=== PATIENT | female | born 1935 | race Caucasian/White ===

== ENCOUNTER 2021-01-23 11:18 | Inpatient (IN) | payer MEDICARE, BC ==
--- NOTE | 2021-01-23 11:58 | ED ---
General Adult HPI - General Chief complaint: Shortness of Breath Stated complaint: Altered,COVID + Time Seen by Provider: 01/23/21 11:33 Source: patient, EMS, RN notes reviewed, old records reviewed Mode of arrival: EMS Limitations: altered mental status - History of Present Illness Initial comments: 85-year-old female presenting from [facility] with increased work of breathing. Patient was diagnosed with coronavirus on January 18. She had gone to an outside hospital for evaluation of confusion. She was noted to be coronavirus positive at that time. She had an inpatient stay and was discharged to the [facility]. She's been at the [facility] for approximately 24 hours according to EMS history. She's had increased work of breathing over that time. No history is able to be obtained from the patient herself. She is lethargic in moderate respiratory distress. - Related Data Home Medications Medication Instructions Recorded Confirmed Allopurinol [Zyloprim] 100 mg PO DAILY 01/23/21 01/23/21 Apixaban [Eliquis] 2.5 mg PO BID@0900,1700 01/23/21 01/23/21 Aspirin EC [Ecotrin Low Dose] 81 mg PO DAILY 01/23/21 01/23/21 Atorvastatin [Lipitor] 40 mg PO HS 01/23/21 01/23/21 Carvedilol [Coreg] 25 mg PO BID@0900,1700 01/23/21 01/23/21 Insulin Detemir [Levemir Flextouch] 40 units SQ HS 01/23/21 01/23/21 Insulin Lispro [humaLOG Kwikpen] 12 unit SQ AC-BRKFST@0800 01/23/21 01/23/21 Insulin Lispro [humaLOG Kwikpen] 14 unit SQ AC-BID@1200,1700 01/23/21 01/23/21 Ipratropium [place] [Atrovent Hfa] 2 puff INHALATION RT-Q6H PRN 01/23/21 01/23/21 Isosorbide Dinitrate 30 mg PO DAILY 01/23/21 01/23/21 Levothyroxine Sodium [Synthroid] 50 mcg PO DAILY@0600 01/23/21 01/23/21 Mirtazapine [Remeron] 15 mg PO HS 01/23/21 01/23/21 Spironolactone [Aldactone] 25 mg PO DAILY 01/23/21 01/23/21 Torsemide [Demadex] 40 mg PO SUMOWEFR@0900 01/23/21 01/23/21 Torsemide [Demadex] 60 mg PO TUTHSA@0900 01/23/21 01/23/21 amLODIPine [Norvasc] 5 mg PO DAILY 01/23/21 01/23/21 Allergies Allergy/AdvReac Type Severity Reaction Status Date / Time Sulfa (Sulfonamide Allergy Unknown Verified 01/23/21 11:53 Antibiotics) Review of Systems ROS Statement: Those systems with pertinent positive or pertinent negative responses have been documented in the HPI. ROS Other: All systems not noted in ROS Statement are negative. Past Medical History Past Medical History: Diabetes Mellitus, Hyperlipidemia, Hypertension, Renal Disease Additional Past Medical History / Comment(s): cad, esrd History of Any Multi-Drug Resistant Organisms: Unobtainable Past Psychological History: Unable to Obtain Smoking Status: Unknown if ever smoked Past Alcohol Use History: Unable to Obtain Past Drug Use History: Unable to Obtain General Exam Limitations: altered mental status General appearance: lethargic, in distress Head exam: Present: atraumatic, normocephalic Eye exam: Present: normal appearance, PERRL ENT exam: Present: normal exam Neck exam: Present: normal inspection. Absent: tenderness, meningismus Respiratory exam: Present: respiratory distress, wheezes, rales, accessory muscle use Cardiovascular Exam: Present: regular rate, normal rhythm GI/Abdominal exam: Present: soft, distended. Absent: tenderness, guarding, rebound Extremities exam: Present: normal inspection, normal capillary refill. Absent: pedal edema Neurological exam: Absent: alert, oriented X3 Psychiatric exam: Present: normal affect, normal mood Skin exam: Present: warm, dry, intact. Absent: cyanosis, diaphoretic Course Vital Signs 01/23/21 01/23/21 01/23/21 11:21 11:32 11:41 Temperature 98.3 F Pulse Rate 66 71 Respiratory 24 26 H 30 H Rate Blood Pressure 124/53 O2 Sat by Pulse 95 92 L Oximetry 01/23/21 01/23/21 12:00 12:30 Temperature Pulse Rate 69 70 Respiratory 26 H 30 H Rate Blood Pressure 122/60 143/93 O2 Sat by Pulse 94 L 95 Oximetry - Reevaluation(s) Reevaluation #1: 01/23/21 13:20 records from outside hospital have been requested. EKG Findings - EKG Comments: EKG Findings:: Normal sinus rhythm tremor artifact in the precordial leads, do not see any ST segment elevation, rate of 71, PA interval 144, QRS duration 70, QTC 389 Medical Decision Making - Medical Decision Making 85-year-old female presenting for evaluation of worsening dyspnea. [facility] was [facility]. She had a stay at an outside hospital with coronavirus. The details of this are completely well understood and records are being obtained. Chest x-ray repeated today showing a bilateral pneumonia. She has a normal CBC, CMP showing creatinine 2.2, she does have significantly elevated inflammatory markers including d-dimer, LDH, and CRP. She given IV Decadron in the emergency department. She has been admitted to internal medicine with pulmonology on consult. - Lab Data Result diagrams: 01/23/21 11:43 01/23/21 11:43 Lab Results 01/23/21 01/23/21 01/23/21 Range/Units 11:43 11:43 11:43 WBC 5.4 (3.8-10.6) k/uL RBC 5.14 (3.80-5.40) m/uL Hgb 15.5 (11.4-16.0) gm/dL Hct 48.5 H (34.0-46.0) % MCV 94.2 (80.0-100.0) fL MCH 30.2 (25.0-35.0) pg MCHC 32.1 (31.0-37.0) g/dL RDW 15.8 H (11.5-15.5) % Plt Count 185 (150-450) k/uL MPV 8.6 Neutrophils % 84 % Lymphocytes % 10 % Monocytes % 4 % Eosinophils % 0 % Basophils % 1 % Neutrophils # 4.6 (1.3-7.7) k/uL Lymphocytes # 0.5 L (1.0-4.8) k/uL Monocytes # 0.2 (0-1.0) k/uL Eosinophils # 0.0 (0-0.7) k/uL Basophils # 0.0 (0-0.2) k/uL PT 10.6 (9.0-12.0) sec INR 1.0 (<1.2) APTT 24.4 (22.0-30.0) sec D-Dimer 2.10 H (<0.60) mg/L FEU Sodium 140 (137-145) mmol/L Potassium 4.9 (3.5-5.1) mmol/L Chloride 111 H (98-107) mmol/L Carbon Dioxide 21 L (22-30) mmol/L Anion Gap 8 mmol/L BUN 53 H (7-17) mg/dL Creatinine 2.20 H (0.52-1.04) mg/dL Est GFR (CKD-EPI)AfAm 23 (>60 ml/min/1.73 sqM) Est GFR (CKD-EPI)NonAf 20 (>60 ml/min/1.73 sqM) Glucose 95 (74-99) mg/dL Plasma Lactic Acid Tino (0.7-2.0) mmol/L Calcium 10.7 H (8.4-10.2) mg/dL Magnesium 2.6 H (1.6-2.3) mg/dL Total Bilirubin 0.5 (0.2-1.3) mg/dL AST 45 H (14-36) U/L ALT 22 (4-34) U/L Alkaline Phosphatase 87 (38-126) U/L Lactate Dehydrogenase 1076 H (313-618) U/L C-Reactive Protein 20.8 H (<1.0) mg/dL Total Protein 5.6 L (6.3-8.2) g/dL Albumin 3.1 L (3.5-5.0) g/dL 01/23/21 Range/Units 11:43 WBC (3.8-10.6) k/uL RBC (3.80-5.40) m/uL Hgb (11.4-16.0) gm/dL Hct (34.0-46.0) % MCV (80.0-100.0) fL MCH (25.0-35.0) pg MCHC (31.0-37.0) g/dL RDW (11.5-15.5) % Plt Count (150-450) k/uL MPV Neutrophils % % Lymphocytes % % Monocytes % % Eosinophils % % Basophils % % Neutrophils # (1.3-7.7) k/uL Lymphocytes # (1.0-4.8) k/uL Monocytes # (0-1.0) k/uL Eosinophils # (0-0.7) k/uL Basophils # (0-0.2) k/uL PT (9.0-12.0) sec INR (<1.2) APTT (22.0-30.0) sec D-Dimer (<0.60) mg/L FEU Sodium (137-145) mmol/L Potassium (3.5-5.1) mmol/L Chloride (98-107) mmol/L Carbon Dioxide (22-30) mmol/L Anion Gap mmol/L BUN (7-17) mg/dL Creatinine (0.52-1.04) mg/dL Est GFR (CKD-EPI)AfAm (>60 ml/min/1.73 sqM) Est GFR (CKD-EPI)NonAf (>60 ml/min/1.73 sqM) Glucose (74-99) mg/dL Plasma Lactic Acid Tino 1.2 (0.7-2.0) mmol/L Calcium (8.4-10.2) mg/dL Magnesium (1.6-2.3) mg/dL Total Bilirubin (0.2-1.3) mg/dL AST (14-36) U/L ALT (4-34) U/L Alkaline Phosphatase (38-126) U/L Lactate Dehydrogenase (313-618) U/L C-Reactive Protein (<1.0) mg/dL Total Protein (6.3-8.2) g/dL Albumin (3.5-5.0) g/dL Critical Care Time Critical Care Time: Yes Total Critical Care Time: 35 Disposition Clinical Impression: Pneumonia due to COVID-19 virus, Hypoxia Disposition: ADMITTED IP TO THIS [facility] Condition: Serious Is patient prescribed a controlled substance at d/c from ED?: No Referrals: Vee Mack MD [Primary Care Provider] - 1-2 days Decision to Admit Reason: Admit from EC Decision Date: 01/23/21 Decision Time: 13:35
[2021-01-23 12:08] LABS: Basophils % (A) 1 %; Eosinophils % (A) 0 %; HCT 48.5 % (34.0-46.0); HGB 15.5 gm/dL (11.4-16.0); Lymphocytes # (A) 0.5 k/uL (1.0-4.8); Lymphocytes % (A) 10 %; MCH 30.2 pg (25.0-35.0); MCHC 32.1 g/dL (31.0-37.0); MCV 94.2 fL (80.0-100.0); Mean Platelet Volume 8.6; Monocytes # (A) 0.2 k/uL (0-1.0); Monocytes % (A) 4 %; Neutrophils # (A) 4.6 k/uL (1.3-7.7); Neutrophils % (A) 84 %; Platelet Count 185 k/uL (150-450); RBC 5.14 m/uL (3.80-5.40); RDW 15.8 % (11.5-15.5); WBC 5.4 k/uL (3.8-10.6)
--- NOTE | 2021-01-23 12:12 | XR ---
EXAMINATION TYPE: XR chest 1V portable DATE OF EXAM: 01/23/2021 COMPARISON: NONE HISTORY: Unresponsive. Shortness of breath. TECHNIQUE: Single frontal view of the chest is obtained. FINDINGS: Cardiomegaly is present with atherosclerotic aorta. The osseous structures are demineral ized. There are chronic parenchymal changes bilaterally with increased opacities in the lower lungs r ight more prominent than left. No pleural effusion or pneumothorax noted bilaterally. IMPRESSION: Cardiomegaly and chronic parenchymal changes with right greater than left multifocal opa cities mid to lower lung suggesting covid-19 infection, correlate clinically.
[2021-01-23 12:17] LABS: Albumin 3.1 g/dL (3.5-5.0); Calcium 10.7 mg/dL (8.4-10.2); Magnesium 2.6 mg/dL (1.6-2.3); Potassium 4.9 mmol/L (3.5-5.1); Total Bilirubin 0.5 mg/dL (0.2-1.3); Total Protein 5.6 g/dL (6.3-8.2)
[2021-01-23 12:26] LABS: Partial Thromboplastin Time 24.4 sec (22.0-30.0); Prothrombin Time 10.6 sec (9.0-12.0)
[2021-01-23 12:36] LABS: D-Dimer 2.1 mg/L FEU (<0.60)
[2021-01-23 12:50] LABS: C Reactive Protein 20.8 mg/dL (<1.0)
[2021-01-23] MEDS ORDERED: DEXAMETHASONE SOD PHOSPHATE 10 MG/ML 1 ML VIAL IV STA (13:31)
[2021-01-23] MEDS ORDERED: NALOXONE 0.4 MG/ML 1 ML VIAL IV PRN (13:31)
[2021-01-23] MEDS ORDERED: ACETAMINOPHEN TAB 325 MG TAB PO PRN ×2 (13:31→16:05)
[2021-01-23] MEDS: SODIUM CHLORIDE 0.9% 1,000 ML IV SCH (13:48)
[2021-01-23] MEDS ORDERED: SODIUM CHLORIDE 0.9% 500 ML 500 ML IV ONE (13:49)
[2021-01-23] MEDS ORDERED: ENOXAPARIN 40 MG/0.4 ML SYRINGE SQ STA (13:53)
[2021-01-23] MEDS ORDERED: ONDANSETRON 4 MG/2 ML VIAL IVP PRN (16:05)
--- NOTE | 2021-01-23 16:43 | P.HPIM ---
History of Present Illness H&P Date: 01/23/21 85 years old female patient of Dr. Mack past medical history of hypertension hyperlipidemia coronary artery disease, chronic kidney disease unknown stage presents with increasing confusion and hypoxia from [facility] on the [place]. Apparently patient was brought to the ER at [facility] on 01/17 for worsening confusion and flulike symptoms. Patient went home as was not able to be seen for her symptoms soon enough and called her primary care physician who ordered a CAT scan of the head. CAT scan of the head was negative and patient was brought back to the ER on 01/18 and was treated for COVID pneumonia. Patient was discharged to [facility] [place] and was brought back to the ER 24- hour later for worsening shortness of breath.on evaluation in the ER patient is short of breath requiring 6 L of oxygen unable to answer any questions very drowsy on evaluation. She opens her eyes to question only to go back to sleep in a short while. Patient withdraws to pain but does not follow commands. No family member is present at bedside. Son was called multiple times but was unable to be reached. History is obtained through patient's and documentation by the ER. She has never been admitted in this hospital. Evaluation Suggests Hemoglobin Is 15.5 Platelet 185 INR 1 D-Dimer 2.1 Sodium 140 Potassium 4.9 Chloride 111 Bicarb 20 1B UN 53 Creatinine 2.2 Calcium Is 10.7 Magnesium 2.6 Lactic Acid 1.6 Alkaline Phosphatase 87, LDH 1076 CRP 20.8 Output (3.1. Pro- Calcitonin Is Pending. ProBNP Is Pending. Chest X-Ray suggested cardiomegaly and chronic parenchymal changes with right greater than left multifocal opacities metoprolol and suggestive of COVID-[address] head ordered to rule out acute stroke. Patient's home medication reconciled will hold torsemide, spironolactone. Nephrology course consult for possible end-stage renal disease. Unclear if patient is on him and on dialysis. Ultrasound of the renal obtained. neurology in consult for acute encephalopathy likely secondary to Covid. Patient does have underlying dementia?. We'll start patient on dexamethasone 6 mg IV every 12 hours. Start her on vitamin C, vitamin D and zinc. Pulmonary consulted for Covid pneumonia. Review of Systems ROS unobtainable: due to mental status Past Medical History Past Medical History: Diabetes Mellitus, Hyperlipidemia, Hypertension, Renal Disease Additional Past Medical History / Comment(s): cad, esrd History of Any Multi-Drug Resistant Organisms: Unobtainable Past Psychological History: Unable to Obtain Smoking Status: Unknown if ever smoked Past Alcohol Use History: Unable to Obtain Past Drug Use History: Unable to Obtain Medications and Allergies Home Medications Medication Instructions Recorded Confirmed Type Allopurinol [Zyloprim] 100 mg PO DAILY 01/23/21 01/23/21 History Apixaban [Eliquis] 2.5 mg PO BID@0900,1700 01/23/21 01/23/21 History Aspirin EC [Ecotrin Low Dose] 81 mg PO DAILY 01/23/21 01/23/21 History Atorvastatin [Lipitor] 40 mg PO HS 01/23/21 01/23/21 History Carvedilol [Coreg] 25 mg PO BID@0900,1700 01/23/21 01/23/21 History Insulin Detemir [Levemir Flextouch] 40 units SQ HS 01/23/21 01/23/21 History Insulin Lispro [humaLOG Kwikpen] 12 unit SQ AC-BRKFST@0800 01/23/21 01/23/21 History Insulin Lispro [humaLOG Kwikpen] 14 unit SQ AC-BID@1200,1700 01/23/21 01/23/21 History Ipratropium [place] [Atrovent Hfa] 2 puff INHALATION RT-Q6H PRN 01/23/21 01/23/21 History Isosorbide Dinitrate 30 mg PO DAILY 01/23/21 01/23/21 History Levothyroxine Sodium [Synthroid] 50 mcg PO DAILY@0600 01/23/21 01/23/21 History Mirtazapine [Remeron] 15 mg PO HS 01/23/21 01/23/21 History Spironolactone [Aldactone] 25 mg PO DAILY 01/23/21 01/23/21 History Torsemide [Demadex] 40 mg PO SUMOWEFR@0900 01/23/21 01/23/21 History Torsemide [Demadex] 60 mg PO TUTHSA@0900 01/23/21 01/23/21 History amLODIPine [Norvasc] 5 mg PO DAILY 01/23/21 01/23/21 History Allergies Allergy/AdvReac Type Severity Reaction Status Date / Time Sulfa (Sulfonamide Allergy Unknown Verified 01/23/21 11:53 Antibiotics) Physical Exam Vitals: Vital Signs Temp Pulse Resp BP Pulse Ox 01/23/21 13:53 99.5 F 70 26 H 115/73 94 L 01/23/21 12:30 70 30 H 143/93 95 01/23/21 12:00 69 26 H 122/60 94 L 01/23/21 11:41 71 30 H 92 L 01/23/21 11:32 26 H 01/23/21 11:21 98.3 F 66 24 124/53 95 Intake and Output 01/23/21 01/23/21 01/23/21 06:59 14:59 22:59 Other: Weight 99.79 kg - Constitutional General appearance: Drowsy, opens eyes to command - EENT Eyes: anicteric sclerae, PERRLA, normal appearance ENT: hearing grossly normal - Neck Neck: no lymphadenopathy, normal ROM, no rigidity, - Respiratory Respiratory: bilateral: Decreased air entry appears diminished, - Cardiovascular Rhythm: regular Heart sounds: normal: S1, S2 Abnormal Heart Sounds: no systolic murmur, no diastolic murmur - Gastrointestinal General gastrointestinal: normal bowel sounds, soft nontender - Integumentary Integumentary: no rash - Neurologic Neurologic: Pupils are equal and reactive to light, withdraws to painful stimuli, sensory deficit could not be obtained generalized weakness - Musculoskeletal Musculoskeletal: gait not assessed, strength decreased bilaterally in all extr emities - Psychiatric Psychiatric: Drowsy and not able to answer any questions Results CBC & Chem 7: 01/23/21 11:43 01/23/21 11:43 Labs: Abnormal Lab Results - Last 24 Hours (Table) 01/23/21 01/23/21 01/23/21 Range/Units 11:43 11:43 11:43 Hct 48.5 H (34.0-46.0) % RDW 15.8 H (11.5-15.5) % Lymphocytes # 0.5 L (1.0-4.8) k/uL D-Dimer 2.10 H (<0.60) mg/L FEU Chloride 111 H (98-107) mmol/L Carbon Dioxide 21 L (22-30) mmol/L BUN 53 H (7-17) mg/dL Creatinine 2.20 H (0.52-1.04) mg/dL Calcium 10.7 H (8.4-10.2) mg/dL Magnesium 2.6 H (1.6-2.3) mg/dL AST 45 H (14-36) U/L Lactate Dehydrogenase 1076 H (313-618) U/L C-Reactive Protein 20.8 H (<1.0) mg/dL Total Protein 5.6 L (6.3-8.2) g/dL Albumin 3.1 L (3.5-5.0) g/dL Thrombosis Risk Factor Assmnt - DVT/VTE Prophylaxis DVT/VTE Prophylaxis: Pharmacologic Prophylaxis ordered Assessment and Plan Plan: #1 acute toxic metabolic encephalopathy likely secondary to correlate. Unknown if patient has underlying dementia. No family available to answer questions. Keep patient on fall precaution and seizure precautions. Neurology consulted. Start CT head obtained. CT was also obtained on 01/17 at the hospital has been was negative for any acute changes #2 acute hypoxic respiratory failure secondary to Covid pneumonia. Chest x-ray suggestive of bilateral infiltrates. Pro Air as needed for shortness of breath. Pulmonary consulted. Mucinex as needed. Sputum culture. Dexamethasone 6 mg IV every 12 hours. Vitamin C, vitamin D and zinc. Inflammation markers are elevated. #3 acute kidney injury over chronic kidney disease stage unknown. Patient has no prior baseline creatinine. Ultrasound kidney to be obtained. Nephrology consult placed. Continue IV fluids at 75 mL per hour. Hold torsemide hold Aldactone. #4 coronary artery disease unclear if patient had stents in the past. Continue atorvastatin, isosorbide dinitrate continue Coreg 25 mg twice a day #5 hypothyroidism continue levothyroxine 50 g daily TSH ordered #6 type 2 diabetes continue Levemir 40 units subcu at bedtime. Hold insulin at mealtime. Continue with insulin sliding scale #7 hyperlipidemia continue atorvastatin 40 mg by mouth daily #8 hypertension continue amlodipine 5 mg by mouth daily #9. Gout allopurinol 100 mg by mouth daily #10 atrial fibrillation Eliquis 2. 5 mg twice a day continue Coreg 25 twice a day #11 CODE STATUS multiple calls were made to the family but nobody responded. [facility] was called to find out more information on the patient nobody available to receive the call. Left message with the son to call back with information on patient's medical history. Another attempt will be made tomorrow. Will keep patient is full code until otherwise stated. #12 GI prophylaxis with Pepcid 20 mg IV twice a day #13 DVT prophylaxis with eliquis as 2.5 twice a day #14 disposition patient needed placement with initial inpatient nights for stabilization
--- NOTE | 2021-01-23 17:03 | CT ---
EXAMINATION TYPE: CT brain wo con DATE OF EXAM: 01/23/2021 COMPARISON: 10/17/2011 HISTORY: ams, covid + CT DLP: 1100.4 mGycm Automated exposure control for dose reduction was used. Images were obtained of the brain without contrast. There is cerebral atrophy. There is no mass effect nor midline shift. There is no sign of intracrania l hemorrhage. There is opacification right maxillary sinus with mixed attenuation. This probably rela raffi to chronic sinusitis. No focal bone destruction seen. Skull base is intact. IMPRESSION: Cerebral atrophy. No acute intracranial abnormality. Right maxillary sinusitis. This appears new comp ared to old exam. Atrophy unchanged.
[2021-01-23] MEDS ORDERED: REMDESIVIR 200 MG in SODIUM CHLORIDE 0.9% 250 ML IVPB ONE (18:00)
[2021-01-23] MEDS: INSULIN ASPART (NovoLOG) 100 UNIT/ML VIAL SQ SCH ×2 (18:31→21:21)
[2021-01-23 18:32] LABS: Glucose,Whole Blood 85 mg/dL (75-99)
[2021-01-23] MEDS: carvediloL 12.5 MG TAB PO SCH (18:48)
[2021-01-23] MEDS: APIXABAN 2.5 MG TABLET PO SCH (18:48)
[2021-01-23 18:51] LABS: Ferritin 2729.1 ng/mL (10.0-291.0)
--- NOTE | 2021-01-23 19:03 | US ---
EXAMINATION TYPE: US venous doppler duplex [facility] DATE OF EXAM: 01/23/2021 6:46 PM COMPARISON: NONE CLINICAL HISTORY: r/o DVT. Elevated D dimer per patient's EC RN. SIDE PERFORMED: Bilateral limited LEV Duplex was performed as patient is positioned on right hip/leg and is intolerant of probe compression. TECHNIQUE: The lower extremity deep venous system is examined utilizing real time linear array sonog mirian with graded compression, doppler sonography and color-flow sonography. VESSELS IMAGED: Common Femoral Vein Deep Femoral Vein Greater Saphenous Vein * Femoral Vein Popliteal Vein Small Saphenous Vein * Proximal Calf Veins (* superficial vessels) Right Leg: Negative for DVT as was able to assess veins due to large panus over right groin and jenny ent right posterior oblique. Left Leg: Stuck venous valves with wall echoes are noted at upper calf veins; otherwise, is negative for DVT as technologist was able to assess. IMPRESSION: No deep vein thrombosis seen in both legs. Limited exam.
[2021-01-23] MEDS ORDERED: INSULIN DETEMIR (LEVEMIR) 100 UNIT/ML SYR SQ SCH (21:00)
[2021-01-23 21:17] LABS: Glucose,Whole Blood 81 mg/dL (75-99)
[2021-01-23] MEDS ORDERED: MORPHINE SULFATE 2 MG/ML SYRINGE IVP STA (21:19)
[2021-01-23] MEDS: guaiFENesin 600 MG TABLET.ER PO SCH (21:20)
[2021-01-23] MEDS: ATORVASTATIN 40 MG TAB PO SCH (21:20)
[2021-01-23] MEDS: DEXAMETHASONE SOD PHOSPHATE 10 MG/ML 1 ML VIAL IV SCH (21:41)
--- NOTE | 2021-01-24 00:01 | US ---
EXAMINATION TYPE: US renals and bladder DATE OF EXAM: 01/23/2021 COMPARISON: CT, CLINICAL HISTORY: DANIEL . Right adrenal mass per CT; renal stones per prior CT; EC patient with COVID a nd unresponsive to questions; EXAM MEASUREMENTS: Right Kidney: 11.3 x 6.8 z 5.7 cm Left Kidney: 11.4 x 4.2 x 4.7 cm Post Void Residual Volume: not assessed on EC patient US exam is technically limited as patient is unresponsive to positional changes/ inspiration and hold maneuver for US images Right Kidney: lobular cortex ; hypoechoic lobular area seen superiorly = 2.5 x 2.2 x 2.1cm Left Kidney: lobular, irregular cortex; superior pole calcifications seen = 0.8 x 0.6 x 0.5cm Bladder: well distended Bilateral Jets seen: not able to assess with body motion from respirations IMPRESSION: There is bilateral renal atrophy. Non obstructing calculus upper pole left kidney. No evidence of a r enal mass. No hydronephrosis. Exam limited. No evidence of a bladder mass.
[2021-01-24 04:20] LABS: Glucose,Whole Blood 102 mg/dL (75-99)
[2021-01-24] MEDS: SODIUM CHLORIDE 0.9% 1,000 ML IV SCH (05:00)
[2021-01-24 05:01] LABS: Albumin 2.6 g/dL (3.5-5.0); Calcium 10.2 mg/dL (8.4-10.2); Potassium 5.1 mmol/L (3.5-5.1); Total Bilirubin 0.4 mg/dL (0.2-1.3)
[2021-01-24 05:12] LABS: C Reactive Protein 18.9 mg/dL (<1.0)
[2021-01-24 06:07] LABS: Basophils % (A) 1 %; Eosinophils % (A) 0 %; HCT 46.7 % (34.0-46.0); HGB 14.3 gm/dL (11.4-16.0); Hypochromasia Slight; Lymphocytes # (A) 0.3 k/uL (1.0-4.8); Lymphocytes % (A) 8 %; MCH 29.5 pg (25.0-35.0); MCHC 30.6 g/dL (31.0-37.0); MCV 96.5 fL (80.0-100.0); Mean Platelet Volume 9.2; Monocytes # (A) 0.2 k/uL (0-1.0); Monocytes % (A) 4 %; Neutrophils # (A) 3.5 k/uL (1.3-7.7); Neutrophils % (A) 84 %; Platelet Count 189 k/uL (150-450); RBC 4.84 m/uL (3.80-5.40); RDW 15.8 % (11.5-15.5); WBC 4.2 k/uL (3.8-10.6)
[2021-01-24] MEDS: LEVOTHYROXINE 50 MCG TAB PO SCH (06:21)
--- NOTE | 2021-01-24 06:38 | XR ---
EXAMINATION TYPE: XR chest 1V portable DATE OF EXAM: 01/24/2021 CLINICAL HISTORY: Difficulty breathing progress study. TECHNIQUE: Single AP portable frontal view of the chest is obtained. COMPARISON: Chest x-ray from one day earlier FINDINGS: Cardiomegaly is redemonstrated with atherosclerotic aorta. The osseous structures remain somewhat demineralized. There are chronic parenchymal changes bilaterally with increased multifocal and confluent opacities in the mid to lower lungs, right more prominent than left redemonstrated. IMPRESSION: Cardiomegaly and chronic parenchymal changes with right greater than left multifocal and confluent opacities mid to lower lung suggesting covid-19 infection redemonstrated.No significant ch juan francisco from one day earlier.
[2021-01-24] MEDS ORDERED: ENOXAPARIN 30 MG/0.3 ML SYRINGE SQ SCH (09:00)
[2021-01-24] MEDS ORDERED: allopurinoL 100 MG TAB PO SCH (09:00)
[2021-01-24] MEDS ORDERED: SPIRONOLACTONE 25 MG TAB PO SCH (09:00)
[2021-01-24] MEDS: INSULIN ASPART (NovoLOG) 100 UNIT/ML VIAL SQ SCH ×4 (10:05→22:18)
[2021-01-24 10:06] LABS: Glucose,Whole Blood 123 mg/dL (75-99)
--- NOTE | 2021-01-24 10:06 | P.CNPUL ---
History of Present Illness Consult date: 01/23/21 Reason for consult: dyspnea, hypoxemia, pneumonia History of present illness: 85-year-old female patient, presented today for altered mentation and and worsening hypoxemia. She resides in [facility] on [facility]. She was in the emergency department on 01/17/2021 at [facility], where the patient had some altered mentation and flulike symptoms. She was worked up with a CAT scan of the brain that was negative. She was found to be positive for COVID-19 on 01/18/2021. Today, she is coming in with worsening shortness of breath. She is currently on 6 L of oxygen by nasal cannula. She looks very drowsy. In terms of her blood work, she has a white cell count of 5.4, lymphopenia is present, d- dimer is at 2.1, BNP is 53 with a creatinine of 2.2, AST is 45, LDH is 1076, CRP at 20.8, and a chest x-ray showing bilateral pulmonary infiltrates in lung bases right more than left. Currently on 6 L. Started on Decadron and currently is on 6 mg IV every 12 hours. She is also on long-term and to coagulation with Eliquis 2.5 mg by mouth twice a day Comorbid conditions include age, coronary artery disease, diabetes mellitus type 2 on Levemir, hypertension, hyperlipidemia, gout, history of atrial fibrillation and possibly a component of chronic kidney disease. Review of Systems ROS unobtainable: due to mental status Past Medical History Past Medical History: Coronary Artery Disease (CAD), Diabetes Mellitus, Hyperlipidemia, Hypertension, Renal Disease Additional Past Medical History / Comment(s): cad, esrd History of Any Multi-Drug Resistant Organisms: Unobtainable Past Psychological History: Unable to Obtain Smoking Status: Unknown if ever smoked Past Alcohol Use History: Unable to Obtain Past Drug Use History: Unable to Obtain Medications and Allergies Home Medications Medication Instructions Recorded Confirmed Type Allopurinol [Zyloprim] 100 mg PO DAILY 01/23/21 01/23/21 History Apixaban [Eliquis] 2.5 mg PO BID@0900,1700 01/23/21 01/23/21 History Aspirin EC [Ecotrin Low Dose] 81 mg PO DAILY 01/23/21 01/23/21 History Atorvastatin [Lipitor] 40 mg PO HS 01/23/21 01/23/21 History Carvedilol [Coreg] 25 mg PO BID@0900,1700 01/23/21 01/23/21 History Insulin Detemir [Levemir Flextouch] 40 units SQ HS 01/23/21 01/23/21 History Insulin Lispro [humaLOG Kwikpen] 12 unit SQ AC-BRKFST@0800 01/23/21 01/23/21 History Insulin Lispro [humaLOG Kwikpen] 14 unit SQ AC-BID@1200,1700 01/23/21 01/23/21 History Ipratropium [place] [Atrovent Hfa] 2 puff INHALATION RT-Q6H PRN 01/23/21 01/23/21 History Isosorbide Dinitrate 30 mg PO DAILY 01/23/21 01/23/21 History Levothyroxine Sodium [Synthroid] 50 mcg PO DAILY@0600 01/23/21 01/23/21 History Mirtazapine [Remeron] 15 mg PO HS 01/23/21 01/23/21 History Spironolactone [Aldactone] 25 mg PO DAILY 01/23/21 01/23/21 History Torsemide [Demadex] 40 mg PO SUMOWEFR@0900 01/23/21 01/23/21 History Torsemide [Demadex] 60 mg PO TUTHSA@0900 01/23/21 01/23/21 History amLODIPine [Norvasc] 5 mg PO DAILY 01/23/21 01/23/21 History Allergies Allergy/AdvReac Type Severity Reaction Status Date / Time Sulfa (Sulfonamide Allergy Unknown Verified 01/23/21 11:53 Antibiotics) Physical Exam Vitals: Vital Signs Temp Pulse Resp BP Pulse Ox 01/23/21 16:39 98.9 F 72 18 117/61 98 01/23/21 13:53 99.5 F 70 26 H 115/73 94 L 01/23/21 12:30 70 30 H 143/93 95 01/23/21 12:00 69 26 H 122/60 94 L 01/23/21 11:41 71 30 H 92 L 01/23/21 11:32 26 H 01/23/21 11:21 98.3 F 66 24 124/53 95 Intake and Output 01/23/21 01/23/21 01/23/21 06:59 14:59 22:59 Other: Weight 99.79 kg Gen. appearance, comfortable, drowsy, is not following commands and she is unable to volunteer detailed history Head exam was generally normal. There was no scleral icterus or corneal arcus. Mucous membranes were moist. Neck was supple and without jugular venous distension, thyromegaly, or carotid bruits. Carotids were easily palpable bilaterally. There was no adenopathy. Lungs sounds are diminished bilaterally along with some limited crackles in lung bases right more than left Cardiac exam revealed the PMI to be normally situated and sized. The rhythm was regular and no extrasystoles were noted during several minutes of auscultation. The first and second heart sounds were normal and physiologic splitting of the second heart sound was noted. There were no murmurs, rubs, clicks, or gallops. Abdominal exam revealed normal bowel sounds. The abdomen was soft, non-tender, and without masses, organomegaly, or appreciable enlargement of the abdominal aorta. Examination of the extremities revealed easily palpable radial, femoral and pedal pulses. There was no cyanosis, clubbing or edema. Neurologically, there is generalized global weakness, neurologic exam is nonfocal. Pupils are equal and reactive to light. No focal neurological deficits. Results - Laboratory Findings CBC and BMP: 01/24/21 04:16 01/24/21 04:16 PT/INR, D-dimer PT 10.6 sec (9.0-12.0) 01/23/21 11:43 INR 1.0 (<1.2) 01/23/21 11:43 D-Dimer 2.10 mg/L FEU (<0.60) H 01/23/21 11:43 Abnormal lab findings: Abnormal Labs 01/23/21 01/23/21 01/23/21 11:43 11:43 11:43 Hct 48.5 H RDW 15.8 H Lymphocytes # 0.5 L D-Dimer 2.10 H Chloride 111 H Carbon Dioxide 21 L BUN 53 H Creatinine 2.20 H Calcium 10.7 H Magnesium 2.6 H AST 45 H Lactate Dehydrogenase 1076 H C-Reactive Protein 20.8 H Total Protein 5.6 L Albumin 3.1 L - Diagnostic Findings Chest x-ray: image reviewed Assessment and Plan Plan: 1 acute COVID-19 related pneumonia/infection with secondary shortness of breath and encephalopathy. 2 acute hypoxic respiratory failure currently on 6 L by nasal cannula 3 acute kidney injury, likely on top of chronic kidney failure 4 CAD 5 diabetes mellitus type 2 mental Levemir insulin 40 units along with a size. Coverage 6 hypertension 7 hyperlipidemia 8 chronic atrial fibrillation, maintained on long-term and to coagulation withEliquis 9 hypothyroidism Plan Continue IV fluids with normal saline at the rate of 75 mL's an hour IV Decadron 6 mg every 24 hours Continue anticoagulation with Eliquis 2.5 mg by mouth twice a day Monitor inflammatory markers Remdesivir protocol CODE STATUS needs to be established Monitor the blood sugars going to the patient is going to take steroids. Put on a scale coverage. Put her on Levemir insulin and the dose to be adjusted probably at a later stage based on her blood sugar response. Monitor mental status We'll continue to follow
--- NOTE | 2021-01-24 10:11 | P.PN ---
Subjective Progress Note Date: 01/24/21 85-year-old female patient, presented today for altered mentation and and worsening hypoxemia. She resides in [facility] on the [place]. She was in the emergency department on 01/17/2021 at [facility], where the patient had some altered mentation and flulike symptoms. She was worked up with a CAT scan of the brain that was negative. She was found to be positive for COVID-19 on 01/18/2021. Today, she is coming in with worsening shortness of breath. She is currently on 6 L of oxygen by nasal cannula. She looks very drowsy. In terms of her blood work, she has a white cell count of 5.4, lymphopenia is present, d- dimer is at 2.1, BNP is 53 with a creatinine of 2.2, AST is 45, LDH is 1076, CRP at 20.8, and a chest x-ray showing bilateral pulmonary infiltrates in lung bases right more than left. Currently on 6 L. Started on Decadron and currently is on 6 mg IV every 12 hours. She is also on long-term and to coagulation with Eliquis 2.5 mg by mouth twice a day On 01/24/2021, the patient is slightly more responsive. She is still refusing to eat and her oral intake is almost none at this point in time. She is receiving IV fluids and she is currently on normal saline at the rate of 75 mL an hour. On her blood work, the patient has a sodium level of 141, serum bicarbonate 18, creatinine is at 2.1, slightly improved compared to yesterday, LDH level is elevated at 845, slightly lower in the CRP is at 18.9 with a d- dimer of 3.07. She was started on a combination of Decadron 6 mg IV every 12 and the patient is also on day #2 of Remdesivir she has chronic kidney disease. She is on long-term anticoagulation with Eliquis 2.5 mg by mouth twice a day. She has history of CAD, diabetes mellitus type 2, hyperlipidemia and his previous history of atrial fibrillation. She also has chronic kidney disease. Objective - Vital Signs Vital signs: Vital Signs Temp 97.4 F L 01/24/21 06:46 Pulse 64 01/24/21 08:00 Resp 18 01/24/21 08:00 BP 124/100 01/24/21 08:00 Pulse Ox 93 L 01/24/21 08:00 Intake & Output 01/23/21 01/24/21 01/24/21 18:59 06:59 18:59 Weight 99.79 kg - Exam Gen. appearance, comfortable, drowsy, is not following commands and she is unable to volunteer detailed history Head exam was generally normal. There was no scleral icterus or corneal arcus. Mucous membranes were moist. Neck was supple and without jugular venous distension, thyromegaly, or carotid bruits. Carotids were easily palpable bilaterally. There was no adenopathy. Lungs sounds are diminished bilaterally along with some limited crackles in lung bases right more than left Cardiac exam revealed the PMI to be normally situated and sized. The rhythm was regular and no extrasystoles were noted during several minutes of auscultation. The first and second heart sounds were normal and physiologic splitting of the second heart sound was noted. There were no murmurs, rubs, clicks, or gallops. Abdominal exam revealed normal bowel sounds. The abdomen was soft, non-tender, and without masses, organomegaly, or appreciable enlargement of the abdominal aorta. Examination of the extremities revealed easily palpable radial, femoral and pedal pulses. There was no cyanosis, clubbing or edema. Neurologically, there is generalized global weakness, neurologic exam is non focal. Pupils are equal and reactive to light. No focal neurological deficits. The patient remains confused. She doesn't communicate effectively. She was unable to tell where she was. She is following some simple commands. Neurologic exam is nonfocal. - Labs CBC & Chem 7: 01/24/21 04:16 01/24/21 04:16 Labs: Abnormal Lab Results - Last 24 Hours (Table) 01/23/21 01/23/21 01/23/21 Range/Units 11:43 11:43 11:43 Hct 48.5 H (34.0-46.0) % MCHC (31.0-37.0) g/dL RDW 15.8 H (11.5-15.5) % Lymphocytes # 0.5 L (1.0-4.8) k/uL D-Dimer 2.10 H (<0.60) mg/L FEU Chloride 111 H (98-107) mmol/L Carbon Dioxide 21 L (22-30) mmol/L BUN 53 H (7-17) mg/dL Creatinine 2.20 H (0.52-1.04) mg/dL Glucose (74-99) mg/dL POC Glucose (mg/dL) (75-99) mg/dL Calcium 10.7 H (8.4-10.2) mg/dL Magnesium 2.6 H (1.6-2.3) mg/dL Ferritin 2729.1 H (10.0-291.0) ng/mL AST 45 H (14-36) U/L Lactate Dehydrogenase 1076 H (313-618) U/L C-Reactive Protein 20.8 H (<1.0) mg/dL Total Protein 5.6 L (6.3-8.2) g/dL Albumin 3.1 L (3.5-5.0) g/dL Procalcitonin (0.02-0.09) ng/mL 01/23/21 01/24/21 01/24/21 Range/Units 11:43 04:16 04:16 Hct 46.7 H (34.0-46.0) % MCHC 30.6 L (31.0-37.0) g/dL RDW 15.8 H (11.5-15.5) % Lymphocytes # 0.3 L (1.0-4.8) k/uL D-Dimer (<0.60) mg/L FEU Chloride 115 H (98-107) mmol/L Carbon Dioxide 18 L (22-30) mmol/L BUN 58 H (7-17) mg/dL Creatinine 2.17 H (0.52-1.04) mg/dL Glucose 116 H (74-99) mg/dL POC Glucose (mg/dL) (75-99) mg/dL Calcium (8.4-10.2) mg/dL Magnesium (1.6-2.3) mg/dL Ferritin (10.0-291.0) ng/mL AST 48 H (14-36) U/L Lactate Dehydrogenase 845 H (313-618) U/L C-Reactive Protein 18.9 H (<1.0) mg/dL Total Protein 5.0 L (6.3-8.2) g/dL Albumin 2.6 L (3.5-5.0) g/dL Procalcitonin 0.61 H (0.02-0.09) ng/mL 01/24/21 01/24/21 01/24/21 Range/Units 04:16 04:19 10:04 Hct (34.0-46.0) % MCHC (31.0-37.0) g/dL RDW (11.5-15.5) % Lymphocytes # (1.0-4.8) k/uL D-Dimer 3.07 H (<0.60) mg/L FEU Chloride (98-107) mmol/L Carbon Dioxide (22-30) mmol/L BUN (7-17) mg/dL Creatinine (0.52-1.04) mg/dL Glucose (74-99) mg/dL POC Glucose (mg/dL) 102 H 123 H (75-99) mg/dL Calcium (8.4-10.2) mg/dL Magnesium (1.6-2.3) mg/dL Ferritin (10.0-291.0) ng/mL AST (14-36) U/L Lactate Dehydrogenase (313-618) U/L C-Reactive Protein (<1.0) mg/dL Total Protein (6.3-8.2) g/dL Albumin (3.5-5.0) g/dL Procalcitonin (0.02-0.09) ng/mL Assessment and Plan Plan: 1 acute COVID-19 related pneumonia/infection with secondary shortness of breath and encephalopathy. She may have an underlying COVID-19 related encephalopathy and altered mentation. No agitation. Neurologic exam is nonfocal. Extremely weak and debilitated. halfway they recently at [facility] on the [place]. 2 acute hypoxic respiratory failure currently on 5 L by nasal cannula currently on Decadron and day #2 of Remdesivir protocol 3 acute kidney injury, likely on top of chronic kidney failure, slightly improved the creatinine is down to 2.1 4 CAD 5 diabetes mellitus type 2 , Levemir insulin 40 units along a scale coverage. The Levemir is currently on hold and the patient is not taking any oral fluid intake for now. 6 hypertension 7 hyperlipidemia 8 chronic atrial fibrillation, maintained on long-term and to coagulation with Eliquis 9 hypothyroidism Plan Continue IV fluids with normal saline at the rate of 75 mL's an hour IV Decadron 6 mg every 24 hours Continue anticoagulation with Eliquis 2.5 mg by mouth twice a day Monitor inflammatory markers Remdesivir protocol holiday #2 Hold Levemir as the patient is not taking any oral intake and put the patient only on his side scale coverage CODE STATUS needs to be established 4 prognosis based on the above-mentioned comorbidities Monitor mental status We'll continue to follow
[2021-01-24] MEDS: PANTOPRAZOLE 40 MG TABLET PO SCH (10:30)
[2021-01-24] MEDS: carvediloL 12.5 MG TAB PO SCH ×2 (10:31→17:53)
[2021-01-24] MEDS: amLODIPine 5 MG TAB PO SCH (10:31)
[2021-01-24] MEDS: APIXABAN 2.5 MG TABLET PO SCH ×2 (10:31→19:42)
[2021-01-24] MEDS: guaiFENesin 600 MG TABLET.ER PO SCH ×2 (10:31→21:59)
[2021-01-24] MEDS: ISOSORBIDE DINITRATE 10 MG TAB PO SCH (10:31)
[2021-01-24] MEDS: DEXAMETHASONE SOD PHOSPHATE 10 MG/ML 1 ML VIAL IV SCH ×2 (10:33→22:18)
--- NOTE | 2021-01-24 10:42 | P.CNNES ---
History of Present Illness Consult date: 01/24/21 Requesting physician: Isabel Pratt Reason for Consult: altered mental status History of Present Illness: This is an 85-year-old woman with history of hypertension, hyperlipidemia, atrial fibrillation on eliquis, hypothyroidism, coronary artery disease, chronic kidney insufficiency who presented emergency department on 01/23/2021 because of increased confusion. History is obtained from medical record since patient is unable to provide history. Per the primary team's note, it seems that the patient has been the having increased confusion and hypoxia at [facility]. It seems that the on 01/17/2021 she's been having confusion flulike symptoms. On 01/18/2021 and she was treated for covid pneumonia and then was discharged back to [facility] for worsening of shortness of breath requiring 6 L of oxygen. Per the patient's nurse she continues to be somewhat in respiratory distress. Workup in our facility consisted of: On presentation the initial vitals his blood pressure of 124/63, heart rate of 66, respiratory of 24, temperature of 98.3 Fahrenheit, pulse ox of 95% on 6 L of nasal cannula and patient's pulse ox decreased down all the way down to the [address] of the head is reported as cerebral atrophy. No acute intracranial abnormality. Right maxillary sinusitis. This appears new compared to old exam. Atrophy unchanged. Chest x-rays reported as cardiomegaly and chronic parenchymal changes with the right greater than left multifocal opacities mid to lower longus suggestion COVID-19 infection, correlate clinically. White blood cell is 5.4 which is considered normal Patient BUN 63 and creatinine is 2.20, calcium 7.7, magnesium is 2.6, AST is 45 which is minimally elevated and ALTs 22 which is normal. Serum glucose is 95 which is considered normal. D-dimer is 2.10 and a repeat is 3.07 which are elevated. Otherwise the coagulation studies are normal. Review of Systems Review of system is limited but the per positive and negative as per HPI. Past Medical History Past Medical History: Coronary Artery Disease (CAD), Diabetes Mellitus, Hyperlipidemia, Hypertension, Renal Disease Additional Past Medical History / Comment(s): cad, esrd History of Any Multi-Drug Resistant Organisms: Unobtainable Past Psychological History: Unable to Obtain Smoking Status: Unknown if ever smoked Past Alcohol Use History: Unable to Obtain Past Drug Use History: Unable to Obtain Medications and Allergies Home Medications Medication Instructions Recorded Confirmed Type Allopurinol [Zyloprim] 100 mg PO DAILY 01/23/21 01/23/21 History Apixaban [Eliquis] 2.5 mg PO BID@0900,1700 01/23/21 01/23/21 History Aspirin EC [Ecotrin Low Dose] 81 mg PO DAILY 01/23/21 01/23/21 History Atorvastatin [Lipitor] 40 mg PO HS 01/23/21 01/23/21 History Carvedilol [Coreg] 25 mg PO BID@0900,1700 01/23/21 01/23/21 History Insulin Detemir [Levemir Flextouch] 40 units SQ HS 01/23/21 01/23/21 History Insulin Lispro [humaLOG Kwikpen] 12 unit SQ AC-BRKFST@0800 01/23/21 01/23/21 History Insulin Lispro [humaLOG Kwikpen] 14 unit SQ AC-BID@1200,1700 01/23/21 01/23/21 History Ipratropium [place] [Atrovent Hfa] 2 puff INHALATION RT-Q6H PRN 01/23/21 01/23/21 History Isosorbide Dinitrate 30 mg PO DAILY 01/23/21 01/23/21 History Levothyroxine Sodium [Synthroid] 50 mcg PO DAILY@0600 01/23/21 01/23/21 History Mirtazapine [Remeron] 15 mg PO HS 01/23/21 01/23/21 History Spironolactone [Aldactone] 25 mg PO DAILY 01/23/21 01/23/21 History Torsemide [Demadex] 40 mg PO SUMOWEFR@0900 01/23/21 01/23/21 History Torsemide [Demadex] 60 mg PO TUTHSA@0900 01/23/21 01/23/21 History amLODIPine [Norvasc] 5 mg PO DAILY 01/23/21 01/23/21 History Allergies Allergy/AdvReac Type Severity Reaction Status Date / Time Sulfa (Sulfonamide Allergy Unknown Verified 01/23/21 11:53 Antibiotics) Physical Examination - Vital Signs Vital Signs: Vital Signs Temp Pulse Resp BP Pulse Ox 04/18/21 08:00 64 18 124/100 93 L 01/24/21 06:46 97.4 F L 66 24 132/61 94 L 01/24/21 05:00 97.7 F 68 20 125/61 96 01/24/21 03:00 66 20 124/71 96 01/24/21 01:00 97.8 F 64 20 130/92 95 01/23/21 23:00 66 20 118/62 96 01/23/21 21:00 98.7 F 64 20 126/58 94 L 01/23/21 20:00 64 20 111/48 96 01/23/21 19:00 72 24 124/62 96 01/23/21 18:00 69 18 100/50 95 01/23/21 16:39 98.9 F 72 18 117/61 98 01/23/21 13:53 99.5 F 70 26 H 115/73 94 L 01/23/21 12:30 70 30 H 143/93 95 01/23/21 12:00 69 26 H 122/60 94 L 01/23/21 11:41 71 30 H 92 L 01/23/21 11:32 26 H 01/23/21 11:21 98.3 F 66 24 124/53 95 GENERAL: The patient is morbid obese patient, lying in bed and seems to be in some respiratory distress. CHEST: The heart rate is regular rate rhythm. No murmurs to auscultation. LUNG: Clear to auscultation bilaterally no wheezing noted throughout. Tacypneic and breathing thru her mouth. Not labored breathing. ABDOMEN/GI: Bowel sounds present in all 4 quadrants. No tenderness to palpation throughout. NEUROLOGICAL: Higher mental function: The patient is drowsy but is briefly awakeable to voice. She correctly stated her name and followed few simple commands such as showing thumbs up and moving extremities. Otherwise not verbalizing. Cranial nerves: The pupils are round, equal and reactive to light. No facial weakness. Otherwise could not assess rest of the cranial nerves because of cooperation. Motor: Gait is deferred. The strength is moving bilateral upper extremities above gravity and withdrawing bilateral lower extremities to painful stimuli symetricallly. Normal tone. No spontaneous movement noted. Cerebellum: Could not assess. Sensation: To painful stimuli seems intact otherwise could not assess light tough. Reflexes (right/left): 1+ Plantars are downgoing bilaterally. Results - Laboratory Findings CBC and BMP: 01/24/21 04:16 01/24/21 04:16 Abnormal Lab Findings: Abnormal Labs 01/23/21 01/23/21 01/23/21 11:43 11:43 11:43 Hct 48.5 H MCHC RDW 15.8 H Lymphocytes # 0.5 L D-Dimer 2.10 H Chloride 111 H Carbon Dioxide 21 L BUN 53 H Creatinine 2.20 H Glucose POC Glucose (mg/dL) Calcium 10.7 H Magnesium 2.6 H Ferritin 2729.1 H AST 45 H Lactate Dehydrogenase 1076 H C-Reactive Protein 20.8 H Total Protein 5.6 L Albumin 3.1 L Procalcitonin 01/23/21 01/24/21 01/24/21 11:43 04:16 04:16 Hct 46.7 H MCHC 30.6 L RDW 15.8 H Lymphocytes # 0.3 L D-Dimer Chloride 115 H Carbon Dioxide 18 L BUN 58 H Creatinine 2.17 H Glucose 116 H POC Glucose (mg/dL) Calcium Magnesium Ferritin AST 48 H Lactate Dehydrogenase 845 H C-Reactive Protein 18.9 H Total Protein 5.0 L Albumin 2.6 L Procalcitonin 0.61 H 01/24/21 01/24/21 04:16 04:19 Hct MCHC RDW Lymphocytes # D-Dimer 3.07 H Chloride Carbon Dioxide BUN Creatinine Glucose POC Glucose (mg/dL) 102 H Calcium Magnesium Ferritin AST Lactate Dehydrogenase C-Reactive Protein Total Protein Albumin Procalcitonin Assessment and Plan Assessment: Altered mental status due to hypoxia from COVID-19 pneumonia and component of toxic-metabolic encephalopathy with DANIEL on CKI COVID-19 pneumonia Acute on chronic kidney insufficiency Hypertension Hyperlipidemia Coronary artery disease Atrial fibrillation on Eliquis Hypothyroidism Plan: CT of the head is reported as cerebral atrophy. No acute intracranial abnormality. Right maxillary sinusitis. This appears new compared to old exam. Atrophy unchanged. I ordered ammonia level, TSH, vitamin B12 and folate. Nephrology and pulmonary team are consulted. We'll defer the rest of the medical management to the primary team. Will try to obtain more information from family members of patient's baseline and more information about patient history. The plan is discussed with the patient's nurse. Rafiq Rushing MD Neuro-Hospitalist Time with Patient: Greater than 30
[2021-01-24] MEDS: LACTATED RINGERS 1,000 ML IV SCH (11:53)
--- NOTE | 2021-01-24 12:02 | CONS ---
CONSULTATION REASON FOR CONSULT: Renal failure. HISTORY OF PRESENT ILLNESS: Patient is an 85-year-old female who has a history of hypertension, chronic kidney disease, stage not known as previous labs not available for comparison. This is obtained from chart review. Patient was transferred from [facility] where she was admitted with mental status changes and hypoxia and was found to be COVID positive and was being treated for COVID pneumonia. Patient's mentation has not improved. She remains hypoxic and has, therefore, been transferred here. Apparently patient has been voiding. Her serum creatinine has been 2.1-2.2 mg/dL. She is currently maintained on IV fluids at 75 mL an hour. Oxygen requirements are about 2-4 L currently, which is down from 6 L earlier. Blood pressure has not been significantly low. Systolic around 120-140 mmHg at this point. At home, patient was maintained on torsemide, which is currently on hold. I do not see any nonsteroidal anti-inflammatory agents in her med list and it does not appear that the patient received a CT with IV contrast at least in this facility. Ultrasound of the kidney done yesterday shows no evidence of hydronephrosis and bilateral renal atrophy was noted, the size mentioned is about 11.3 and 11.4 cm. PAST MEDICAL HISTORY: Type 2 diabetes, hyperlipidemia, hypertension, CKD stage not known. SOCIAL HISTORY: Not available. It appears that there is no history of smoking or drug abuse. Patient was at a half-way prior to admission. MEDICATIONS: Medications prior to admission included zyloprim Eliquis, aspirin, Lipitor, Coreg, insulin, Remeron, Aldactone, Demadex Norvasc. ALLERGIES: Include SULFA. REVIEW OF SYSTEMS: Negative for bleeding. No diarrhea or vomiting. Mental status changes as described. The patient is not able to provide detailed history. EXAMINATION: Currently comfortable, not in any acute distress. Blood pressure 146/64, heart rate 64 per minute, she is afebrile. Examination shows no evidence of edema lower extremities. Abdomen is soft, nontender. Patient is moving all four extremities. LAB: Show sodium 141, potassium 5.1, chloride 115, CO2 is 18, BUN 58 serum creatinine 2.17. UA not available. C-reactive protein elevated. Calcium was 10.7, now 10.2. ASSESSMENT: 1. Acute kidney injury most likely acute tubular necrosis, currently nonoliguric. We need to obtain baseline creatinine as patient does have chronic kidney disease. There is no evidence of obstruction noted on ultrasound and patient has been voiding. Continue with IV fluids for now. 2. Mild non gap metabolic acidosis secondary to renal failure and IV fluids. Change fluids to Ringer lactate. 3. COVID pneumonia, oxygen requirement about 4 L, maintained on Decadron. 4. Hypertension currently on Coreg, Norvasc and Isordil. 5. Hypothyroidism. 6. Atrial fibrillation, maintained on Eliquis. 7. Chronic kidney disease, stage not known as previous labs not available. PLAN: Continue with IV hydration. Monitor urine output. Hold diuretics for now and obtain previous labs for comparison. Check urinalysis and change IV fluids to Ringer lactate. Thank you for this consultation. Will continue to follow the patient with you during her hospitalization. MMODL / IJN: [id number] /
[2021-01-24 12:33] LABS: Glucose,Whole Blood 138 mg/dL (75-99)
[2021-01-24 14:55] LABS: Appearance,Urine Cloudy (Clear); Bacteria,Urine Occasional /hpf; Bilirubin,Urine Negative (Negative); Blood,Urine Negative (Negative); Budding Yeast,Urine Moderate /hpf; Color,Urine Yellow; Glucose,Urine (UA) Negative (Negative); Granular Casts,Urine 5 /lpf (0); Hyaline Casts,Urine 12 /lpf (0-2); Ketones,Urine Trace (Negative); Leukocyte Esterase,Urine Negative (Negative); Mucus,Urine Rare /hpf; Nitrite,Urine Negative (Negative); PH, Urine 5.5 (5.0-8.0); Protein,Urine 1+ (Negative); RBC,Urine 1 /hpf (0-5); Specific Gravity,Urine 1.014 (1.001-1.035); Squamous Epithelial Cell,Urine <1 /hpf (0-4); Urobilinogen,Urine <2.0 mg/dL (<2.0); WBC,Urine 2 /hpf (0-5)
--- NOTE | 2021-01-24 15:23 | P.PN ---
Subjective Progress Note Date: 01/24/21 85 years old female patient of Dr. Mack past medical history of hypertension hyperlipidemia coronary artery disease, chronic kidney disease unknown stage presents with increasing confusion and hypoxia [place] [facility] [place] Apparently patient was brought to the ER at [facility] on 01/17 for worsening confusion and flulike symptoms. Patient went home as was not able to be seen for her symptoms soon enough and called her primary care physician who ordered a CAT scan of the head. CAT scan of the head was negative and patient was brought back to the ER on 01/18 and was treated for COVID pneumonia. Patient was discharged to [facility] [place] and was brought back to the ER 24-hour later for worsening shortness of breath.on evaluation in the ER patient is short of breath requiring 6 L of oxygen unable to answer any questions very drowsy on evaluation. She opens her eyes to question only to go back to sleep in a short while. Patient withdraws to pain but does not follow commands. No family member is present at bedside. Son was called multiple times but was unable to be reached. History is obtained through patient's and documentation by the ER. She has never been admitted in this hospital. Evaluation Suggests Hemoglobin Is 15.5 Platelet 185 INR 1 D-Dimer 2.1 Sodium 140 Potassium 4.9 Chloride 111 Bicarb 20 1B UN 53 Creatinine 2.2 Calcium Is 10.7 Magnesium 2.6 Lactic Acid 1.6 Alkaline Phosphatase 87, LDH 1076 CRP 20.8 Output (3.1. Pro- Calcitonin Is Pending. ProBNP Is Pending. Chest X-Ray suggested cardiomegaly and chronic parenchymal changes with right greater than left multifocal opacities metoprolol and suggestive of COVID-[address] head ordered to rule out acute stroke. Patient's home medication reconciled will hold torsemide, spironolactone. Nephrology course consult for possible end-stage renal disease. Unclear if patient is on him and on dialysis. Ultrasound of the renal obtained. neurology in consult for acute encephalopathy likely secondary to Covid. Patient does have underlying dementia?. We'll start patient on dexamethasone 6 mg IV every 12 hours. Start her on vitamin C, vitamin D and zinc. Pulmonary consulted for Covid pneumonia. 01/24 spoke to patient's son who did state that patient has underlying history of concussion and forgetfulness but no formal diagnosis of dementia has ever been made. She was speaking clearly and had no confusion 8 days ago. Patient had normal recovery of mental status after being discharged from the other hospital and transferred to [facility]. Son does suggest that patient has history of stent placement 3-4 years ago for coronary artery disease. She does follow nephrology as outpatient and has significant end-stage chronic kidney disease with plan to initiate hemodialysis if no improvement noted. On evaluation patient's mental status today patient's more responsive. She was refusing to eat. Swallow evaluation at bedside was not past. Patient continued to be on normal saline 75 mL per hour on evaluation patient's blood work sodium is 141 bicarb 18 creatinine 2.1 MCH slightly improved to 845 CRP is 18.9. Pro-calcitonin came at 0.6, TSH normal urinary analysis negative for any infection. Blood cultures negative continue remdesivir per pulmonary recommendations continue Decadron and elliquis . Hold Levemir Review of systems could not be obtained due to mental status Objective - Vital Signs Vital signs: Vital Signs Temp 97.6 F 01/24/21 14:00 Pulse 67 01/24/21 14:00 Resp 18 01/24/21 14:00 BP 139/89 01/24/21 14:00 Pulse Ox 93 L 01/24/21 14:00 Intake & Output 01/23/21 01/24/21 01/24/21 18:59 06:59 18:59 Weight 99.79 kg - Exam - Constitutional General appearance: uncooperative, drowsy - EENT Eyes: anicteric sclerae, PERRLA, normal appearance ENT: hearing grossly normal - Neck Neck: no lymphadenopathy, normal ROM, - Respiratory Respiratory: Decreased air entry no crackles or rhonchi - Cardiovascular Rhythm: regular Heart sounds: normal: S1, S2 Abnormal Heart Sounds: no systolic murmur, no diastolic murmur - Gastrointestinal General gastrointestinal: normal bowel sounds, soft nontender - Integumentary Integumentary: no rash - Neurologic Neurologic: No focal deficit generalized weakness pupils are reactive does not communicate unable to r follow simple commands - Musculoskeletal Musculoskeletal: gait could not be assessed, strength equal but decreased - Psychiatric Psychiatric: Drowsy unable to make any conversation - Labs CBC & Chem 7: 01/24/21 04:16 01/24/21 04:16 Labs: Abnormal Lab Results - Last 24 Hours (Table) 01/23/21 01/23/2121 Range/Units 11:43 11:43 04:16 Hct 46.7 H (34.0-46.0) % MCHC 30.6 L (31.0-37.0) g/dL RDW 15.8 H (11.5-15.5) % Lymphocytes # 0.3 L (1.0-4.8) k/uL D-Dimer (<0.60) mg/L FEU Chloride (98-107) mmol/L Carbon Dioxide (22-30) mmol/L BUN (7-17) mg/dL Creatinine (0.52-1.04) mg/dL Glucose (74-99) mg/dL POC Glucose (mg/dL) (75-99) mg/dL Ferritin 2729.1 H (10.0-291.0) ng/mL AST (14-36) U/L Lactate Dehydrogenase (313-618) U/L C-Reactive Protein (<1.0) mg/dL Total Protein (6.3-8.2) g/dL Albumin (3.5-5.0) g/dL Procalcitonin 0.61 H (0.02-0.09) ng/mL Urine Appearance (Clear) Urine Protein (Negative) Urine Ketones (Negative) Urine Bacteria (None) /hpf Hyaline Casts (0-2) /lpf Urine Mucus (None) /hpf Urine Yeast (Budding) (None) /hpf 01/24/21 01/24/21 01/24/21 Range/Units 04:16 04:16 04:19 Hct (34.0-46.0) % MCHC (31.0-37.0) g/dL RDW (11.5-15.5) % Lymphocytes # (1.0-4.8) k/uL D-Dimer 3.07 H (<0.60) mg/L FEU Chloride 115 H (98-107) mmol/L Carbon Dioxide 18 L (22-30) mmol/L BUN 58 H (7-17) mg/dL Creatinine 2.17 H (0.52-1.04) mg/dL Glucose 116 H (74-99) mg/dL POC Glucose (mg/dL) 102 H (75-99) mg/dL Ferritin (10.0-291.0) ng/mL AST 48 H (14-36) U/L Lactate Dehydrogenase 845 H (313-618) U/L C-Reactive Protein 18.9 H (<1.0) mg/dL Total Protein 5.0 L (6.3-8.2) g/dL Albumin 2.6 L (3.5-5.0) g/dL Procalcitonin (0.02-0.09) ng/mL Urine Appearance (Clear) Urine Protein (Negative) Urine Ketones (Negative) Urine Bacteria (None) /hpf Hyaline Casts (0-2) /lpf Urine Mucus (None) /hpf Urine Yeast (Budding) (None) /hpf 01/24/21 01/24/21 01/24/21 Range/Units 10:04 12:31 14:49 Hct (34.0-46.0) % MCHC (31.0-37.0) g/dL RDW (11.5-15.5) % Lymphocytes # (1.0-4.8) k/uL D-Dimer (<0.60) mg/L FEU Chloride (98-107) mmol/L Carbon Dioxide (22-30) mmol/L BUN (7-17) mg/dL Creatinine (0.52-1.04) mg/dL Glucose (74-99) mg/dL POC Glucose (mg/dL) 123 H 138 H (75-99) mg/dL Ferritin (10.0-291.0) ng/mL AST (14-36) U/L Lactate Dehydrogenase (313-618) U/L C-Reactive Protein (<1.0) mg/dL Total Protein (6.3-8.2) g/dL Albumin (3.5-5.0) g/dL Procalcitonin (0.02-0.09) ng/mL Urine Appearance Cloudy H (Clear) Urine Protein 1+ H (Negative) Urine Ketones Trace H (Negative) Urine Bacteria Occasional H (None) /hpf Hyaline Casts 12 H (0-2) /lpf Urine Mucus Rare H (None) /hpf Urine Yeast (Budding) Moderate H (None) /hpf Microbiology - Last 24 Hours (Table) 01/23/21 12:43 Blood Culture - Preliminary Blood No Growth after 24 hours 01/23/21 12:43 Blood Culture - Preliminary Blood No Growth after 24 hours Assessment and Plan Plan: #1 acute toxic metabolic encephalopathy likely secondary to Covid with underlying short term memory loss from previous concussion. Unknown if patient has underlying dementia. Keep patient on fall precaution and seizure precautions. Neurology consulted. CT head negative for any acute changes on 01/23. CT was also obtained on 01/17 at the hospital has been was negative for any acute changes #2 acute hypoxic respiratory failure secondary to Covid pneumonia. Chest x-ray suggestive of bilateral infiltrates. Pro Air as needed for shortness of breath. Pulmonary consulted. Mucinex as needed. Sputum culture. Dexamethasone 6 mg IV every 12 hours. Vitamin C, vitamin D and zinc. Inflammation markers are elevated. On remdesivir #3 acute kidney injury over chronic kidney disease stage 5 follows nephrology as outpatient at [facility] Patient has no prior baseline creatinine. Ultrasound kidney bilateral atrophic kidney. Nephrology consult placed. Continue IV fluids at 75 mL per hour. Hold torsemide hold Aldactone. #4 coronary artery disease status post stents 34 years ago Continue atorvastatin, isosorbide dinitrate continue Coreg 25 mg twice a day #5 hypothyroidism continue levothyroxine 50 g daily TSH normal #6 type 2 diabetes Levemir hold Hold insulin at mealtime. Continue with insulin sliding scale #7 hyperlipidemia continue atorvastatin 40 mg by mouth daily #8 hypertension continue amlodipine 5 mg by mouth daily #9. Gout allopurinol 100 mg by mouth daily #10 atrial fibrillation Eliquis 2. 5 mg twice a day continue Coreg 25 twice a day #11 CODE STATUS full code per her son. 7 once every attempt to be made to resuscitate the patient onthe prognosis is poor at bedtime he would consider [facility] #12 GI prophylaxis with Pepcid 20 mg IV twice a day #13 DVT prophylaxis with eliquis as 2.5 twice a day #14 poor prognosis #15 disposition discharge to custodial facility once stabilized
[2021-01-24 17:00] LABS: Folate, Serum 10.8 ng/mL
[2021-01-24 17:38] LABS: Glucose,Whole Blood 177 mg/dL (75-99)
[2021-01-24] MEDS: REMDESIVIR 100 MG in SODIUM CHLORIDE 0.9% 250 ML IVPB SCH (19:01)
[2021-01-24] MEDS: ATORVASTATIN 40 MG TAB PO SCH (21:59)
[2021-01-24 22:11] LABS: Glucose,Whole Blood 179 mg/dL (75-99)
[2021-01-25] MEDS: LACTATED RINGERS 1,000 ML IV SCH ×2 (00:32→13:09)
[2021-01-25] MEDS: LEVOTHYROXINE 50 MCG TAB PO SCH (05:43)
[2021-01-25 06:27] LABS: Basophils # (A) 0.1 k/uL (0-0.2); Basophils % (A) 1 %; Eosinophils % (A) 0 %; HGB 15.9 gm/dL (11.4-16.0); Lymphocytes # (A) 0.4 k/uL (1.0-4.8); Lymphocytes % (A) 6 %; MCH 31.3 pg (25.0-35.0); MCHC 33.2 g/dL (31.0-37.0); MCV 94.2 fL (80.0-100.0); Mean Platelet Volume 8.5; Monocytes # (A) 0.4 k/uL (0-1.0); Monocytes % (A) 6 %; Neutrophils # (A) 5.8 k/uL (1.3-7.7); Neutrophils % (A) 85 %; Platelet Count 239 k/uL (150-450); RDW 15.4 % (11.5-15.5); WBC 6.8 k/uL (3.8-10.6)
[2021-01-25 07:06] LABS: Glucose,Whole Blood 206 mg/dL (75-99)
[2021-01-25 07:28] LABS: Albumin 2.5 g/dL (3.5-5.0); C Reactive Protein 8.2 mg/dL (<1.0); Calcium 10.8 mg/dL (8.4-10.2); Potassium 5.1 mmol/L (3.5-5.1); Total Bilirubin 0.5 mg/dL (0.2-1.3); Total Protein 4.8 g/dL (6.3-8.2)
[2021-01-25] MEDS: INSULIN ASPART (NovoLOG) 100 UNIT/ML VIAL SQ SCH ×4 (08:11→19:38)
[2021-01-25] MEDS: DEXAMETHASONE SOD PHOSPHATE 10 MG/ML 1 ML VIAL IV SCH (08:11)
[2021-01-25] MEDS: APIXABAN 2.5 MG TABLET PO SCH ×2 (08:14→14:26)
[2021-01-25] MEDS: PANTOPRAZOLE 40 MG TABLET PO SCH (08:14)
[2021-01-25] MEDS: amLODIPine 5 MG TAB PO SCH (08:14)
[2021-01-25] MEDS: guaiFENesin 600 MG TABLET.ER PO SCH ×2 (08:14→19:24)
[2021-01-25] MEDS: ISOSORBIDE DINITRATE 10 MG TAB PO SCH (08:14)
[2021-01-25] MEDS: carvediloL 12.5 MG TAB PO SCH ×2 (08:14→14:26)
[2021-01-25] MEDS ORDERED: LORazepam 2 MG/ML INJ IV STA (09:41)
[2021-01-25 11:33] LABS: Glucose,Whole Blood 202 mg/dL (75-99)
--- NOTE | 2021-01-25 11:40 | P.PN ---
Subjective Progress Note Date: 01/25/21 HISTORY OF PRESENT ILLNESS 85 years old female patient of Dr. Mack past medical history of hypertension hyperlipidemia coronary artery disease, chronic kidney disease unk nown stage presents with increasing confusion and hypoxia from [facility] [place]. Apparently patient was brought to the ER at [facility] on 01/17 for worsening confusion and flulike symptoms. Patient went home as was not able to be seen for her symptoms soon enough and called her primary care physician who ordered a CAT scan of the head. CAT scan of the head was negative and patient was brought back to the ER on 01/18 and was treated for COVID pneumonia. Patient was discharged to [facility] [place] and was brought back to the ER 24- hour later for worsening shortness of breath.on evaluation in the ER patient is short of breath requiring 6 L of oxygen unable to answer any questions very drowsy on evaluation. She opens her eyes to question only to go back to sleep in a short while. Patient withdraws to pain but does not follow commands. No family member is present at bedside. Son was called multiple times but was unable to be reached. History is obtained through patient's and documentation by the ER. She has never been admitted in this hospital. Evaluation Suggests Hemoglobin Is 15.5 Platelet 185 INR 1 D-Dimer 2.1 Sodium 140 Potassium 4.9 Chloride 111 Bicarb 20 1B UN 53 Creatinine 2.2 Calcium Is 10.7 Magnesium 2.6 Lactic Acid 1.6 Alkaline Phosphatase 87, LDH 1076 CRP 20.8 Output (3.1. Pro- Calcitonin Is Pending. ProBNP Is Pending. Chest X-Ray suggested cardiomegaly and chronic parenchymal changes with right greater than left multifocal opacities metoprolol and suggestive of COVID-[address] head ordered to rule out acute stroke. Patient's home medication reconciled will hold torsemide, spironolactone. Nephrology course consult for possible end-stage renal disease. Unclear if patient is on him and on dialysis. Ultrasound of the renal obtained. neurology in consult for acute encephalopathy likely secondary to Covid. Patient does have underlying dementia?. We'll start patient on dexamethasone 6 mg IV every 12 hours. Start her on vitamin C, vitamin D and zinc. Pulmonary consulted for Covid pneumonia. 01/24 spoke to patient's son who did state that patient has underlying history of concussion and forgetfulness but no formal diagnosis of dementia has ever been made. She was speaking clearly and had no confusion 8 days ago. Patient had normal recovery of mental status after being discharged from the other hospital and transferred to [facility]. Son does suggest that patient has history of stent placement 3-4 years ago for coronary artery disease. She does follow nephrology as outpatient and has significant end-stage chronic kidney disease with plan to initiate hemodialysis if no improvement noted. On evaluation patient's mental status today patient's more responsive. She was refusing to eat. Swallow evaluation at bedside was not past. Patient continued to be on normal saline 75 mL per hour on evaluation patient's blood work sodium is 141 bicarb 18 creatinine 2.1 MCH slightly improved to 845 CRP is 18.9. Pro-calcitonin came at 0.6, TSH normal urinary analysis negative for any infection. Blood cultures negative continue remdesivir per pulmonary recommendations continue Decadron and elliquis . Hold Levemir 01/25: Patient has been seen by neurology with recommendations for ammonia level, TSH and vitamin B12 and folate. Patient continues to have significant confusion and MRI of the brain ordered. Patient is also been seen by pulmonary medicine with recommendations for continuing IV Decadron, patient was started on Remdesivir day #3/5. Patient is also followed by nephrology with plan to continue IV hydration and hold diuretics. Chest x-ray from yesterday revealed cardiomegaly and chronic parenchymal changes with right greater than left multifocal and confluent opacities mid to lower lung suggesting Covid 19 infection redemonstrated. No significant change. Renal ultrasound revealed bilateral renal atrophy. No obstructive calculus in the upper pole left kidney. No evidence of renal mass. No hydronephrosis. No bladder mass. CBC is unremarkable except for lymphocytes of 0.4. D-dimer 5.11. CO2 15, BUN 66 and creatinine 1.93. Blood sugars are running between 177 and 227. LDH 980. C- reactive protein 8.2. IV fluids are currently lactated Ringer's at 75 mL per hour,. REVIEW OF SYSTEMS Unable to obtain due to mental status. PHYSICAL EXAMINATION Gen: This is an 85-year-old female. Patient is resting in bed. No respiratory distress is noted. HEENT: Head is atraumatic, normocephalic. Pupils equal, round. Sclerae is anicteric. NECK: Supple. No JVD. No lymphadenopathy. No thyromegaly. LUNGS: Decreased breath sounds bilaterally. No wheezes or rhonchi. No intercostal retractions. HEART: Regular rate and rhythm. No murmur. ABDOMEN: Soft. Bowel sounds are present. No masses. No tenderness. EXTREMITIES: No pedal edema. No calf tenderness. NEUROLOGICAL: Patient is confused, unable to answer questions or follow simple commands, generalized weakness noted. ASSESSMENT AND PLAN #1 acute toxic metabolic encephalopathy likely secondary to Covid with underlying short term memory loss from previous concussion. Unknown if patient has underlying dementia. Keep patient on fall precaution and seizure precautions. Neurology consulted. CT head negative for any acute changes on 01/23. CT was also obtained on 01/17 at the hospital has been was negative for any acute changes. MRI of the brain ordered. #2 acute hypoxic respiratory failure secondary to Covid pneumonia. Continue Pro Air as needed for shortness of breath. Pulmonary consult appreciated. Mucinex as needed. Sputum culture. Dexamethasone 6 mg IV every 12 hours. Vitamin C, vitamin D and zinc. Inflammation markers are elevated. On Remdesivir day #3/5 #3 acute kidney injury over chronic kidney disease stage 5 follows nephrology as outpatient at [facility] Patient has no prior baseline creatinine. Nephrology consult appreciated. Continue IV fluids of lactated Ringer's at 75 mL per hour, sodium bicarb 650 mg twice daily. Hold torsemide hold Aldactone. #4 coronary artery disease status post stents 34 years ago Continue atorvastatin, isosorbide dinitrate continue Coreg 25 mg twice a day #5 hypothyroidism continue levothyroxine 50 g daily TSH normal #6 type 2 diabetes Levemir hold Hold insulin at mealtime. Continue with insulin sliding scale #7 hyperlipidemia continue atorvastatin 40 mg by mouth daily #8 hypertension continue amlodipine 5 mg by mouth daily #9. Gout allopurinol 100 mg by mouth daily #10 atrial fibrillation Eliquis 2. 5 mg twice a day continue Coreg 25 twice a day #11 CODE STATUS full code per her son. 7 once every attempt to be made to resuscitate the patient onthe prognosis is poor at bedtime he would consider comfort care #12 GI prophylaxis with Pepcid 20 mg IV twice a day #13 DVT prophylaxis with eliquis as 2.5 twice a day DISCHARGE PLAN Return to [facility]. Impression and plan of care have been directed as dictated by the signing physician. Lesly Núñez nurse practitioner acting as scribe for signing physician. Objective - Vital Signs Vital signs: Vital Signs Temp 98.6 F 01/25/21 06:15 Pulse 75 01/25/21 08:14 Resp 20 01/25/21 08:14 BP 144/71 01/25/21 00:10 Pulse Ox 90 L 01/25/21 06:15 Intake & Output 01/24/21 01/25/21 01/25/21 18:59 06:59 18:59 Intake Total 0 Balance 0 Intake: Oral 0 Other: Voiding Method External Catheter External Catheter - Labs CBC & Chem 7: 01/25/21 05:32 01/25/21 05:32 Labs: Abnormal Lab Results - Last 24 Hours (Table) 01/24/21 01/24/21 01/24/21 Range/Units 10:04 12:31 14:49 Hct (34.0-46.0) % Lymphocytes # (1.0-4.8) k/uL D-Dimer (<0.60) mg/L FEU Chloride (98-107) mmol/L Carbon Dioxide (22-30) mmol/L BUN (7-17) mg/dL Creatinine (0.52-1.04) mg/dL Glucose (74-99) mg/dL POC Glucose (mg/dL) 123 H 138 H (75-99) mg/dL Calcium (8.4-10.2) mg/dL Lactate Dehydrogenase (313-618) U/L C-Reactive Protein (<1.0) mg/dL Total Protein (6.3-8.2) g/dL Albumin (3.5-5.0) g/dL Urine Appearance Cloudy H (Clear) Urine Protein 1+ H (Negative) Urine Ketones Trace H (Negative) Urine Bacteria Occasional H (None) /hpf Hyaline Casts 12 H (0-2) /lpf Urine Mucus Rare H (None) /hpf Urine Yeast (Budding) Moderate H (None) /hpf 01/24/21 01/24/21 01/25/21 Range/Units 17:36 22:09 05:32 Hct 48.0 H (34.0-46.0) % Lymphocytes # 0.4 L (1.0-4.8) k/uL D-Dimer (<0.60) mg/L FEU Chloride (98-107) mmol/L Carbon Dioxide (22-30) mmol/L BUN (7-17) mg/dL Creatinine (0.52-1.04) mg/dL Glucose (74-99) mg/dL POC Glucose (mg/dL) 177 H 179 H (75-99) mg/dL Calcium (8.4-10.2) mg/dL Lactate Dehydrogenase (313-618) U/L C-Reactive Protein (<1.0) mg/dL Total Protein (6.3-8.2) g/dL Albumin (3.5-5.0) g/dL Urine Appearance (Clear) Urine Protein (Negative) Urine Ketones (Negative) Urine Bacteria (None) /hpf Hyaline Casts (0-2) /lpf Urine Mucus (None) /hpf Urine Yeast (Budding) (None) /hpf 01/25/21 01/25/21 01/25/21 Range/Units 05:32 05:32 07:04 Hct (34.0-46.0) % Lymphocytes # (1.0-4.8) k/uL D-Dimer 5.11 H (<0.60) mg/L FEU Chloride 120 H (98-107) mmol/L Carbon Dioxide 15 L (22-30) mmol/L BUN 66 H (7-17) mg/dL Creatinine 1.93 H (0.52-1.04) mg/dL Glucose 227 H (74-99) mg/dL POC Glucose (mg/dL) 206 H (75-99) mg/dL Calcium 10.8 H (8.4-10.2) mg/dL Lactate Dehydrogenase 980 H (313-618) U/L C-Reactive Protein 8.2 H (<1.0) mg/dL Total Protein 4.8 L (6.3-8.2) g/dL Albumin 2.5 L (3.5-5.0) g/dL Urine Appearance (Clear) Urine Protein (Negative) Urine Ketones (Negative) Urine Bacteria (None) /hpf Hyaline Casts (0-2) /lpf Urine Mucus (None) /hpf Urine Yeast (Budding) (None) /hpf Microbiology - Last 24 Hours (Table) 01/23/21 12:43 Blood Culture - Preliminary Blood No Growth after 24 hours 01/23/21 12:43 Blood Culture - Preliminary Blood No Growth after 24 hours
--- NOTE | 2021-01-25 12:46 | MR ---
EXAMINATION TYPE: MR brain wo con DATE OF EXAM: 01/25/2021 COMPARISON: CT brain 2 days ago HISTORY: Encephalopathy, altered mental status on admission 2 days ago, covid positive. TECHNIQUE: Multiplanar, multisequence imaging of the brain and brainstem is performed without IV cont rast. FINDINGS: Exam is suboptimal as is degraded by patient motion artifact, patient unable to hold still . Diffusion weighted images demonstrate no evidence of a recent infarct or other diffusion abnormality. There is moderate diffuse ventricular and sulcal prominence greatest in the bilateral frontal lobes r edemonstrated. Some areas of T2 hyperintensity in the deep and periventricular white matter are redem onstrated. Midline structures demonstrate normal morphology. The craniocervical junction appears within normal limits. Normal vascular flow voids are present. There is mild mucosal thickening inferior left maxill matilda sinus. There is moderate mucosal thickening right maxillary sinus redemonstrated. New Mild to mod erate mucosal thickening ethmoid sinuses bilaterally. Globes remain intact. IMPRESSION: No MRI evidence for a recent infarct. Moderate diffuse cerebral atrophy greatest over florencia ateral frontal lobes and mild to moderate chronic small vessel ischemic changes.
--- NOTE | 2021-01-25 14:40 | P.PN ---
Subjective Progress Note Date: 01/25/21 Principal diagnosis: Acute COVID-19 pneumonia, encephalopathy 85-year-old female patient, presented today for altered mentation and and worsening hypoxemia. She [place] in [facility] [place] She was in the emergency department on 01/17/2021 at [facility], where the patient had some altered mentation and flulike symptoms. She was worked up with a CAT scan of the brain that was negative. She was found to be positive for COVID-19 on 01/18/2021. Today, she is coming in with worsening shortness of breath. She is currently on 6 L of oxygen by nasal cannula. She looks very drowsy. In terms of her blood work, she has a white cell count of 5.4, lymphopenia is present, d- dimer is at 2.1, BNP is 53 with a creatinine of 2.2, AST is 45, LDH is 1076, CRP at 20.8, and a chest x-ray showing bilateral pulmonary infiltrates in lung bases right more than left. Currently on 6 L. Started on Decadron and currently is on 6 mg IV every 12 hours. She is also on long-term and to coagulation with Eliquis 2.5 mg by mouth twice a day On 01/24/2021, the patient is slightly more responsive. She is still refusing to eat and her oral intake is almost none at this point in time. She is receiving IV fluids and she is currently on normal saline at the rate of 75 mL an hour. On her blood work, the patient has a sodium level of 141, serum bicarbonate 18, creatinine is at 2.1, slightly improved compared to yesterday, LDH level is elevated at 845, slightly lower in the CRP is at 18.9 with a d- dimer of 3.07. She was started on a combination of Decadron 6 mg IV every 12 and the patient is also on day #2 of Remdesivir she has chronic kidney disease. She is on long-term anticoagulation with Eliquis 2.5 mg by mouth twice a day. She has history of CAD, diabetes mellitus type 2, hyperlipidemia and his previous history of atrial fibrillation. She also has chronic kidney disease. On 01/25/2021 patient seen in follow-up on medical surgical floor, she is currently on 2 L of oxygen, she remains encephalopathic, and her pulse ox on 2 L was 83%, patient had the nasal cannula off, she is restless, he continues, lethargic, returned at the FiO2 up to 4 L, she sat 92%, she is afebrile, hemodynamically she is stable, today's labs have been reviewed, showing a d- dimer of 5.11, she remains lymphopenic with lymphocyte count 0.4, white count is 6.8, sodium is 144, potassium is 5.1, chloride is 120, CO2 is 15, BUN 66 and creatinine is 1.9, LDH is 980, and CRP is 8.2, pro-calcitonin level was 0.61, urinalysis showed occasional bacteria, but no increased white blood cells, and moderate yeast in the urine. Sounds reveal some bilateral crackles, patient remains on IV Decadron 6 mg twice daily, she also received a dose of lorazepam, she is on day 2 of Remdesivir treatments, she is on lactated Ringer's at 75 ML per hour, and she is on Eliquis for 2-1/2 mg by mouth twice a day, patient has not been able to take anything by mouth in view of her altered mental status, cultures so far have shown no growth. Objective - Vital Signs Vital signs: Vital Signs Temp 98.1 F 01/25/21 13:57 Pulse 66 01/25/21 13:57 Resp 20 01/25/21 13:57 BP 130/69 01/25/21 13:57 Pulse Ox 92 L 01/25/21 13:57 Intake & Output 01/24/21 01/25/21 01/25/21 18:59 06:59 18:59 Intake Total 0 Balance 0 Intake: Oral 0 Other: Voiding Method External Catheter External Catheter - Exam GENERAL EXAM: Very lethargic, 85-year-old, confused, restless at times, encephalopathic, 85-year-old white female, on 2 L of oxygen her pulse ox was 83%, O2 was increased to 4 L, and patient frequently removes her oxygen comfortable in no apparent distress. HEAD: Normocephalic/atraumatic. EYES: Normal reaction of pupils, equal size. Conjunctiva pink, sclera white. NOSE: Clear with pink turbinates. THROAT: No erythema or exudates. NECK: No masses, no JVD, no thyroid enlargement, no adenopathy. CHEST: No chest wall deformity. Symmetrical expansion. LUNGS: Equal air entry with no crackles, wheeze, rhonchi or dullness. CVS: Regular rate and rhythm, normal S1 and S2, no gallops, no murmurs, no rubs ABDOMEN: Soft, nontender. No hepatosplenomegaly, normal bowel sounds, no guarding or rigidity. EXTREMITIES: No clubbing, no edema, no cyanosis, 2+ pulses and upper and lower extremities. MUSCULOSKELETAL: Muscle strength and tone normal. SPINE: No scoliosis or deformity SKIN: No rashes CENTRAL NERVOUS SYSTEM: Unable to assess, patient is very confused. No focal deficits, tone is normal in all 4 extremities. - Labs CBC & Chem 7: 01/25/21 05:32 01/25/21 05:32 Labs: Abnormal Lab Results - Last 24 Hours (Table) 01/24/21 01/24/21 01/24/21 Range/Units 14:49 17:36 22:09 Hct (34.0-46.0) % Lymphocytes # (1.0-4.8) k/uL D-Dimer (<0.60) mg/L FEU Chloride (98-107) mmol/L Carbon Dioxide (22-30) mmol/L BUN (7-17) mg/dL Creatinine (0.52-1.04) mg/dL Glucose (74-99) mg/dL POC Glucose (mg/dL) 177 H 179 H (75-99) mg/dL Calcium (8.4-10.2) mg/dL Lactate Dehydrogenase (313-618) U/L C-Reactive Protein (<1.0) mg/dL Total Protein (6.3-8.2) g/dL Albumin (3.5-5.0) g/dL Urine Appearance Cloudy H (Clear) Urine Protein 1+ H (Negative) Urine Ketones Trace H (Negative) Urine Bacteria Occasional H (None) /hpf Hyaline Casts 12 H (0-2) /lpf Urine Mucus Rare H (None) /hpf Urine Yeast (Budding) Moderate H (None) /hpf 01/25/21 01/25/21 01/25/21 Range/Units 05:32 05:32 05:32 Hct 48.0 H (34.0-46.0) % Lymphocytes # 0.4 L (1.0-4.8) k/uL D-Dimer 5.11 H (<0.60) mg/L FEU Chloride 120 H (98-107) mmol/L Carbon Dioxide 15 L (22-30) mmol/L BUN 66 H (7-17) mg/dL Creatinine 1.93 H (0.52-1.04) mg/dL Glucose 227 H (74-99) mg/dL POC Glucose (mg/dL) (75-99) mg/dL Calcium 10.8 H (8.4-10.2) mg/dL Lactate Dehydrogenase 980 H (313-618) U/L C-Reactive Protein 8.2 H (<1.0) mg/dL Total Protein 4.8 L (6.3-8.2) g/dL Albumin 2.5 L (3.5-5.0) g/dL Urine Appearance (Clear) Urine Protein (Negative) Urine Ketones (Negative) Urine Bacteria (None) /hpf Hyaline Casts (0-2) /lpf Urine Mucus (None) /hpf Urine Yeast (Budding) (None) /hpf 01/25/21 01/25/21 Range/Units 07:04 11:30 Hct (34.0-46.0) % Lymphocytes # (1.0-4.8) k/uL D-Dimer (<0.60) mg/L FEU Chloride (98-107) mmol/L Carbon Dioxide (22-30) mmol/L BUN (7-17) mg/dL Creatinine (0.52-1.04) mg/dL Glucose (74-99) mg/dL POC Glucose (mg/dL) 206 H 202 H (75-99) mg/dL Calcium (8.4-10.2) mg/dL Lactate Dehydrogenase (313-618) U/L C-Reactive Protein (<1.0) mg/dL Total Protein (6.3-8.2) g/dL Albumin (3.5-5.0) g/dL Urine Appearance (Clear) Urine Protein (Negative) Urine Ketones (Negative) Urine Bacteria (None) /hpf Hyaline Casts (0-2) /lpf Urine Mucus (None) /hpf Urine Yeast (Budding) (None) /hpf Microbiology - Last 24 Hours (Table) 01/23/21 12:43 Blood Culture - Preliminary Blood No Growth after 24 hours 01/23/21 12:43 Blood Culture - Preliminary Blood No Growth after 24 hours Assessment and Plan Plan: Assessment: #1. Acute COVID-19 related pneumonia/infection with secondary shortness of breath and encephalopathy, neurologic exam is nonfocal, patient is extremely weak, and then debilitated, she is a half-way resident at the [facility]. Patient was started on Remdesivir on 01/24/2021 #2. Acute hypoxic restaurant failure currently on 2 L of oxygen and her pulse ox was 83%, and she is requiring 4 L of oxygen #3. Acute kidney injury on top of chronic kidney disease, improving with IV hydration #4. Coronary artery disease #5. Diabetes type II #6. Hypertension #7. Hyperlipidemia #8. Chronic A. fib on Eliquis for long-term anticoagulation, and patient has been nothing by mouth in view of her altered mentation may need NG tube placed for administration of oral meds #9. History of hypothyroidism Plan: Patient remains very encephalopathic, may need NG tube placement in view of inability to take any oral meds, or nutrition Decreased current dose Decadron to just once daily 6 mg If unable to establish NG tube and administer oral anticoagulation may need to be switched to Lovenox at therapeutic doses Maintain aspiration precautions Continue Remdesivir Monitor for episodes of hypoglycemia Avoid benzodiazepines, as they may potentiate worsening delirium, confusion and encephalopathy Monitor electrolytes and renal profile Establish CODE STATUS Overall prognosis is poor We'll continue to follow I performed a history & physical examination of the patient and discussed their management with my nurse practitioner, Di Stubbs. I reviewed the nurse practitioner's note and agree with the documented findings and plan of care. Lung sounds are positive for diffuse rhonchi. The findings and the impression was discussed with the patient. I attest to the documentation by the nurse practitioner. Time with Patient: Less than 30
[2021-01-25 16:32] LABS: Glucose,Whole Blood 171 mg/dL (75-99)
[2021-01-25] MEDS: REMDESIVIR 100 MG in SODIUM CHLORIDE 0.9% 250 ML IVPB SCH (17:11)
[2021-01-25] MEDS: DEXTROSE 5% IN WATER 1,000 ML with SODIUM BICARB (1 MEQ/ML) 150 ML IV SCH (17:48)
--- NOTE | 2021-01-25 17:54 | PN ---
PROGRESS NOTE Patient is seen for followup for acute kidney injury. She has underlying COVID pneumonia. Serum creatinine is staying around 1.9 to 2 mg/dL. Patient has had fair urine output. Blood pressure has not been low; in fact, about 130 to 150 mmHg systolic. Currently maintained on 4 L nasal cannula with oxygen saturations 92% to 93%. PHYSICAL EXAMINATION: On examination today, blood pressure was 150/69, heart rate 69 per minute. She is afebrile. Examination shows no significant edema, lower extremities. Patient is confused. She is moving all 4 extremities, though. LABS: Sodium 144, potassium 5.1, chloride 120. CO2 is 15, BUN 66, serum creatinine 1.93, hemoglobin 15.9 g/dL. UA shows 1+ protein, trace ketones, granular casts noted. ASSESSMENT: 1. Acute kidney injury, acute tubular necrosis, nonoliguric. Renal function fairly stable. Previous creatinine not known. No evidence of obstruction on ultrasound. May continue with IV fluids. 2. Mild non-gap metabolic acidosis, slightly worse today. I will change IV fluids to bicarb drip. 3. COVID pneumonia, maintained on 4 L nasal cannula, started on Decadron. 4. Chronic atrial fibrillation, maintained on Eliquis. 5. Chronic kidney disease. Previous creatinine not known. Stage not known. 6. Hypothyroidism. PLAN: Change IV fluids to IV bicarb. Repeat labs in a.m. Avoid nephrotoxic medications and try to obtain previous labs for comparison of renal function. MMODL / IJN: [id number] /
[2021-01-25] MEDS: ATORVASTATIN 40 MG TAB PO SCH (19:24)
[2021-01-25] MEDS: SODIUM BICARBONATE TAB 650 MG TAB PO SCH (19:24)
[2021-01-25 19:38] LABS: Glucose,Whole Blood 216 mg/dL (75-99)
[2021-01-26] MEDS: LEVOTHYROXINE 50 MCG TAB PO SCH ×2 (03:31→20:03)
[2021-01-26 07:05] LABS: Glucose,Whole Blood 362 mg/dL (75-99)
[2021-01-26] MEDS: INSULIN ASPART (NovoLOG) 100 UNIT/ML VIAL SQ SCH ×6 (08:05→20:03)
[2021-01-26] MEDS: DEXAMETHASONE SOD PHOSPHATE 10 MG/ML 1 ML VIAL IV SCH (08:05)
[2021-01-26] MEDS: ISOSORBIDE DINITRATE 10 MG TAB PO SCH (08:06)
[2021-01-26] MEDS: guaiFENesin 600 MG TABLET.ER PO SCH ×2 (08:06→19:19)
[2021-01-26] MEDS: SODIUM BICARBONATE TAB 650 MG TAB PO SCH ×2 (08:06→19:19)
[2021-01-26] MEDS: PANTOPRAZOLE 40 MG TABLET PO SCH (08:06)
[2021-01-26] MEDS: APIXABAN 2.5 MG TABLET PO SCH ×2 (08:06→15:41)
[2021-01-26] MEDS: carvediloL 12.5 MG TAB PO SCH ×2 (08:06→15:41)
[2021-01-26] MEDS: amLODIPine 5 MG TAB PO SCH (08:06)
[2021-01-26] MEDS: DEXTROSE 5% IN WATER 1,000 ML with SODIUM BICARB (1 MEQ/ML) 150 ML IV SCH ×2 (08:52→20:03)
[2021-01-26] MEDS ORDERED: ENALAPRILAT 1.25 MG/ML 1 ML VIAL IVP PRN (09:31)
[2021-01-26 10:40] LABS: HCT 48.3 % (37.2-46.3); HGB 15.5 g/dL (12.0-15.0); MCH 30.1 pg (27.0-32.0); MCHC 32.1 g/dL (32.0-37.0); MCV 93.8 fL (80.0-97.0); Mean Platelet Volume 11.8 fL (9.5-12.2); Platelet Count 223 X 10*3/uL (140-440); RBC 5.15 X 10*6/uL (4.10-5.20); RDW 15.9 % (11.5-14.5); WBC 9.48 X 10*3/uL (4.50-10.00)
--- NOTE | 2021-01-26 11:13 | XR ---
Abdomen HISTORY: Tenderness, no bowel sounds Frontal view the abdomen on 2 images There is a catheter present in the midline. Calcifications are present in the pelvis which are likely vascular. Lung bases are clear. Exam somewhat limited by portable technique. No evident pneumoperito neum or bowel obstruction. IMPRESSION: Nonspecific findings.
[2021-01-26 11:28] LABS: Glucose,Whole Blood 365 mg/dL (75-99)
[2021-01-26 12:24] LABS: Basophils # (A) 0.08 X 10*3/uL (0.00-0.10); Basophils % (A) 0.8 %; Eosinophils # (A) 0 X 10*3/uL (0.04-0.35); Eosinophils % (A) 0 %; Lymphocytes # (A) 0.83 X 10*3/uL (0.90-5.00); Lymphocytes % (A) 8.8 %; Monocytes # (A) 0.56 X 10*3/uL (0.20-1.00); Monocytes % (A) 5.9 %; Neutrophils # (A) 7.88 X 10*3/uL (1.80-7.70); Neutrophils % (A) 83.1 %
--- NOTE | 2021-01-26 13:52 | P.PN ---
Subjective Progress Note Date: 01/26/21 HISTORY OF PRESENT ILLNESS 85 years old female patient of Dr. Mack past medical history of hypertension hyperlipidemia coronary artery disease, chronic kidney disease unk nown stage presents with increasing confusion and hypoxia from [facility] on the [place]. Apparently patient was brought to the ER at [facility] on 01/17 for worsening confusion and flulike symptoms. Patient went home as was not able to be seen for her symptoms soon enough and called her primary care physician who ordered a CAT scan of the head. CAT scan of the head was negative and patient was brought back to the ER on 01/18 and was treated for COVID pneumonia. Patient was discharged to [facility] on the [place] and was brought back to the ER 24- hour later for worsening shortness of breath.on evaluation in the ER patient is short of breath requiring 6 L of oxygen unable to answer any questions very drowsy on evaluation. She opens her eyes to question only to go back to sleep in a short while. Patient withdraws to pain but does not follow commands. No family member is present at bedside. Son was called multiple times but was unable to be reached. History is obtained through patient's and documentation by the ER. She has never been admitted in this hospital. Evaluation Suggests Hemoglobin Is 15.5 Platelet 185 INR 1 D-Dimer 2.1 Sodium 140 Potassium 4.9 Chloride 111 Bicarb 20 1B UN 53 Creatinine 2.2 Calcium Is 10.7 Magnesium 2.6 Lactic Acid 1.6 Alkaline Phosphatase 87, LDH 1076 CRP 20.8 Output (3.1. Pro- Calcitonin Is Pending. ProBNP Is Pending. Chest X-Ray suggested cardiomegaly and chronic parenchymal changes with right greater than left multifocal opacities metoprolol and suggestive of COVID-[address] head ordered to rule out acute stroke. Patient's home medication reconciled will hold torsemide, spironolactone. Nephrology course consult for possible end-stage renal disease. Unclear if patient is on him and on dialysis. Ultrasound of the renal obtained. neurology in consult for acute encephalopathy likely secondary to Covid. Patient does have underlying dementia?. We'll start patient on dexamethasone 6 mg IV every 12 hours. Start her on vitamin C, vitamin D and zinc. Pulmonary consulted for Covid pneumonia. 01/24 spoke to patient's son who did state that patient has underlying history of concussion and forgetfulness but no formal diagnosis of dementia has ever been made. She was speaking clearly and had no confusion 8 days ago. Patient had normal recovery of mental status after being discharged from the other hospital and transferred to [facility]. Son does suggest that patient has history of stent placement 3-4 years ago for coronary artery disease. She does follow nephrology as outpatient and has significant end-stage chronic kidney disease with plan to initiate hemodialysis if no improvement noted. On evaluation patient's mental status today patient's more responsive. She was refusing to eat. Swallow evaluation at bedside was not past. Patient continued to be on normal saline 75 mL per hour on evaluation patient's blood work sodium is 141 bicarb 18 creatinine 2.1 MCH slightly improved to 845 CRP is 18.9. Pro-calcitonin came at 0.6, TSH normal urinary analysis negative for any infection. Blood cultures negative continue remdesivir per pulmonary recommendations continue Decadron and elliquis . Hold Levemir 01/25: Patient has been seen by neurology with recommendations for ammonia level, TSH and vitamin B12 and folate. Patient continues to have significant confusion and MRI of the brain ordered. Patient is also been seen by pulmonary medicine with recommendations for continuing IV Decadron, patient was started on Remdesivir day #3/5. Patient is also followed by nephrology with plan to continue IV hydration and hold diuretics. Chest x-ray from yesterday revealed cardiomegaly and chronic parenchymal changes with right greater than left multifocal and confluent opacities mid to lower lung suggesting Covid 19 infection redemonstrated. No significant change. Renal ultrasound revealed bilateral renal atrophy. No obstructive calculus in the upper pole left kidney. No evidence of renal mass. No hydronephrosis. No bladder mass. CBC is unremarkable except for lymphocytes of 0.4. D-dimer 5.11. CO2 15, BUN 66 and creatinine 1.93. Blood sugars are running between 177 and 227. LDH 980. C- reactive protein 8.2. IV fluids are currently lactated Ringer's at 75 mL per hour,. 01/26: Patient continues to be unresponsive. No improvement of her mental status. Patient is currently a full code. German son Doug was contacted and was in agreement to change patient to a no CODE STATUS. Family is planning to do a virtual visit with her today. Also discussed PEG tube placement which they would like to pursue. Consult placed with general surgery. IV hydralazine as needed for blood pressure control. MRI of the brain revealed no acute findings of infarct. Moderate diffuse cerebral atrophy greatest over bilateral frontal lobes mild to moderate chronic small vessel ischemic change. KUB shows nonspecific findings. Patient had a small smear of bowel movement this morning only. Repeat blood work reveals WBC 9.4, hemoglobin 15.5, platelet count 223. D-dimer 5.51. Blood sugars running in the 300s area and Levemir 10 units at bedtime added as well as NovoLog 5 units every 6 hours. NovoLog scales been changed every 6 hours. Remdesivir day #4/5. REVIEW OF SYSTEMS Unable to obtain due to mental status. PHYSICAL EXAMINATION Gen: This is an 85-year-old female. Patient is resting in bed. No respiratory distress is noted. HEENT: Head is atraumatic, normocephalic. Pupils equal, round. Sclerae is anicteric. NECK: Supple. No JVD. No lymphadenopathy. No thyromegaly. LUNGS: Decreased breath sounds bilaterally. No wheezes or rhonchi. No intercostal retractions. HEART: Regular rate and rhythm. No murmur. ABDOMEN: Soft. Bowel sounds are present. No masses. No tenderness. EXTREMITIES: No pedal edema. No calf tenderness. NEUROLOGICAL: Patient is confused, unable to answer questions or follow simple commands, generalized weakness noted. ASSESSMENT AND PLAN #1 acute toxic metabolic encephalopathy likely secondary to Covid with underlying short term memory loss from previous concussion. Unknown if patient has underlying dementia. Keep patient on fall precaution and seizure precautions. Neurology consulted. CT head negative for any acute changes on 01/23. CT was also obtained on 01/17 at the hospital has been was negative for any acute changes. MRI of the brain negative for acute findings. Patient is not receiving any oral medications at this point. #2 acute hypoxic respiratory failure secondary to Covid pneumonia. Continue Pro Air as needed for shortness of breath. Pulmonary consult appreciated. Mucinex as needed. Sputum culture. Dexamethasone 6 mg IV every 12 hours. Vitamin C, vitamin D and zinc. Inflammation markers are elevated. On Remdesivir day #4/5 #3 acute kidney injury over chronic kidney disease stage 5 follows nephrology as outpatient at [facility] Patient has no prior baseline creatinine. Nephrology consult appreciated. Continue IV fluids of lactated Ringer's at 75 mL per hour, sodium bicarb 650 mg twice daily. Hold torsemide hold Aldactone. #4 coronary artery disease status post stents 34 years ago Continue atorvastatin, isosorbide dinitrate continue Coreg 25 mg twice a day #5 hypothyroidism continue levothyroxine 50 g daily TSH normal #6 type 2 diabetes uncontrolled with hyperglycemia secondary to steroids. Levemir 10 units at bedtime started as well as NovoLog 5 units every 6 hours. Continue with insulin sliding scale #7 hyperlipidemia continue atorvastatin 40 mg by mouth daily #8 hypertension continue amlodipine 5 mg by mouth daily. Hydralazine 10 mg IV push every 6 hours as needed for systolic blood pressure greater than 160. #9. Generalized gout allopurinol 100 mg by mouth daily #10 atrial fibrillation Eliquis 2. 5 mg twice a day continue Coreg 25 twice a day #11 CODE STATUS full code per her son. 7 once every attempt to be made to r esuscitate the patient onthe prognosis is poor at bedtime he would consider comfort care #12 severe protein calorie malnutrition secondary to patient's inability to eat and no oral intake for the past 3 days. Consult with general surgery for PEG tube insertion. Hold anticoagulation until seen by general surgery. 13. GI prophylaxis with Pepcid 20 mg IV twice a day 14. DVT prophylaxis. Hold eliquis as 2.5 twice a day DISCHARGE PLAN Return to [facility]. Impression and plan of care have been directed as dictated by the signing physician. Lesly Núñez nurse practitioner acting as scribe for signing physician. Objective - Vital Signs Vital signs: Vital Signs Temp 97.3 F L 01/26/21 05:34 Pulse 76 01/26/21 05:34 Resp 18 01/26/21 05:34 BP 160/71 01/26/21 05:34 Pulse Ox 92 L 01/26/21 05:34 Intake & Output 01/25/21 01/26/21 01/26/21 18:59 06:59 18:59 Intake Total 225 Output Total 250 Balance -25 Intake: Intake, IV Titration 225 Amount Dextrose 5% in Water 1, 225 000 ml @ 75 mls/hr IV . [id number] CARYN with Sodium Bicarb (1 Meq/ml) 150 ml Rx#:[id number] Output: Urine 250 Other: Voiding Method External Catheter External Catheter - Labs CBC & Chem 7: 01/26/21 07:41 01/25/21 05:32 Labs: Abnormal Lab Results - Last 24 Hours (Table) 01/25/21 01/25/21 01/25/21 Range/Units 11:30 16:30 19:34 D-Dimer (<0.60) mg/L FEU POC Glucose (mg/dL) 202 H 171 H 216 H (75-99) mg/dL 01/26/21 01/26/21 Range/Units 07:04 07:41 D-Dimer 5.51 H (<0.60) mg/L FEU POC Glucose (mg/dL) 362 H (75-99) mg/dL Microbiology - Last 24 Hours (Table) 01/23/21 12:43 Blood Culture - Preliminary Blood No Growth after 48 hours 01/23/21 12:43 Blood Culture - Preliminary Blood No Growth after 48 hours
[2021-01-26] MEDS: hydrALAZINE HCL 20 MG/ML 1 ML VIAL IVP PRN (13:53)
[2021-01-26 14:00] LABS: Glucose,Whole Blood 280 mg/dL (75-99)
[2021-01-26 14:01] LABS: African American GFR (CKD) 33 (>60 ml/min/1.73 sqM); Anion Gap 6 mmol/L; Blood Urea Nitrogen 72 mg/dL (7-17); Calcium 10.5 mg/dL (8.4-10.2); Carbon Dioxide 23 mmol/L (22-30); Chloride 117 mmol/L (98-107); Glucose 357 mg/dL (74-99); Non-African American GFR(CKD) 28 (>60 ml/min/1.73 sqM); Potassium 4.4 mmol/L (3.5-5.1); Sodium 146 mmol/L (137-145)
--- NOTE | 2021-01-26 15:15 | PN ---
PROGRESS NOTE Patient is seen for followup for acute kidney injury. She is being treated for COVID pneumonia. Serum creatinine staying at about 1.9-2 mg/dL. The patient is currently maintained on a bicarb drip. She is comfortable, arousable but confused. PHYSICAL EXAMINATION: Blood pressure was 160/71, heart rate 76 per minute, she is afebrile. Examination of lower extremities shows no significant edema. The patient has been moving all 4 extremities. She is confused. Abdomen is soft, nontender. LABS: From yesterday show sodium 144, potassium 5.1, CO2 is 15, BUN 66, creatinine 1.93. ASSESSMENT: 1. Acute kidney injury, acute tubular necrosis, nonoliguric. No evidence of obstruction on ultrasound. UA shows 1+ protein, no blood and hyaline and granular casts were seen. Check labs today. 2. Non gap metabolic acidosis, started on bicarb drip yesterday. 3. COVID pneumonia, maintained on 4 L nasal cannula. Started on Decadron. 4. Chronic atrial fibrillation. 5. Chronic kidney disease. Previous creatinine not known. 6. Hypothyroidism. PLAN: Check labs today. Continue with the bicarb drip for now. Repeat chest x-ray. MMODL / IJN: [id number] /
[2021-01-26 16:27] LABS: Glucose,Whole Blood 286 mg/dL (75-99)
--- NOTE | 2021-01-26 16:41 | XR ---
EXAMINATION TYPE: XR chest 1V DATE OF EXAM: 01/26/2021 COMPARISON: Chest x-ray 01/24/2021 HISTORY: Difficulty breathing, congestive heart failure TECHNIQUE: Single frontal view of the chest is obtained. FINDINGS: Bilateral airspace disease is again noted. No evident pneumothorax or pleural effusion. Ca rdiac mediastinal silhouette is stable. Aorta is dense. IMPRESSION: Correlate for pneumonia, edema, follow-up recommended
--- NOTE | 2021-01-26 16:43 | P.PN ---
Subjective Progress Note Date: 01/26/21 Principal diagnosis: Acute COVID-19 pneumonia, encephalopathy 85-year-old female patient, presented today for altered mentation and and worsening hypoxemia. She resides in [facility] on the [place]. She was in the emergency department on 01/17/2021 at [facility], where the patient had some altered mentation and flulike symptoms. She was worked up with a CAT scan of the brain that was negative. She was found to be positive for COVID-19 on 01/18/2021. Today, she is coming in with worsening shortness of breath. She is currently on 6 L of oxygen by nasal cannula. She looks very drowsy. In terms of her blood work, she has a white cell count of 5.4, lymphopenia is present, d- dimer is at 2.1, BNP is 53 with a creatinine of 2.2, AST is 45, LDH is 1076, CRP at 20.8, and a chest x-ray showing bilateral pulmonary infiltrates in lung bases right more than left. Currently on 6 L. Started on Decadron and currently is on 6 mg IV every 12 hours. She is also on long-term and to coagulation with Eliquis 2.5 mg by mouth twice a day On 01/24/2021, the patient is slightly more responsive. She is still refusing to eat and her oral intake is almost none at this point in time. She is receiving IV fluids and she is currently on normal saline at the rate of 75 mL an hour. On her blood work, the patient has a sodium level of 141, serum bicarbonate 18, creatinine is at 2.1, slightly improved compared to yesterday, LDH level is elevated at 845, slightly lower in the CRP is at 18.9 with a d- dimer of 3.07. She was started on a combination of Decadron 6 mg IV every 12 and the patient is also on day #2 of Remdesivir she has chronic kidney disease. She is on long-term anticoagulation with Eliquis 2.5 mg by mouth twice a day. She has history of CAD, diabetes mellitus type 2, hyperlipidemia and his previous history of atrial fibrillation. She also has chronic kidney disease. On 01/25/2021 patient seen in follow-up on medical surgical floor, she is currently on 2 L of oxygen, she remains encephalopathic, and her pulse ox on 2 L was 83%, patient had the nasal cannula off, she is restless, he continues, lethargic, returned at the FiO2 up to 4 L, she sat 92%, she is afebrile, hemodynamically she is stable, today's labs have been reviewed, showing a d- dimer of 5.11, she remains lymphopenic with lymphocyte count 0.4, white count is 6.8, sodium is 144, potassium is 5.1, chloride is 120, CO2 is 15, BUN 66 and creatinine is 1.9, LDH is 980, and CRP is 8.2, pro-calcitonin level was 0.61, urinalysis showed occasional bacteria, but no increased white blood cells, and moderate yeast in the urine. Sounds reveal some bilateral crackles, patient remains on IV Decadron 6 mg twice daily, she also received a dose of lorazepam, she is on day 2 of Remdesivir treatments, she is on lactated Ringer's at 75 ML per hour, and she is on Eliquis for 2-1/2 mg by mouth twice a day, patient has not been able to take anything by mouth in view of her altered mental status, cultures so far have shown no growth. On 01/26/2021 patient seen in follow-up on medical surgical floor, she remains encephalopathic, she is not able to answer any questions, very confused, letharg ic, she is currently on 3 L of oxygen the pulse ox between 92-94%, she's been nothing by mouth for possibility of aspiration related to her altered mentation, she is afebrile, hemodynamically she is stable, breathing is nonlabored, days chest x-ray shows cardiomegaly and chronic bronchial changes with right greater than left multifocal and confluent opacities. Patient's IV fluids in the form of D5 W with 3 A of bicarbonate at a rate of 75 ML per hour. Patient remains on Remdesivir treatment, today is day 2. Decadron at 6 mg daily, and she remains on oral Eliquis. Today's labs have been reviewed, showing right little, 9.48, hemoglobin 15.5, d-dimer is relatively stable at 5.51, serum sodium is 146 worsened, potassium is 4.4, chloride is 117, BUN of 71, and creatinine of 1.64, slightly improved. No new inflammatory markers on today's labs, were told by the nursing staff that the patient's son had a conversation with the attending physician and decided to make the patient a DO NOT RESUSCITATE and patient's son is supposed to come in to see the patient sometime today or tomorrow and make a decision in regards to PEG tube insertion. Otherwise seems to be fairly comfortable, remains confused. Objective - Vital Signs Vital signs: Vital Signs Temp 98.0 F 01/26/21 14:00 Pulse 81 01/26/21 14:00 Resp 32 H 01/26/21 14:00 BP 180/93 01/26/21 14:00 Pulse Ox 92 L 01/26/21 14:00 Intake & Output 01/25/21 01/26/21 01/26/21 18:59 06:59 18:59 Intake Total 225 Output Total 250 950 Balance -25 -950 Weight 99.79 kg Intake: Intake, IV Titration 225 Amount Dextrose 5% in Water 1, 225 000 ml @ 75 mls/hr IV . [id number] CARYN with Sodium Bicarb (1 Meq/ml) 150 ml Rx#:[id number] Output: Urine 250 950 Other: Voiding Method External Catheter External Catheter - Exam GENERAL EXAM: Very lethargic, 85-year-old, confused, restless at times, encephalopathic, 85-year-old white female, on 2 L of oxygen her pulse ox was 92%, O2 was increased to 4 L, and patient frequently removes her oxygen comfortable in no apparent distress. HEAD: Normocephalic/atraumatic. EYES: Normal reaction of pupils, equal size. Conjunctiva pink, sclera white. NOSE: Clear with pink turbinates. THROAT: No erythema or exudates. NECK: No masses, no JVD, no thyroid enlargement, no adenopathy. CHEST: No chest wall deformity. Symmetrical expansion. LUNGS: Equal air entry with no crackles, wheeze, rhonchi or dullness. CVS: Regular rate and rhythm, normal S1 and S2, no gallops, no murmurs, no rubs ABDOMEN: Soft, nontender. No hepatosplenomegaly, normal bowel sounds, no guarding or rigidity. EXTREMITIES: No clubbing, no edema, no cyanosis, 2+ pulses and upper and lower extremities. MUSCULOSKELETAL: Muscle strength and tone normal. SPINE: No scoliosis or deformity SKIN: No rashes CENTRAL NERVOUS SYSTEM: Unable to assess, patient is very confused. No focal deficits, tone is normal in all 4 extremities. - Labs CBC & Chem 7: 01/26/21 07:41 01/26/21 13:27 Labs: Abnormal Lab Results - Last 24 Hours (Table) 01/25/21 01/26/21 01/26/21 Range/Units 19:34 07:04 07:41 Hgb 15.5 H (12.0-15.0) g/dL Hct 48.3 H (37.2-46.3) % RDW 15.9 H (11.5-14.5) % Immature Gran # 0.13 H (0.00-0.04) X 10*3/uL Neutrophils # 7.88 H (1.80-7.70) X 10*3/uL Lymphocytes # 0.83 L (0.90-5.00) X 10*3/uL Eosinophils # 0 L (0.04-0.35) X 10*3/uL D-Dimer (<0.60) mg/L FEU Sodium (137-145) mmol/L Chloride (98-107) mmol/L BUN (7-17) mg/dL Creatinine (0.52-1.04) mg/dL Glucose (74-99) mg/dL POC Glucose (mg/dL) 216 H 362 H (75-99) mg/dL Calcium (8.4-10.2) mg/dL 01/26/21 01/26/21 01/26/21 Range/Units 07:41 11:27 13:27 Hgb (12.0-15.0) g/dL Hct (37.2-46.3) % RDW (11.5-14.5) % Immature Gran # (0.00-0.04) X 10*3/uL Neutrophils # (1.80-7.70) X 10*3/uL Lymphocytes # (0.90-5.00) X 10*3/uL Eosinophils # (0.04-0.35) X 10*3/uL D-Dimer 5.51 H (<0.60) mg/L FEU Sodium 146 H (137-145) mmol/L Chloride 117 H (98-107) mmol/L BUN 72 H (7-17) mg/dL Creatinine 1.64 H (0.52-1.04) mg/dL Glucose 357 H (74-99) mg/dL POC Glucose (mg/dL) 365 H (75-99) mg/dL Calcium 10.5 H (8.4-10.2) mg/dL 01/26/21 01/26/21 Range/Units 13:56 16:25 Hgb (12.0-15.0) g/dL Hct (37.2-46.3) % RDW (11.5-14.5) % Immature Gran # (0.00-0.04) X 10*3/uL Neutrophils # (1.80-7.70) X 10*3/uL Lymphocytes # (0.90-5.00) X 10*3/uL Eosinophils # (0.04-0.35) X 10*3/uL D-Dimer (<0.60) mg/L FEU Sodium (137-145) mmol/L Chloride (98-107) mmol/L BUN (7-17) mg/dL Creatinine (0.52-1.04) mg/dL Glucose (74-99) mg/dL POC Glucose (mg/dL) 280 H 286 H (75-99) mg/dL Calcium (8.4-10.2) mg/dL Microbiology - Last 24 Hours (Table) 01/23/21 12:43 Blood Culture - Preliminary Blood No Growth after 72 hours 01/23/21 12:43 Blood Culture - Preliminary Blood No Growth after 72 hours Assessment and Plan Plan: Assessment: #1. Acute COVID-19 related pneumonia/infection with secondary shortness of breath and encephalopathy, neurologic exam is nonfocal, patient is extremely weak, and then debilitated, she is a [facility] resident at the [facility]. Patient was started on Remdesivir on 01/24/2021 #2. Acute hypoxic restaurant failure currently on 2 L of oxygen and her pulse ox was 83%, and she is requiring 4 L of oxygen #3. Acute kidney injury on top of chronic kidney disease, improving with IV hydration #4. Coronary artery disease #5. Diabetes type II #6. Hypertension #7. Hyperlipidemia #8. Chronic A. fib on Eliquis for long-term anticoagulation, and patient has been nothing by mouth in view of her altered mentation may need NG tube placed for administration of oral meds #9. History of hypothyroidism Plan: Patient continues to be encephalopathic FiO2 remains at 2-3 L and patient has no worsening dyspnea or hypoxia Aspiration precautions Continue Remdesivir and Decadron, oral anticoagulation is able to administer CODE STATUS has been established and patient is not a DO NOT RESUSCITATE Patient's son is to make a decision on tube placement Pulmonary/critical care will sign off in follow-up on an as-needed basis Overall prognosis is poor and guarded I performed a history & physical examination of the patient and discussed their management with my nurse practitioner, Di Stubbs. I reviewed the nurse practitioner's note and agree with the documented findings and plan of care. Lung sounds are positive for diffuse rhonchi. The findings and the impression was discussed with the patient. I attest to the documentation by the nurse practitioner. Time with Patient: Less than 30
[2021-01-26] MEDS: REMDESIVIR 100 MG in SODIUM CHLORIDE 0.9% 250 ML IVPB SCH (17:18)
[2021-01-26] MEDS: MORPHINE SULFATE 2 MG/ML SYRINGE IVP PRN (17:19)
[2021-01-26] MEDS: ATORVASTATIN 40 MG TAB PO SCH (19:19)
[2021-01-26 19:58] LABS: Glucose,Whole Blood 220 mg/dL (75-99)
[2021-01-26] MEDS ORDERED: INSULIN DETEMIR (LEVEMIR) 100 UNIT/ML SYR SQ SCH (21:00)
[2021-01-27 00:45] LABS: African American GFR (CKD) 24.3 (60.0-200.0); Albumin 3.3 g/dL (3.80-4.90); Albumin/Globulin Ratio 1.83 (1.60-3.17); Anion Gap 17.6 mmol/L (4.00-12.00); BUN/Creat Ratio 35.71 Ratio (12.00-20.00); C Reactive Protein 4.5 mg/dL (0.0-0.8); Calcium 9.7 mg/dL (8.7-10.3); Carbon Dioxide 14.4 mmol/L (21.6-31.8); Globulin 1.8 g/dL (1.6-3.3); Non-African American GFR(CKD) 20.9 (60.0-200.0); Potassium 5.2 mmol/L (3.5-5.5); Total Bilirubin 0.6 mg/dL (0.3-1.2); Total Protein 5.1 g/dL (6.2-8.2)
[2021-01-27 02:26] LABS: Glucose,Whole Blood 309 mg/dL (75-99)
[2021-01-27] MEDS: INSULIN ASPART (NovoLOG) 100 UNIT/ML VIAL SQ SCH ×7 (02:31→20:42)
[2021-01-27] MEDS: MORPHINE SULFATE 2 MG/ML SYRINGE IVP PRN ×2 (02:32→08:16)
[2021-01-27] MEDS: hydrALAZINE HCL 20 MG/ML 1 ML VIAL IVP PRN (05:55)
[2021-01-27 07:08] LABS: Glucose,Whole Blood 257 mg/dL (75-99)
[2021-01-27] MEDS: amLODIPine 5 MG TAB PO SCH (08:08)
[2021-01-27] MEDS: SODIUM BICARBONATE TAB 650 MG TAB PO SCH (08:08)
[2021-01-27] MEDS: guaiFENesin 600 MG TABLET.ER PO SCH ×2 (08:08→20:34)
[2021-01-27] MEDS: PANTOPRAZOLE 40 MG TABLET PO SCH (08:08)
[2021-01-27] MEDS: APIXABAN 2.5 MG TABLET PO SCH (08:08)
[2021-01-27] MEDS: carvediloL 12.5 MG TAB PO SCH ×2 (08:08→13:10)
[2021-01-27] MEDS: ISOSORBIDE DINITRATE 10 MG TAB PO SCH (08:08)
[2021-01-27] MEDS: DEXAMETHASONE SOD PHOSPHATE 10 MG/ML 1 ML VIAL IV SCH (08:12)
[2021-01-27] MEDS ORDERED: HEPARIN SODIUM 1,000 UN/ML (10ML VL) IV ONE (10:04)
[2021-01-27] MEDS ORDERED: HEPARIN SODIUM 1,000 UN/ML (10ML VL) IV PRN (10:04)
[2021-01-27 10:31] LABS: African American GFR (CKD) 39 (>60 ml/min/1.73 sqM); Anion Gap 4 mmol/L; Blood Urea Nitrogen 64 mg/dL (7-17); Calcium 10.2 mg/dL (8.4-10.2); Carbon Dioxide 30 mmol/L (22-30); Chloride 116 mmol/L (98-107); Glucose 304 mg/dL (74-99); Non-African American GFR(CKD) 34 (>60 ml/min/1.73 sqM); Sodium 150 mmol/L (137-145)
[2021-01-27 10:37] LABS: Potassium 4.7 mmol/L (3.5-5.1)
--- NOTE | 2021-01-27 10:41 | P.GSCN ---
History of Present Illness Consult date: 01/27/21 History of present illness: 85 yoa female currently for treatment of Covid pneumonia with acute encephalopathy. All history is taken from patient's chart as she is unable to answer questions appropriately at this time. She had multiple emergency department visits over the past few weeks secondary to these issues. No family member is present at bedside. Due to recent finding of acute encephalopathy and inability to tolerate oral medication along with oral nutrition, surgery consult has been placed for PEG placement. Multiple attempts have been made for nasogastric tube insertion without success. Currently, because of encephalopathy is unknown, with concern for toxic metabolic etiology. Recent brain CT and brain MRI have been negative for acute stroke. She is being followed by neurology, pulmonology and nephrology. Review of Systems ROS unobtainable: due to mental status Past Medical History Past Medical History: Coronary Artery Disease (CAD), Diabetes Mellitus, Hyperlipidemia, Hypertension, Renal Disease Additional Past Medical History / Comment(s): cad, esrd History of Any Multi-Drug Resistant Organisms: Unobtainable Past Psychological History: Unable to Obtain Smoking Status: Unknown if ever smoked Past Alcohol Use History: Unable to Obtain Past Drug Use History: Unable to Obtain Medications and Allergies Home Medications Medication Instructions Recorded Confirmed Type Allopurinol [Zyloprim] 100 mg PO DAILY 01/23/21 01/23/21 History Apixaban [Eliquis] 2.5 mg PO BID@0900,1700 01/23/21 01/23/21 History Aspirin EC [Ecotrin Low Dose] 81 mg PO DAILY 01/23/21 01/23/21 History Atorvastatin [Lipitor] 40 mg PO HS 01/23/21 01/23/21 History Carvedilol [Coreg] 25 mg PO BID@0900,1700 01/23/21 01/23/21 History Insulin Detemir [Levemir Flextouch] 40 units SQ HS 01/23/21 01/23/21 History Insulin Lispro [humaLOG Kwikpen] 12 unit SQ AC-BRKFST@0800 01/23/21 01/23/21 History Insulin Lispro [humaLOG Kwikpen] 14 unit SQ AC-BID@1200,1700 01/23/21 01/23/21 H istory Ipratropium [place] [Atrovent Hfa] 2 puff INHALATION RT-Q6H PRN 01/23/21 01/23/21 History Isosorbide Dinitrate 30 mg PO DAILY 01/23/21 01/23/21 History Levothyroxine Sodium [Synthroid] 50 mcg PO DAILY@0600 01/23/21 01/23/21 History Mirtazapine [Remeron] 15 mg PO HS 01/23/21 01/23/21 History Spironolactone [Aldactone] 25 mg PO DAILY 01/23/21 01/23/21 History Torsemide [Demadex] 40 mg PO SUMOWEFR@0900 01/23/21 01/23/21 History Torsemide [Demadex] 60 mg PO TUTHSA@0900 01/23/21 01/23/21 History amLODIPine [Norvasc] 5 mg PO DAILY 01/23/21 01/23/21 History Allergies Allergy/AdvReac Type Severity Reaction Status Date / Time Sulfa (Sulfonamide Allergy Unknown Verified 01/23/21 11:53 Antibiotics) Surgical - Exam Osteopathic Statement: *. No significant issues noted on an osteopathic structural exam other than those noted in the History and Physical/Consult. Vital Signs Temp Pulse Resp BP Pulse Ox 98.3 F 66 24 124/53 95 01/23/21 11:21 01/23/21 11:21 01/23/21 11:21 01/23/21 11:21 01/23/21 11:21 - Neck trachea midline - Respiratory normal respiratory effort - Abdomen Abdomen: soft, non tender - Neurologic No appropriate response to verbal or physical stimuli Results - Labs 01/26/21 07:41 01/27/21 09:46 Abnormal Lab Results - Last 24 Hours (Table) 01/26/21 01/26/21 01/26/21 Range/Units 07:41 07:41 11:27 Hgb 15.5 H (12.0-15.0) g/dL Hct 48.3 H (37.2-46.3) % RDW 15.9 H (11.5-14.5) % Immature Gran # 0.13 H (0.00-0.04) X 10*3/uL Neutrophils # 7.88 H (1.80-7.70) X 10*3/uL Lymphocytes # 0.83 L (0.90-5.00) X 10*3/uL Eosinophils # 0 L (0.04-0.35) X 10*3/uL Sodium 152 H (135-145) mmol/L Chloride 120 H (96-109) mmol/L Carbon Dioxide 14.4 L (21.6-31.8) mmol/L Anion Gap 17.60 H (4.00-12.00) mmol/L BUN 75.0 H (9.0-27.0) mg/dL Creatinine 2.1 H (0.6-1.5) mg/dL Est GFR (CKD-EPI)AfAm 24.3 L (60.0-200.0) Est GFR (CKD-EPI)NonAf 20.9 L (60.0-200.0) BUN/Creatinine Ratio 35.71 H (12.00-20.00) Ratio Glucose 417 H (70-110) mg/dL POC Glucose (mg/dL) 365 H (75-99) mg/dL Calcium (8.4-10.2) mg/dL Lactate Dehydrogenase 457 H (120-246) U/L C-Reactive Protein 4.5 H (0.0-0.8) mg/dL Total Protein 5.1 L (6.2-8.2) g/dL Albumin 3.30 L (3.80-4.90) g/dL 01/26/21 01/26/21 01/26/21 Range/Units 13:27 13:56 16:25 Hgb (12.0-15.0) g/dL Hct (37.2-46.3) % RDW (11.5-14.5) % Immature Gran # (0.00-0.04) X 10*3/uL Neutrophils # (1.80-7.70) X 10*3/uL Lymphocytes # (0.90-5.00) X 10*3/uL Eosinophils # (0.04-0.35) X 10*3/uL Sodium 146 H (135-145) mmol/L Chloride 117 H (96-109) mmol/L Carbon Dioxide (21.6-31.8) mmol/L Anion Gap (4.00-12.00) mmol/L BUN 72 H (9.0-27.0) mg/dL Creatinine 1.64 H (0.6-1.5) mg/dL Est GFR (CKD-EPI)AfAm (60.0-200.0) Est GFR (CKD-EPI)NonAf (60.0-200.0) BUN/Creatinine Ratio (12.00-20.00) Ratio Glucose 357 H (70-110) mg/dL POC Glucose (mg/dL) 280 H 286 H (75-99) mg/dL Calcium 10.5 H (8.4-10.2) mg/dL Lactate Dehydrogenase (120-246) U/L C-Reactive Protein (0.0-0.8) mg/dL Total Protein (6.2-8.2) g/dL Albumin (3.80-4.90) g/dL 01/26/21 01/27/21 01/27/21 Range/Units 19:55 02:24 07:06 Hgb (12.0-15.0) g/dL Hct (37.2-46.3) % RDW (11.5-14.5) % Immature Gran # (0.00-0.04) X 10*3/uL Neutrophils # (1.80-7.70) X 10*3/uL Lymphocytes # (0.90-5.00) X 10*3/uL Eosinophils # (0.04-0.35) X 10*3/uL Sodium (135-145) mmol/L Chloride (96-109) mmol/L Carbon Dioxide (21.6-31.8) mmol/L Anion Gap (4.00-12.00) mmol/L BUN (9.0-27.0) mg/dL Creatinine (0.6-1.5) mg/dL Est GFR (CKD-EPI)AfAm (60.0-200.0) Est GFR (CKD-EPI)NonAf (60.0-200.0) BUN/Creatinine Ratio (12.00-20.00) Ratio Glucose (70-110) mg/dL POC Glucose (mg/dL) 220 H 309 H 257 H (75-99) mg/dL Calcium (8.4-10.2) mg/dL Lactate Dehydrogenase (120-246) U/L C-Reactive Protein (0.0-0.8) mg/dL Total Protein (6.2-8.2) g/dL Albumin (3.80-4.90) g/dL Microbiology - Last 24 Hours (Table) 01/23/21 12:43 Blood Culture - Preliminary Blood No Growth after 72 hours 01/23/21 12:43 Blood Culture - Preliminary Blood No Growth after 72 hours Diabetes panel 01/26/21 01/26/21 Range/Units 07:41 13:27 Sodium 152 H 146 H (135-145) mmol/L Potassium 5.2 4.4 (3.5-5.5) mmol/L Chloride 120 H 117 H (96-109) mmol/L Carbon Dioxide 14.4 L 23 (21.6-31.8) mmol/L BUN 75.0 H 72 H (9.0-27.0) mg/dL Creatinine 2.1 H 1.64 H (0.6-1.5) mg/dL Glucose 417 H 357 H (70-110) mg/dL Calcium 9.7 10.5 H (8.7-10.3) mg/dL AST 35 (13-35) U/L ALT 25 (8-44) U/L Alkaline Phosphatase 85 (41-126) U/L Total Protein 5.1 L (6.2-8.2) g/dL Albumin 3.30 L (3.80-4.90) g/dL Calcium panel 01/26/21 01/26/21 Range/Units 07:41 13:27 Calcium 9.7 10.5 H (8.7-10.3) mg/dL Albumin 3.30 L (3.80-4.90) g/dL Pituitary panel 01/26/21 01/26/21 Range/Units 07:41 13:27 Sodium 152 H 146 H (135-145) mmol/L Potassium 5.2 4.4 (3.5-5.5) mmol/L Chloride 120 H 117 H (96-109) mmol/L Carbon Dioxide 14.4 L 23 (21.6-31.8) mmol/L BUN 75.0 H 72 H (9.0-27.0) mg/dL Creatinine 2.1 H 1.64 H (0.6-1.5) mg/dL Glucose 417 H 357 H (70-110) mg/dL Calcium 9.7 10.5 H (8.7-10.3) mg/dL Adrenal panel 01/26/21 01/26/21 Range/Units 07:41 13:27 Sodium 152 H 146 H (135-145) mmol/L Potassium 5.2 4.4 (3.5-5.5) mmol/L Chloride 120 H 117 H (96-109) mmol/L Carbon Dioxide 14.4 L 23 (21.6-31.8) mmol/L BUN 75.0 H 72 H (9.0-27.0) mg/dL Creatinine 2.1 H 1.64 H (0.6-1.5) mg/dL Glucose 417 H 357 H (70-110) mg/dL Calcium 9.7 10.5 H (8.7-10.3) mg/dL Total Bilirubin 0.6 (0.3-1.2) mg/dL AST 35 (13-35) U/L ALT 25 (8-44) U/L Alkaline Phosphatase 85 (41-126) U/L Total Protein 5.1 L (6.2-8.2) g/dL Albumin 3.30 L (3.80-4.90) g/dL Assessment and Plan Plan: 85 yoa female currently for treatment of Covid pneumonia with acute encephalopathy. Unable to take in any p.o. intake of medication or nutrition. High risk of aspiration. The patient is not tolerating nasogastric tube placement. Primary team has discussed the case in depth with the patient's son and she is currently no code with request to continue with PEG tube placement for nutrition and medication. I did discuss the case in depth with the primary team as well. Plan is for PEG tube placement tomorrow. I will discuss with the patient's son, who is the medical decision maker, to obtain consent.
[2021-01-27] MEDS: HEPARIN SOD,PORK IN 0.45% NACL 25,000 UNIT in 0.45% NACL 1 250ML.BAG IV SCH (10:54)
[2021-01-27 11:14] LABS: Basophils # (A) 0.2 k/uL (0-0.2); Basophils % (A) 1 %; Eosinophils % (A) 0 %; HCT 49.3 % (34.0-46.0); HGB 15.7 gm/dL (11.4-16.0); Lymphocytes # (A) 0.3 k/uL (1.0-4.8); Lymphocytes % (A) 3 %; MCH 29.8 pg (25.0-35.0); MCHC 31.9 g/dL (31.0-37.0); MCV 93.4 fL (80.0-100.0); Mean Platelet Volume 8.4; Monocytes # (A) 1.5 k/uL (0-1.0); Monocytes % (A) 13 %; Neutrophils # (A) 8.8 k/uL (1.3-7.7); Neutrophils % (A) 80 %; Platelet Count 261 k/uL (150-450); RBC 5.27 m/uL (3.80-5.40); RDW 15.5 % (11.5-15.5)
[2021-01-27 11:33] LABS: INR 1.3 (<1.2); Partial Thromboplastin Time 22.5 sec (22.0-30.0); Prothrombin Time 13.6 sec (9.0-12.0)
[2021-01-27] MEDS ORDERED: INSULIN ASPART (NovoLOG) 100 UNIT/ML VIAL SQ SCH (12:01)
--- NOTE | 2021-01-27 12:04 | P.PN ---
Subjective Progress Note Date: 01/27/21 HISTORY OF PRESENT ILLNESS 85 years old female patient of Dr. Mack past medical history of hypertension hyperlipidemia coronary artery disease, chronic kidney disease unk nown stage presents with increasing confusion and hypoxia from [facility] [place]. Apparently patient was brought to the ER at [facility] on 01/17 for worsening confusion and flulike symptoms. Patient went home as was not able to be seen for her symptoms soon enough and called her primary care physician who ordered a CAT scan of the head. CAT scan of the head was negative and patient was brought back to the ER on 01/18 and was treated for COVID pneumonia. Patient was discharged to [facility] [place] and was brought back to the ER 24- hour later for worsening shortness of breath.on evaluation in the ER patient is short of breath requiring 6 L of oxygen unable to answer any questions very drowsy on evaluation. She opens her eyes to question only to go back to sleep in a short while. Patient withdraws to pain but does not follow commands. No family member is present at bedside. Son was called multiple times but was unable to be reached. History is obtained through patient's and documentation by the ER. She has never been admitted in this hospital. Evaluation Suggests Hemoglobin Is 15.5 Platelet 185 INR 1 D-Dimer 2.1 Sodium 140 Potassium 4.9 Chloride 111 Bicarb 20 1B UN 53 Creatinine 2.2 Calcium Is 10.7 Magnesium 2.6 Lactic Acid 1.6 Alkaline Phosphatase 87, LDH 1076 CRP 20.8 Output (3.1. Pro- Calcitonin Is Pending. ProBNP Is Pending. Chest X-Ray suggested cardiomegaly and chronic parenchymal changes with right greater than left multifocal opacities metoprolol and suggestive of COVID-[address] head ordered to rule out acute stroke. Patient's home medication reconciled will hold torsemide, spironolactone. Nephrology course consult for possible end-stage renal disease. Unclear if patient is on him and on dialysis. Ultrasound of the renal obtained. neurology in consult for acute encephalopathy likely secondary to Covid. Patient does have underlying dementia?. We'll start patient on dexamethasone 6 mg IV every 12 hours. Start her on vitamin C, vitamin D and zinc. Pulmonary consulted for Covid pneumonia. 01/24 spoke to patient's son who did state that patient has underlying history of concussion and forgetfulness but no formal diagnosis of dementia has ever been made. She was speaking clearly and had no confusion 8 days ago. Patient had normal recovery of mental status after being discharged from the other hospital and transferred to [facility]. Son does suggest that patient has history of stent placement 3-4 years ago for coronary artery disease. She does follow nephrology as outpatient and has significant end-stage chronic kidney disease with plan to initiate hemodialysis if no improvement noted. On evaluation patient's mental status today patient's more responsive. She was refusing to eat. Swallow evaluation at bedside was not past. Patient continued to be on normal saline 75 mL per hour on evaluation patient's blood work sodium is 141 bicarb 18 creatinine 2.1 MCH slightly improved to 845 CRP is 18.9. Pro-calcitonin came at 0.6, TSH normal urinary analysis negative for any infection. Blood cultures negative continue remdesivir per pulmonary recommendations continue Decadron and elliquis . Hold Levemir 01/25: Patient has been seen by neurology with recommendations for ammonia level, TSH and vitamin B12 and folate. Patient continues to have significant confusion and MRI of the brain ordered. Patient is also been seen by pulmonary medicine with recommendations for continuing IV Decadron, patient was started on Remdesivir day #3/5. Patient is also followed by nephrology with plan to continue IV hydration and hold diuretics. Chest x-ray from yesterday revealed cardiomegaly and chronic parenchymal changes with right greater than left multifocal and confluent opacities mid to lower lung suggesting Covid 19 infection redemonstrated. No significant change. Renal ultrasound revealed bilateral renal atrophy. No obstructive calculus in the upper pole left kidney. No evidence of renal mass. No hydronephrosis. No bladder mass. CBC is unremarkable except for lymphocytes of 0.4. D-dimer 5.11. CO2 15, BUN 66 and creatinine 1.93. Blood sugars are running between 177 and 227. LDH 980. C- reactive protein 8.2. IV fluids are currently lactated Ringer's at 75 mL per hour,. 01/26: Patient continues to be unresponsive. No improvement of her mental status. Patient is currently a full code. [place] son Doug was contacted and was in agreement to change patient to a no CODE STATUS. Family is planning to do a virtual visit with her today. Also discussed PEG tube placement which they would like to pursue. Consult placed with general surgery. IV hydralazine as needed for blood pressure control. MRI of the brain revealed no acute findings of infarct. Moderate diffuse cerebral atrophy greatest over bilateral frontal lobes mild to moderate chronic small vessel ischemic change. KUB shows nonspecific findings. Patient had a small smear of bowel movement this morning only. Repeat blood work reveals WBC 9.4, hemoglobin 15.5, platelet count 223. D-dimer 5.51. Blood sugars running in the 300s area and Levemir 10 units at bedtime added as well as NovoLog 5 units every 6 hours. NovoLog scales been changed every 6 hours. Remdesivir day #5. 01/27: Patient's family came in yesterday to see her. She was made no code y but they would like to pursue PEG tube. Patient was seen by Dr. Gordon and he wanted to evaluate for NG tube placement however patient is biting during oral care so she most likely would not be able be able to tolerate up NG tube. Discussed case with Dr. Mcmahan on an EEG ordered. We will plan to start patient on heparin drip for A. fib she has been off eliquis and PEG tube will most lik iqra be placed tomorrow. Patient continues to be unresponsive and dexamethasone will be discontinued and nursing to avoid morphine to see if these changes will improve her mental status. Repeat chest x-ray correlate for pneumonia, edema. Patient has been afebrile, heart rate 73, blood pressure 130/73, pulse ox 94% on 3 L nasal cannula. Sodium 150, potassium 4.7, chloride 116, CO2 30, BUN 64 and creatinine 1.42. Blood sugar 304. Blood sugars have been running between 220 and 309. Patient was started on Levemir 10 units at bedtime last evening and will be increased to 15 units as patient is continued on dextrose 5% at 75 mL per hour. Scheduled NovoLog every 6 hours will be increased to 6 units and continue NovoLog scale. Patient is on REM to severe day #02/10. REVIEW OF SYSTEMS Unable to obtain due to mental status. PHYSICAL EXAMINATION Gen: This is an 85-year-old female. Patient is resting in bed. No respiratory distress is noted. HEENT: Head is atraumatic, normocephalic. Pupils equal, round. Sclerae is anicteric. NECK: Supple. No JVD. No lymphadenopathy. No thyromegaly. LUNGS: Decreased breath sounds bilaterally. No wheezes or rhonchi. No intercostal retractions. HEART: Regular rate and rhythm. No murmur. ABDOMEN: Soft. Bowel sounds are present. No masses. No tenderness. EXTREMITIES: No pedal edema. No calf tenderness. NEUROLOGICAL: Patient is unresponsive, unable to answer questions or follow simple commands, generalized weakness noted. ASSESSMENT AND PLAN #1 acute infectious metabolic encephalopathy likely secondary to Covid with underlying short term memory loss from previous concussion. Unknown if patient has underlying dementia. Keep patient on fall precaution and seizure precautions. Neurology consulted. CT head negative for any acute changes on 01/23. CT was also obtained on 01/17 at the hospital has been was negative for any acute changes. MRI of the brain negative for acute findings. Patient is not receiving any oral medications at this point. EEG ordered. Dexamethasone will be discontinued and also nursing to avoid morphine to see if this improves her mental status. #2 acute hypoxic respiratory failure secondary to Covid pneumonia. Continue Pro Air as needed for shortness of breath. Pulmonary consult appreciated. Mucinex as needed. Sputum culture. Discontinue dexamethasone. Continue Vitamin C, vitamin D and zinc. Inflammation markers are elevated. On Remdesivir day #5/ #3 acute kidney injury over chronic kidney disease stage 5 follows nephrology as outpatient at [facility] Patient has no prior baseline creatinine. Nephrology consult appreciated. Continue IV fluids of lactated Ringer's at 75 mL per hour, sodium bicarb 650 mg twice daily. Hold torsemide hold Aldactone. #4 coronary artery disease status post stents 34 years ago Continue atorvastatin, isosorbide dinitrate continue Coreg 25 mg twice a day #5 hypothyroidism continue levothyroxine 50 g daily TSH normal #6 type 2 diabetes uncontrolled with hyperglycemia secondary to steroids. Levemir 10 units at bedtime started as well as NovoLog 5 units every 6 hours. Continue with insulin sliding scale #7 hyperlipidemia continue atorvastatin 40 mg by mouth daily #8 hypertension continue amlodipine 5 mg by mouth daily. Hydralazine 10 mg IV push every 6 hours as needed for systolic blood pressure greater than 160. #9. Generalized gout allopurinol 100 mg by mouth daily #10 atrial fibrillation Eliquis 2. 5 mg twice a day continue Coreg 25 twice a day. Patient will be started on heparin drip until eliquis can be resumed #11 CODE STATUS full code per her son. 7 once every attempt to be made to resuscitate the patient onthe prognosis is poor at bedtime he would consider comfort care #12 severe protein calorie malnutrition secondary to patient's inability to eat and no oral intake secondary to infectious encephalopathy from Covid 19. Consult with general surgery for PEG tube insertion. Patient scheduled for PEG tube insertion tomorrow afternoon. 13. GI prophylaxis with Pepcid 20 mg IV twice a day 14. DVT prophylaxis. Hold eliquis as 2.5 twice a day DISCHARGE PLAN Return to [facility]. Impression and plan of care have been directed as dictated by the signing physician. Lesly Núñez nurse practitioner acting as scribe for signing physician. Objective - Vital Signs Vital signs: Vital Signs Temp 97.8 F 01/27/21 05:52 Pulse 71 01/27/21 05:52 Resp 28 H 01/27/21 05:52 BP 178/77 01/27/21 05:52 Pulse Ox 96 01/27/21 05:52 Intake & Output 01/26/21 01/27/21 01/27/21 18:59 06:59 18:59 Output Total 950 500 Balance -950 -500 Weight 99.79 kg Output: Urine 950 500 Other: Voiding Method External Catheter - Labs CBC & Chem 7: 01/27/21 10:40 01/27/21 09:46 Labs: Abnormal Lab Results - Last 24 Hours (Table) 01/26/21 01/26/21 01/26/21 Range/Units 07:41 07:41 11:27 Hgb 15.5 H (12.0-15.0) g/dL Hct 48.3 H (37.2-46.3) % RDW 15.9 H (11.5-14.5) % Immature Gran # 0.13 H (0.00-0.04) X 10*3/uL Neutrophils # 7.88 H (1.80-7.70) X 10*3/uL Lymphocytes # 0.83 L (0.90-5.00) X 10*3/uL Eosinophils # 0 L (0.04-0.35) X 10*3/uL Sodium 152 H (135-145) mmol/L Chloride 120 H (96-109) mmol/L Carbon Dioxide 14.4 L (21.6-31.8) mmol/L Anion Gap 17.60 H (4.00-12.00) mmol/L BUN 75.0 H (9.0-27.0) mg/dL Creatinine 2.1 H (0.6-1.5) mg/dL Est GFR (CKD-EPI)AfAm 24.3 L (60.0-200.0) Est GFR (CKD-EPI)NonAf 20.9 L (60.0-200.0) BUN/Creatinine Ratio 35.71 H (12.00-20.00) Ratio Glucose 417 H (70-110) mg/dL POC Glucose (mg/dL) 365 H (75-99) mg/dL Calcium (8.4-10.2) mg/dL Lactate Dehydrogenase 457 H (120-246) U/L C-Reactive Protein 4.5 H (0.0-0.8) mg/dL Total Protein 5.1 L (6.2-8.2) g/dL Albumin 3.30 L (3.80-4.90) g/dL 01/26/21 01/26/21 01/26/21 Range/Units 13:27 13:56 16:25 Hgb (12.0-15.0) g/dL Hct (37.2-46.3) % RDW (11.5-14.5) % Immature Gran # (0.00-0.04) X 10*3/uL Neutrophils # (1.80-7.70) X 10*3/uL Lymphocytes # (0.90-5.00) X 10*3/uL Eosinophils # (0.04-0.35) X 10*3/uL Sodium 146 H (135-145) mmol/L Chloride 117 H (96-109) mmol/L Carbon Dioxide (21.6-31.8) mmol/L Anion Gap (4.00-12.00) mmol/L BUN 72 H (9.0-27.0) mg/dL Creatinine 1.64 H (0.6-1.5) mg/dL Est GFR (CKD-EPI)AfAm (60.0-200.0) Est GFR (CKD-EPI)NonAf (60.0-200.0) BUN/Creatinine Ratio (12.00-20.00) Ratio Glucose 357 H (70-110) mg/dL POC Glucose (mg/dL) 280 H 286 H (75-99) mg/dL Calcium 10.5 H (8.4-10.2) mg/dL Lactate Dehydrogenase (120-246) U/L C-Reactive Protein (0.0-0.8) mg/dL Total Protein (6.2-8.2) g/dL Albumin (3.80-4.90) g/dL 01/26/21 01/27/21 01/27/21 Range/Units 19:55 02:24 07:06 Hgb (12.0-15.0) g/dL Hct (37.2-46.3) % RDW (11.5-14.5) % Immature Gran # (0.00-0.04) X 10*3/uL Neutrophils # (1.80-7.70) X 10*3/uL Lymphocytes # (0.90-5.00) X 10*3/uL Eosinophils # (0.04-0.35) X 10*3/uL Sodium (135-145) mmol/L Chloride (96-109) mmol/L Carbon Dioxide (21.6-31.8) mmol/L Anion Gap (4.00-12.00) mmol/L BUN (9.0-27.0) mg/dL Creatinine (0.6-1.5) mg/dL Est GFR (CKD-EPI)AfAm (60.0-200.0) Est GFR (CKD-EPI)NonAf (60.0-200.0) BUN/Creatinine Ratio (12.00-20.00) Ratio Glucose (70-110) mg/dL POC Glucose (mg/dL) 220 H 309 H 257 H (75-99) mg/dL Calcium (8.4-10.2) mg/dL Lactate Dehydrogenase (120-246) U/L C-Reactive Protein (0.0-0.8) mg/dL Total Protein (6.2-8.2) g/dL Albumin (3.80-4.90) g/dL Microbiology - Last 24 Hours (Table) 01/23/21 12:43 Blood Culture - Preliminary Blood No Growth after 72 hours 01/23/21 12:43 Blood Culture - Preliminary Blood No Growth after 72 hours
[2021-01-27] MEDS: DEXTROSE 5% IN WATER 1,000 ML IV SCH (12:14)
--- NOTE | 2021-01-27 12:24 | PN ---
PROGRESS NOTE Patient is seen for followup for acute kidney injury. She remains confused and not able to communicate much. PHYSICAL EXAMINATION: On examination today, blood pressure is 130/73, heart rate 73 per minute. She is afebrile. O2 sats about 94% on 3 L nasal cannula. Examination of lower extremities shows no evidence of edema. Abdomen is soft, nontender. [employer] exam shows patient is not responding much to verbal stimuli. She does move her extremities. LABS: Labs show sodium 150, potassium 4.7, chloride 116, BUN 64, serum creatinine 1.42. ASSESSMENT: 1. Acute kidney injury prerenal currently improved. 2. Metabolic acidosis, now resolved. 3. Hypernatremia. Will change IV fluids to D5W. 4. Encephalopathy possibly COVID infection related. 5. Chronic kidney disease with previous creatinine not known at this point. Creatinine has decreased to about 1.4 now. This may be close to her baseline. 6. Non gap metabolic acidosis currently improved post bicarb drip. PLAN: Discontinue IV bicarb. Change IV fluids to D5W. Repeat labs in a.m. MMODL / IJN: [id number] /
[2021-01-27 13:06] LABS: Glucose,Whole Blood 243 mg/dL (75-99)
--- NOTE | 2021-01-27 16:09 | P.PN ---
Subjective Progress Note Date: 01/27/21 Principal diagnosis: Acute COVID-19 pneumonia, encephalopathy 85-year-old female patient, presented today for altered mentation and and worsening hypoxemia. She resides in [facility] on the [place]. She was in the emergency department on 01/17/2021 at [facility], where the patient had some altered mentation and flulike symptoms. She was worked up with a CAT scan of the brain that was negative. She was found to be positive for COVID-19 on 01/18/2021. Today, she is coming in with worsening shortness of breath. She is currently on 6 L of oxygen by nasal cannula. She looks very drowsy. In terms of her blood work, she has a white cell count of 5.4, lymphopenia is present, d- dimer is at 2.1, BNP is 53 with a creatinine of 2.2, AST is 45, LDH is 1076, CRP at 20.8, and a chest x-ray showing bilateral pulmonary infiltrates in lung bases right more than left. Currently on 6 L. Started on Decadron and currently is on 6 mg IV every 12 hours. She is also on long-term and to coagulation with Eliquis 2.5 mg by mouth twice a day On 01/24/2021, the patient is slightly more responsive. She is still refusing to eat and her oral intake is almost none at this point in time. She is receiving IV fluids and she is currently on normal saline at the rate of 75 mL an hour. On her blood work, the patient has a sodium level of 141, serum bicarbonate 18, creatinine is at 2.1, slightly improved compared to yesterday, LDH level is elevated at 845, slightly lower in the CRP is at 18.9 with a d- dimer of 3.07. She was started on a combination of Decadron 6 mg IV every 12 and the patient is also on day #2 of Remdesivir she has chronic kidney disease. She is on long-term anticoagulation with Eliquis 2.5 mg by mouth twice a day. She has history of CAD, diabetes mellitus type 2, hyperlipidemia and his previous history of atrial fibrillation. She also has chronic kidney disease. On 01/25/2021 patient seen in follow-up on medical surgical floor, she is currently on 2 L of oxygen, she remains encephalopathic, and her pulse ox on 2 L was 83%, patient had the nasal cannula off, she is restless, he continues, lethargic, returned at the FiO2 up to 4 L, she sat 92%, she is afebrile, hemodynamically she is stable, today's labs have been reviewed, showing a d- dimer of 5.11, she remains lymphopenic with lymphocyte count 0.4, white count is 6.8, sodium is 144, potassium is 5.1, chloride is 120, CO2 is 15, BUN 66 and creatinine is 1.9, LDH is 980, and CRP is 8.2, pro-calcitonin level was 0.61, urinalysis showed occasional bacteria, but no increased white blood cells, and moderate yeast in the urine. Sounds reveal some bilateral crackles, patient remains on IV Decadron 6 mg twice daily, she also received a dose of lorazepam, she is on day 2 of Remdesivir treatments, she is on lactated Ringer's at 75 ML per hour, and she is on Eliquis for 2-1/2 mg by mouth twice a day, patient has not been able to take anything by mouth in view of her altered mental status, cultures so far have shown no growth. On 01/26/2021 patient seen in follow-up on medical surgical floor, she remains encephalopathic, she is not able to answer any questions, very confused, letharg ic, she is currently on 3 L of oxygen the pulse ox between 92-94%, she's been nothing by mouth for possibility of aspiration related to her altered mentation, she is afebrile, hemodynamically she is stable, breathing is nonlabored, days chest x-ray shows cardiomegaly and chronic bronchial changes with right greater than left multifocal and confluent opacities. Patient's IV fluids in the form of D5 W with 3 A of bicarbonate at a rate of 75 ML per hour. Patient remains on Remdesivir treatment, today is day 2. Decadron at 6 mg daily, and she remains on oral Eliquis. Today's labs have been reviewed, showing right little, 9.48, hemoglobin 15.5, d-dimer is relatively stable at 5.51, serum sodium is 146 worsened, potassium is 4.4, chloride is 117, BUN of 71, and creatinine of 1.64, slightly improved. No new inflammatory markers on today's labs, were told by the nursing staff that the patient's son had a conversation with the attending physician and decided to make the patient a DO NOT RESUSCITATE and patient's son is supposed to come in to see the patient sometime today or tomorrow and make a decision in regards to PEG tube insertion. Otherwise seems to be fairly comfortable, remains confused. On 01/27/2021 patient seen in follow-up on medical surgical floor, she remains encephalopathic, she has not been able to take any oral intake. Pulmonary perspective. She remains on 3 L of oxygen her pulse ox of 90%, she does not appear to be in any acute distress, no cough, she is afebrile, hemodynamically she stable, her breathing is nonlabored, yesterday chest x-ray showed bilateral airspace disease. Patient's labs have been reviewed, d-dimer was not repeated today, he was still elevated on yesterday's labs, 5.51, sodium is up again at 150, potassium is 4.7, chloride is 116, BUN is 64, creatinine is 1.42. Patient has been on able to take oral pills occluding her Eliquis, and for that reason she was started on heparin infusion. He also continues on Remdesivir, and today is her last dose, patient is on IV D5W at 75 ML per hour. Breathing goss she seems to be stable Objective - Vital Signs Vital signs: Vital Signs Temp 98.0 F 01/27/21 15:54 Pulse 51 L 01/27/21 15:54 Resp 18 01/27/21 15:54 BP 152/86 01/27/21 15:54 Pulse Ox 95 01/27/21 15:54 Intake & Output 01/26/21 01/27/21 01/27/21 18:59 06:59 18:59 Intake Total 0 Output Total 950 500 Balance -950 -500 0 Weight 99.79 kg Intake: Oral 0 Output: Urine 950 500 Other: Voiding Method External Catheter External Catheter - Exam GENERAL EXAM: Very lethargic, 85-year-old, confused, restless at times, encephalopathic, 85-year-old white female, on 2 L of oxygen her pulse ox was 92%, O2 was increased to 4 L, and patient frequently removes her oxygen comfortable in no apparent distress. HEAD: Normocephalic/atraumatic. EYES: Normal reaction of pupils, equal size. Conjunctiva pink, sclera white. NOSE: Clear with pink turbinates. THROAT: No erythema or exudates. NECK: No masses, no JVD, no thyroid enlargement, no adenopathy. CHEST: No chest wall deformity. Symmetrical expansion. LUNGS: Equal air entry with no crackles, wheeze, rhonchi or dullness. CVS: Regular rate and rhythm, normal S1 and S2, no gallops, no murmurs, no rubs ABDOMEN: Soft, nontender. No hepatosplenomegaly, normal bowel sounds, no guarding or rigidity. EXTREMITIES: No clubbing, no edema, no cyanosis, 2+ pulses and upper and lower extremities. MUSCULOSKELETAL: Muscle strength and tone normal. SPINE: No scoliosis or deformity SKIN: No rashes CENTRAL NERVOUS SYSTEM: Unable to assess, patient is very confused. No focal deficits, tone is normal in all 4 extremities. - Labs CBC & Chem 7: 01/27/21 10:40 01/27/21 09:46 Labs: Abnormal Lab Results - Last 24 Hours (Table) 01/26/21 01/26/21 01/26/21 Range/Units 07:41 16:25 19:55 WBC (3.8-10.6) k/uL Hct (34.0-46.0) % Neutrophils # (1.3-7.7) k/uL Lymphocytes # (1.0-4.8) k/uL Monocytes # (0-1.0) k/uL PT (9.0-12.0) sec INR (<1.2) Sodium 152 H (135-145) mmol/L Chloride 120 H (96-109) mmol/L Carbon Dioxide 14.4 L (21.6-31.8) mmol/L Anion Gap 17.60 H (4.00-12.00) mmol/L BUN 75.0 H (9.0-27.0) mg/dL Creatinine 2.1 H (0.6-1.5) mg/dL Est GFR (CKD-EPI)AfAm 24.3 L (60.0-200.0) Est GFR (CKD-EPI)NonAf 20.9 L (60.0-200.0) BUN/Creatinine Ratio 35.71 H (12.00-20.00) Ratio Glucose 417 H (70-110) mg/dL POC Glucose (mg/dL) 286 H 220 H (75-99) mg/dL Lactate Dehydrogenase 457 H (120-246) U/L C-Reactive Protein 4.5 H (0.0-0.8) mg/dL Total Protein 5.1 L (6.2-8.2) g/dL Albumin 3.30 L (3.80-4.90) g/dL 01/27/21 01/27/21 01/27/21 Range/Units 02:24 07:06 09:46 WBC (3.8-10.6) k/uL Hct (34.0-46.0) % Neutrophils # (1.3-7.7) k/uL Lymphocytes # (1.0-4.8) k/uL Monocytes # (0-1.0) k/uL PT (9.0-12.0) sec INR (<1.2) Sodium 150 H (135-145) mmol/L Chloride 116 H (96-109) mmol/L Carbon Dioxide (21.6-31.8) mmol/L Anion Gap (4.00-12.00) mmol/L BUN 64 H (9.0-27.0) mg/dL Creatinine 1.42 H (0.6-1.5) mg/dL Est GFR (CKD-EPI)AfAm (60.0-200.0) Est GFR (CKD-EPI)NonAf (60.0-200.0) BUN/Creatinine Ratio (12.00-20.00) Ratio Glucose 304 H (70-110) mg/dL POC Glucose (mg/dL) 309 H 257 H (75-99) mg/dL Lactate Dehydrogenase (120-246) U/L C-Reactive Protein (0.0-0.8) mg/dL Total Protein (6.2-8.2) g/dL Albumin (3.80-4.90) g/dL 01/27/21 01/27/21 01/27/21 Range/Units 10:40 10:40 13:04 WBC 11.0 H (3.8-10.6) k/uL Hct 49.3 H (34.0-46.0) % Neutrophils # 8.8 H (1.3-7.7) k/uL Lymphocytes # 0.3 L (1.0-4.8) k/uL Monocytes # 1.5 H (0-1.0) k/uL PT 13.6 H (9.0-12.0) sec INR 1.3 H (<1.2) Sodium (135-145) mmol/L Chloride (96-109) mmol/L Carbon Dioxide (21.6-31.8) mmol/L Anion Gap (4.00-12.00) mmol/L BUN (9.0-27.0) mg/dL Creatinine (0.6-1.5) mg/dL Est GFR (CKD-EPI)AfAm (60.0-200.0) Est GFR (CKD-EPI)NonAf (60.0-200.0) BUN/Creatinine Ratio (12.00-20.00) Ratio Glucose (70-110) mg/dL POC Glucose (mg/dL) 243 H (75-99) mg/dL Lactate Dehydrogenase (120-246) U/L C-Reactive Protein (0.0-0.8) mg/dL Total Protein (6.2-8.2) g/dL Albumin (3.80-4.90) g/dL Microbiology - Last 24 Hours (Table) 01/23/21 12:43 Blood Culture - Preliminary Blood No Growth after 96 hours 01/23/21 12:43 Blood Culture - Preliminary Blood No Growth after 96 hours Assessment and Plan Plan: Assessment: #1. Acute COVID-19 related pneumonia/infection with secondary shortness of breath and encephalopathy, neurologic exam is nonfocal, patient is extremely weak, and then debilitated, she is a [facility] at the [facility]. Patient was started on Remdesivir on 01/24/2021 #2. Acute hypoxic restaurant failure currently on 2 L of oxygen and her pulse ox was 83%, and she is requiring 4 L of oxygen #3. Acute kidney injury on top of chronic kidney disease, improving with IV hydration #4. Coronary artery disease #5. Diabetes type II #6. Hypertension #7. Hyperlipidemia #8. Chronic A. fib on Eliquis for long-term anticoagulation, and patient has been nothing by mouth in view of her altered mentation may need NG tube placed for administration of oral meds #9. History of hypothyroidism #10. Hypernatremia related to dehydration, status nothing by mouth, and free water deficit, currently on D5W at 75 ML per hour Plan: Patient continues to be encephalopathic FiO2 remains at 2-3 L and patient has no worsening dyspnea or hypoxia Maintain aspiration precautions Continue Remdesivir and Decadron, today's last day of Remdesivir and there is no worsening of her pulmonary symptoms Patient is scheduled for PEG tube placement tomorrow Overall prognosis is poor and guarded, agree with DO NOT RESUSCITATE CODE STATUS, pulmonary/critical care will sign off and follow on an as-needed basis I performed a history & physical examination of the patient and discussed their management with my nurse practitioner, Di Stubbs. I reviewed the nurse practitioner's note and agree with the documented findings and plan of care. Lung sounds are positive for diffuse rhonchi. The findings and the impression was discussed with the patient. I attest to the documentation by the nurse practitioner. Time with Patient: Less than 30
[2021-01-27] MEDS: REMDESIVIR 100 MG in SODIUM CHLORIDE 0.9% 250 ML IVPB SCH (17:21)
--- NOTE | 2021-01-27 18:06 | EEG ---
ELECTROENCEPHALOGRAM REPORT DATE OF SERVICE: 01/27/2021 PREAMBLE: This is an 85-year-old female with acute Covid infection with pneumonia. Patient currently is on 3 L of oxygen. She has increased confusion and unresponsive episodes. Patient is alert and oriented x0. The patient will not follow commands, growls and and bites. She does have history of diabetes, hyperlipidemia, hypertension, and renal disease. EEG FINDINGS: This is a 21 channel routine EEG recording. Patient utilizing 10/20 international system with referential and bipolar montages. The background consists of a well- developed, poorly regulated, mixed frequencies of 6 hertz theta, with some occasional delta activity. Background does not seem to be reactive to eye opening or closing. Photic stimulation apparently was not performed. A lot of myogenic activity was seen intermittently throughout the study. Different stages of sleep were not seen. No focal or generalized epileptiform activity was seen. EKG rhythm showed no obvious arrhythmia. IMPRESSION: This is an abnormal EEG due to background slowing of moderate degree. This is suggestive of generalized cerebral dysfunction as can be seen with toxic metabolic encephalopathy or due to diffuse structural brain abnormality. No epileptiform activity was seen. MMODL / IJN: [id number] /
[2021-01-27] MEDS: ATORVASTATIN 40 MG TAB PO SCH (20:34)
[2021-01-27 20:35] LABS: Glucose,Whole Blood 277 mg/dL (75-99)
[2021-01-27] MEDS ORDERED: INSULIN DETEMIR (LEVEMIR) 100 UNIT/ML SYR SQ SCH (21:00)
[2021-01-28 01:57] LABS: Glucose,Whole Blood 341 mg/dL (75-99)
[2021-01-28] MEDS: INSULIN ASPART (NovoLOG) 100 UNIT/ML VIAL SQ SCH ×8 (02:09→20:25)
[2021-01-28] MEDS: DEXTROSE 5% IN WATER 1,000 ML IV SCH ×2 (02:15→14:34)
[2021-01-28] MEDS: LEVOTHYROXINE 50 MCG TAB PO SCH (04:55)
[2021-01-28 06:01] LABS: INR 1.3 (<1.2); Partial Thromboplastin Time 75.9 sec (22.0-30.0); Prothrombin Time 13.6 sec (9.0-12.0)
[2021-01-28] MEDS: carvediloL 12.5 MG TAB PO SCH ×2 (06:39→15:27)
[2021-01-28] MEDS: guaiFENesin 600 MG TABLET.ER PO SCH ×2 (06:39→20:23)
[2021-01-28] MEDS: ISOSORBIDE DINITRATE 10 MG TAB PO SCH (06:39)
[2021-01-28] MEDS: PANTOPRAZOLE 40 MG TABLET PO SCH (06:39)
[2021-01-28] MEDS: amLODIPine 5 MG TAB PO SCH (06:39)
[2021-01-28] MEDS: HEPARIN SOD,PORK IN 0.45% NACL 25,000 UNIT in 0.45% NACL 1 250ML.BAG IV SCH (07:39)
[2021-01-28 08:00] LABS: Glucose,Whole Blood 256 mg/dL (75-99)
--- NOTE | 2021-01-28 08:31 | P.PN ---
Subjective Progress Note Date: 01/27/21 Patient was seen for a follow-up. Patient initially seen by Dr. Rafiq Rushing on 01/24/2021. Please refer to his note for details. Patient has acute coated pneumonia, altered mental status and toxic metabolic encephalopathy. Patient also has atrial fibrillation on Eliqus, hypothyroidism, CAD, chronic renal disease. She came to the hospital for 2020 with increased confusion. On 01/17/2021 she started having problems with confusion. The next day she was treated for Covid 19 pneumonia and then was discharged back to [facility] on the [place] for worsening shortness of breath. CT head showed cerebral atrophy with no acute process. Chest x-ray showed cardiomegaly and chronic parenchymal changes with a right greater than left multifocal opacities mid to lower lung suggestive of Covid 19 infection. Her initial BUN was 63, creatinine 2.20. AST was mildly elevated 45. Patient subsequently had undergone an MRI of the brain without contrast on 01/25/2021, which revealed no acute infarct. Moderate diffuse cerebral atrophy greatest over bilateral frontal lobes and mild to moderate chronic small vessel ischemic changes. Most recent chest x-ray from 01/26/2021 shows correlate for pneumonia, edema. Patient's blood tests shows normal WBC 11.0, hemoglobin 15.7, PT/PTT normal. Sodium 150 potassium 4.7, BUN 64, creatinine 1.42. Her prior BUN was 75 and creatinine 2.1 on 01/26/2021. Lower extremity ultrasound was negative for DVT. Objective - Vital Signs Vital signs: Vital Signs Temp 97.5 F L 01/27/21 10:00 Pulse 73 01/27/21 10:00 Resp 16 01/27/21 10:00 BP 130/73 01/27/21 10:00 Pulse Ox 94 L 01/27/21 10:00 Intake & Output 01/26/21 01/27/21 01/27/21 18:59 06:59 18:59 Intake Total 0 Output Total 950 500 Balance -950 -500 0 Weight 99.79 kg Intake: Oral 0 Output: Urine 950 500 Other: Voiding Method External Catheter External Catheter - Exam GENERAL: The patient is morbid obese patient, lying in bed and seems to be in moderate respiratory distress. CHEST: The heart rate is regular rate rhythm. No murmurs to auscultation. LUNG: Patient appears congested on auscultation. Tacypneic and breathing thru her mouth. Mildly labored breathing.. ABDOMEN/GI: Bowel sounds present in all 4 quadrants. No tenderness to palpation throughout. NEUROLOGICAL: Higher mental function: Patient appears delirious, encephalopathic, very restless, moans. Otherwise not verbalizing. Cranial nerves: The pupils are round, equal and reactive to light. No facial weakness. Otherwise could not assess rest of the cranial nerves because of cooperation. Motor: Gait is deferred. The strength is moving bilateral upper extremities above gravity and withdrawing bilateral lower extremities to painful stimuli symetricallly. Normal tone. Patient did not cooperate with muscle strength testing. Cerebellum: Could not assess. Sensation: To painful stimuli seems intact otherwise could not assess light tough. Reflexes (right/left): 1+ Plantars are downgoing bilaterally. - Labs CBC & Chem 7: 01/27/21 10:40 01/27/21 09:46 Labs: Abnormal Lab Results - Last 24 Hours (Table) 01/26/21 01/26/21 01/26/21 Range/Units 07:41 13:27 13:56 WBC (3.8-10.6) k/uL Hct (34.0-46.0) % Neutrophils # (1.3-7.7) k/uL Lymphocytes # (1.0-4.8) k/uL Monocytes # (0-1.0) k/uL PT (9.0-12.0) sec INR (<1.2) Sodium 152 H 146 H (135-145) mmol/L Chloride 120 H 117 H (96-109) mmol/L Carbon Dioxide 14.4 L (21.6-31.8) mmol/L Anion Gap 17.60 H (4.00-12.00) mmol/L BUN 75.0 H 72 H (9.0-27.0) mg/dL Creatinine 2.1 H 1.64 H (0.6-1.5) mg/dL Est GFR (CKD-EPI)AfAm 24.3 L (60.0-200.0) Est GFR (CKD-EPI)NonAf 20.9 L (60.0-200.0) BUN/Creatinine Ratio 35.71 H (12.00-20.00) Ratio Glucose 417 H 357 H (70-110) mg/dL POC Glucose (mg/dL) 280 H (75-99) mg/dL Calcium 10.5 H (8.4-10.2) mg/dL Lactate Dehydrogenase 457 H (120-246) U/L C-Reactive Protein 4.5 H (0.0-0.8) mg/dL Total Protein 5.1 L (6.2-8.2) g/dL Albumin 3.30 L (3.80-4.90) g/dL 01/26/21 01/26/21 01/27/21 Range/Units 16:25 19:55 02:24 WBC (3.8-10.6) k/uL Hct (34.0-46.0) % Neutrophils # (1.3-7.7) k/uL Lymphocytes # (1.0-4.8) k/uL Monocytes # (0-1.0) k/uL PT (9.0-12.0) sec INR (<1.2) Sodium (135-145) mmol/L Chloride (96-109) mmol/L Carbon Dioxide (21.6-31.8) mmol/L Anion Gap (4.00-12.00) mmol/L BUN (9.0-27.0) mg/dL Creatinine (0.6-1.5) mg/dL Est GFR (CKD-EPI)AfAm (60.0-200.0) Est GFR (CKD-EPI)NonAf (60.0-200.0) BUN/Creatinine Ratio (12.00-20.00) Ratio Glucose (70-110) mg/dL POC Glucose (mg/dL) 286 H 220 H 309 H (75-99) mg/dL Calcium (8.4-10.2) mg/dL Lactate Dehydrogenase (120-246) U/L C-Reactive Protein (0.0-0.8) mg/dL Total Protein (6.2-8.2) g/dL Albumin (3.80-4.90) g/dL 01/27/21 01/27/21 01/27/21 Range/Units 07:06 09:46 10:40 WBC 11.0 H (3.8-10.6) k/uL Hct 49.3 H (34.0-46.0) % Neutrophils # 8.8 H (1.3-7.7) k/uL Lymphocytes # 0.3 L (1.0-4.8) k/uL Monocytes # 1.5 H (0-1.0) k/uL PT (9.0-12.0) sec INR (<1.2) Sodium 150 H (135-145) mmol/L Chloride 116 H (96-109) mmol/L Carbon Dioxide (21.6-31.8) mmol/L Anion Gap (4.00-12.00) mmol/L BUN 64 H (9.0-27.0) mg/dL Creatinine 1.42 H (0.6-1.5) mg/dL Est GFR (CKD-EPI)AfAm (60.0-200.0) Est GFR (CKD-EPI)NonAf (60.0-200.0) BUN/Creatinine Ratio (12.00-20.00) Ratio Glucose 304 H (70-110) mg/dL POC Glucose (mg/dL) 257 H (75-99) mg/dL Calcium (8.4-10.2) mg/dL Lactate Dehydrogenase (120-246) U/L C-Reactive Protein (0.0-0.8) mg/dL Total Protein (6.2-8.2) g/dL Albumin (3.80-4.90) g/dL 01/27/21 01/27/21 Range/Units 10:40 13:04 WBC (3.8-10.6) k/uL Hct (34.0-46.0) % Neutrophils # (1.3-7.7) k/uL Lymphocytes # (1.0-4.8) k/uL Monocytes # (0-1.0) k/uL PT 13.6 H (9.0-12.0) sec INR 1.3 H (<1.2) Sodium (135-145) mmol/L Chloride (96-109) mmol/L Carbon Dioxide (21.6-31.8) mmol/L Anion Gap (4.00-12.00) mmol/L BUN (9.0-27.0) mg/dL Creatinine (0.6-1.5) mg/dL Est GFR (CKD-EPI)AfAm (60.0-200.0) Est GFR (CKD-EPI)NonAf (60.0-200.0) BUN/Creatinine Ratio (12.00-20.00) Ratio Glucose (70-110) mg/dL POC Glucose (mg/dL) 243 H (75-99) mg/dL Calcium (8.4-10.2) mg/dL Lactate Dehydrogenase (120-246) U/L C-Reactive Protein (0.0-0.8) mg/dL Total Protein (6.2-8.2) g/dL Albumin (3.80-4.90) g/dL Microbiology - Last 24 Hours (Table) 01/23/21 12:43 Blood Culture - Preliminary Blood No Growth after 72 hours 01/23/21 12:43 Blood Culture - Preliminary Blood No Growth after 72 hours Assessment and Plan Assessment: Altered mental status due to hypoxia from COVID-19 pneumonia and component of toxic-metabolic encephalopathy with DANIEL on [facility]I COVID-19 pneumonia Acute on chronic kidney insufficiency Hypertension Hyperlipidemia Coronary artery disease Atrial fibrillation on Eliquis Hypothyroidism Plan: MRI of the brain performed 01/25/2021, revealed no acute process. No CVA. B12 667, folate 10.8, TSH is normal 0.716. Ammonia normal <9. Patient continues to be in moderate renal failure. Nephrology and pulmonary on board. Patient to undergo possible PEG tube placement in the morning. EEG was ordered, which was performed today and revealed background slowing of moderate degree. This is suggestive of generalized cerebral dysfunction as can be seen with toxic metabolic encephalopathy or related to diffuse structural brain abnormality. No epileptiform activity was seen. Patient probably has diabetes. We will check hemoglobin A1c. Discussed with primary team.
[2021-01-28 09:22] LABS: Basophils # (A) 0.02 X 10*3/uL (0.00-0.10); Basophils % (A) 0.2 %; Eosinophils # (A) 0 X 10*3/uL (0.04-0.35); Eosinophils % (A) 0 %; HCT 49.4 % (37.2-46.3); HGB 15.2 g/dL (12.0-15.0); Lymphocytes # (A) 0.64 X 10*3/uL (0.90-5.00); Lymphocytes % (A) 5.3 %; MCH 29.5 pg (27.0-32.0); MCHC 30.8 g/dL (32.0-37.0); MCV 95.7 fL (80.0-97.0); Mean Platelet Volume 11.9 fL (9.5-12.2); Monocytes # (A) 0.85 X 10*3/uL (0.20-1.00); Monocytes % (A) 7.1 %; Neutrophils # (A) 10.34 X 10*3/uL (1.80-7.70); Neutrophils % (A) 86.2 %; Platelet Count 225 X 10*3/uL (140-440); RBC 5.16 X 10*6/uL (4.10-5.20); RDW 15.7 % (11.5-14.5); WBC 11.99 X 10*3/uL (4.50-10.00)
[2021-01-28 11:28] LABS: African American GFR (CKD) 33.7 (60.0-200.0); Anion Gap 9.1 mmol/L (4.00-12.00); BUN/Creat Ratio 31.25 Ratio (12.00-20.00); Calcium 9.9 mg/dL (8.7-10.3); Carbon Dioxide 25.9 mmol/L (21.6-31.8); Non-African American GFR(CKD) 29.1 (60.0-200.0); Potassium 4.1 mmol/L (3.5-5.5)
--- NOTE | 2021-01-28 12:07 | P.PN ---
Subjective Progress Note Date: 01/28/21 Patient seen and examined at bedside. Patient is more alert today. Responsive to verbal and physical stimuli. Speech is still not cohesive. Objective - Vital Signs Vital signs: Vital Signs Temp 97.8 F 01/28/21 09:50 Pulse 67 01/28/21 09:50 Resp 20 01/28/21 09:50 BP 160/79 01/28/21 09:50 Pulse Ox 95 01/28/21 09:50 Intake & Output 01/27/21 01/28/21 01/28/21 18:59 06:59 18:59 Intake Total 1000 149.217 5.073 Output Total 500 Balance 1000 -350.783 5.073 Intake: Intake, IV Titration 1000 149.217 5.073 Amount Dextrose 5% in Water 1, 375 000 ml @ 75 mls/hr IV . [id number] [facility] Rx#:[id number] Dextrose 5% in Water 1, 375 000 ml @ 75 mls/hr IV . [id number] [facility] with Sodium Bicarb (1 Meq/ml) 150 ml Rx#:[id number] Heparin Sod,Pork in 0.45% 149.217 5.073 NaCl 25,000 unit In 0.45 % NaCl 1 250ml.bag @ 10 UNITS/KG/HR 9.979 mls/hr IV .Q24H [facility] Rx#: [id number] Remdesivir 100 mg In 250 Sodium Chloride 0.9% 250 ml @ 250 mls/hr IVPB DAILY@1800 [facility] Rx#: [id number] Oral 0 Output: Urine 500 Other: Voiding Method External Catheter External Catheter External Catheter - Respiratory Details: No difficulty with respiration - Gastrointestinal Gastrointestinal Comment(s): Soft, nontender, nondistended - Musculoskeletal Musculoskeletal: Present: generalized weakness - Labs CBC & Chem 7: 01/28/21 05:52 01/28/21 05:52 Labs: Abnormal Lab Results - Last 24 Hours (Table) 01/27/21 01/27/21 01/27/21 Range/Units 13:04 18:58 20:32 WBC (4.50-10.00) X 10*3/uL Hgb (12.0-15.0) g/dL Hct (37.2-46.3) % MCHC (32.0-37.0) g/dL RDW (11.5-14.5) % Immature Gran # (0.00-0.04) X 10*3/uL Neutrophils # (1.80-7.70) X 10*3/uL Lymphocytes # (0.90-5.00) X 10*3/uL Eosinophils # (0.04-0.35) X 10*3/uL PT (9.0-12.0) sec INR (<1.2) APTT >200.0 H* (22.0-30.0) sec Sodium (135-145) mmol/L Chloride (96-109) mmol/L BUN (9.0-27.0) mg/dL Creatinine (0.6-1.5) mg/dL Est GFR (CKD-EPI)AfAm (60.0-200.0) Est GFR (CKD-EPI)NonAf (60.0-200.0) BUN/Creatinine Ratio (12.00-20.00) Ratio Glucose (70-110) mg/dL POC Glucose (mg/dL) 243 H 277 H (75-99) mg/dL 01/28/21 01/28/21 01/28/21 Range/Units 01:55 05:42 05:52 WBC 11.99 H (4.50-10.00) X 10*3/uL Hgb 15.2 H (12.0-15.0) g/dL Hct 49.4 H (37.2-46.3) % MCHC 30.8 L (32.0-37.0) g/dL RDW 15.7 H (11.5-14.5) % Immature Gran # 0.14 H (0.00-0.04) X 10*3/uL Neutrophils # 10.34 H (1.80-7.70) X 10*3/uL Lymphocytes # 0.64 L (0.90-5.00) X 10*3/uL Eosinophils # 0 L (0.04-0.35) X 10*3/uL PT 13.6 H (9.0-12.0) sec INR 1.3 H (<1.2) APTT 75.9 H (22.0-30.0) sec Sodium (135-145) mmol/L Chloride (96-109) mmol/L BUN (9.0-27.0) mg/dL Creatinine (0.6-1.5) mg/dL Est GFR (CKD-EPI)AfAm (60.0-200.0) Est GFR (CKD-EPI)NonAf (60.0-200.0) BUN/Creatinine Ratio (12.00-20.00) Ratio Glucose (70-110) mg/dL POC Glucose (mg/dL) 341 H (75-99) mg/dL 01/28/21 01/28/21 Range/Units 05:52 07:58 WBC (4.50-10.00) X 10*3/uL Hgb (12.0-15.0) g/dL Hct (37.2-46.3) % MCHC (32.0-37.0) g/dL RDW (11.5-14.5) % Immature Gran # (0.00-0.04) X 10*3/uL Neutrophils # (1.80-7.70) X 10*3/uL Lymphocytes # (0.90-5.00) X 10*3/uL Eosinophils # (0.04-0.35) X 10*3/uL PT (9.0-12.0) sec INR (<1.2) APTT (22.0-30.0) sec Sodium 150 H (135-145) mmol/L Chloride 115 H (96-109) mmol/L BUN 50.0 H (9.0-27.0) mg/dL Creatinine 1.6 H (0.6-1.5) mg/dL Est GFR (CKD-EPI)AfAm 33.7 L (60.0-200.0) Est GFR (CKD-EPI)NonAf 29.1 L (60.0-200.0) BUN/Creatinine Ratio 31.25 H (12.00-20.00) Ratio Glucose 288 H (70-110) mg/dL POC Glucose (mg/dL) 256 H (75-99) mg/dL Microbiology - Last 24 Hours (Table) 01/23/21 12:43 Blood Culture - Preliminary Blood No Growth after 96 hours 01/23/21 12:43 Blood Culture - Preliminary Blood No Growth after 96 hours Assessment and Plan Plan: 85-year-old female with encephalopathy that is somewhat improved today. Originally, plan was for PEG tube placement secondary to encephalopathy and inability to tolerate oral intake. However, with some improvement, we will have the patient evaluated by speech for a swallow evaluation prior to moving forward with any feeding tube placement. We'll continue to follow and provide recommendations as necessary.
[2021-01-28 14:31] LABS: Glucose,Whole Blood 263 mg/dL (75-99)
--- NOTE | 2021-01-28 14:45 | XR ---
EXAMINATION TYPE: XR chest 1V portable DATE OF EXAM: 01/28/2021 CLINICAL HISTORY: Dobbhoff placement. TECHNIQUE: Single AP portable upright view of the chest is obtained. COMPARISON: Chest x-ray from 2 days earlier FINDINGS: New Dobbhoff feeding catheter projects into the left upper quadrant. Mild Cardiomegaly is redemonstrated with atherosclerotic thoracic aorta. The osseous structures rem ain somewhat demineralized. Left circumflex coronary artery stent is redemonstrated. There are chroni c parenchymal changes bilaterally with increased multifocal and confluent opacities in the mid to low er lungs is redemonstrated. Cholecystectomy clips redemonstrated. IMPRESSION: New feeding catheter projects below diaphragm. Cardiomegaly and chronic parenchymal changes with bilateral multifocal and confluent opacities mid to lower lung consistent with covid-19 infection redemonstrated. Improving findings of right mid to lo wer lung noted from most recent x-ray. IMPRESSION: Overall stable findings,
--- NOTE | 2021-01-28 15:18 | P.PN ---
Subjective Progress Note Date: 01/28/21 85 years old female patient of Dr. Mack past medical history of hypertension hyperlipidemia coronary artery disease, chronic kidney disease unknown stage presents with increasing confusion and hypoxia from [facility] [place]. Apparently patient was brought to the ER at [facility] on 01/17 for worsening confusion and flulike symptoms. Patient went home as was not able to be seen for her symptoms soon enough and called her primary care physician who ordered a CAT scan of the head. CAT scan of the head was negative and patient was brought back to the ER on 01/18 and was treated for COVID pneumonia. Patient was discharged to [facility] [place] and was brought back to the ER 24-hour later for worsening shortness of breath.on evaluation in the ER patient is short of breath requiring 6 L of oxygen unable to answer any questions very drowsy on evaluation. She opens her eyes to question only to go back to sleep in a short while. Patient withdraws to pain but does not follow commands. No family member is present at bedside. Son was called multiple times but was unable to be reached. History is obtained through patient's and documentation by the ER. She has never been admitted in this hospital. Evaluation Suggests Hemoglobin Is 15.5 Platelet 185 INR 1 D-Dimer 2.1 Sodium 140 Potassium 4.9 Chloride 111 Bicarb 20 1B UN 53 Creatinine 2.2 Calcium Is 10.7 Magnesium 2.6 Lactic Acid 1.6 Alkaline Phosphatase 87, LDH 1076 CRP 20.8 Output (3.1. Pro- Calcitonin Is Pending. ProBNP Is Pending. Chest X-Ray suggested cardiomegaly and chronic parenchymal changes with right greater than left multifocal opacities metoprolol and suggestive of COVID-[address] head ordered to rule out acute stroke. Patient's home medication reconciled will hold torsemide, spironolactone. Nephrology course consult for possible end-stage renal disease. Unclear if patient is on him and on dialysis. Ultrasound of the renal obtained. neurology in consult for acute encephalopathy likely secondary to Covid. Patient does have underlying dementia?. We'll start patient on dexamethasone 6 mg IV every 12 hours. Start her on vitamin C, vitamin D and zinc. Pulmonary consulted for Covid pneumonia. 01/24 spoke to patient's son who did state that patient has underlying history of concussion and forgetfulness but no formal diagnosis of dementia has ever been made. She was speaking clearly and had no confusion 8 days ago. Patient had normal recovery of mental status after being discharged from the other hospital and transferred to [facility]. Son does suggest that patient has history of stent placement 3-4 years ago for coronary artery disease. She does follow nephrology as outpatient and has significant end-stage chronic kidney disease with plan to initiate hemodialysis if no improvement noted. On evaluation patient's mental status today patient's more responsive. She was refusing to eat. Swallow evaluation at bedside was not past. Patient continued to be on normal saline 75 mL per hour on evaluation patient's blood work sodium is 141 bicarb 18 creatinine 2.1 MCH slightly improved to 845 CRP is 18.9. Pro-calcitonin came at 0.6, TSH normal urinary analysis negative for any infection. Blood cultures negative continue remdesivir per pulmonary recommendations continue Decadron and elliquis . Hold Levemir 01/25: Patient has been seen by neurology with recommendations for ammonia level, TSH and vitamin B12 and folate. Patient continues to have significant confusion and MRI of the brain ordered. Patient is also been seen by pulmonary medicine with recommendations for continuing IV Decadron, patient was started on Remdesivir day #3/5. Patient is also followed by nephrology with plan to continue IV hydration and hold diuretics. Chest x-ray from yesterday revealed cardiomegaly and chronic parenchymal changes with right greater than left multifocal and confluent opacities mid to lower lung suggesting Covid 19 infection redemonstrated. No significant change. Renal ultrasound revealed bilateral renal atrophy. No obstructive calculus in the upper pole left kidney. No evidence of renal mass. No hydronephrosis. No bladder mass. CBC is unremarkable except for lymphocytes of 0.4. D-dimer 5.11. CO2 15, BUN 66 and creatinine 1.93. Blood sugars are running between 177 and 227. LDH 980. C-reactive protein 8.2. IV fluids are currently lactated Ringer's at 75 mL per hour,. 01/26: Patient continues to be unresponsive. No improvement of her mental status. Patient is currently a full code. [place] son Doug was contacted and was in agreement to change patient to a no CODE STATUS. Family is planning to do a virtual visit with her today. Also discussed PEG tube placement which they would like to pursue. Consult placed with general surgery. IV hydralazine as needed for blood pressure control. MRI of the brain revealed no acute findings of infarct. Moderate diffuse cerebral atrophy greatest over bilateral frontal lobes mild to moderate chronic small vessel ischemic change. KUB shows nonspecific findings. Patient had a small smear of bowel movement this morning only. Repeat blood work reveals WBC 9.4, hemoglobin 15.5, platelet count 223. D-dimer 5.51. Blood sugars running in the 300s area and Levemir 10 units at bedtime added as well as NovoLog 5 units every 6 hours. NovoLog scales been changed every 6 hours. Remdesivir day #/. 01/27: Patient's family came in yesterday to see her. She was made no code yesterday but they would like to pursue PEG tube. Patient was seen by Dr. Gordon and he wanted to evaluate for NG tube placement however patient is biting during oral care so she most likely would not be able be able to tolerate up NG tube. Discussed case with Dr. Mcmahan on an EEG ordered. We will plan to start patient on heparin drip for A. fib she has been off eliquis and PEG tube will most likely be placed tomorrow. Patient continues to be unresponsive and dexamethasone will be discontinued and nursing to avoid morphine to see if these changes will improve her mental status. Repeat chest x-ray correlate for pneumonia, edema. Patient has been afebrile, heart rate 73, blood pressure 130/73, pulse ox 94% on 3 L nasal cannula. Sodium 150, potassium 4.7, chloride 116, CO2 30, BUN 64 and creatinine 1.42. Blood sugar 304. Blood sugars have been running between 220 and 309. Patient was started on Levemir 10 units at bedtime last evening and will be increased to 15 units as patient is continued on dextrose 5% at 75 mL per hour. Scheduled NovoLog every 6 hours will be increased to 6 units and continue NovoLog scale. Patient is on REM to severe day #02/10. 01/28 patient examined bedside. Is opening eyes and is able to follow simple commands legs show her thumb or wiggle her toes. Hold PEG tube placement today. Have bedside swallow evaluation with plan to put Dobbhoff tube for nutrition for a few days before going forward with PEG tube. Let us assessment suggest temp of 97.8 pulse 69 respiratory rate 20 blood pressure 168/79. At suggest a leukocytosis of 11.9 hemoglobin 15.2, sodium 150, BUN 15 creatinine 1.6 glucose 288. D5W been continued at 75 mL per hour. Nutrition consult placed for enteral tube feeding. Lantus increased to 20 units at a chills. Continue NovoLog 6 units daily every 6 hours as patient is not having anything to eat. Continue to monitor mental status. Review of systems could not be obtained due to mental status Objective - Vital Signs Vital signs: Vital Signs Temp 97.8 F 01/28/21 13:59 Pulse 69 01/28/21 13:59 Resp 20 01/28/21 13:59 BP 168/79 01/28/21 13:59 Pulse Ox 96 01/28/21 13:59 Intake & Output 01/27/21 01/28/21 01/28/21 18:59 06:59 18:59 Intake Total 1000 149.217 5.073 Output Total 500 Balance 1000 -350.783 5.073 Weight 99.79 kg Intake: Intake, IV Titration 1000 149.217 5.073 Amount Dextrose 5% in Water 1, 375 000 ml @ 75 mls/hr IV . [id number] [facility] Rx#:[id number] Dextrose 5% in Water 1, 375 000 ml @ 75 mls/hr IV . [id number] CARYN with Sodium Bicarb (1 Meq/ml) 150 ml Rx#:[id number] Heparin Sod,Pork in 0.45% 149.217 5.073 NaCl 25,000 unit In 0.45 % NaCl 1 250ml.bag @ 10 UNITS/KG/HR 9.979 mls/hr IV .Q24H [facility] Rx#: [id number] Remdesivir 100 mg In 250 Sodium Chloride 0.9% 250 ml @ 250 mls/hr IVPB DAILY@1800 [facility] Rx#: [id number] Oral 0 Output: Urine 500 Other: Voiding Method External Catheter External Catheter External Catheter - Exam - Constitutional General appearance: Alert, confused, cooperative - EENT Eyes: anicteric sclerae, PERRLA, normal appearance subconjunctival swelling ENT: hearing grossly normal - Neck Neck: no lymphadenopathy, normal ROM, - Respiratory Respiratory: Decreased air entry no crackles or rhonchi - Cardiovascular Rhythm: regular Heart sounds: normal: S1, S2 Abnormal Heart Sounds: no systolic murmur, no diastolic murmur - Gastrointestinal General gastrointestinal: normal bowel sounds, soft nontender - Integumentary Integumentary: no rash - Neurologic Neurologic: No focal deficit generalized weakness pupils are reactive does not communicate unable to r follow simple commands - Musculoskeletal Musculoskeletal: gait could not be assessed, strength equal but decreased - Psychiatric Psychiatric: Alert but confused unable to make any conversation - Labs CBC & Chem 7: 01/28/21 05:52 01/28/21 05:52 Labs: Abnormal Lab Results - Last 24 Hours (Table) 01/27/21 01/27/21 01/28/21 Range/Units 18:58 20:32 01:55 WBC (4.50-10.00) X 10*3/uL Hgb (12.0-15.0) g/dL Hct (37.2-46.3) % MCHC (32.0-37.0) g/dL RDW (11.5-14.5) % Immature Gran # (0.00-0.04) X 10*3/uL Neutrophils # (1.80-7.70) X 10*3/uL Lymphocytes # (0.90-5.00) X 10*3/uL Eosinophils # (0.04-0.35) X 10*3/uL PT (9.0-12.0) sec INR (<1.2) APTT >200.0 H* (22.0-30.0) sec Sodium (135-145) mmol/L Chloride (96-109) mmol/L BUN (9.0-27.0) mg/dL Creatinine (0.6-1.5) mg/dL Est GFR (CKD-EPI)AfAm (60.0-200.0) Est GFR (CKD-EPI)NonAf (60.0-200.0) BUN/Creatinine Ratio (12.00-20.00) Ratio Glucose (70-110) mg/dL POC Glucose (mg/dL) 277 H 341 H (75-99) mg/dL 01/28/21 01/28/21 01/28/21 Range/Units 05:42 05:52 05:52 WBC 11.99 H (4.50-10.00) X 10*3/uL Hgb 15.2 H (12.0-15.0) g/dL Hct 49.4 H (37.2-46.3) % MCHC 30.8 L (32.0-37.0) g/dL RDW 15.7 H (11.5-14.5) % Immature Gran # 0.14 H (0.00-0.04) X 10*3/uL Neutrophils # 10.34 H (1.80-7.70) X 10*3/uL Lymphocytes # 0.64 L (0.90-5.00) X 10*3/uL Eosinophils # 0 L (0.04-0.35) X 10*3/uL PT 13.6 H (9.0-12.0) sec INR 1.3 H (<1.2) APTT 75.9 H (22.0-30.0) sec Sodium 150 H (135-145) mmol/L Chloride 115 H (96-109) mmol/L BUN 50.0 H (9.0-27.0) mg/dL Creatinine 1.6 H (0.6-1.5) mg/dL Est GFR (CKD-EPI)AfAm 33.7 L (60.0-200.0) Est GFR (CKD-EPI)NonAf 29.1 L (60.0-200.0) BUN/Creatinine Ratio 31.25 H (12.00-20.00) Ratio Glucose 288 H (70-110) mg/dL POC Glucose (mg/dL) (75-99) mg/dL 01/28/21 01/28/21 Range/Units 07:58 14:29 WBC (4.50-10.00) X 10*3/uL Hgb (12.0-15.0) g/dL Hct (37.2-46.3) % MCHC (32.0-37.0) g/dL RDW (11.5-14.5) % Immature Gran # (0.00-0.04) X 10*3/uL Neutrophils # (1.80-7.70) X 10*3/uL Lymphocytes # (0.90-5.00) X 10*3/uL Eosinophils # (0.04-0.35) X 10*3/uL PT (9.0-12.0) sec INR (<1.2) APTT (22.0-30.0) sec Sodium (135-145) mmol/L Chloride (96-109) mmol/L BUN (9.0-27.0) mg/dL Creatinine (0.6-1.5) mg/dL Est GFR (CKD-EPI)AfAm (60.0-200.0) Est GFR (CKD-EPI)NonAf (60.0-200.0) BUN/Creatinine Ratio (12.00-20.00) Ratio Glucose (70-110) mg/dL POC Glucose (mg/dL) 256 H 263 H (75-99) mg/dL Microbiology - Last 24 Hours (Table) 01/23/21 12:43 Blood Culture - Preliminary Blood No Growth after 120 hours 01/23/21 12:43 Blood Culture - Preliminary Blood No Growth after 120 hours Assessment and Plan Plan: ASSESSMENT AND PLAN #1 acute infectious metabolic encephalopathy likely secondary to Covid , uremic encephalopathy with underlying short term memory loss from previous concussion. Unknown if patient has underlying dementia. Keep patient on fall precaution and seizure precautions. Neurology consulted. CT head negative for any acute changes on 01/23. CT was also obtained on 01/17 at the hospital has been was negative for any acute changes. MRI of the brain negative for acute findings. Patient is not receiving any oral medications at this point. EEG ordered. Dexamethasone will be discontinued and also nursing to avoid morphine to see if this improves her mental status. #2 acute hypoxic respiratory failure secondary to Covid pneumonia. Continue Pro Air as needed for shortness of breath. Pulmonary consult appreciated. Mucinex as needed. Sputum culture. Discontinue dexamethasone. Continue Vitamin C, vitamin D and zinc. Inflammation markers are elevated. Completed Remdesivir #3 acute kidney injury over chronic kidney disease stage 5 follows nephrology as outpatient at [facility] Patient has no prior baseline creatinine. Neph rology consult appreciated. Continue IV fluids of D5W at 75 mL per hour, sodium bicarb 650 mg twice daily. Hold torsemide hold Aldactone. #4 coronary artery disease status post stents 34 years ago Continue atorvastatin, isosorbide dinitrate continue Coreg 25 mg twice a day #5 hypothyroidism continue levothyroxine 50 g daily TSH normal #6 type 2 diabetes uncontrolled with hyperglycemia secondary to steroids. Levemir 10 units at bedtime started as well as NovoLog 5 units every 6 hours. Continue with insulin sliding scale #7 hyperlipidemia continue atorvastatin 40 mg by mouth daily #8 hypertension continue amlodipine 5 mg by mouth daily. Hydralazine 10 mg IV push every 6 hours as needed for systolic blood pressure greater than 160. #9. Generalized gout allopurinol 100 mg by mouth daily #10 atrial fibrillation on Eliquis 2. 5 mg twice a day continue Coreg 25 twice a day. Patient will be started on heparin drip until eliquis can be resumed #11 CODE STATUS DO NOT RESUSCITATE #12 severe protein calorie malnutrition secondary to patient's inability to eat and no oral intake secondary to infectious encephalopathy from Covid 19. Consult with general surgery for PEG tube insertion. Patient scheduled for PEG tube insertion tomorrow afternoon. 13. GI prophylaxis with Pepcid 20 mg IV twice a day 14. DVT prophylaxis. Hold eliquis on heparin drip 15 hypernatremia sodium bicarb stopped. Continue to D5W at 75 mL per hour. CBC and CMP tomorrow DISCHARGE PLAN Return to [facility].
--- NOTE | 2021-01-28 17:53 | PN ---
PROGRESS NOTE Patient is seen for followup for acute kidney injury associated with underlying COVID infection as well as volume depletion. The patient had significant encephalopathy with significant alteration in mentation. Her mentation has remarkably improved today. PHYSICAL EXAMINATION: Blood pressure was 160/79, heart rate 67 per minute. Patient is awake. She smiled as well. She is currently tracking and following with significant improvement in mentation from yesterday. Examination of lower extremities shows no significant edema. Abdomen is soft, nontender. Patient still remains confused, though. LAB: Show sodium of 150, potassium 4.1, chloride 115, BUN 50, serum creatinine 1.6 mg/dL. ASSESSMENT: 1. Acute kidney injury, prerenal and associated with underlying COVID infection with acute tubular necrosis, currently improved. Creatinine is down to about 1.6 from 2 initially. Between yesterday and today, her creatinine has gone up to 1.6 from 1.4 yesterday. I will continue with the D5W and increase rate to about 100 mL an hour since she remains hypernatremic as well. 2. Hypernatremia associated with free water deficit, maintained on D5W which I will increase as patient does not have much oral intake. 3. Chronic kidney disease with unknown previous creatinine now staying at about 1.4- 1.6. Etiology is likely nephrosclerosis. 4. Metabolic acidosis now resolved. PLAN: Increase D5W to 100 mL an hour. Repeat labs in a.m. YORDAN / JEREMI: [id number] /
[2021-01-28 20:03] LABS: Glucose,Whole Blood 214 mg/dL (75-99)
[2021-01-28] MEDS: ATORVASTATIN 40 MG TAB PO SCH (20:23)
[2021-01-28] MEDS ORDERED: INSULIN DETEMIR (LEVEMIR) 100 UNIT/ML SYR SQ SCH (21:00)
[2021-01-29 02:05] LABS: Glucose,Whole Blood 238 mg/dL (75-99)
[2021-01-29] MEDS: INSULIN ASPART (NovoLOG) 100 UNIT/ML VIAL SQ SCH ×8 (02:32→17:24)
[2021-01-29] MEDS: HEPARIN SOD,PORK IN 0.45% NACL 25,000 UNIT in 0.45% NACL 1 250ML.BAG IV SCH (03:16)
[2021-01-29] MEDS: DEXTROSE 5% IN WATER 1,000 ML IV SCH (03:16)
[2021-01-29 03:19] LABS: Hemoglobin A1C 9.5 % (4.0-6.0)
[2021-01-29] MEDS: LEVOTHYROXINE 50 MCG TAB PO SCH (05:48)
[2021-01-29 06:58] LABS: Glucose,Whole Blood 220 mg/dL (75-99)
[2021-01-29] MEDS: PANTOPRAZOLE 40 MG TABLET PO SCH (08:17)
[2021-01-29] MEDS: ISOSORBIDE DINITRATE 10 MG TAB PO SCH (08:17)
[2021-01-29] MEDS: amLODIPine 5 MG TAB PO SCH (08:17)
[2021-01-29] MEDS: carvediloL 12.5 MG TAB PO SCH ×2 (08:17→15:56)
[2021-01-29] MEDS: guaiFENesin 600 MG TABLET.ER PO SCH ×2 (08:17→20:50)
--- NOTE | 2021-01-29 09:42 | P.PN ---
Subjective Progress Note Date: 01/28/21 01/28/2021: Patient was seen for a follow-up. Patient was seen earlier during the day went her son was also present. This is a late entry. Patient is doing much better. Patient's son and agreed, that she has remarkably improved. Yesterday she was not speaking, but now she is starting to speak. Patient nods "no" for headache. Patient states "I'm feeling better". This is much improved as compared to yesterday. 01/27/2021: Patient was seen for a follow-up. Patient initially seen by Dr. Rafiq Rushing on 01/24/2021. Please refer to his note for details. Patient has acute Covid pneumonia, altered mental status and toxic metabolic encephalopathy. Patient also has atrial fibrillation on Eliqus, hypothyroidism, CAD, chronic renal disease. She came to the hospital for 2020 with increased confusion. On 01/17/2021 she started having problems with confusion. The next day she was treated for Covid 19 pneumonia and then was discharged back to [facility] [place] for worsening shortness of breath. CT head showed cerebral atrophy with no acute process. Chest x-ray showed cardiomegaly and chronic parenchymal changes with a right greater than left multifocal opacities mid to lower lung suggestive of Covid 19 infection. Her initial BUN was 63, creatinine 2.20. AST was mildly elevated 45. Patient subsequently had undergone an MRI of the brain without contrast on 01/25/2021, which revealed no acute infarct. Moderate diffuse cerebral atrophy greatest over bilateral frontal lobes and mild to moderate chronic small vessel ischemic changes. Most recent chest x-ray from 01/26/2021 shows correlate for pneumonia, edema. Patient's blood tests shows normal WBC 11.0, hemoglobin 15.7, PT/PTT normal. Sodium 150 potassium 4.7, BUN 64, creatinine 1.42. Her prior BUN was 75 and creatinine 2.1 on 01/26/2021. Lower extremity ultrasound was negative for DVT. Objective - Vital Signs Vital signs: Vital Signs Temp 97.5 F L 01/28/21 21:11 Pulse 67 01/28/21 21:11 Resp 18 01/28/21 21:11 BP 145/78 01/28/21 21:11 Pulse Ox 97 01/28/21 21:11 Intake & Output 0401/28/21 01/29/21 06:59 18:59 06:59 Intake Total 149.217 39.920 Output Total 500 250 Balance -350.783 -210.080 Weight 99.79 kg Intake: Intake, IV Titration 149.217 39.920 Amount Heparin Sod,Pork in 0.45% 149.217 39.920 NaCl 25,000 unit In 0.45 % NaCl 1 250ml.bag @ 10 UNITS/KG/HR 9.979 mls/hr IV .Q24H [facility] Rx#: [id number] Output: Urine 500 250 Other: Voiding Method External Catheter External Catheter - Exam GENERAL: The patient is reclining in the bed, appears much more comfortable, with no significant respiratory distress. NEUROLOGICAL: Higher mental function: Patient appears much more calm, comfortable, smiling, making eye contact, even answering questions. Speech is slightly hoarse. This is much improvement as compared to yesterday. Cranial nerves: The pupils are round, equal and reactive to light. No facial weakness. Tongue protrudes to the midline. Palatal elevation is normal, shoulder shrug normal. Hearing is slightly decreased. Motor: Gait is deferred. Patient's construction grip is about 4, biceps 4, decreased endurance all over and decreased effort.. Cerebellum: No definite ataxia for [id number]. Patient's slow mentation. Sensation: To touch appears equal.. Reflexes (right/left): 1+ Plantars are downgoing bilaterally. - Labs CBC & Chem 7: 01/28/21 05:52 01/28/21 05:52 Labs: Abnormal Lab Results - Last 24 Hours (Table) 01/28/21 01/28/21 01/28/21 Range/Units 01:55 05:42 05:52 WBC 11.99 H (4.50-10.00) X 10*3/uL Hgb 15.2 H (12.0-15.0) g/dL Hct 49.4 H (37.2-46.3) % MCHC 30.8 L (32.0-37.0) g/dL RDW 15.7 H (11.5-14.5) % Immature Gran # 0.14 H (0.00-0.04) X 10*3/uL Neutrophils # 10.34 H (1.80-7.70) X 10*3/uL Lymphocytes # 0.64 L (0.90-5.00) X 10*3/uL Eosinophils # 0 L (0.04-0.35) X 10*3/uL PT 13.6 H (9.0-12.0) sec INR 1.3 H (<1.2) APTT 75.9 H (22.0-30.0) sec Sodium (135-145) mmol/L Chloride (96-109) mmol/L BUN (9.0-27.0) mg/dL Creatinine (0.6-1.5) mg/dL Est GFR (CKD-EPI)AfAm (60.0-200.0) Est GFR (CKD-EPI)NonAf (60.0-200.0) BUN/Creatinine Ratio (12.00-20.00) Ratio Glucose (70-110) mg/dL POC Glucose (mg/dL) 341 H (75-99) mg/dL 01/28/21 01/28/21 01/28/21 Range/Units 05:52 07:58 14:29 WBC (4.50-10.00) X 10*3/uL Hgb (12.0-15.0) g/dL Hct (37.2-46.3) % MCHC (32.0-37.0) g/dL RDW (11.5-14.5) % Immature Gran # (0.00-0.04) X 10*3/uL Neutrophils # (1.80-7.70) X 10*3/uL Lymphocytes # (0.90-5.00) X 10*3/uL Eosinophils # (0.04-0.35) X 10*3/uL PT (9.0-12.0) sec INR (<1.2) APTT (22.0-30.0) sec Sodium 150 H (135-145) mmol/L Chloride 115 H (96-109) mmol/L BUN 50.0 H (9.0-27.0) mg/dL Creatinine 1.6 H (0.6-1.5) mg/dL Est GFR (CKD-EPI)AfAm 33.7 L (60.0-200.0) Est GFR (CKD-EPI)NonAf 29.1 L (60.0-200.0) BUN/Creatinine Ratio 31.25 H (12.00-20.00) Ratio Glucose 288 H (70-110) mg/dL POC Glucose (mg/dL) 256 H 263 H (75-99) mg/dL 01/28/21 01/28/21 Range/Units 17:23 20:01 WBC (4.50-10.00) X 10*3/uL Hgb (12.0-15.0) g/dL Hct (37.2-46.3) % MCHC (32.0-37.0) g/dL RDW (11.5-14.5) % Immature Gran # (0.00-0.04) X 10*3/uL Neutrophils # (1.80-7.70) X 10*3/uL Lymphocytes # (0.90-5.00) X 10*3/uL Eosinophils # (0.04-0.35) X 10*3/uL PT (9.0-12.0) sec INR (<1.2) APTT 36.9 H (22.0-30.0) sec Sodium (135-145) mmol/L Chloride (96-109) mmol/L BUN (9.0-27.0) mg/dL Creatinine (0.6-1.5) mg/dL Est GFR (CKD-EPI)AfAm (60.0-200.0) Est GFR (CKD-EPI)NonAf (60.0-200.0) BUN/Creatinine Ratio (12.00-20.00) Ratio Glucose (70-110) mg/dL POC Glucose (mg/dL) 214 H (75-99) mg/dL Microbiology - Last 24 Hours (Table) 01/23/21 12:43 Blood Culture - Preliminary Blood No Growth after 120 hours 01/23/21 12:43 Blood Culture - Preliminary Blood No Growth after 120 hours Assessment and Plan Assessment: Toxic metabolic encephalopathy due to hypoxia from COVID-19 pneumonia, DANIEL on CKI--much improved. COVID-19 pneumonia, improved Acute on chronic kidney insufficiency Hypertension Hyperlipidemia Diabetes. Coronary artery disease Atrial fibrillation on Eliquis Hypothyroidism Plan: Patient's mentation and encephalopathy has much improved. Patient has started communicating and following commands. MRI of the brain performed 01/25/2021, revealed no acute process. No CVA. B12 667, folate 10.8, TSH is normal 0.716. Ammonia normal <9. Patient continues to be in moderate renal failure, although improving. Nephrology and pulmonary on board. Patient to undergo possible PEG tube placement in the morning. EEG 01/27/2021 revealed background slowing of moderate degree. This is suggestive of generalized cerebral dysfunction as can be seen with toxic metabolic encephalopathy or related to diffuse structural brain abnormality. No epileptiform activity was seen. Hemoglobin A1c 9.5.
--- NOTE | 2021-01-29 10:21 | P.PN ---
Subjective Progress Note Date: 01/29/21 Patient seen and examined at bedside. More alert today. Responding to verbal stimuli. Objective - Vital Signs Vital signs: Vital Signs Temp 98.0 F 01/29/21 10:00 Pulse 69 01/29/21 10:00 Resp 18 01/29/21 10:00 BP 171/84 01/29/21 10:00 Pulse Ox 96 01/29/21 10:00 Intake & Output 01/28/21 01/29/21 01/29/21 18:59 06:59 18:59 Intake Total 39.920 49.943 Output Total 250 Balance -210.080 49.943 Weight 99.79 kg 101.1 kg Intake: Intake, IV Titration 39.920 49.943 Amount Heparin Sod,Pork in 0.45% 39.920 49.943 NaCl 25,000 unit In 0.45 % NaCl 1 250ml.bag @ 10 UNITS/KG/HR 9.979 mls/hr IV .Q24H [facility] Rx#: [id number] Output: Urine 250 Other: Voiding Method External Catheter External Catheter - Constitutional General appearance: Present: cooperative - Gastrointestinal Gastrointestinal Comment(s): soft, NT, ND, no rebound or guarding - Musculoskeletal Musculoskeletal: Present: generalized weakness - Labs CBC & Chem 7: 01/28/21 05:52 01/28/21 05:52 Labs: Abnormal Lab Results - Last 24 Hours (Table) 01/28/21 01/28/21 01/28/21 Range/Units 05:52 14:29 17:23 APTT 36.9 H (22.0-30.0) sec Sodium 150 H (135-145) mmol/L Chloride 115 H (96-109) mmol/L BUN 50.0 H (9.0-27.0) mg/dL Creatinine 1.6 H (0.6-1.5) mg/dL Est GFR (CKD-EPI)AfAm 33.7 L (60.0-200.0) Est GFR (CKD-EPI)NonAf 29.1 L (60.0-200.0) BUN/Creatinine Ratio 31.25 H (12.00-20.00) Ratio Glucose 288 H (70-110) mg/dL POC Glucose (mg/dL) 263 H (75-99) mg/dL Hemoglobin A1c (4.0-6.0) % 01/28/21 01/28/21 01/29/21 Range/Units 17:23 20:01 00:07 APTT 98.3 H (22.0-30.0) sec Sodium (135-145) mmol/L Chloride (96-109) mmol/L BUN (9.0-27.0) mg/dL Creatinine (0.6-1.5) mg/dL Est GFR (CKD-EPI)AfAm (60.0-200.0) Est GFR (CKD-EPI)NonAf (60.0-200.0) BUN/Creatinine Ratio (12.00-20.00) Ratio Glucose (70-110) mg/dL POC Glucose (mg/dL) 214 H (75-99) mg/dL Hemoglobin A1c 9.5 H (4.0-6.0) % 01/29/21 01/29/21 Range/Units 02:03 06:56 APTT (22.0-30.0) sec Sodium (135-145) mmol/L Chloride (96-109) mmol/L BUN (9.0-27.0) mg/dL Creatinine (0.6-1.5) mg/dL Est GFR (CKD-EPI)AfAm (60.0-200.0) Est GFR (CKD-EPI)NonAf (60.0-200.0) BUN/Creatinine Ratio (12.00-20.00) Ratio Glucose (70-110) mg/dL POC Glucose (mg/dL) 238 H 220 H (75-99) mg/dL Hemoglobin A1c (4.0-6.0) % Microbiology - Last 24 Hours (Table) 01/23/21 12:43 Blood Culture - Preliminary Blood No Growth after 120 hours 01/23/21 12:43 Blood Culture - Preliminary Blood No Growth after 120 hours Assessment and Plan Plan: Patient is becoming more alert. Speech eval was performed yesterday with coughing after a tablespoon of liquid. As the patient is more alert today, speech eval will be reperformed. Dobbhoff catheter was placed and patient is removed receiving enteral tube feeding. We will continue to follow and continue with the enteral tube feeding as the patient continues to improve from her encephalopathy. We will evaluate once again on Monday for necessity of PEG tube placement.
[2021-01-29 10:28] LABS: African American GFR (CKD) 46 (>60 ml/min/1.73 sqM); Anion Gap 2 mmol/L; Blood Urea Nitrogen 49 mg/dL (7-17); Calcium 9.6 mg/dL (8.4-10.2); Carbon Dioxide 30 mmol/L (22-30); Chloride 105 mmol/L (98-107); Glucose 260 mg/dL (74-99); Non-African American GFR(CKD) 39 (>60 ml/min/1.73 sqM); Potassium 4.3 mmol/L (3.5-5.1); Sodium 137 mmol/L (137-145)
[2021-01-29 11:37] LABS: Glucose,Whole Blood 217 mg/dL (75-99)
[2021-01-29] MEDS ORDERED: amLODIPine 5 MG TAB PO STA (13:51)
--- NOTE | 2021-01-29 13:56 | P.PN ---
Subjective Progress Note Date: 01/29/21 85 years old female patient of Dr. Mack past medical history of hypertension hyperlipidemia coronary artery disease, chronic kidney disease unknown stage presents with increasing confusion and hypoxia from [facility]. Apparently patient was brought to the ER at [facility] on 01/17 for worsening confusion and flulike symptoms. Patient went home as was not able to be seen for her symptoms soon enough and called her primary care physician who ordered a CAT scan of the head. CAT scan of the head was negative and patient was brought back to the ER on 01/18 and was treated for COVID pneumonia. Patient was discharged to [facility] and was brought back to the ER 24-hour later for worsening shortness of breath.on evaluation in the ER patient is short of breath requiring 6 L of oxygen unable to answer any questions very drowsy on evaluation. She opens her eyes to question only to go back to sleep in a short while. Patient withdraws to pain but does not follow commands. No family member is present at bedside. Son was called multiple times but was unable to be reached. History is obtained through patient's and documentation by the ER. She has never been admitted in this hospital. Evaluation Suggests Hemoglobin Is 15.5 Platelet 185 INR 1 D-Dimer 2.1 Sodium 140 Potassium 4.9 Chloride 111 Bicarb 20 1B UN 53 Creatinine 2.2 Calcium Is 10.7 Magnesium 2.6 Lactic Acid 1.6 Alkaline Phosphatase 87, LDH 1076 CRP 20.8 Output (3.1. Pro- Calcitonin Is Pending. ProBNP Is Pending. Chest X-Ray suggested cardiomegaly and chronic parenchymal changes with right greater than left multifocal opacities metoprolol and suggestive of COVID-[address] head ordered to rule out acute stroke. Patient's home medication reconciled will hold torsemide, spironolactone. Nephrology course consult for possible end-stage renal disease. Unclear if patient is on him and on dialysis. Ultrasound of the renal obtained. neurology in consult for acute encephalopathy likely secondary to Covid. Patient does have underlying dementia?. We'll start patient on dexamethasone 6 mg IV every 12 hours. Start her on vitamin C, vitamin D and zinc. Pulmonary consulted for Covid pneumonia. 01/24 spoke to patient's son who did state that patient has underlying history of concussion and forgetfulness but no formal diagnosis of dementia has ever been made. She was speaking clearly and had no confusion 8 days ago. Patient had normal recovery of mental status after being discharged from the other hospital and transferred to [facility]. Son does suggest that patient has history of stent placement 3-4 years ago for coronary artery disease. She does follow nephrology as outpatient and has significant end-stage chronic kidney disease with plan to initiate hemodialysis if no improvement noted. On evaluation patient's mental status today patient's more responsive. She was refusing to eat. Swallow evaluation at bedside was not past. Patient continued to be on normal saline 75 mL per hour on evaluation patient's blood work sodium is 141 bicarb 18 creatinine 2.1 MCH slightly improved to 845 CRP is 18.9. Pro-calcitonin came at 0.6, TSH normal urinary analysis negative for any infection. Blood cultures negative continue remdesivir per pulmonary recommendations continue Decadron and elliquis . Hold Levemir 01/25: Patient has been seen by neurology with recommendations for ammonia level, TSH and vitamin B12 and folate. Patient continues to have significant confusion and MRI of the brain ordered. Patient is also been seen by pulmonary medicine with recommendations for continuing IV Decadron, patient was started on Remdesivir day #3/5. Patient is also followed by nephrology with plan to continue IV hydration and hold diuretics. Chest x-ray from yesterday revealed cardiomegaly and chronic parenchymal changes with right greater than left multifocal and confluent opacities mid to lower lung suggesting Covid 19 infection redemonstrated. No significant change. Renal ultrasound revealed bilateral renal atrophy. No obstructive calculus in the upper pole left kidney. No evidence of renal mass. No hydronephrosis. No bladder mass. CBC is unremarkable except for lymphocytes of 0.4. D-dimer 5.11. CO2 15, BUN 66 and creatinine 1.93. Blood sugars are running between 177 and 227. LDH 980. C-reactive protein 8.2. IV fluids are currently lactated Ringer's at 75 mL per hour,. 01/26: Patient continues to be unresponsive. No improvement of her mental status. Patient is currently a full code. [place] son Doug was contacted and was in agreement to change patient to a no CODE STATUS. Family is planning to do a virtual visit with her today. Also discussed PEG tube placement which they would like to pursue. Consult placed with general surgery. IV hydralazine as needed for blood pressure control. MRI of the brain revealed no acute findings of infarct. Moderate diffuse cerebral atrophy greatest over bilateral frontal lobes mild to moderate chronic small vessel ischemic change. KUB shows nonspecific findings. Patient had a small smear of bowel movement this morning only. Repeat blood work reveals WBC 9.4, hemoglobin 15.5, platelet count 223. D-dimer 5.51. Blood sugars running in the 300s area and Levemir 10 units at bedtime added as well as NovoLog 5 units every 6 hours. NovoLog scales been changed every 6 hours. Remdesivir day #/. 01/27: Patient's family came in yesterday to see her. She was made no code yesterday but they would like to pursue PEG tube. Patient was seen by Dr. Gordon and he wanted to evaluate for NG tube placement however patient is biting during oral care so she most likely would not be able be able to tolerate up NG tube. Discussed case with Dr. Mcmahan on an EEG ordered. We will plan to start patient on heparin drip for A. fib she has been off eliquis and PEG tube will most likely be placed tomorrow. Patient continues to be unresponsive and dexamethasone will be discontinued and nursing to avoid morphine to see if these changes will improve her mental status. Repeat chest x-ray correlate for pneumonia, edema. Patient has been afebrile, heart rate 73, blood pressure 130/73, pulse ox 94% on 3 L nasal cannula. Sodium 150, potassium 4.7, chloride 116, CO2 30, BUN 64 and creatinine 1.42. Blood sugar 304. Blood sugars have been running between 220 and 309. Patient was started on Levemir 10 units at bedtime last evening and will be increased to 15 units as patient is continued on dextrose 5% at 75 mL per hour. Scheduled NovoLog every 6 hours will be increased to 6 units and continue NovoLog scale. Patient is on REM to severe day #02/10. 01/28 patient examined bedside. Is opening eyes and is able to follow simple commands legs show her thumb or wiggle her toes. Hold PEG tube placement today. Have bedside swallow evaluation with plan to put Dobbhoff tube for nutrition for a few days before going forward with PEG tube. Let us assessment suggest temp of 97.8 pulse 69 respiratory rate 20 blood pressure 168/79. At suggest a leukocytosis of 11.9 hemoglobin 15.2, sodium 150, BUN 15 creatinine 1.6 glucose 288. D5W been continued at 75 mL per hour. Nutrition consult placed for enteral tube feeding. Lantus increased to 20 units at a chills. Continue NovoLog 6 units daily every 6 hours as patient is not having anything to eat. Continue to monitor mental status. 01/29 patient examined bedside. Very delayed response to the speech but patient seems to understand and respond. She does states"I'm okay"and lessens carefully to the conversation. Patient did have a speech evaluation yesterday and had a poor response to a half to a teaspoon of water trying. Patient was found coughing on an attempt to feed. Dobbhoff tube was placed which patient is tolerating well. Vitals signs of June pulse 69 respiratory rate 18 blood pressure 171/84 oxygen saturation 96% on 3 L of oxygen. Labs suggest a BUN of 49 and creatinine 1.25 which is improved compared to previous labs. Glucose still high at 260. A1c came is 9.5. Lantus increased to 25 units daily at bedtime. Amlodipine increased to 10 g by mouth daily. We will switch Eliquis and stop heparin Hold off patient's IV fluids. PTOT consulted with possible plan to discharge to subacute rehab once stabilized. Reassessment of nutrition status on Monday to evaluate for need for PEG tube Review of systems could not be obtained Objective - Vital Signs Vital signs: Vital Signs Temp 98.0 F 01/29/21 10:00 Pulse 69 01/29/21 10:00 Resp 18 01/29/21 10:00 BP 171/84 01/29/21 10:00 Pulse Ox 96 01/29/21 10:00 Intake & Output 01/28/21 01/29/21 01/29/21 18:59 06:59 18:59 Intake Total 39.920 49.943 Output Total 250 Balance -210.080 49.943 Weight 99.79 kg 101.1 kg Intake: Intake, IV Titration 39.920 49.943 Amount Heparin Sod,Pork in 0.45% 39.920 49.943 NaCl 25,000 unit In 0.45 % NaCl 1 250ml.bag @ 10 UNITS/KG/HR 9.979 mls/hr IV .Q24H [facility] Rx#: [id number] Output: Urine 250 Other: Voiding Method External Catheter External Catheter External Catheter - Exam - Constitutional General appearance: Alert, follows simple commands, cooperative - EENT Eyes: anicteric sclerae, PERRLA, normal appearance subconjunctival swelling ENT: hearing grossly normal - Neck Neck: no lymphadenopathy, normal ROM, - Respiratory Respiratory: Decreased air entry no crackles or rhonchi - Cardiovascular Rhythm: regular Heart sounds: normal: S1, S2 Abnormal Heart Sounds: no systolic murmur, no diastolic murmur - Gastrointestinal General gastrointestinal: normal bowel sounds, soft nontender - Integumentary Integumentary: no rash - Neurologic Neurologic: No focal deficit generalized weakness pupils are reactive does not communicate able to show thumbs-up ventricular toes. Speech is not clear but patient is making 2 or 3 word sentences - Musculoskeletal Musculoskeletal: gait could not be assessed, strength equal but decreased - Psychiatric Psychiatric: Alert but confused unable to make any conversation - Labs CBC & Chem 7: 01/28/21 05:52 01/29/21 09:50 Labs: Abnormal Lab Results - Last 24 Hours (Table) 01/28/21 01/28/21 01/28/21 Range/Units 14:29 17:23 17:23 APTT 36.9 H (22.0-30.0) sec BUN (7-17) mg/dL Creatinine (0.52-1.04) mg/dL Glucose (74-99) mg/dL POC Glucose (mg/dL) 263 H (75-99) mg/dL Hemoglobin A1c 9.5 H (4.0-6.0) % 01/28/21 01/29/21 01/29/21 Range/Units 20:01 00:07 02:03 APTT 98.3 H (22.0-30.0) sec BUN (7-17) mg/dL Creatinine (0.52-1.04) mg/dL Glucose (74-99) mg/dL POC Glucose (mg/dL) 214 H 238 H (75-99) mg/dL Hemoglobin A1c (4.0-6.0) % 01/29/21 01/29/21 01/29/21 Range/Units 06:56 09:50 09:50 APTT 32.2 H (22.0-30.0) sec BUN 49 H (7-17) mg/dL Creatinine 1.25 H (0.52-1.04) mg/dL Glucose 260 H (74-99) mg/dL POC Glucose (mg/dL) 220 H (75-99) mg/dL Hemoglobin A1c (4.0-6.0) % 01/29/21 Range/Units 11:35 APTT (22.0-30.0) sec BUN (7-17) mg/dL Creatinine (0.52-1.04) mg/dL Glucose (74-99) mg/dL POC Glucose (mg/dL) 217 H (75-99) mg/dL Hemoglobin A1c (4.0-6.0) % Microbiology - Last 24 Hours (Table) 01/23/21 12:43 Blood Culture - Preliminary Blood No Growth after 120 hours 01/23/21 12:43 Blood Culture - Preliminary Blood No Growth after 120 hours Assessment and Plan Plan: ASSESSMENT AND PLAN #1 acute infectious metabolic encephalopathy likely secondary to Covid , uremic encephalopathy with underlying short term memory loss from previous concussion. Unknown if patient has underlying dementia. Keep patient on fall precaution and seizure precautions. Neurology consulted. CT head negative for any acute changes on 01/23. CT was also obtained on 01/17 at the hospital has been was n egative for any acute changes. MRI of the brain negative for acute findings. Patient is not receiving any oral medications at this point. EEG ordered. Dexamethasone discontinued due to mental status. Morphine discontinued #2 acute hypoxic respiratory failure secondary to Covid pneumonia. Continue Pro Air as needed for shortness of breath. Pulmonary consult appreciated. Mucinex as needed. Sputum culture. Discontinue dexamethasone. Continue Vitamin C, vitamin D and zinc. Inflammation markers are elevated. Completed Remdesivir #3 acute kidney injury over chronic kidney disease stage 5 follows nephrology as outpatient at [facility] Patient has no prior baseline creatinine. Nephrology consult appreciated. Discontinue IV fluids of D5W at 75 mL per hour as tube feeding initiated, discontinue sodium bicarb 650 mg twice daily. Hold torsemide hold Aldactone. #4 coronary artery disease status post stents 34 years ago Continue atorvastatin, isosorbide dinitrate continue Coreg 25 mg twice a day #5 hypothyroidism continue levothyroxine 50 g daily TSH normal #6 type 2 diabetes uncontrolled with hyperglycemia secondary to steroids. Levemir increased to 20 units at bedtime started as well as NovoLog 5 units every 6 hours. Continue with insulin sliding scale #7 hyperlipidemia continue atorvastatin 40 mg by mouth daily #8 hypertension amlodipine increased to 10 from 5 mg by mouth daily. Hydralazine 10 mg IV push every 6 hours as needed for systolic blood pressure greater than 160. #9. Generalized gout allopurinol 100 mg by mouth daily #10 atrial fibrillation on Eliquis 2. 5 mg twice a day continue Coreg 25 twice a day. Heparin discontinued resumed on Eliquis #11 CODE STATUS DO NOT RESUSCITATE #12 severe protein calorie malnutrition secondary to patient's inability to eat and no oral intake secondary to infectious encephalopathy from Covid 19. Consult with general surgery for PEG tube insertion. Plan to perform PEG tube on hold. Enteric feeding started 13. GI prophylaxis with Pepcid 20 mg IV twice a day 14. DVT prophylaxis. Hold eliquis on heparin drip 15 hypernatremia sodium bicarb stopped. D5W at 75 mL per hour. CBC and CMP need to be monitored carefully DISCHARGE PLAN Return to [facility].
[2021-01-29 16:34] LABS: Glucose,Whole Blood 187 mg/dL (75-99)
--- NOTE | 2021-01-29 20:27 | PN ---
PROGRESS NOTE Patient is seen for followup for acute kidney injury associated with underlying COVID pneumonia as well as volume depletion. Patient is maintained on IV fluids. Her renal function has improved, with creatinine down to 1.25 now. Patient was severely encephalopathic and her mentation cleared 2 days ago with significant improvement. She has been eating, and IV fluids were discontinued yesterday. PHYSICAL EXAMINATION: Blood pressure was 148/79, heart rate about 70 per minute. Patient is afebrile. Examination of lower extremities shows no evidence of edema. Abdomen is soft, nontender. Patient is moving all 4 extremities. Mental status/confusion has improved. LABS: Sodium 137, potassium 4.3, chloride 105. CO2 is 30, BUN 49, creatinine 1.25. ASSESSMENT: 1. Acute kidney injury, prerenal and acute tubular necrosis from COVID pneumonia, currently improved. 2. Metabolic acidosis, currently resolved, post IV bicarb. 3. Hypernatremia, corrected now with D5W. D5W is now discontinued. PLAN: Encourage increased oral intake. Continue off of IV fluids. Repeat labs in a.m. MMODL / IJN: [id number] /
[2021-01-29] MEDS: APIXABAN 2.5 MG TABLET PO SCH (20:50)
[2021-01-29] MEDS: INSULIN DETEMIR (LEVEMIR) 100 UNIT/ML SYR SQ SCH (20:50)
[2021-01-29] MEDS: ATORVASTATIN 40 MG TAB PO SCH (20:50)
[2021-01-29 21:01] LABS: Glucose,Whole Blood 190 mg/dL (75-99)
[2021-01-30 00:05] LABS: Glucose,Whole Blood 159 mg/dL (75-99)
[2021-01-30] MEDS: INSULIN ASPART (NovoLOG) 100 UNIT/ML VIAL SQ SCH ×8 (00:09→16:45)
[2021-01-30 05:28] LABS: Glucose,Whole Blood 165 mg/dL (75-99)
[2021-01-30] MEDS: LEVOTHYROXINE 50 MCG TAB PO SCH (05:33)
[2021-01-30 07:03] LABS: Glucose,Whole Blood 182 mg/dL (75-99)
[2021-01-30] MEDS: guaiFENesin 600 MG TABLET.ER PO SCH ×2 (08:11→20:22)
[2021-01-30] MEDS: PANTOPRAZOLE 40 MG TABLET PO SCH (08:11)
[2021-01-30] MEDS: ISOSORBIDE DINITRATE 10 MG TAB PO SCH (08:11)
[2021-01-30] MEDS: amLODIPine 10 MG TAB PO SCH (08:11)
[2021-01-30] MEDS: carvediloL 12.5 MG TAB PO SCH ×2 (08:11→16:45)
[2021-01-30] MEDS: APIXABAN 2.5 MG TABLET PO SCH ×2 (08:11→20:22)
--- NOTE | 2021-01-30 11:17 | P.PN ---
Subjective Progress Note Date: 01/30/21 85 years old female patient of Dr. Mack past medical history of hypertension hyperlipidemia coronary artery disease, chronic kidney disease unknown stage presents with increasing confusion and hypoxia from [facility] [place]. Apparently patient was brought to the ER at [facility] on 01/17 for worsening confusion and flulike symptoms. Patient went home as was not able to be seen for her symptoms soon enough and called her primary care physician who ordered a CAT scan of the head. CAT scan of the head was negative and patient was brought back to the ER on 01/18 and was treated for COVID pneumonia. Patient was discharged to [facility] [place] and was brought back to the ER 24- hour later for worsening shortness of breath.on evaluation in the ER patient is short of breath requiring 6 L of oxygen unable to answer any questions very drowsy on evaluation. She opens her eyes to question only to go back to sleep in a short while. Patient withdraws to pain but does not follow commands. No family member is present at bedside. Son was called multiple times but was unable to be reached. History is obtained through patient's and documentation by the ER. She has never been admitted in this hospital. Evaluation Suggests Hemoglobin Is 15.5 Platelet 185 INR 1 D-Dimer 2.1 Sodium 140 Potassium 4.9 Chloride 111 Bicarb 20 1B UN 53 Creatinine 2.2 Calcium Is 10.7 Magnesium 2.6 Lactic Acid 1.6 Alkaline Phosphatase 87, LDH 1076 CRP 20.8 Output (3.1. Pro- Calcitonin Is Pending. ProBNP Is Pending. Chest X-Ray suggested cardiomegaly and chronic parenchymal changes with right greater than left multifocal opacities metoprolol and suggestive of COVID-[address] head ordered to rule out acute stroke. Patient's home medication reconciled will hold torsemide, spironolactone. Nephrology course consult for possible end-stage renal disease. Unclear if patient is on him and on dialysis. Ultrasound of the renal obtained. neurology in consult for acute encephalopathy likely secondary to Covid. Patient does have underlying dementia?. We'll start patient on dexamethasone 6 mg IV every 12 hours. Start her on vitamin C, vitamin D and zinc. Pulmonary consulted for Covid pneumonia. 01/24 spoke to patient's son who did state that patient has underlying history of concussion and forgetfulness but no formal diagnosis of dementia has ever been made. She was speaking clearly and had no confusion 8 days ago. Patient had normal recovery of mental status after being discharged from the other hospital and transferred to [facility]. Son does suggest that patient has history of stent placement 3-4 years ago for coronary artery disease. She does follow nephrology as outpatient and has significant end-stage chronic kidney disease with plan to initiate hemodialysis if no improvement noted. On evaluation patient's mental status today patient's more responsive. She was refusing to eat. Swallow evaluation at bedside was not past. Patient continued to be on normal saline 75 mL per hour on evaluation patient's blood work sodium is 141 bicarb 18 creatinine 2.1 MCH slightly improved to 845 CRP is 18.9. Pro-calcitonin came at 0.6, TSH normal urinary analysis negative for any infection. Blood cultures negative continue remdesivir per pulmonary recommendations continue Decadron and elliquis . Hold Levemir 01/25: Patient has been seen by neurology with recommendations for ammonia level, TSH and vitamin B12 and folate. Patient continues to have significant confusion and MRI of the brain ordered. Patient is also been seen by pulmonary medicine with recommendations for continuing IV Decadron, patient was started on Remdesivir day #3/5. Patient is also followed by nephrology with plan to continue IV hydration and hold diuretics. Chest x-ray from yesterday revealed cardiomegaly and chronic parenchymal changes with right greater than left multifocal and confluent opacities mid to lower lung suggesting Covid 19 infection redemonstrated. No significant change. Renal ultrasound revealed bilateral renal atrophy. No obstructive calculus in the upper pole left kidney. No evidence of renal mass. No hydronephrosis. No bladder mass. CBC is unremarkable except for lymphocytes of 0.4. D-dimer 5.11. CO2 15, BUN 66 and creatinine 1.93. Blood sugars are running between 177 and 227. LDH 980. C-reactive protein 8.2. IV fluids are currently lactated Ringer's at 75 mL per hour,. 01/26: Patient continues to be unresponsive. No improvement of her mental status. Patient is currently a full code. [place] son Doug was contacted and was in agreement to change patient to a no CODE STATUS. Family is planning to do a virtual visit with her today. Also discussed PEG tube placement which they would like to pursue. Consult placed with general surgery. IV hydralazine as needed for blood pressure control. MRI of the brain revealed no acute findings of infarct. Moderate diffuse cerebral atrophy greatest over bilateral frontal lobes mild to moderate chronic small vessel ischemic change. KUB shows nonspecific findings. Patient had a small smear of bowel movement this morning only. Repeat blood work reveals WBC 9.4, hemoglobin 15.5, platelet count 223. D-dimer 5.51. Blood sugars running in the 300s area and Levemir 10 units at bedtime added as well as NovoLog 5 units every 6 hours. NovoLog scales been changed every 6 hours. Remdesivir day #/. 01/27: Patient's family came in yesterday to see her. She was made no code yesterday but they would like to pursue PEG tube. Patient was seen by Dr. Gordon and he wanted to evaluate for NG tube placement however patient is biting during oral care so she most likely would not be able be able to tolerate up NG tube. Discussed case with Dr. Mcmahan on an EEG ordered. We will plan to start patient on heparin drip for A. fib she has been off eliquis and PEG tube will most likely be placed tomorrow. Patient continues to be unresponsive and dexamethasone will be discontinued and nursing to avoid morphine to see if these changes will improve her mental status. Repeat chest x-ray correlate for pneumonia, edema. Patient has been afebrile, heart rate 73, blood pressure 130/73, pulse ox 94% on 3 L nasal cannula. Sodium 150, potassium 4.7, chloride 116, CO2 30, BUN 64 and creatinine 1.42. Blood sugar 304. Blood sugars have been running between 220 and 309. Patient was started on Levemir 10 units at bedtime last evening and will be increased to 15 units as patient is continued on dextrose 5% at 75 mL per hour. Scheduled NovoLog every 6 hours will be increased to 6 units and continue NovoLog scale. Patient is on REM to severe day #02/10. 01/28 patient examined bedside. Is opening eyes and is able to follow simple commands legs show her thumb or wiggle her toes. Hold PEG tube placement today. Have bedside swallow evaluation with plan to put Dobbhoff tube for nutrition for a few days before going forward with PEG tube. Let us assessment suggest temp of 97.8 pulse 69 respiratory rate 20 blood pressure 168/79. At suggest a leukocytosis of 11.9 hemoglobin 15.2, sodium 150, BUN 15 creatinine 1.6 glucose 288. D5W been continued at 75 mL per hour. Nutrition consult placed for enteral tube feeding. Lantus increased to 20 units at a chills. Continue NovoLog 6 units daily every 6 hours as patient is not having anything to eat. Continue to monitor mental status. 01/29 patient examined bedside. Very delayed response to the speech but patient seems to understand and respond. She does states"I'm okay"and lessens carefully to the conversation. Patient did have a speech evaluation yesterday and had a poor response to a half to a teaspoon of water trying. Patient was found coughing on an attempt to feed. Dobbhoff tube was placed which patient is tolerating well. Vitals signs of June pulse 69 respiratory rate 18 blood pressure 171/84 oxygen saturation 96% on 3 L of oxygen. Labs suggest a BUN of 49 and creatinine 1.25 which is improved compared to previous labs. Glucose still high at 260. A1c came is 9.5. Lantus increased to 25 units daily at bedtime. Amlodipine increased to 10 g by mouth daily. We will switch Eliquis and stop heparin Hold off patient's IV fluids. PTOT consulted with possible plan to discharge to subacute rehab once stabilized. Reassessment of nutrition status on Monday to evaluate for need for PEG tube 01/30: Patient examined at the bedside. She has delayed response to speech she is able to nod her head and answer questions appropriately. Patient is able to follow commands. She was evaluated by speech 2 days ago. And had a poor response to have a teaspoon of water. Patient currently has NG tube in place and receiving eternal feedings. Patient was reassessed for her nutrition status on Monday for possible PEG tube placement. Review Of Systems: Constitutional: No fever, no chills, no night sweats. No weight change. No weakness, fatigue or lethargy. No daytime sleepiness. EENT: No headache. No blurred vision or double vision, no loss of vision. No loss of Hearing, no ringing in the ears, no dizziness. No nasal drainage or congestion. No epistaxis. No sore throat. Lungs: No shortness of breath, cough, no sputum production. No wheezing. Cardiovascular: No chest pain, no lower extremity edema. No palpitations. No paroxysmal nocturnal dyspnea. No orthopnea. No lightheadedness or dizziness. No syncopal episodes. Abdominal: no abdominal discomfort. No nausea, vomiting. no diarrhea. No constipation. No bloody or tarry stools. no loss of appetite. Genitourinary: No dysuria, increased frequency, urgency. No urinary retention. Musculoskeletal: No myalgias. No muscle weakness, no gait dysfunction, no frequent falls. No back pain. No neck pain. Integumentary: No wounds, no lesions. No rash or pruritus. No unusual bruising. No change in hair or nails. Neurologic: No aphasia. No facial droop. No change in mentation. No head injury. No headache. No paralysis. No paresthesia. Psychiatric: No depression. No anxiety. No mood swings. Physical exam General Appearance: Alert, cooperative, no distress, appears stated age. Neck HEENT: Supple, no lymphadenopathy, no thyroid enlargement, no carotid bruits. Lungs: Clear to auscultation without crackles or wheezes no rhonchi, no deformity. Chest Wall: Chest wall normal expansion with deep inspiration no tenderness and no deformity was found on exam, no costochondral pain or discomfort. Heart: Regular rate and rhythm, S1, S2 normal, no murmur, rub or gallop. Back: Symmetric, no curvature, ROM normal, no CVA tenderness. Abdomen: Soft, non-tender, no rebound or rigidity, no hepatosplenomegaly. Extremities: Extremities normal, atraumatic, no cyanosis or edema. Pulses: 2+ and symmetric. Skin: Skin color, texture, tugor decreased, no rashes or lesions. Neurologic: Alert oriented x1 confused able to nod head and answer most questions appropriately. Generalized weakness, pupils are reactive Assessment/plan 1. acute infectious metabolic encephalopathy likely secondary to Covid , uremic encephalopathy with underlying short term memory loss from previous concussion. Unknown if patient has underlying dementia. Keep patient on fall precaution and seizure precautions. Neurology consulted. CT head negative for any acute changes on 01/23. CT was also obtained on 01/17 at the hospital has been was negative for any acute changes. MRI of the brain negative for acute findings. Patient is not receiving any oral medications at this point. EEG ordered. Dexamethasone discontinued due to mental status. Morphine discontinued 2. acute hypoxic respiratory failure secondary to Covid pneumonia. Continue Pro Air as needed for shortness of breath. Pulmonary consult appreciated. Mucinex as needed. Sputum culture. Discontinue dexamethasone. Continue Vitamin C, vitamin D and zinc. Inflammation markers are elevated. Completed Remdesivir 3. acute kidney injury over chronic kidney disease stage 5 follows nephrology as outpatient at [facility] Patient has no prior baseline creatinine. Nephrology consult appreciated. Discontinue IV fluids of D5W at 75 mL per hour as tube feeding initiated, discontinue sodium bicarb 650 mg twice daily. Hold torsemide hold Aldactone. 4. coronary artery disease status post stents 34 years ago Continue atorvastatin, isosorbide dinitrate continue Coreg 25 mg twice a day 5. hypothyroidism continue levothyroxine 50 g daily TSH normal 6. type 2 diabetes uncontrolled with hyperglycemia secondary to steroids. Levemir increased to 20 units at bedtime started as well as NovoLog 5 units every 6 hours. Continue with insulin sliding scale 7. hyperlipidemia continue atorvastatin 40 mg by mouth daily 8. hypertension amlodipine increased to 10 from 5 mg by mouth daily. Hydralazine 10 mg IV push every 6 hours as needed for systolic blood pressure greater than 160. 9. Generalized gout allopurinol 100 mg by mouth daily 10. atrial fibrillation on Eliquis 2. 5 mg twice a day continue Coreg 25 twice a day. Heparin discontinued resumed on Eliquis 11. severe protein calorie malnutrition secondary to patient's inability to eat and no oral intake secondary to infectious encephalopathy from Covid 19. Consult with general surgery for PEG tube insertion. Plan to perform PEG tube on hold. Enteric feeding started. Patient will be reevaluated for possible PEG tube placement on Monday. 12. hypernatremia sodium bicarb stopped. D5W at 75 mL per hour. CBC and CMP need to be monitored carefully 13. DVT prophylaxis. Hold eliquis on heparin drip 14 GI prophylaxis with Pepcid 20 mg IV twice a day CODE STATUS: No code Discharge plan: Possible return to [facility] on Monday Impression and plan of care have been directed as dictated by the signing physician. Pauline Valdez nurse practitioner acting as scribe for signing physician. Objective - Vital Signs Vital signs: Vital Signs Temp 98.7 F 01/30/21 09:56 Pulse 62 01/30/21 09:56 Resp 16 01/30/21 09:56 BP 147/66 01/30/21 09:56 Pulse Ox 97 01/30/21 09:56 Intake & Output 01/29/21 01/30/21 01/30/21 18:59 06:59 18:59 Intake Total 240 90 440 Output Total 550 Balance -310 90 440 Weight 101.1 kg 52.163 kg Intake: Tube Feeding 240 90 440 Output: Urine 550 Other: Voiding Method External Catheter Diaper External Catheter - Labs CBC & Chem 7: 01/28/21 05:52 01/29/21 09:50 Labs: Abnormal Lab Results - Last 24 Hours (Table) 01/29/21 01/29/21 01/29/21 Range/Units 09:50 11:35 16:33 APTT 32.2 H (22.0-30.0) sec POC Glucose (mg/dL) 217 H 187 H (75-99) mg/dL 01/29/21 01/30/21 01/30/21 Range/Units 20:49 00:04 05:27 APTT (22.0-30.0) sec POC Glucose (mg/dL) 190 H 159 H 165 H (75-99) mg/dL 01/30/21 Range/Units 07:01 APTT (22.0-30.0) sec POC Glucose (mg/dL) 182 H (75-99) mg/dL Microbiology - Last 24 Hours (Table) 01/23/21 12:43 Blood Culture - Final Blood No Growth after 144 hours 01/23/21 12:43 Blood Culture - Final Blood No Growth after 144 hours
[2021-01-30 11:52] LABS: Glucose,Whole Blood 176 mg/dL (75-99)
[2021-01-30 16:38] LABS: Glucose,Whole Blood 180 mg/dL (75-99)
[2021-01-30] MEDS: ATORVASTATIN 40 MG TAB PO SCH (20:22)
[2021-01-30 20:40] LABS: Glucose,Whole Blood 171 mg/dL (75-99)
[2021-01-30] MEDS: INSULIN DETEMIR (LEVEMIR) 100 UNIT/ML SYR SQ SCH (20:48)
[2021-01-31 00:11] LABS: Glucose,Whole Blood 178 mg/dL (75-99)
[2021-01-31] MEDS: INSULIN ASPART (NovoLOG) 100 UNIT/ML VIAL SQ SCH ×8 (00:11→17:16)
[2021-01-31 05:59] LABS: Glucose,Whole Blood 203 mg/dL (75-99)
[2021-01-31] MEDS: LEVOTHYROXINE 50 MCG TAB PO SCH (06:13)
[2021-01-31 07:02] LABS: Glucose,Whole Blood 192 mg/dL (75-99)
[2021-01-31] MEDS: ISOSORBIDE DINITRATE 10 MG TAB PO SCH (08:08)
[2021-01-31] MEDS: PANTOPRAZOLE 40 MG TABLET PO SCH (08:08)
[2021-01-31] MEDS: carvediloL 12.5 MG TAB PO SCH ×2 (08:08→17:17)
[2021-01-31] MEDS: guaiFENesin 600 MG TABLET.ER PO SCH ×2 (08:08→19:32)
[2021-01-31] MEDS: APIXABAN 2.5 MG TABLET PO SCH ×2 (08:09→19:32)
[2021-01-31] MEDS: amLODIPine 10 MG TAB PO SCH (08:09)
--- NOTE | 2021-01-31 10:35 | P.PN ---
Subjective Progress Note Date: 01/31/21 85 years old female patient of Dr. Mack past medical history of hypertension hyperlipidemia coronary artery disease, chronic kidney disease unknown stage presents with increasing confusion and hypoxia from [facility] the [place]. Apparently patient was brought to the ER at [facility] on 01/17 for worsening confusion and flulike symptoms. Patient went home as was not able to be seen for her symptoms soon enough and called her primary care physician who ordered a CAT scan of the head. CAT scan of the head was negative and patient was brought back to the ER on 01/18 and was treated for COVID pneumonia. Patient was discharged to [facility] [place] and was brought back to the ER 24- hour later for worsening shortness of breath.on evaluation in the ER patient is short of breath requiring 6 L of oxygen unable to answer any questions very drowsy on evaluation. She opens her eyes to question only to go back to sleep in a short while. Patient withdraws to pain but does not follow commands. No family member is present at bedside. Son was called multiple times but was unable to be reached. History is obtained through patient's and documentation by the ER. She has never been admitted in this hospital. Evaluation Suggests Hemoglobin Is 15.5 Platelet 185 INR 1 D-Dimer 2.1 Sodium 140 Potassium 4.9 Chloride 111 Bicarb 20 1B UN 53 Creatinine 2.2 Calcium Is 10.7 Magnesium 2.6 Lactic Acid 1.6 Alkaline Phosphatase 87, LDH 1076 CRP 20.8 Output (3.1. Pro- Calcitonin Is Pending. ProBNP Is Pending. Chest X-Ray suggested cardiomegaly and chronic parenchymal changes with right greater than left multifocal opacities metoprolol and suggestive of COVID-[address] head ordered to rule out acute stroke. Patient's home medication reconciled will hold torsemide, spironolactone. Nephrology course consult for possible end-stage renal disease. Unclear if patient is on him and on dialysis. Ultrasound of the renal obtained. neurology in consult for acute encephalopathy likely secondary to Covid. Patient does have underlying dementia?. We'll start patient on dexamethasone 6 mg IV every 12 hours. Start her on vitamin C, vitamin D and zinc. Pulmonary consulted for Covid pneumonia. 01/24 spoke to patient's son who did state that patient has underlying history of concussion and forgetfulness but no formal diagnosis of dementia has ever been made. She was speaking clearly and had no confusion 8 days ago. Patient had normal recovery of mental status after being discharged from the other hospital and transferred to [facility]. Son does suggest that patient has history of stent placement 3-4 years ago for coronary artery disease. She does follow nephrology as outpatient and has significant end-stage chronic kidney disease with plan to initiate hemodialysis if no improvement noted. On evaluation patient's mental status today patient's more responsive. She was refusing to eat. Swallow evaluation at bedside was not past. Patient continued to be on normal saline 75 mL per hour on evaluation patient's blood work sodium is 141 bicarb 18 creatinine 2.1 MCH slightly improved to 845 CRP is 18.9. Pro-calcitonin came at 0.6, TSH normal urinary analysis negative for any infection. Blood cultures negative continue remdesivir per pulmonary recommendations continue Decadron and elliquis . Hold Levemir 01/25: Patient has been seen by neurology with recommendations for ammonia level, TSH and vitamin B12 and folate. Patient continues to have significant confusion and MRI of the brain ordered. Patient is also been seen by pulmonary medicine with recommendations for continuing IV Decadron, patient was started on Remdesivir day #3/5. Patient is also followed by nephrology with plan to continue IV hydration and hold diuretics. Chest x-ray from yesterday revealed cardiomegaly and chronic parenchymal changes with right greater than left multifocal and confluent opacities mid to lower lung suggesting Covid 19 infection redemonstrated. No significant change. Renal ultrasound revealed bilateral renal atrophy. No obstructive calculus in the upper pole left kidney. No evidence of renal mass. No hydronephrosis. No bladder mass. CBC is unremarkable except for lymphocytes of 0.4. D-dimer 5.11. CO2 15, BUN 66 and creatinine 1.93. Blood sugars are running between 177 and 227. LDH 980. C-reactive protein 8.2. IV fluids are currently lactated Ringer's at 75 mL per hour,. 01/26: Patient continues to be unresponsive. No improvement of her mental status. Patient is currently a full code. Israeli son Doug was contacted and was in agreement to change patient to a no CODE STATUS. Family is planning to do a virtual visit with her today. Also discussed PEG tube placement which they would like to pursue. Consult placed with general surgery. IV hydralazine as needed for blood pressure control. MRI of the brain revealed no acute findings of infarct. Moderate diffuse cerebral atrophy greatest over bilateral frontal lobes mild to moderate chronic small vessel ischemic change. KUB shows nonspecific findings. Patient had a small smear of bowel movement this morning only. Repeat blood work reveals WBC 9.4, hemoglobin 15.5, platelet count 223. D-dimer 5.51. Blood sugars running in the 300s area and Levemir 10 units at bedtime added as well as NovoLog 5 units every 6 hours. NovoLog scales been changed every 6 hours. Remdesivir day #/. 01/27: Patient's family came in yesterday to see her. She was made no code yesterday but they would like to pursue PEG tube. Patient was seen by Dr. Gordon and he wanted to evaluate for NG tube placement however patient is biting during oral care so she most likely would not be able be able to tolerate up NG tube. Discussed case with Dr. Mcmahan on an EEG ordered. We will plan to start patient on heparin drip for A. fib she has been off eliquis and PEG tube will most likely be placed tomorrow. Patient continues to be unresponsive and dexamethasone will be discontinued and nursing to avoid morphine to see if these changes will improve her mental status. Repeat chest x-ray correlate for pneumonia, edema. Patient has been afebrile, heart rate 73, blood pressure 130/73, pulse ox 94% on 3 L nasal cannula. Sodium 150, potassium 4.7, chloride 116, CO2 30, BUN 64 and creatinine 1.42. Blood sugar 304. Blood sugars have been running between 220 and 309. Patient was started on Levemir 10 units at bedtime last evening and will be increased to 15 units as patient is continued on dextrose 5% at 75 mL per hour. Scheduled NovoLog every 6 hours will be increased to 6 units and continue NovoLog scale. Patient is on REM to severe day #02/10. 01/28 patient examined bedside. Is opening eyes and is able to follow simple commands legs show her thumb or wiggle her toes. Hold PEG tube placement today. Have bedside swallow evaluation with plan to put Dobbhoff tube for nutrition for a few days before going forward with PEG tube. Let us assessment suggest temp of 97.8 pulse 69 respiratory rate 20 blood pressure 168/79. At suggest a leukocytosis of 11.9 hemoglobin 15.2, sodium 150, BUN 15 creatinine 1.6 glucose 288. D5W been continued at 75 mL per hour. Nutrition consult placed for enteral tube feeding. Lantus increased to 20 units at a chills. Continue NovoLog 6 units daily every 6 hours as patient is not having anything to eat. Continue to monitor mental status. 01/29 patient examined bedside. Very delayed response to the speech but patient seems to understand and respond. She does states"I'm okay"and lessens carefully to the conversation. Patient did have a speech evaluation yesterday and had a poor response to a half to a teaspoon of water trying. Patient was found coughing on an attempt to feed. Dobbhoff tube was placed which patient is tolerating well. Vitals signs of June pulse 69 respiratory rate 18 blood pressure 171/84 oxygen saturation 96% on 3 L of oxygen. Labs suggest a BUN of 49 and creatinine 1.25 which is improved compared to previous labs. Glucose still high at 260. A1c came is 9.5. Lantus increased to 25 units daily at bedtime. Amlodipine increased to 10 g by mouth daily. We will switch Eliquis and stop heparin Hold off patient's IV fluids. PTOT consulted with possible plan to discharge to subacute rehab once stabilized. Reassessment of nutrition status on Monday to evaluate for need for PEG tube 01/30: Patient examined at the bedside. She has delayed response to speech she is able to nod her head and answer questions appropriately. Patient is able to follow commands. She was evaluated by speech 2 days ago. And had a poor response to have a teaspoon of water. Patient currently has NG tube in place and receiving eternal feedings. Patient was reassessed for her nutrition status on Monday for possible PEG tube placement. 01/31: She was examined at bedside. She does have delayed response in speech. Able to nod head and answer some questions appropriately. Patient is able to follow some commands. She continues to have noted episodes of confusion. Patient was reevaluated by speech for consideration of a PEG tube. At this time NG tube is in place and receiving eternal feedings. Review Of Systems: Constitutional: No fever, no chills, no night sweats. No weight change. No weakness, fatigue or lethargy. No daytime sleepiness. EENT: No headache. No blurred vision or double vision, no loss of vision. No loss of Hearing, no ringing in the ears, no dizziness. No nasal drainage or congestion. No epistaxis. No sore throat. Lungs: No shortness of breath, cough, no sputum production. No wheezing. Cardiovascular: No chest pain, no lower extremity edema. No palpitations. No paroxysmal nocturnal dyspnea. No orthopnea. No lightheadedness or dizziness. No syncopal episodes. Abdominal: no abdominal discomfort. No nausea, vomiting. no diarrhea. No constipation. No bloody or tarry stools. no loss of appetite. Genitourinary: No dysuria, increased frequency, urgency. No urinary retention. Musculoskeletal: No myalgias. No muscle weakness, no gait dysfunction, no frequent falls. No back pain. No neck pain. Integumentary: No wounds, no lesions. No rash or pruritus. No unusual bruising. No change in hair or nails. Neurologic: No aphasia. No facial droop. No change in mentation. No head injury. No headache. No paralysis. No paresthesia. Psychiatric: No depression. No anxiety. No mood swings. Physical exam General Appearance: Alert, cooperative, no distress, appears stated age. Neck HEENT: Supple, no lymphadenopathy, no thyroid enlargement, no carotid bruits. Lungs: Clear to auscultation without crackles or wheezes no rhonchi, no deformity. Chest Wall: Chest wall normal expansion with deep inspiration no tenderness and no deformity was found on exam, no costochondral pain or discomfort. Heart: Regular rate and rhythm, S1, S2 normal, no murmur, rub or gallop. Back: Symmetric, no curvature, ROM normal, no CVA tenderness. Abdomen: Soft, non-tender, no rebound or rigidity, no hepatosplenomegaly. Extremities: Extremities normal, atraumatic, no cyanosis or edema. Pulses: 2+ and symmetric. Skin: Skin color, texture, tugor decreased, no rashes or lesions. Neurologic: Alert oriented x1 confused able to nod head and answer most questions appropriately. Generalized weakness, pupils are reactive Assessment/plan 1. acute infectious metabolic encephalopathy likely secondary to Covid , uremic encephalopathy with underlying short term memory loss from previous concussion. Unknown if patient has underlying dementia. Keep patient on fall precaution and seizure precautions. Neurology consulted. CT head negative for any acute changes on 01/23. CT was also obtained on 01/17 at the hospital has been was negative for any acute changes. MRI of the brain negative for acute findings. Patient is not receiving any oral medications at this point. EEG ordered. Dexamethasone discontinued due to mental status. Morphine discontinued 2. acute hypoxic respiratory failure secondary to Covid pneumonia. Continue Pro Air as needed for shortness of breath. Pulmonary consult appreciated. Mucinex as needed. Sputum culture. Discontinue dexamethasone. Continue Vitamin C, vitamin D and zinc. Inflammation markers are elevated. Completed Remdesivir 3. acute kidney injury over chronic kidney disease stage 5 follows nephrology as outpatient at [facility] Patient has no prior baseline creatinine. Nephrology consult appreciated. Discontinue IV fluids of D5W at 75 mL per hour as tube feeding initiated, discontinue sodium bicarb 650 mg twice daily. Hold torsemide hold Aldactone. 4. coronary artery disease status post stents 34 years ago Continue atorvastatin, isosorbide dinitrate continue Coreg 25 mg twice a day 5. hypothyroidism continue levothyroxine 50 g daily TSH normal 6. type 2 diabetes uncontrolled with hyperglycemia secondary to steroids. Levemir increased to 20 units at bedtime started as well as NovoLog 5 units every 6 hours. Continue with insulin sliding scale 7. hyperlipidemia continue atorvastatin 40 mg by mouth daily 8. hypertension amlodipine increased to 10 from 5 mg by mouth daily. Hydralazine 10 mg IV push every 6 hours as needed for systolic blood pressure greater than 160. 9. Generalized gout allopurinol 100 mg by mouth daily 10. atrial fibrillation on Eliquis 2. 5 mg twice a day continue Coreg 25 twice a day. Heparin discontinued resumed on Eliquis 11. severe protein calorie malnutrition secondary to patient's inability to eat and no oral intake secondary to infectious encephalopathy from Covid 19. Con sult with general surgery for PEG tube insertion. Plan to perform PEG tube on hold. Enteric feeding started. Patient will be reevaluated for possible PEG tube placement on Monday. 12. hypernatremia sodium bicarb stopped. D5W at 75 mL per hour. CBC and CMP need to be monitored carefully 13. DVT prophylaxis. Hold eliquis on heparin drip 14 GI prophylaxis with Pepcid 20 mg IV twice a day CODE STATUS: No code Discharge plan: Possible return to [facility] on Monday Impression and plan of care have been directed as dictated by the signing physician. Pauline Valdez nurse practitioner acting as scribe for signing physician. Objective - Vital Signs Vital signs: Vital Signs Temp 97.6 F 01/31/21 06:00 Pulse 57 L 01/31/21 06:00 Resp 15 01/31/21 06:00 BP 131/66 01/31/21 06:00 Pulse Ox 98 01/31/21 06:00 Intake & Output 01/30/21 01/31/21 01/31/21 18:59 06:59 18:59 Intake Total 440 Balance 440 Weight 92 kg Intake: Tube Feeding 440 Other: Voiding Method External Catheter - Labs CBC & Chem 7: 01/28/21 05:52 01/29/21 09:50 Labs: Abnormal Lab Results - Last 24 Hours (Table) 01/30/21 01/30/21 01/30/21 Range/Units 11:50 16:31 20:39 POC Glucose (mg/dL) 176 H 180 H 171 H (75-99) mg/dL 01/31/21 01/31/21 01/31/21 Range/Units 00:09 05:56 06:56 POC Glucose (mg/dL) 178 H 203 H 192 H (75-99) mg/dL
[2021-01-31 11:20] LABS: Glucose,Whole Blood 208 mg/dL (75-99)
[2021-01-31 16:56] LABS: Glucose,Whole Blood 153 mg/dL (75-99)
[2021-01-31] MEDS: ATORVASTATIN 40 MG TAB PO SCH (19:32)
[2021-01-31 20:06] LABS: Glucose,Whole Blood 147 mg/dL (75-99)
[2021-01-31] MEDS: INSULIN DETEMIR (LEVEMIR) 100 UNIT/ML SYR SQ SCH (20:20)
[2021-02-01 00:01] LABS: Glucose,Whole Blood 143 mg/dL (75-99)
[2021-02-01] MEDS: INSULIN ASPART (NovoLOG) 100 UNIT/ML VIAL SQ SCH ×8 (05:57→18:20)
[2021-02-01] MEDS: LEVOTHYROXINE 50 MCG TAB PO SCH (05:57)
[2021-02-01 06:01] LABS: Glucose,Whole Blood 86 mg/dL (75-99)
[2021-02-01] MEDS: PANTOPRAZOLE 40 MG TABLET PO SCH (07:49)
[2021-02-01] MEDS: ISOSORBIDE DINITRATE 10 MG TAB PO SCH (07:49)
[2021-02-01] MEDS: APIXABAN 2.5 MG TABLET PO SCH ×2 (07:50→18:40)
[2021-02-01] MEDS: guaiFENesin 600 MG TABLET.ER PO SCH ×2 (07:50→19:58)
[2021-02-01] MEDS: carvediloL 12.5 MG TAB PO SCH ×2 (07:50→17:16)
[2021-02-01] MEDS: amLODIPine 10 MG TAB PO SCH (07:50)
[2021-02-01 11:45] LABS: African American GFR (CKD) 33.7 (60.0-200.0); Albumin 2.6 g/dL (3.80-4.90); Albumin/Globulin Ratio 1.3 (1.60-3.17); Anion Gap 3.2 mmol/L (4.00-12.00); BUN/Creat Ratio 34.38 Ratio (12.00-20.00); Calcium 9.9 mg/dL (8.7-10.3); Carbon Dioxide 32.8 mmol/L (21.6-31.8); Non-African American GFR(CKD) 29.1 (60.0-200.0); Potassium 5.3 mmol/L (3.5-5.5); Total Bilirubin 0.4 mg/dL (0.3-1.2); Total Protein 4.6 g/dL (6.2-8.2)
[2021-02-01 12:08] LABS: Glucose,Whole Blood 123 mg/dL (75-99)
--- NOTE | 2021-02-01 13:05 | P.PN ---
Subjective Progress Note Date: 02/01/21 Subjective Progress Note Date: 01/31/21 85 years old female patient of Dr. Mack past medical history of hypertension hyperlipidemia coronary artery disease, chronic kidney disease unknown stage presents with increasing confusion and hypoxia from [facility] [place]. Apparently patient was brought to the ER at [facility] on 01/17 for worsening confusion and flulike symptoms. Patient went home as was not able to be seen for her symptoms soon enough and called her primary care physician who ordered a CAT scan of the head. CAT scan of the head was negative and patient was brought back to the ER on 01/18 and was treated for COVID pneumonia. Felipe roberts was discharged to [facility] [place] and was brought back to the ER 24-hour later for worsening shortness of breath.on evaluation in the ER patient is short of breath requiring 6 L of oxygen unable to answer any questions very drowsy on evaluation. She opens her eyes to question only to go back to sleep in a short while. Patient withdraws to pain but does not follow commands. No family memb er is present at bedside. Son was called multiple times but was unable to be reached. History is obtained through patient's and documentation by the ER. She has never been admitted in this hospital. Evaluation Suggests Hemoglobin Is 15.5 Platelet 185 INR 1 D-Dimer 2.1 Sodium 140 Potassium 4.9 Chloride 111 Bicarb 20 1B UN 53 Creatinine 2.2 Calcium Is 10.7 Magnesium 2.6 Lactic Acid 1.6 Alkaline Phosphatase 87, LDH 1076 CRP 20.8 Output (3.1. Pro-Calcitonin Is Pending. ProBNP Is Pending. Chest X-Ray suggested cardiomegaly and chronic parenchymal changes with right greater than left multifocal opacities metoprolol and suggestive of COVID-[address] head ordered to rule out acute stroke. Patient's home medication reconciled will hold torsemide, spironolactone. Nephrology course consult for possible end-stage renal disease. Unclear if patient is on him and on dialysis. Ultrasound of the renal obtained. neurology in consult for acute encephalopathy likely secondary to Covid. Patient does have underlying dementia?. We'll start patient on dexamethasone 6 mg IV every 12 hours. Start her on vitamin C, vitamin D and zinc. Pulmonary consulted for Covid pneumonia. 01/24 spoke to patient's son who did state that patient has underlying history of concussion and forgetfulness but no formal diagnosis of dementia has ever been made. She was speaking clearly and had no confusion 8 days ago. Patient had normal recovery of mental status after being discharged from the other hospital and transferred to [facility]. Son does suggest that patient has history of stent placement 3-4 years ago for coronary artery disease. She does follow nephrology as outpatient and has significant end-stage chronic kidney disease with plan to initiate hemodialysis if no improvement noted. On evaluation patient's mental status today patient's more responsive. She was refusing to eat. Swallow evaluation at bedside was not past. Patient continued to be on normal saline 75 mL per hour on evaluation patient's blood work sodium is 141 bicarb 18 creatinine 2.1 MCH slightly improved to 845 CRP is 18.9. Pro-calcitonin came at 0.6, TSH normal urinary analysis negative for any infection. Blood cultures negative continue remdesivir per pulmonary recommendations continue Decadron and elliquis . Hold Levemir 01/25: Patient has been seen by neurology with recommendations for ammonia level, TSH and vitamin B12 and folate. Patient continues to have significant confusion and MRI of the brain ordered. Patient is also been seen by pulmonary medicine with recommendations for continuing IV Decadron, patient was started on Remdesivir day #3/5. Patient is also followed by nephrology with plan to continue IV hydration and hold diuretics. Chest x-ray from yesterday revealed cardiomegaly and chronic parenchymal changes with right greater than left multifocal and confluent opacities mid to lower lung suggesting Covid 19 infection redemonstrated. No significant change. Renal ultrasound revealed bilateral renal atrophy. No obstructive calculus in the upper pole left kidney. No evidence of renal mass. No hydronephrosis. No bladder mass. CBC is unremarkable except for lymphocytes of 0.4. D-dimer 5.11. CO2 15, BUN 66 and creatinine 1.93. Blood sugars are running between 177 and 227. LDH 980. C- reactive protein 8.2. IV fluids are currently lactated Ringer's at 75 mL per hour,. 01/26: Patient continues to be unresponsive. No improvement of her mental status. Patient is currently a full code. Samoan son Doug was contacted and was in agreement to change patient to a no CODE STATUS. Family is planning to do a virtual visit with her today. Also discussed PEG tube placement which they would like to pursue. Consult placed with general surgery. IV hydralazine as needed for blood pressure control. MRI of the brain revealed no acute findings of infarct. Moderate diffuse cerebral atrophy greatest over bilateral frontal lobes mild to moderate chronic small vessel ischemic change. KUB shows nonspecific findings. Patient had a small smear of bowel movement this morning only. Repeat blood work reveals WBC 9.4, hemoglobin 15.5, platelet count 223. D-dimer 5.51. Blood sugars running in the 300s area and Levemir 10 units at bedtime added as well as NovoLog 5 units every 6 hours. NovoLog scales been changed every 6 hours. Remdesivir day #01/11. 01/27: Patient's family came in yesterday to see her. She was made no code yesterday but they would like to pursue PEG tube. Patient was seen by Dr. Gordon and he wanted to evaluate for NG tube placement however patient is biting during oral care so she most likely would not be able be able to tolerate up NG tube. Discussed case with Dr. Mcmahan on an EEG ordered. We will plan to start patient on heparin drip for A. fib she has been off eliquis and PEG tube will most likely be placed tomorrow. Patient continues to be unresponsive and dexamet hasone will be discontinued and nursing to avoid morphine to see if these changes will improve her mental status. Repeat chest x-ray correlate for pneumonia, edema. Patient has been afebrile, heart rate 73, blood pressure 130/73, pulse ox 94% on 3 L nasal cannula. Sodium 150, potassium 4.7, chloride 116, CO2 30, BUN 64 and creatinine 1.42. Blood sugar 304. Blood sugars have been running between 220 and 309. Patient was started on Levemir 10 units at bedtime last evening and will be increased to 15 units as patient is continued on dextrose 5% at 75 mL per hour. Scheduled NovoLog every 6 hours will be increased to 6 units and continue NovoLog scale. Patient is on REM to severe day #02/10. 01/28 patient examined bedside. Is opening eyes and is able to follow simple commands legs show her thumb or wiggle her toes. Hold PEG tube placement today. Have bedside swallow evaluation with plan to put Dobbhoff tube for nutrition for a few days before going forward with PEG tube. Let us assessment suggest temp of 97.8 pulse 69 respiratory rate 20 blood pressure 168/79. At suggest a leuk ocytosis of 11.9 hemoglobin 15.2, sodium 150, BUN 15 creatinine 1.6 glucose 288. D5W been continued at 75 mL per hour. Nutrition consult placed for enteral tube feeding. Lantus increased to 20 units at a chills. Continue NovoLog 6 units daily every 6 hours as patient is not having anything to eat. Continue to monitor mental status. 01/29 patient examined bedside. Very delayed response to the speech but patient seems to understand and respond. She does states"I'm okay"and lessens carefully to the conversation. Patient did have a speech evaluation yesterday and had a poor response to a half to a teaspoon of water trying. Patient was found coughing on an attempt to feed. Dobbhoff tube was placed which patient is tolerating well. Vitals signs of June pulse 69 respiratory rate 18 blood pressure 171/84 oxygen saturation 96% on 3 L of oxygen. Labs suggest a BUN of 49 and creatinine 1.25 which is improved compared to previous labs. Glucose still high at 260. A1c came is 9.5. Lantus increased to 25 units daily at bedtime. Amlodipine increased to 10 g by mouth daily. We will switch Eliquis and stop heparin Hold off patient's IV fluids. PTOT consulted with possible plan to discharge to subacute rehab once stabilized. Reassessment of nutrition status on Monday to evaluate for need for PEG tube 01/30: Patient examined at the bedside. She has delayed response to speech she is able to nod her head and answer questions appropriately. Patient is able to follow commands. She was evaluated by speech 2 days ago. And had a poor resp onse to have a teaspoon of water. Patient currently has NG tube in place and receiving eternal feedings. Patient was reassessed for her nutrition status on Monday for possible PEG tube placement. 01/31: She was examined at bedside. She does have delayed response in speech. Able to nod head and answer some questions appropriately. Patient is able to follow some commands. She continues to have noted episodes of confusion. Patient was reevaluated by speech for consideration of a PEG tube. At this time NG tube is in place and receiving eternal feedings. 02/01: Patient still infected via NG tube at this point. Patient be going for PEG tube respond to management overall still not good. Patient is still mildly hypoxic on O2 between 3-5 L. Still the plan to send patient to [facility] as soon as PEG tube is done and her oxygen level is decent on less than 5 L of O2. Review Of Systems: Constitutional: No fever, no chills, no night sweats. No weight change. No weakness, fatigue or lethargy. No daytime sleepiness. EENT: No headache. No blurred vision or double vision, no loss of vision. No loss of Hearing, no ringing in the ears, no dizziness. No nasal drainage or congestion. No epistaxis. No sore throat. Lungs: No shortness of breath, cough, no sputum production. No wheezing. Cardiovascular: No chest pain, no lower extremity edema. No palpitations. No paroxysmal nocturnal dyspnea. No orthopnea. No lightheadedness or dizziness. No syncopal episodes. Abdominal: no abdominal discomfort. No nausea, vomiting. no diarrhea. No constipation. No bloody or tarry stools. no loss of appetite. Genitourinary: No dysuria, increased frequency, urgency. No urinary retention. Musculoskeletal: No myalgias. No muscle weakness, no gait dysfunction, no frequent falls. No back pain. No neck pain. Integumentary: No wounds, no lesions. No rash or pruritus. No unusual bruising. No change in hair or nails. Neurologic: No aphasia. No facial droop. No change in mentation. No head injury. No headache. No paralysis. No paresthesia. Psychiatric: No depression. No anxiety. No mood swings. Physical exam General Appearance: Alert, cooperative, no distress, appears stated age. Neck HEENT: Supple, no lymphadenopathy, no thyroid enlargement, no carotid bruits. Lungs: Clear to auscultation without crackles or wheezes no rhonchi, no deformity. Chest Wall: Chest wall normal expansion with deep inspiration no tenderness and no deformity was found on exam, no costochondral pain or discomfort. Heart: Regular rate and rhythm, S1, S2 normal, no murmur, rub or gallop. Back: Symmetric, no curvature, ROM normal, no CVA tenderness. Abdomen: Soft, non-tender, no rebound or rigidity, no hepatosplenomegaly. Extremities: Extremities normal, atraumatic, no cyanosis or edema. Pulses: 2+ and symmetric. Skin: Skin color, texture, tugor decreased, no rashes or lesions. Neurologic: Alert oriented x1 confused able to nod head and answer most questions appropriately. Generalized weakness, pupils are reactive Assessment/plan 1. acute infectious metabolic encephalopathy likely secondary to Covid , uremic encephalopathy and underlying dementia, still no much improvement on encephalopathy very slowly. Patient still on NG feeding require more O2 require more attention she will require 2 person assistance the plan still probably to discharge patient to group home when her oxygen level is better on less than 5 heatstroke to admit her PEG tube is done. 2. acute hypoxic respiratory failure secondary to Covid pneumonia. Continue Pro Air as needed for shortness of breath. Pulmonary consult appreciated. Mucinex as needed. Sputum culture. Discontinue dexamethasone. Continue Vitamin C, vitamin D and zinc. Inflammation markers are elevated. Completed Remdesivir, still require O2 between 3 and 5 L. 3. acute kidney injury over chronic kidney disease stage 5 follows nephrology as outpatient at [facility] Patient has no prior baseline creatinine. Nephrology consult appreciated. Discontinue IV fluids of D5W at 75 mL per hour as tube feeding initiated, discontinue sodium bicarb 650 mg twice daily. Hold torsemide hold Aldactone. 4. coronary artery disease status post stents 34 years ago Continue atorvastatin, isosorbide dinitrate continue Coreg 25 mg twice a day 5. hypothyroidism continue levothyroxine 50 g daily TSH normal 6. type 2 diabetes uncontrolled with hyperglycemia secondary to steroids. Levemir increased to 20 units at bedtime started as well as NovoLog 5 units every 6 hours. Continue with insulin sliding scale 7. hyperlipidemia continue atorvastatin 40 mg by mouth daily 8. hypertension amlodipine increased to 10 from 5 mg by mouth daily. Hydr alazine 10 mg IV push every 6 hours as needed for systolic blood pressure greater than 160. 9. Generalized gout allopurinol 100 mg by mouth daily 10. atrial fibrillation on Eliquis 2. 5 mg twice a day continue Coreg 25 twice a day. Heparin discontinued resumed on Eliquis 11. severe protein calorie malnutrition secondary to patient's inability to eat and no oral intake secondary to infectious encephalopathy from Covid 19. Consult with general surgery for PEG tube insertion. Plan to perform PEG tube on hold. Enteric feeding started. Patient will be reevaluated for possible PEG tube placement on Monday. 12. hypernatremia sodium bicarb stopped. D5W at 75 mL per hour. CBC and CMP need to be monitored carefully 13. DVT prophylaxis. Hold eliquis on heparin drip 14 GI prophylaxis with Pepcid 20 mg IV twice a day CODE STATUS: No code Discharge plan: Possible return to [facility] after doing a PEG tube. Objective - Vital Signs Vital signs: Vital Signs Temp 97.6 F 02/01/21 05:53 Pulse 56 L 02/01/21 05:53 Resp 16 02/01/21 05:53 BP 127/87 02/01/21 05:53 Pulse Ox 98 02/01/21 05:53 Intake & Output 01/31/21 01/31/21 02/01/21 06:59 18:59 06:59 Output Total 725 300 Balance -725 -300 Weight 92 kg Output: Urine 725 300 Other: Voiding Method External Catheter # Bowel Movements 1 - Labs CBC & Chem 7: 01/28/21 05:52 02/01/21 07:26 Labs: Abnormal Lab Results - Last 24 Hours (Table) 01/31/21 01/31/21 01/31/21 Range/Units 06:56 11:20 16:55 POC Glucose (mg/dL) 192 H 208 H 153 H (75-99) mg/dL 01/31/21 01/31/21 Range/Units 20:05 23:59 POC Glucose (mg/dL) 147 H 143 H (75-99) mg/dL
--- NOTE | 2021-02-01 14:02 | P.PN ---
Subjective Patient is seen in follow-up for acute kidney injury. Unknown baseline renal function. Creatinine 1.6 today. Receiving tube feeding. Scheduled for PEG tube placement tomorrow. Currently on 4 L is a cannula. Hemodynamically stable. Vital signs are stable. General: The patient appeared well nourished and normally developed. HEENT: NG tube noted. LUNGS: Breath sounds decreased. HEART: Rate and Rhythm are regular. ABDOMEN: Soft, no distention. EXTREMITITES: No edema. Objective - Vital Signs Vital signs: Vital Signs Temp 98.6 F 02/01/21 10:00 Pulse 53 L 02/01/21 10:00 Resp 16 02/01/21 10:00 BP 133/66 02/01/21 10:00 Pulse Ox 95 02/01/21 10:00 Intake & Output 01/31/21 02/01/21 02/01/21 18:59 06:59 18:59 Output Total 725 300 Balance -725 -300 Weight 92 kg Output: Urine 725 300 Other: Voiding Method External Catheter # Bowel Movements 1 - Labs CBC & Chem 7: 01/28/21 05:52 02/01/21 07:26 Labs: Abnormal Lab Results - Last 24 Hours (Table) 01/31/21 01/31/21 01/31/21 Range/Units 16:55 20:05 23:59 Carbon Dioxide (21.6-31.8) mmol/L Anion Gap (4.00-12.00) mmol/L BUN (9.0-27.0) mg/dL Creatinine (0.6-1.5) mg/dL Est GFR (CKD-EPI)AfAm (60.0-200.0) Est GFR (CKD-EPI)NonAf (60.0-200.0) BUN/Creatinine Ratio (12.00-20.00) Ratio POC Glucose (mg/dL) 153 H 147 H 143 H (75-99) mg/dL Total Protein (6.2-8.2) g/dL Albumin (3.80-4.90) g/dL Albumin/Globulin Ratio (1.60-3.17) g/dL 02/01/21 02/01/21 Range/Units 07:26 12:06 Carbon Dioxide 32.8 H (21.6-31.8) mmol/L Anion Gap 3.20 L (4.00-12.00) mmol/L BUN 55.0 H (9.0-27.0) mg/dL Creatinine 1.6 H (0.6-1.5) mg/dL Est GFR (CKD-EPI)AfAm 33.7 L (60.0-200.0) Est GFR (CKD-EPI)NonAf 29.1 L (60.0-200.0) BUN/Creatinine Ratio 34.38 H (12.00-20.00) Ratio POC Glucose (mg/dL) 123 H (75-99) mg/dL Total Protein 4.6 L (6.2-8.2) g/dL Albumin 2.60 L (3.80-4.90) g/dL Albumin/Globulin Ratio 1.30 L (1.60-3.17) g/dL Assessment and Plan Plan: Assessment: 1. Acute kidney injury secondary to ATN secondary to COVID-19 infection. Creatinine 1.6 today. Unknown baseline renal function. 2. Hypernatremia from lack of oral water intake, status post D5W. Improved. 3. Diabetes mellitus. 4. Benign hypertension. Stable. 5. Metabolic acidosis secondary to acute kidney injury. Resolved. Plan: Maintain tube feeding. Avoid nephrotoxins. Scheduled for PEG tube placement tomorrow. Continue to monitor renal function and urine output.
[2021-02-01 14:53] LABS: Basophils # (A) 0.02 X 10*3/uL (0.00-0.10); Basophils % (A) 0.2 %; Eosinophils % (A) 2.7 %; HCT 42.2 % (37.2-46.3); HGB 12.5 g/dL (12.0-15.0); Lymphocytes # (A) 0.76 X 10*3/uL (0.90-5.00); Lymphocytes % (A) 6.8 %; MCH 29.3 pg (27.0-32.0); MCHC 29.6 g/dL (32.0-37.0); MCV 99.1 fL (80.0-97.0); Mean Platelet Volume 13.1 fL (9.5-12.2); Monocytes # (A) 0.97 X 10*3/uL (0.20-1.00); Monocytes % (A) 8.7 %; Neutrophils # (A) 8.94 X 10*3/uL (1.80-7.70); Platelet Count 152 X 10*3/uL (140-440); RBC 4.26 X 10*6/uL (4.10-5.20); RDW 15.2 % (11.5-14.5); WBC 11.17 X 10*3/uL (4.50-10.00)
[2021-02-01 16:48] LABS: Glucose,Whole Blood 116 mg/dL (75-99)
[2021-02-01] MEDS: ATORVASTATIN 40 MG TAB PO SCH (19:58)
[2021-02-01] MEDS: INSULIN DETEMIR (LEVEMIR) 100 UNIT/ML SYR SQ SCH (20:04)
[2021-02-01 20:09] LABS: Glucose,Whole Blood 126 mg/dL (75-99)
[2021-02-02 00:28] LABS: Glucose,Whole Blood 145 mg/dL (75-99)
[2021-02-02] MEDS: INSULIN ASPART (NovoLOG) 100 UNIT/ML VIAL SQ SCH ×8 (00:39→16:44)
--- NOTE | 2021-02-02 01:56 | P.PN ---
Subjective Progress Note Date: 01/29/21 01/29/2021: Patient was seen for a follow-up. Patient is very alert and awake. Patient is more interactive, makes eye contact, speech is still somewhat slurred, dysarthric speech. Patient able to name some objects like ear, tissue paper. She can repeat also. Denies headache. 01/28/2021: Patient was seen for a follow-up. Patient was seen earlier during the day went her son was also present. This is a late entry. Patient is doing much better. Patient's son and agreed, that she has remarkably improved. Yesterday she was not speaking, but now she is starting to speak. Patient nods "no" for headache. Patient states "I'm feeling better". This is much improved as compared to yesterday. 01/27/2021: Patient was seen for a follow-up. Patient initially seen by Dr. Rafiq Rushing on 01/24/2021. Please refer to his note for details. Patient has acute Covid pneumonia, altered mental status and toxic metabolic encephalopathy. Patient also has atrial fibrillation on Eliqus, hypothyroidism, CAD, chronic renal disease. She came to the hospital for 2020 with increased confusion. On 01/17/2021 she started having problems with confusion. The next day she was treated for Covid 19 pneumonia and then was discharged back to [facility] on the [place] for worsening shortness of breath. CT head showed cerebral atrophy with no acute process. Chest x-ray showed cardiomegaly and chronic parenchymal changes with a right greater than left multifocal opacities mid to lower lung suggestive of Covid 19 infection. Her initial BUN was 63, creatinine 2.20. AST was mildly elevated 45. Patient subsequently had undergone an MRI of the brain without contrast on 01/25/2021, which revealed no acute infarct. Moderate diffuse cerebral atrophy greatest over bilateral frontal lobes and mild to moderate chronic small vessel ischemic changes. Most recent chest x-ray from 01/26/2021 shows correlate for pneumonia, edema. Patient's blood tests shows normal WBC 11.0, hemoglobin 15.7, PT/PTT normal. Sodium 150 potassium 4.7, BUN 64, creatinine 1.42. Her prior BUN was 75 and creatinine 2.1 on 01/26/2021. Lower extremity ultrasound was negative for DVT. Objective - Vital Signs Vital signs: Vital Signs Temp 97.0 F L 01/29/21 17:31 Pulse 60 01/29/21 17:31 Resp 16 01/29/21 17:31 BP 122/67 01/29/21 17:31 Pulse Ox 98 01/29/21 17:31 Intake & Output 01/29/21 01/29/21 01/30/21 06:59 18:59 06:59 Intake Total 49.943 240 Output Total 550 Balance 49.943 -310 Weight 101.1 kg 101.1 kg Intake: Intake, IV Titration 49.943 Amount Heparin Sod,Pork in 0.45% 49.943 NaCl 25,000 unit In 0.45 % NaCl 1 250ml.bag @ 10 UNITS/KG/HR 9.979 mls/hr IV .Q24H [facility] Rx#: [id number] Tube Feeding 240 Output: Urine 550 Other: Voiding Method External Catheter External Catheter Diaper - Exam GENERAL: The patient is reclining in the bed, appears much more comfortable, with no significant respiratory distress. NEUROLOGICAL: Higher mental function: Patient appears much more calm, comfortable, smiling, making eye contact, even answering questions. Speech is slightly hoarse and slurred, difficult to understand. This is much improvement as compared to yesterday. Cranial nerves: The pupils are round, equal and reactive to light. No facial weakness. Tongue protrudes to the midline. Palatal elevation is normal, shoulder shrug normal. Hearing is slightly decreased. Motor: Gait is deferred. Patient's thread reeler is about 4, biceps 4, decreased endurance all over and decreased effort.. Cerebellum: No definite ataxia for [id number]. Patient's slow mentation. Sensation: To touch appears equal.. Reflexes (right/left): 1+ Plantars are downgoing bilaterally. - Labs CBC & Chem 7: 02/01/21 07:26 02/01/21 07:26 Labs: Abnormal Lab Results - Last 24 Hours (Table) 01/28/21 01/29/21 01/29/21 Range/Units 17:23 00:07 02:03 APTT 98.3 H (22.0-30.0) sec BUN (7-17) mg/dL Creatinine (0.52-1.04) mg/dL Glucose (74-99) mg/dL POC Glucose (mg/dL) 238 H (75-99) mg/dL Hemoglobin A1c 9.5 H (4.0-6.0) % 01/29/21 01/29/21 01/29/21 Range/Units 06:56 09:50 09:50 APTT 32.2 H (22.0-30.0) sec BUN 49 H (7-17) mg/dL Creatinine 1.25 H (0.52-1.04) mg/dL Glucose 260 H (74-99) mg/dL POC Glucose (mg/dL) 220 H (75-99) mg/dL Hemoglobin A1c (4.0-6.0) % 01/29/21 01/29/21 Range/Units 11:35 16:33 APTT (22.0-30.0) sec BUN (7-17) mg/dL Creatinine (0.52-1.04) mg/dL Glucose (74-99) mg/dL POC Glucose (mg/dL) 217 H 187 H (75-99) mg/dL Hemoglobin A1c (4.0-6.0) % Microbiology - Last 24 Hours (Table) 01/23/21 12:43 Blood Culture - Final Blood No Growth after 144 hours 01/23/21 12:43 Blood Culture - Final Blood No Growth after 144 hours Assessment and Plan Assessment: Toxic metabolic encephalopathy due to hypoxia from COVID-19 pneumonia, DANIEL on CKI--much improved. COVID-19 pneumonia, improved Acute on chronic kidney insufficiency Hypertension Hyperlipidemia Diabetes. Coronary artery disease Atrial fibrillation on Eliquis Hypothyroidism Plan: Patient's level of consciousness has improved, mentation and encephalopathy has somewhat improved. Patient has started communicating and minimally following commands. MRI of the brain performed 01/25/2021, revealed no acute process. No CVA. B12 667, folate 10.8, TSH is normal 0.716. Ammonia normal <9. Patient continues to be in moderate renal failure, fluctuate. Nephrology and pulmonary on board. Patient to undergo possible PEG tube placement in the morning. EEG 01/27/2021 revealed background slowing of moderate degree. This is suggestive of generalized cerebral dysfunction as can be seen with toxic metabolic encephalopathy or related to diffuse structural brain abnormality. No epileptiform activity was seen. Hemoglobin A1c 9.5. Your medical management. Please reconsult neurology if any other concerns.
[2021-02-02] MEDS: LEVOTHYROXINE 50 MCG TAB PO SCH (06:05)
[2021-02-02] MEDS: APIXABAN 2.5 MG TABLET PO SCH ×2 (08:01→20:53)
[2021-02-02] MEDS: guaiFENesin 600 MG TABLET.ER PO SCH ×2 (08:02→21:02)
[2021-02-02] MEDS: ISOSORBIDE DINITRATE 10 MG TAB PO SCH (08:06)
[2021-02-02] MEDS: PANTOPRAZOLE 40 MG TABLET PO SCH (08:06)
[2021-02-02] MEDS: amLODIPine 10 MG TAB PO SCH (08:06)
[2021-02-02] MEDS: carvediloL 12.5 MG TAB PO SCH ×2 (08:06→16:46)
[2021-02-02 08:18] LABS: Glucose,Whole Blood 245 mg/dL (75-99)
[2021-02-02 11:30] LABS: Glucose,Whole Blood 139 mg/dL (75-99)
--- NOTE | 2021-02-02 11:51 | P.PN ---
Subjective Progress Note Date: 02/02/21 Pt seen and examined at bedside. Still not receiving appropriate nutritional volume through PO intake. Objective - Vital Signs Vital signs: Vital Signs Temp 98.3 F 02/02/21 10:00 Pulse 61 02/02/21 10:00 Resp 16 02/02/21 10:00 BP 104/59 02/02/21 10:00 Pulse Ox 100 02/02/21 10:00 Intake & Output 02/01/21 02/02/21 02/02/21 18:59 06:59 18:59 Intake Total 680 Output Total 2350 1000 Balance -1670 -1000 Weight 92 kg Intake: Tube Feeding 440 Other 240 Output: Urine 1350 1000 Post Void Residual 1000 Other: Voiding Method Indwelling Catheter - Constitutional General appearance: Present: no acute distress - Gastrointestinal Gastrointestinal Comment(s): soft, NT, ND, no rebound, no guarding - Labs CBC & Chem 7: 02/01/21 07:26 02/01/21 07:26 Labs: Abnormal Lab Results - Last 24 Hours (Table) 02/01/21 02/01/21 02/01/21 Range/Units 07:26 07:26 12:06 WBC 11.17 H (4.50-10.00) X 10*3/uL MCV 99.1 H (80.0-97.0) fL MCHC 29.6 L (32.0-37.0) g/dL RDW 15.2 H (11.5-14.5) % MPV 13.1 H (9.5-12.2) fL Immature Gran # 0.18 H (0.00-0.04) X 10*3/uL Neutrophils # 8.94 H (1.80-7.70) X 10*3/uL Lymphocytes # 0.76 L (0.90-5.00) X 10*3/uL Carbon Dioxide 32.8 H (21.6-31.8) mmol/L Anion Gap 3.20 L (4.00-12.00) mmol/L BUN 55.0 H (9.0-27.0) mg/dL Creatinine 1.6 H (0.6-1.5) mg/dL Est GFR (CKD-EPI)AfAm 33.7 L (60.0-200.0) Est GFR (CKD-EPI)NonAf 29.1 L (60.0-200.0) BUN/Creatinine Ratio 34.38 H (12.00-20.00) Ratio POC Glucose (mg/dL) 123 H (75-99) mg/dL Total Protein 4.6 L (6.2-8.2) g/dL Albumin 2.60 L (3.80-4.90) g/dL Albumin/Globulin Ratio 1.30 L (1.60-3.17) g/dL 02/01/21 02/01/21 02/02/21 Range/Units 16:47 20:02 00:06 WBC (4.50-10.00) X 10*3/uL MCV (80.0-97.0) fL MCHC (32.0-37.0) g/dL RDW (11.5-14.5) % MPV (9.5-12.2) fL Immature Gran # (0.00-0.04) X 10*3/uL Neutrophils # (1.80-7.70) X 10*3/uL Lymphocytes # (0.90-5.00) X 10*3/uL Carbon Dioxide (21.6-31.8) mmol/L Anion Gap (4.00-12.00) mmol/L BUN (9.0-27.0) mg/dL Creatinine (0.6-1.5) mg/dL Est GFR (CKD-EPI)AfAm (60.0-200.0) Est GFR (CKD-EPI)NonAf (60.0-200.0) BUN/Creatinine Ratio (12.00-20.00) Ratio POC Glucose (mg/dL) 116 H 126 H 145 H (75-99) mg/dL Total Protein (6.2-8.2) g/dL Albumin (3.80-4.90) g/dL Albumin/Globulin Ratio (1.60-3.17) g/dL 02/02/21 02/02/21 Range/Units 06:02 11:27 WBC (4.50-10.00) X 10*3/uL MCV (80.0-97.0) fL MCHC (32.0-37.0) g/dL RDW (11.5-14.5) % MPV (9.5-12.2) fL Immature Gran # (0.00-0.04) X 10*3/uL Neutrophils # (1.80-7.70) X 10*3/uL Lymphocytes # (0.90-5.00) X 10*3/uL Carbon Dioxide (21.6-31.8) mmol/L Anion Gap (4.00-12.00) mmol/L BUN (9.0-27.0) mg/dL Creatinine (0.6-1.5) mg/dL Est GFR (CKD-EPI)AfAm (60.0-200.0) Est GFR (CKD-EPI)NonAf (60.0-200.0) BUN/Creatinine Ratio (12.00-20.00) Ratio POC Glucose (mg/dL) 245 H 139 H (75-99) mg/dL Total Protein (6.2-8.2) g/dL Albumin (3.80-4.90) g/dL Albumin/Globulin Ratio (1.60-3.17) g/dL Assessment and Plan Plan: Discussed case with Dr. Suárez. Patient still not getting enough for nutritional volume through by mouth feeding. Will require PEG tube placement. Patient did receive anticoagulation on 01/31/2021. Plan is for PEG tube placement on 02/02/2021.
--- NOTE | 2021-02-02 12:28 | P.PN ---
Subjective Patient is seen in follow-up for acute kidney injury. Unknown baseline renal function. Creatinine 1.6 as of yesterday. Gan catheter placed due to urinary retention. Currently on normal saline. Scheduled for PEG tube placement later today. Hemodynamically stable. Vital signs are stable. General: The patient appeared well nourished and normally developed. HEENT: NG tube noted. LUNGS: Breath sounds decreased. HEART: Rate and Rhythm are regular. ABDOMEN: Soft, no distention. EXTREMITITES: No edema. Objective - Vital Signs Vital signs: Vital Signs Temp 98.3 F 02/02/21 10:00 Pulse 61 02/02/21 10:00 Resp 16 02/02/21 10:00 BP 104/59 02/02/21 10:00 Pulse Ox 100 02/02/21 10:00 Intake & Output 02/01/21 02/02/21 02/02/21 18:59 06:59 18:59 Intake Total 680 Output Total 2350 1000 Balance -1670 -1000 Weight 92 kg Intake: Tube Feeding 440 Other 240 Output: Urine 1350 1000 Post Void Residual 1000 Other: Voiding Method Indwelling Catheter - Labs CBC & Chem 7: 02/01/21 07:26 02/01/21 07:26 Labs: Abnormal Lab Results - Last 24 Hours (Table) 02/01/21 02/01/21 02/01/21 Range/Units 07:26 16:47 20:02 WBC 11.17 H (4.50-10.00) X 10*3/uL MCV 99.1 H (80.0-97.0) fL MCHC 29.6 L (32.0-37.0) g/dL RDW 15.2 H (11.5-14.5) % MPV 13.1 H (9.5-12.2) fL Immature Gran # 0.18 H (0.00-0.04) X 10*3/uL Neutrophils # 8.94 H (1.80-7.70) X 10*3/uL Lymphocytes # 0.76 L (0.90-5.00) X 10*3/uL POC Glucose (mg/dL) 116 H 126 H (75-99) mg/dL 02/02/21 02/02/21 02/02/21 Range/Units 00:06 06:02 11:27 WBC (4.50-10.00) X 10*3/uL MCV (80.0-97.0) fL MCHC (32.0-37.0) g/dL RDW (11.5-14.5) % MPV (9.5-12.2) fL Immature Gran # (0.00-0.04) X 10*3/uL Neutrophils # (1.80-7.70) X 10*3/uL Lymphocytes # (0.90-5.00) X 10*3/uL POC Glucose (mg/dL) 145 H 245 H 139 H (75-99) mg/dL Assessment and Plan Plan: Assessment: 1. Acute kidney injury secondary to ATN secondary to COVID-19 infection. Creatinine 1.6 as of yesterday. Unknown baseline renal function. 2. Hypernatremia from lack of oral water intake, status post D5W. Improved. 3. Diabetes mellitus. 4. Benign hypertension. Stable. 5. Metabolic acidosis secondary to acute kidney injury. Resolved. 6. Urinary retention. Has a Gan catheter. 7. Hematuria. Likely traumatic from Gan catheter insertion yesterday. Plan: Maintain normal saline. Avoid nephrotoxins. Scheduled for PEG tube placement later today. Continue to monitor renal function and urine output. If no improvement hematuria, consult urology.
--- NOTE | 2021-02-02 12:58 | P.PN ---
Subjective 85 years old female patient of Dr. Mack past medical history of hypertension hyperlipidemia coronary artery disease, chronic kidney disease unknown stage presents with increasing confusion and hypoxia from [facility] on the [place]. Apparently patient was brought to the ER at [facility] on 01/17 for worsening confusion and flulike symptoms. Patient went home as was not able to be seen for her symptoms soon enough and called her primary care physician who ordered a CAT scan of the head. CAT scan of the head was negative and patient w as brought back to the ER on 01/18 and was treated for COVID pneumonia. Patient was discharged to [facility] on the [place] and was brought back to the ER 24-hour later for worsening shortness of breath.on evaluation in the ER patient is short of breath requiring 6 L of oxygen unable to answer any questions very drowsy on evaluation. She opens her eyes to question only to go back to sleep in a short while. Patient withdraws to pain but does not follow commands. No family member is present at bedside. Son was called multiple times but was unable to be reached. History is obtained through patient's and documentation by the ER. She has never been admitted in this hospital. Evaluation Suggests Hemoglobin Is 15.5 Platelet 185 INR 1 D-Dimer 2.1 Sodium 140 Potassium 4.9 Chloride 111 Bicarb 20 1B UN 53 Creatinine 2.2 Calcium Is 10.7 Magnesium 2.6 Lactic Acid 1.6 Alkaline Phosphatase 87, LDH 1076 CRP 20.8 Output (3.1. Pro-Calcitonin Is Pending. ProBNP Is Pending. Chest X-Ray suggested cardiomegaly and chronic parenchymal changes with right greater than left multifocal opacities metoprolol and suggestive of COVID-[address] head ordered to rule out acute stroke. Patient's home medication reconciled will hold torsemide, spironolactone. Nephrology course consult for possible end-stage renal disease. Unclear if patient is on him and on dialysis. Ultrasound of the renal obtained. neurology in consult for acute encephalopathy likely secondary to Covid. Patient does have underlying dementia?. We'll start patient on dexamethasone 6 mg IV every 12 hours. Start her on vitamin C, vitamin D and zinc. Pulmonary consulted for Covid pneumonia. 01/24 spoke to patient's son who did state that patient has underlying history of concussion and forgetfulness but no formal diagnosis of dementia has ever been made. She was speaking clearly and had no confusion 8 days ago. Patient had normal recovery of mental status after being discharged from the other hospital and transferred to [facility]. Son does suggest that patient has history of stent placement 3-4 years ago for coronary artery disease. She does follow nephrology as outpatient and has significant end-stage chronic kidney disease with plan to initiate hemodialysis if no improvement noted. On evaluation patient's mental status today patient's more responsive. She was refusing to eat. Swallow evaluation at bedside was not past. Patient continued to be on normal saline 75 mL per hour on evaluation patient's blood work sodium is 141 bicarb 18 creatinine 2.1 MCH slightly improved to 845 CRP is 18.9. Pro-calcitonin came at 0.6, TSH normal urinary analysis negative for any infection. Blood cultures negative continue remdesivir per pulmonary recommendations continue Decadron and elliquis . Hold Levemir 01/25: Patient has been seen by neurology with recommendations for ammonia level, TSH and vitamin B12 and folate. Patient continues to have significant confusion and MRI of the brain ordered. Patient is also been seen by pulmonary medicine with recommendations for continuing IV Decadron, patient was started on Remdesivir day #3/5. Patient is also followed by nephrology with plan to continue IV hydration and hold diuretics. Chest x-ray from yesterday revealed cardiomegaly and chronic parenchymal changes with right greater than left multifocal and confluent opacities mid to lower lung suggesting Covid 19 infection redemonstrated. No significant change. Renal ultrasound revealed bilateral renal atrophy. No obstructive calculus in the upper pole left kidney. No evidence of renal mass. No hydronephrosis. No bladder mass. CBC is unr emarkable except for lymphocytes of 0.4. D-dimer 5.11. CO2 15, BUN 66 and creatinine 1.93. Blood sugars are running between 177 and 227. LDH 980. C- reactive protein 8.2. IV fluids are currently lactated Ringer's at 75 mL per hour,. 01/26: Patient continues to be unresponsive. No improvement of her mental status. Patient is currently a full code. [place] son Doug was contacted and was in agreement to change patient to a no CODE STATUS. Family is planning to do a virtual visit with her today. Also discussed PEG tube placement which they would like to pursue. Consult placed with general surgery. IV hydralazine as needed for blood pressure control. MRI of the brain revealed no acute findings of infarct. Moderate diffuse cerebral atrophy greatest over bilateral frontal lobes mild to moderate chronic small vessel ischemic change. KUB shows nonspecific findings. Patient had a small smear of bowel movement this morning only. Repeat blood work reveals WBC 9.4, hemoglobin 15.5, platelet count 223. D-dimer 5.51. Blood sugars running in the 300s area and Levemir 10 units at bedtime added as well as NovoLog 5 units every 6 hours. NovoLog scales been changed every 6 hours. Remdesivir day #/. 01/27: Patient's family came in yesterday to see her. She was made no code yesterday but they would like to pursue PEG tube. Patient was seen by Dr. Gordon and he wanted to evaluate for NG tube placement however patient is biting during oral care so she most likely would not be able be able to tolerate up NG tube. Discussed case with Dr. Mcmahan on an EEG ordered. We will plan to start patient on heparin drip for A. fib she has been off eliquis and PEG tube will most likely be placed tomorrow. Patient continues to be unresponsive and dexamethasone will be discontinued and nursing to avoid morphine to see if these changes will improve her mental status. Repeat chest x-ray correlate for pneumonia, edema. Patient has been afebrile, heart rate 73, blood pressure 130/73, pulse ox 94% on 3 L nasal cannula. Sodium 150, potassium 4.7, chloride 116, CO2 30, BUN 64 and creatinine 1.42. Blood sugar 304. Blood sugars have been running between 220 and 309. Patient was started on Levemir 10 units at bedtime last evening and will be increased to 15 units as patient is continued on dextrose 5% at 75 mL per hour. Scheduled NovoLog every 6 hours will be increased to 6 units and continue NovoLog scale. Patient is on REM to severe day #02/10. 01/28 patient examined bedside. Is opening eyes and is able to follow simple commands legs show her thumb or wiggle her toes. Hold PEG tube placement today. Have bedside swallow evaluation with plan to put Dobbhoff tube for nutrition for a few days before going forward with PEG tube. Let us assessment suggest temp of 97.8 pulse 69 respiratory rate 20 blood pressure 168/79. At suggest a leukocytosis of 11.9 hemoglobin 15.2, sodium 150, BUN 15 creatinine 1.6 glucose 288. D5W been continued at 75 mL per hour. Nutrition consult placed for enteral tube feeding. Lantus increased to 20 units at a chills. Continue NovoLog 6 units daily every 6 hours as patient is not having anything to eat. Continue to monitor mental status. 01/29 patient examined bedside. Very delayed response to the speech but patient seems to understand and respond. She does states"I'm okay"and lessens carefully to the conversation. Patient did have a speech evaluation yesterday and had a poor response to a half to a teaspoon of water trying. Patient was found coughing on an attempt to feed. Dobbhoff tube was placed which patient is tolerating well. Vitals signs of June pulse 69 respiratory rate 18 blood pressure 171/84 oxygen saturation 96% on 3 L of oxygen. Labs suggest a BUN of 49 and creatinine 1.25 which is improved compared to previous labs. Glucose still high at 260. A1c came is 9.5. Lantus increased to 25 units daily at bedtime. Amlodipine increased to 10 g by mouth daily. We will switch Eliquis and stop heparin Hold off patient's IV fluids. PTOT consulted with possible plan to discharge to subacute rehab once stabilized. Reassessment of nutrition status on Monday to evaluate for need for PEG tube 01/30: Patient examined at the bedside. She has delayed response to speech she is able to nod her head and answer questions appropriately. Patient is able to follow commands. She was evaluated by speech 2 days ago. And had a poor response to have a teaspoon of water. Patient currently has NG tube in place and receiving eternal feedings. Patient was reassessed for her nutrition status on Monday for possible PEG tube placement. 01/31: She was examined at bedside. She does have delayed response in speech. Able to nod head and answer some questions appropriately. Patient is able to follow some commands. She continues to have noted episodes of confusion. Patient was reevaluated by speech for consideration of a PEG tube. At this time NG tube is in place and receiving eternal feedings. 02/01: Patient still feeding via NG tube at this point. Patient be going for PEG tube respond to management overall still not good. Patient is still mildly hypoxic on O2 between 3-5 L. Still the plan to send patient to [facility] as soon as PEG tube is done and her oxygen level is decent on less than 5 L of O2. 02/02: Patient is scheduled for PEG tube placement today. Patient's O2 saturation 97% on 2 L via nasal cannula, vital signs are stable. Patient was noted to have urinary retention, Gan catheter placed last night with over 1000 ml's of urine. Urine is dark and cloudy, will send for UA and culture and obtain an ultrasound to rule out obstructive uropathy. Kidney function did trend up a little, Cr 1.6, BUN 55 Objective - Vital Signs Vital signs: Vital Signs Temp 98.9 F 02/02/21 06:00 Pulse 76 02/02/21 06:00 Resp 18 02/02/21 06:00 BP 136/66 02/02/21 06:00 Pulse Ox 97 02/02/21 06:00 Intake & Output 02/01/21 02/02/21 02/02/21 18:59 06:59 18:59 Intake Total 680 Output Total 2350 1000 Balance -1670 -1000 Weight 92 kg Intake: Tube Feeding 440 Other 240 Output: Urine 1350 1000 Post Void Residual 1000 Other: Voiding Method Indwelling Catheter - Exam General Appearance: Alert, cooperative, no distress, appears stated age Neck HEENT: Supple, no lymphadenopathy, no thyroid enlargement, no carotid bruits. Lungs: Clear to auscultation without crackles or wheezes no rhonchi, no deformity. Chest Wall: Chest wall normal expansion with deep inspiration no tenderness and no deformity was found on exam, no costochondral pain or discomfort. Heart: Regular rate and rhythm, S1, S2 normal, no murmur, rub or gallop Back: Symmetric, no curvature, ROM normal, no CVA tenderness. Abdomen: Soft, non-tender, no rebound or rigidity, no hepatosplenomegaly. Extremities: Extremities normal, atraumatic, no cyanosis or edema. Pulses: 2+ and symmetric. Skin: Skin color, texture, tugor decreased, no rashes or lesions. Neurologic: Alert oriented x1 confused able to nod head and answer most questions appropriately. Generalized weakness, pupils are reactive - Labs CBC & Chem 7: 02/01/21 07:26 02/01/21 07:26 Labs: Abnormal Lab Results - Last 24 Hours (Table) 02/01/21 02/01/21 02/01/21 Range/Units 07:26 07:26 12:06 WBC 11.17 H (4.50-10.00) X 10*3/uL MCV 99.1 H (80.0-97.0) fL MCHC 29.6 L (32.0-37.0) g/dL RDW 15.2 H (11.5-14.5) % MPV 13.1 H (9.5-12.2) fL Immature Gran # 0.18 H (0.00-0.04) X 10*3/uL Neutrophils # 8.94 H (1.80-7.70) X 10*3/uL Lymphocytes # 0.76 L (0.90-5.00) X 10*3/uL Carbon Dioxide 32.8 H (21.6-31.8) mmol/L Anion Gap 3.20 L (4.00-12.00) mmol/L BUN 55.0 H (9.0-27.0) mg/dL Creatinine 1.6 H (0.6-1.5) mg/dL Est GFR (CKD-EPI)AfAm 33.7 L (60.0-200.0) Est GFR (CKD-EPI)NonAf 29.1 L (60.0-200.0) BUN/Creatinine Ratio 34.38 H (12.00-20.00) Ratio POC Glucose (mg/dL) 123 H (75-99) mg/dL Total Protein 4.6 L (6.2-8.2) g/dL Albumin 2.60 L (3.80-4.90) g/dL Albumin/Globulin Ratio 1.30 L (1.60-3.17) g/dL 02/01/21 02/01/21 02/02/21 Range/Units 16:47 20:02 00:06 WBC (4.50-10.00) X 10*3/uL MCV (80.0-97.0) fL MCHC (32.0-37.0) g/dL RDW (11.5-14.5) % MPV (9.5-12.2) fL Immature Gran # (0.00-0.04) X 10*3/uL Neutrophils # (1.80-7.70) X 10*3/uL Lymphocytes # (0.90-5.00) X 10*3/uL Carbon Dioxide (21.6-31.8) mmol/L Anion Gap (4.00-12.00) mmol/L BUN (9.0-27.0) mg/dL Creatinine (0.6-1.5) mg/dL Est GFR (CKD-EPI)AfAm (60.0-200.0) Est GFR (CKD-EPI)NonAf (60.0-200.0) BUN/Creatinine Ratio (12.00-20.00) Ratio POC Glucose (mg/dL) 116 H 126 H 145 H (75-99) mg/dL Total Protein (6.2-8.2) g/dL Albumin (3.80-4.90) g/dL Albumin/Globulin Ratio (1.60-3.17) g/dL 02/02/21 Range/Units 06:02 WBC (4.50-10.00) X 10*3/uL MCV (80.0-97.0) fL MCHC (32.0-37.0) g/dL RDW (11.5-14.5) % MPV (9.5-12.2) fL Immature Gran # (0.00-0.04) X 10*3/uL Neutrophils # (1.80-7.70) X 10*3/uL Lymphocytes # (0.90-5.00) X 10*3/uL Carbon Dioxide (21.6-31.8) mmol/L Anion Gap (4.00-12.00) mmol/L BUN (9.0-27.0) mg/dL Creatinine (0.6-1.5) mg/dL Est GFR (CKD-EPI)AfAm (60.0-200.0) Est GFR (CKD-EPI)NonAf (60.0-200.0) BUN/Creatinine Ratio (12.00-20.00) Ratio POC Glucose (mg/dL) 245 H (75-99) mg/dL Total Protein (6.2-8.2) g/dL Albumin (3.80-4.90) g/dL Albumin/Globulin Ratio (1.60-3.17) g/dL Assessment and Plan Plan: 1. acute infectious metabolic encephalopathy likely secondary to Covid , uremic encephalopathy and underlying dementia, still no much improvement on encephalopathy very slowly. Patient still on NG feeding require more O2 require more attention she will require 2 person assistance the plan still probably to [facility] when her oxygen level is better on less than 5L and after her PEG tube is done. 2. acute hypoxic respiratory failure secondary to Covid pneumonia. Continue Pro Air as needed for shortness of breath. Pulmonary consult appreciated. Mucinex as needed. Sputum culture. Discontinue dexamethasone. Continue Vitamin C, vit rhodes D and zinc. Inflammation markers are elevated. Completed Remdesivir, still require O2 between 3 and 5 L. 3. acute kidney injury over chronic kidney disease stage 5 follows nephrology as outpatient at [facility] Patient has no prior baseline creatinine. Nephrology consult appreciated. Discontinue IV fluids of D5W at 75 mL per hour as tube feeding initiated, discontinue sodium bicarb 650 mg twice daily. Hold torsemide hold Aldactone. 4. coronary artery disease status post stents 34 years ago Continue atorvastatin, isosorbide dinitrate continue Coreg 25 mg twice a day 5. hypothyroidism continue levothyroxine 50 g daily TSH normal 6. type 2 diabetes uncontrolled with hyperglycemia secondary to steroids. Levemir increased to 20 units at bedtime started as well as NovoLog 5 units every 6 hours. Continue with insulin sliding scale 7. hyperlipidemia continue atorvastatin 40 mg by mouth daily 8. hypertension amlodipine increased to 10 from 5 mg by mouth daily. Hy dralazine 10 mg IV push every 6 hours as needed for systolic blood pressure greater than 160. 9. Generalized gout allopurinol 100 mg by mouth daily 10. atrial fibrillation on Eliquis 2. 5 mg twice a day continue Coreg 25 twice a day. Heparin discontinued resumed on Eliquis 11. severe protein calorie malnutrition secondary to patient's inability to eat and no oral intake secondary to infectious encephalopathy from Covid 19. Consult with general surgery for PEG tube insertion. Plan to perform PEG tube on hold. Enteric feeding started. Patient will be reevaluated for possible PEG tube placement on Monday. 12. hypernatremia sodium bicarb stopped. D5W at 75 mL per hour. CBC and CMP need to be monitored carefully 13. DVT prophylaxis. Hold eliquis on heparin drip 14 GI prophylaxis with Pepcid 20 mg IV twice a day 15 urinary retention. Gan catheter inserted, will obtain UA with culture, ultrasound of the kidneys and bladder to rule out obstructive uropathy CODE STATUS: No code Discharge plan: Possible return to [facility] after doing a PEG tube. The above impression and plan of care have been discussed and directed by signing physician. Sierra Pemberton nurse practitioner acting as scribe for signing physician.
[2021-02-02] MEDS ORDERED: PROPOFOL 10 MG/ML 20 ML VIAL IV ONE (13:38)
[2021-02-02] MEDS ORDERED: LIDOCAINE 1% INJ 10MG/ML (20 ML MDV) ONE (13:38)
[2021-02-02] MEDS ORDERED: IV FLUID CONTINUATION 1,000 ML IV ONE (13:44)
--- NOTE | 2021-02-02 14:24 | P.PCN ---
Date of Procedure: 02/02/21 Preoperative Diagnosis: Metabolic encephalopathy Severe protein calorie malnutrition Postoperative Diagnosis: Metabolic encephalopathy Severe protein calorie malnutrition Procedure(s) Performed: Attempted percutaneous endoscopic gastrostomy tube placement Anesthesia: MAC Surgeon: Mike Gordon Pathology: none sent Condition: stable Disposition: floor Indications for Procedure: 85-year-old female was scheduled for a percutaneous endoscopic gastrostomy tube placement secondary to metabolic encephalopathy and severe protein calorie malnutrition due to inability to tolerate significant amount of by mouth feeds. After discussion with her son, decision was made for feeding tube placement. Risks, benefits and alternatives were provided to the patient's son and consent was provided. Operative Findings: Inflammatory changes within the duodenal bulb along with the stomach Description of Procedure: Patient was brought to the endoscopy suite and placed in supine position. Sedation was provided by anesthesia and the scope was then placed through the esophagus into the stomach and through the pylorus into the duodenal bulb. The duodenum was noted to have inflammatory changes. The scope was then retrieved into the stomach and the stomach was noted to have inflammatory changes. Appropriate illumination was noted and site was picked for placement of PEG tube. Ballottement was also performed. At this point, patient's oxygen saturation dropped to the high 60s and was not responding to current levels of O2. Nasal cannula was then increased without significant change. Scope was then removed and then mask was placed. Patient eventually did return to appropriate saturation in the 90s. At this point, it was decided to abort the procedure as the patient was not tolerating sedation to safely place the feeding tube. I did discuss this case in detail with the patient's son, and he is aware that any placement of feeding tube would require intubation. This would run the risk of ventilator dependence. I also discussed the case with the primary service, Dr. Suárez. Patient's family and primary service to discuss goals of care.
[2021-02-02 15:30] LABS: Appearance,Urine Cloudy (Clear); Bilirubin,Urine Negative (Negative); Blood,Urine Large (Negative); Color,Urine Light Orange; Glucose,Urine (UA) Negative (Negative); Ketones,Urine Negative (Negative); Leukocyte Esterase,Urine Large (Negative); Nitrite,Urine Negative (Negative); Protein,Urine 1+ (Negative); RBC,Urine >182 /hpf (0-5); Specific Gravity,Urine 1.017 (1.001-1.035); Squamous Epithelial Cell,Urine 1 /hpf (0-4); Urobilinogen,Urine <2.0 mg/dL (<2.0); WBC,Urine 161 /hpf (0-5)
--- NOTE | 2021-02-02 16:23 | XR ---
EXAMINATION TYPE: XR chest 1V confirm line [facility] DATE OF EXAM: 02/02/2021 HISTORY: Shortness of breath. COMPARISON: 01/28/2021 TECHNIQUE: Single view of the chest is submitted. FINDINGS: Demonstrated are scattered senescent parenchymal change. Scattered infiltrates seen. NG tube seen coursing into the stomach. The heart is stable. Hilar and mediastinal structures are within normal limits. Degenerative changes are seen of the dorsal spine. IMPRESSION: 1. Scattered infiltrates seen. NG tube seen coursing into the stomach.
[2021-02-02 16:33] LABS: Glucose,Whole Blood 130 mg/dL (75-99)
[2021-02-02] MEDS: SODIUM CHLORIDE 0.9% 1,000 ML IV SCH (16:44)
[2021-02-02] MEDS: NYSTATIN 100,000 UNIT/ML SUSP 500,000 UNIT/5 ML CUP PO SCH ×2 (16:47→21:02)
[2021-02-02 17:08] LABS: African American GFR (CKD) 39.6 (60.0-200.0); Anion Gap 3.3 mmol/L (4.00-12.00); BUN/Creat Ratio 36.43 Ratio (12.00-20.00); Calcium 9.1 mg/dL (8.7-10.3); Carbon Dioxide 27.7 mmol/L (21.6-31.8); Non-African American GFR(CKD) 34.2 (60.0-200.0); Potassium 5.6 mmol/L (3.5-5.5)
[2021-02-02] MEDS: INSULIN DETEMIR (LEVEMIR) 100 UNIT/ML SYR SQ SCH (21:02)
[2021-02-02] MEDS: ATORVASTATIN 40 MG TAB PO SCH (21:02)
[2021-02-03 00:19] LABS: Glucose,Whole Blood 227 mg/dL (75-99)
[2021-02-03] MEDS: INSULIN ASPART (NovoLOG) 100 UNIT/ML VIAL SQ SCH ×10 (00:23→22:35)
[2021-02-03 06:07] LABS: Glucose,Whole Blood 161 mg/dL (75-99)
[2021-02-03] MEDS: LEVOTHYROXINE 50 MCG TAB PO SCH (06:14)
[2021-02-03] MEDS: SODIUM CHLORIDE 0.9% 1,000 ML IV SCH ×2 (06:15→22:26)
[2021-02-03] MEDS: amLODIPine 10 MG TAB PO SCH (09:25)
[2021-02-03] MEDS: NYSTATIN 100,000 UNIT/ML SUSP 500,000 UNIT/5 ML CUP PO SCH ×4 (09:25→22:34)
[2021-02-03] MEDS: APIXABAN 2.5 MG TABLET PO SCH ×2 (09:25→22:35)
[2021-02-03] MEDS: carvediloL 12.5 MG TAB PO SCH ×2 (09:25→17:12)
[2021-02-03] MEDS: guaiFENesin 600 MG TABLET.ER PO SCH ×2 (09:25→22:35)
[2021-02-03] MEDS: PANTOPRAZOLE 40 MG TABLET PO SCH (09:26)
[2021-02-03] MEDS: ISOSORBIDE DINITRATE 10 MG TAB PO SCH (09:26)
[2021-02-03 10:06] LABS: African American GFR (CKD) 43.3 (60.0-200.0); Albumin 2.5 g/dL (3.80-4.90); Albumin/Globulin Ratio 1.47 (1.60-3.17); Anion Gap 5.9 mmol/L (4.00-12.00); BUN/Creat Ratio 32.31 Ratio (12.00-20.00); Calcium 8.9 mg/dL (8.7-10.3); Carbon Dioxide 25.1 mmol/L (21.6-31.8); Globulin 1.7 g/dL (1.6-3.3); Magnesium 1.9 mg/dL (1.5-2.4); Non-African American GFR(CKD) 37.4 (60.0-200.0); Potassium 5.2 mmol/L (3.5-5.5); Total Bilirubin 0.3 mg/dL (0.2-1.2); Total Protein 4.2 g/dL (6.2-8.2)
[2021-02-03 11:29] LABS: Glucose,Whole Blood 115 mg/dL (75-99)
--- NOTE | 2021-02-03 12:40 | P.PN ---
Subjective Patient is seen in follow-up for acute kidney injury. Unknown baseline renal function. Renal function improving. Gan catheter placed due to urinary retention. Currently on normal saline and also receiving tube feeding. Hemodynamically stable. Vital signs are stable. General: The patient appeared well nourished and normally developed. HEENT: NG tube noted. LUNGS: Breath sounds decreased. HEART: Rate and Rhythm are regular. ABDOMEN: Soft, no distention. EXTREMITITES: No edema. Objective - Vital Signs Vital signs: Vital Signs Temp 98.7 F 02/03/21 09:57 Pulse 65 02/03/21 09:57 Resp 20 02/03/21 09:57 BP 129/65 02/03/21 09:57 Pulse Ox 95 02/03/21 09:57 Intake & Output 02/02/21 02/03/21 02/03/21 18:59 06:59 18:59 Intake Total 200 Output Total 625 Balance -425 Intake: IV 200 Output: Urine 625 Other: Voiding Method Indwelling Catheter Indwelling Catheter # Voids 1 - Labs CBC & Chem 7: 02/01/21 07:26 02/03/21 05:54 Labs: Abnormal Lab Results - Last 24 Hours (Table) 02/02/21 02/02/21 02/02/21 Range/Units 07:28 15:11 16:32 Potassium 5.6 H (3.5-5.5) mmol/L Chloride (96-109) mmol/L Anion Gap 3.30 L (4.00-12.00) mmol/L BUN 51.0 H (9.0-27.0) mg/dL Est GFR (CKD-EPI)AfAm 39.6 L (60.0-200.0) Est GFR (CKD-EPI)NonAf 34.2 L (60.0-200.0) BUN/Creatinine Ratio 36.43 H (12.00-20.00) Ratio Glucose 215 H (70-110) mg/dL POC Glucose (mg/dL) 130 H (75-99) mg/dL Total Protein (6.2-8.2) g/dL Albumin (3.80-4.90) g/dL Albumin/Globulin Ratio (1.60-3.17) g/dL Urine Appearance Cloudy H (Clear) Urine Protein 1+ H (Negative) Urine Blood Large H (Negative) Ur Leukocyte Esterase Large H (Negative) Urine RBC >182 H (0-5) /hpf Urine WBC 161 H (0-5) /hpf 02/03/21 02/03/21 02/03/21 Range/Units 00:18 05:54 06:04 Potassium (3.5-5.5) mmol/L Chloride 111 H (96-109) mmol/L Anion Gap (4.00-12.00) mmol/L BUN 42.0 H (9.0-27.0) mg/dL Est GFR (CKD-EPI)AfAm 43.3 L (60.0-200.0) Est GFR (CKD-EPI)NonAf 37.4 L (60.0-200.0) BUN/Creatinine Ratio 32.31 H (12.00-20.00) Ratio Glucose 158 H (70-110) mg/dL POC Glucose (mg/dL) 227 H 161 H (75-99) mg/dL Total Protein 4.2 L (6.2-8.2) g/dL Albumin 2.50 L (3.80-4.90) g/dL Albumin/Globulin Ratio 1.47 L (1.60-3.17) g/dL Urine Appearance (Clear) Urine Protein (Negative) Urine Blood (Negative) Ur Leukocyte Esterase (Negative) Urine RBC (0-5) /hpf Urine WBC (0-5) /hpf 02/03/21 Range/Units 11:27 Potassium (3.5-5.5) mmol/L Chloride (96-109) mmol/L Anion Gap (4.00-12.00) mmol/L BUN (9.0-27.0) mg/dL Est GFR (CKD-EPI)AfAm (60.0-200.0) Est GFR (CKD-EPI)NonAf (60.0-200.0) BUN/Creatinine Ratio (12.00-20.00) Ratio Glucose (70-110) mg/dL POC Glucose (mg/dL) 115 H (75-99) mg/dL Total Protein (6.2-8.2) g/dL Albumin (3.80-4.90) g/dL Albumin/Globulin Ratio (1.60-3.17) g/dL Urine Appearance (Clear) Urine Protein (Negative) Urine Blood (Negative) Ur Leukocyte Esterase (Negative) Urine RBC (0-5) /hpf Urine WBC (0-5) /hpf Microbiology - Last 24 Hours (Table) 02/02/21 15:11 Urine Culture - Preliminary Urine,Clean Catch Assessment and Plan Plan: Assessment: 1. Acute kidney injury secondary to ATN secondary to COVID-19 infection. Renal function improved. Creatinine 1.3 today. Unknown baseline renal function. 2. Hypernatremia from lack of oral water intake, status post D5W. Improved. 3. Diabetes mellitus. 4. Benign hypertension. Stable. 5. Metabolic acidosis secondary to acute kidney injury. Resolved. 6. Urinary retention. Has a Gan catheter. 7. Hematuria. Likely traumatic from Gan catheter insertion yesterday. Improved. Plan: Hep-Lock IV fluids. Maintain tube feeding. Avoid nephrotoxins. PEG tube placement pending. Continue to monitor renal function and urine output.
[2021-02-03 12:42] LABS: HCT 38.8 % (37.2-46.3); HGB 11.8 g/dL (12.0-15.0); MCH 29.9 pg (27.0-32.0); MCHC 30.4 g/dL (32.0-37.0); MCV 98.5 fL (80.0-97.0); Mean Platelet Volume 13.4 fL (9.5-12.2); Platelet Count 140 X 10*3/uL (140-440); RBC 3.94 X 10*6/uL (4.10-5.20); RDW 14.8 % (11.5-14.5); WBC 9.34 X 10*3/uL (4.50-10.00)
--- NOTE | 2021-02-03 15:33 | P.PN ---
Subjective Progress Note Date: 02/03/21 HISTORY OF PRESENT ILLNESS 85 years old female patient of Dr. Mack past medical history of hypertension hyperlipidemia coronary artery disease, chronic kidney disease unk nown stage presents with increasing confusion and hypoxia from [facility] on the [facility]. Apparently patient was brought to the ER at [facility] on 01/17 for worsening confusion and flulike symptoms. Patient went home as was not able to be seen for her symptoms soon enough and called her primary care physician who ordered a CAT scan of the head. CAT scan of the head was negative and patient was brought back to the ER on 01/18 and was treated for COVID pneumonia. Patient was discharged to [facility] [place] and was brought back to the ER 24- hour later for worsening shortness of breath.on evaluation in the ER patient is short of breath requiring 6 L of oxygen unable to answer any questions very drowsy on evaluation. She opens her eyes to question only to go back to sleep in a short while. Patient withdraws to pain but does not follow commands. No family member is present at bedside. Son was called multiple times but was unable to be reached. History is obtained through patient's and documentation by the ER. She has never been admitted in this hospital. Evaluation Suggests Hemoglobin Is 15.5 Platelet 185 INR 1 D-Dimer 2.1 Sodium 140 Potassium 4.9 Chloride 111 Bicarb 20 1B UN 53 Creatinine 2.2 Calcium Is 10.7 Magnesium 2.6 Lactic Acid 1.6 Alkaline Phosphatase 87, LDH 1076 CRP 20.8 Output (3.1. Pro- Calcitonin Is Pending. ProBNP Is Pending. Chest X-Ray suggested cardiomegaly and chronic parenchymal changes with right greater than left multifocal opacities metoprolol and suggestive of COVID-[address] head ordered to rule out acute stroke. Patient's home medication reconciled will hold torsemide, spironolactone. Nephrology course consult for possible end-stage renal disease. Unclear if patient is on him and on dialysis. Ultrasound of the renal obtained. neurology in consult for acute encephalopathy likely secondary to Covid. Patient does have underlying dementia?. We'll start patient on dexamethasone 6 mg IV every 12 hours. Start her on vitamin C, vitamin D and zinc. Pulmonary consulted for Covid pneumonia. 01/24 spoke to patient's son who did state that patient has underlying history of concussion and forgetfulness but no formal diagnosis of dementia has ever been made. She was speaking clearly and had no confusion 8 days ago. Patient had normal recovery of mental status after being discharged from the other hospital and transferred to [facility]. Son does suggest that patient has history of stent placement 3-4 years ago for coronary artery disease. She does follow nephrology as outpatient and has significant end-stage chronic kidney disease with plan to initiate hemodialysis if no improvement noted. On evaluation patient's mental status today patient's more responsive. She was refusing to eat. Swallow evaluation at bedside was not past. Patient continued to be on normal saline 75 mL per hour on evaluation patient's blood work sodium is 141 bicarb 18 creatinine 2.1 MCH slightly improved to 845 CRP is 18.9. Pro-calcitonin came at 0.6, TSH normal urinary analysis negative for any infection. Blood cultures negative continue remdesivir per pulmonary recommendations continue Decadron and elliquis . Hold Levemir 01/25: Patient has been seen by neurology with recommendations for ammonia level, TSH and vitamin B12 and folate. Patient continues to have significant confusion and MRI of the brain ordered. Patient is also been seen by pulmonary medicine with recommendations for continuing IV Decadron, patient was started on Remdesivir day #3/5. Patient is also followed by nephrology with plan to continue IV hydration and hold diuretics. Chest x-ray from yesterday revealed cardiomegaly and chronic parenchymal changes with right greater than left multifocal and confluent opacities mid to lower lung suggesting Covid 19 infection redemonstrated. No significant change. Renal ultrasound revealed bilateral renal atrophy. No obstructive calculus in the upper pole left kidney. No evidence of renal mass. No hydronephrosis. No bladder mass. CBC is unremarkable except for lymphocytes of 0.4. D-dimer 5.11. CO2 15, BUN 66 and creatinine 1.93. Blood sugars are running between 177 and 227. LDH 980. C- reactive protein 8.2. IV fluids are currently lactated Ringer's at 75 mL per hour,. 01/26: Patient continues to be unresponsive. No improvement of her mental status. Patient is currently a full code. [place] son Doug was contacted and was in agreement to change patient to a no CODE STATUS. Family is planning to do a virtual visit with her today. Also discussed PEG tube placement which they would like to pursue. Consult placed with general surgery. IV hydralazine as needed for blood pressure control. MRI of the brain revealed no acute findings of infarct. Moderate diffuse cerebral atrophy greatest over bilateral frontal lobes mild to moderate chronic small vessel ischemic change. KUB shows nonspecific findings. Patient had a small smear of bowel movement this morning only. Repeat blood work reveals WBC 9.4, hemoglobin 15.5, platelet count 223. D-dimer 5.51. Blood sugars running in the 300s area and Levemir 10 units at bedtime added as well as NovoLog 5 units every 6 hours. NovoLog scales been changed every 6 hours. Remdesivir day #01/11. 01/27: Patient's family came in yesterday to see her. She was made no code y day but they would like to pursue PEG tube. Patient was seen by Dr. Gordon and he wanted to evaluate for NG tube placement however patient is biting during oral care so she most likely would not be able be able to tolerate up NG tube. Discussed case with Dr. Mcmahan on an EEG ordered. We will plan to start patient on heparin drip for A. fib she has been off eliquis and PEG tube will most lik iqra be placed tomorrow. Patient continues to be unresponsive and dexamethasone will be discontinued and nursing to avoid morphine to see if these changes will improve her mental status. Repeat chest x-ray correlate for pneumonia, edema. Patient has been afebrile, heart rate 73, blood pressure 130/73, pulse ox 94% on 3 L nasal cannula. Sodium 150, potassium 4.7, chloride 116, CO2 30, BUN 64 and creatinine 1.42. Blood sugar 304. Blood sugars have been running between 220 and 309. Patient was started on Levemir 10 units at bedtime last evening and will be increased to 15 units as patient is continued on dextrose 5% at 75 mL per hour. Scheduled NovoLog every 6 hours will be increased to 6 units and continue NovoLog scale. Patient is on REM to severe day #02/10. 01/28 patient examined bedside. Is opening eyes and is able to follow simple commands legs show her thumb or wiggle her toes. Hold PEG tube placement today. Have bedside swallow evaluation with plan to put Dobbhoff tube for nutrition for a few days before going forward with PEG tube. Let us assessment suggest temp of 97.8 pulse 69 respiratory rate 20 blood pressure 168/79. At suggest a leukocytosis of 11.9 hemoglobin 15.2, sodium 150, BUN 15 creatinine 1.6 glucose 288. D5W been continued at 75 mL per hour. Nutrition consult placed for enteral tube feeding. Lantus increased to 20 units at a chills. Continue Nov oLog 6 units daily every 6 hours as patient is not having anything to eat. Continue to monitor mental status. 01/29 patient examined bedside. Very delayed response to the speech but patient seems to understand and respond. She does states"I'm okay"and lessens carefully to the conversation. Patient did have a speech evaluation yesterday and had a poor response to a half to a teaspoon of water trying. Patient was found coughing on an attempt to feed. Dobbhoff tube was placed which patient is tolerating well. Vitals signs of June pulse 69 respiratory rate 18 blood pressure 171/84 oxygen saturation 96% on 3 L of oxygen. Labs suggest a BUN of 49 and creatinine 1.25 which is improved compared to previous labs. Glucose still high at 260. A1c came is 9.5. Lantus increased to 25 units daily at bedtime. Amlodipine increased to 10 g by mouth daily. We will switch Eliquis and stop heparin Hold off patient's IV fluids. PTOT consulted with possible plan to discharge to subacute rehab once stabilized. Reassessment of nutrition status on Monday to evaluate for need for PEG tube 01/30: Patient examined at the bedside. She has delayed response to speech she is able to nod her head and answer questions appropriately. Patient is able to follow commands. She was evaluated by speech 2 days ago. And had a poor response to have a teaspoon of water. Patient currently has NG tube in place and receiving eternal feedings. Patient was reassessed for her nutrition status on Monday for possible PEG tube placement. 01/31: She was examined at bedside. She does have delayed response in speech. Able to nod head and answer some questions appropriately. Patient is able to follow some commands. She continues to have noted episodes of confusion. Patient was reevaluated by speech for consideration of a PEG tube. At this time NG tube is in place and receiving eternal feedings. 02/01: Patient still feeding via NG tube at this point. Patient be going for PEG tube respond to management overall still not good. Patient is still mildly hypoxic on O2 between 3-5 L. Still the plan to send patient to [facility] as soon as PEG tube is done and her oxygen level is decent on less than 5 L of O2. 02/02: Patient is scheduled for PEG tube placement today. Patient's O2 saturation 97% on 2 L via nasal cannula, vital signs are stable. Patient was n oted to have urinary retention, Gan catheter placed last night with over 1000 ml's of urine. Urine is dark and cloudy, will send for UA and culture and obtain an ultrasound to rule out obstructive uropathy. Kidney function did trend up a little, Cr 1.6, BUN 55 02/03: Dr. Gordon attempted PEG tube placement yesterday but pulse ox dropped down to the 60s and due to need for intubation, procedure was stopped. Multiple attempts have been made to contact patient's son, Doug. Patient is receiving tube feedings through NG tube. Gan catheter has good urine output. Chest x-ray from yesterday revealed scattered infiltrates. Repeat blood work reveals WBC 9.3, hemoglobin 11.8, platelet count 140. Sodium 142, potassium 5.2, chloride 111, CO2 25, BUN 42, creatinine 1.3. Blood sugars running between 130 and 227. We will continue to attempt to reach family regarding plan. REVIEW OF SYSTEMS Unable to obtain due to mental status. PHYSICAL EXAMINATION Gen: This is an 85-year-old female. Patient is resting in bed. No respiratory distress is noted. HEENT: Head is atraumatic, normocephalic. Pupils equal, round. Sclerae is anicteric. NECK: Supple. No JVD. No lymphadenopathy. No thyromegaly. LUNGS: Decreased breath sounds bilaterally. No wheezes or rhonchi. No intercostal retractions. HEART: Regular rate and rhythm. No murmur. ABDOMEN: Soft. Bowel sounds are present. No masses. No tenderness. EXTREMITIES: No pedal edema. No calf tenderness. NEUROLOGICAL: Patient is oriented 1, confused, able to nod head to answer questions. Generalized weakness. ASSESSMENT AND PLAN #1 acute infectious metabolic encephalopathy likely secondary to Covid with underlying short term memory loss from previous concussion. Unknown if patient has underlying dementia. #2 acute hypoxic respiratory failure secondary to Covid pneumonia. Continue Pro Air as needed for shortness of breath. Pulmonary consult appreciated. Mucinex as needed. Sputum culture. Discontinue dexamethasone. Continue Vitamin C, vitamin D and zinc. Inflammation markers are elevated. Completed Remdesivir. Continue oxygen therapy #3 acute kidney injury over chronic kidney disease stage 5 follows nephrology as outpatient at [facility] Patient has no prior baseline creatinine. Nephrol dov consult appreciated. Continue IV fluids of saline at 75 mL per hour. Hold torsemide hold Aldactone. #4 coronary artery disease status post stents 34 years ago Continue atorvastatin, isosorbide dinitrate continue Coreg 25 mg twice a day #5 hypothyroidism continue levothyroxine 50 g daily TSH normal #6 type 2 diabetes uncontrolled with hyperglycemia secondary to steroids. Levemir 25 units at bedtime, NovoLog 6 units every 6 hours. Continue with insulin sliding scale #7 hyperlipidemia continue atorvastatin 40 mg by mouth daily #8 hypertension. continue amlodipine 10 mg by mouth daily. Hydralazine 10 mg IV push every 6 hours as needed for systolic blood pressure greater than 160. #9. Generalized gout allopurinol 100 mg by mouth daily #10 atrial fibrillation Eliquis 2. 5 mg twice a day continue Coreg 25 twice a day. #11 CODE STATUS NO code per her son. #12 severe protein calorie malnutrition secondary to patient's inability to eat and no oral intake secondary to infectious encephalopathy from Covid 19. Consult with general surgery for PEG tube insertion. Unable to be inserted 13. hypernatremia sodium bicarb stopped. D5W at 75 mL per hour. CBC and CMP need to be monitored carefully 14. DVT prophylaxis. eliquis 15. GI prophylaxis Protonix 16. Urinary retention. Gan catheter inserted, will obtain UA with culture, ultrasound of the kidneys and bladder to rule out obstructive uropathy DISCHARGE PLAN Return to [facility]. Impression and plan of care have been directed as dictated by the signing physician. Lesly Núñez nurse practitioner acting as scribe for signing physician. Objective - Vital Signs Vital signs: Vital Signs Temp 98.7 F 02/03/21 09:57 Pulse 65 02/03/21 09:57 Resp 20 02/03/21 09:57 BP 129/65 02/03/21 09:57 Pulse Ox 95 02/03/21 09:57 Intake & Output 02/02/21 02/03/21 02/03/21 18:59 06:59 18:59 Intake Total 200 Output Total 625 Balance -425 Intake: IV 200 Output: Urine 625 Other: Voiding Method Indwelling Catheter Indwelling Catheter # Voids 1 - Labs CBC & Chem 7: 02/03/21 05:54 02/03/21 05:54 Labs: Abnormal Lab Results - Last 24 Hours (Table) 02/02/21 02/02/21 02/02/21 Range/Units 07:28 15:11 16:32 Potassium 5.6 H (3.5-5.5) mmol/L Chloride (96-109) mmol/L Anion Gap 3.30 L (4.00-12.00) mmol/L BUN 51.0 H (9.0-27.0) mg/dL Est GFR (CKD-EPI)AfAm 39.6 L (60.0-200.0) Est GFR (CKD-EPI)NonAf 34.2 L (60.0-200.0) BUN/Creatinine Ratio 36.43 H (12.00-20.00) Ratio Glucose 215 H (70-110) mg/dL POC Glucose (mg/dL) 130 H (75-99) mg/dL Total Protein (6.2-8.2) g/dL Albumin (3.80-4.90) g/dL Albumin/Globulin Ratio (1.60-3.17) g/dL Urine Appearance Cloudy H (Clear) Urine Protein 1+ H (Negative) Urine Blood Large H (Negative) Ur Leukocyte Esterase Large H (Negative) Urine RBC >182 H (0-5) /hpf Urine WBC 161 H (0-5) /hpf 02/03/21 02/03/21 02/03/21 Range/Units 00:18 05:54 06:04 Potassium (3.5-5.5) mmol/L Chloride 111 H (96-109) mmol/L Anion Gap (4.00-12.00) mmol/L BUN 42.0 H (9.0-27.0) mg/dL Est GFR (CKD-EPI)AfAm 43.3 L (60.0-200.0) Est GFR (CKD-EPI)NonAf 37.4 L (60.0-200.0) BUN/Creatinine Ratio 32.31 H (12.00-20.00) Ratio Glucose 158 H (70-110) mg/dL POC Glucose (mg/dL) 227 H 161 H (75-99) mg/dL Total Protein 4.2 L (6.2-8.2) g/dL Albumin 2.50 L (3.80-4.90) g/dL Albumin/Globulin Ratio 1.47 L (1.60-3.17) g/dL Urine Appearance (Clear) Urine Protein (Negative) Urine Blood (Negative) Ur Leukocyte Esterase (Negative) Urine RBC (0-5) /hpf Urine WBC (0-5) /hpf 02/03/21 Range/Units 11:27 Potassium (3.5-5.5) mmol/L Chloride (96-109) mmol/L Anion Gap (4.00-12.00) mmol/L BUN (9.0-27.0) mg/dL Est GFR (CKD-EPI)AfAm (60.0-200.0) Est GFR (CKD-EPI)NonAf (60.0-200.0) BUN/Creatinine Ratio (12.00-20.00) Ratio Glucose (70-110) mg/dL POC Glucose (mg/dL) 115 H (75-99) mg/dL Total Protein (6.2-8.2) g/dL Albumin (3.80-4.90) g/dL Albumin/Globulin Ratio (1.60-3.17) g/dL Urine Appearance (Clear) Urine Protein (Negative) Urine Blood (Negative) Ur Leukocyte Esterase (Negative) Urine RBC (0-5) /hpf Urine WBC (0-5) /hpf Microbiology - Last 24 Hours (Table) 02/02/21 15:11 Urine Culture - Preliminary Urine,Clean Catch
[2021-02-03 16:42] LABS: Glucose,Whole Blood 155 mg/dL (75-99)
[2021-02-03 22:30] LABS: Glucose,Whole Blood 149 mg/dL (75-99)
[2021-02-03] MEDS: ATORVASTATIN 40 MG TAB PO SCH (22:34)
[2021-02-03] MEDS: INSULIN DETEMIR (LEVEMIR) 100 UNIT/ML SYR SQ SCH (22:35)
[2021-02-04] MEDS: SODIUM CHLORIDE 0.9% 1,000 ML IV SCH (06:03)
[2021-02-04] MEDS: LEVOTHYROXINE 50 MCG TAB PO SCH (06:03)
[2021-02-04 06:20] LABS: Glucose,Whole Blood 195 mg/dL (75-99)
[2021-02-04] MEDS: INSULIN ASPART (NovoLOG) 100 UNIT/ML VIAL SQ SCH ×6 (07:34→17:54)
[2021-02-04] MEDS: carvediloL 12.5 MG TAB PO SCH ×2 (09:01→17:56)
[2021-02-04] MEDS: APIXABAN 2.5 MG TABLET PO SCH ×2 (09:01→22:03)
[2021-02-04] MEDS: ISOSORBIDE DINITRATE 10 MG TAB PO SCH (09:02)
[2021-02-04] MEDS: PANTOPRAZOLE 40 MG TABLET PO SCH (09:02)
[2021-02-04] MEDS: NYSTATIN 100,000 UNIT/ML SUSP 500,000 UNIT/5 ML CUP PO SCH ×4 (09:02→22:15)
[2021-02-04] MEDS: guaiFENesin 600 MG TABLET.ER PO SCH ×2 (09:02→22:02)
[2021-02-04] MEDS: amLODIPine 10 MG TAB PO SCH (09:02)
[2021-02-04 11:28] LABS: Glucose,Whole Blood 140 mg/dL (75-99)
--- NOTE | 2021-02-04 13:00 | P.PN ---
Subjective Patient is seen in follow-up for acute kidney injury. Unknown baseline renal function. Renal function improving - creatinine 1.3 as of yesterday. Gan catheter placed due to urinary retention. Currently on normal saline and also receiving tube feeding. Hemodynamically stable. No changes overnight. Vital signs are stable. General: The patient appeared well nourished and normally developed. HEENT: NG tube noted. LUNGS: Breath sounds decreased. HEART: Rate and Rhythm are regular. ABDOMEN: Soft, no distention. EXTREMITITES: No edema. Objective - Vital Signs Vital signs: Vital Signs Temp 98.0 F 02/04/21 10:00 Pulse 71 02/04/21 10:00 Resp 22 02/04/21 10:00 BP 146/78 02/04/21 10:00 Pulse Ox 98 02/04/21 10:00 Intake & Output 02/03/21 02/04/21 02/04/21 18:59 06:59 18:59 Output Total 150 Balance -150 Weight 93.2 kg Output: Urine 150 Other: Voiding Method Indwelling Catheter Indwelling Catheter Indwelling Catheter # Voids 1 - Labs CBC & Chem 7: 02/03/21 05:54 02/03/21 05:54 Labs: Abnormal Lab Results - Last 24 Hours (Table) 02/03/21 02/03/21 02/04/21 Range/Units 16:41 22:29 06:12 POC Glucose (mg/dL) 155 H 149 H 195 H (75-99) mg/dL 02/04/21 Range/Units 11:25 POC Glucose (mg/dL) 140 H (75-99) mg/dL Microbiology - Last 24 Hours (Table) 02/02/21 15:11 Urine Culture - Preliminary Urine,Clean Catch Gram Neg Bacilli Assessment and Plan Plan: Assessment: 1. Acute kidney injury secondary to ATN secondary to COVID-19 infection. Renal function improved. Creatinine 1.3 as of yesterday. Unknown baseline renal function. 2. Hypernatremia from lack of oral water intake, status post D5W. Improved. 3. Diabetes mellitus. 4. Benign hypertension. Stable. 5. Metabolic acidosis secondary to acute kidney injury. Resolved. 6. Urinary retention. Has a Gan catheter. Plan: Stop IV fluids. Maintain tube feeding. Avoid nephrotoxins. PEG tube placement pending. Continue to monitor renal function and urine output.
[2021-02-04] MEDS: MORPHINE SULFATE 2 MG/ML SYRINGE IVP PRN (14:01)
--- NOTE | 2021-02-04 14:05 | P.PN ---
Subjective Progress Note Date: 02/04/21 HISTORY OF PRESENT ILLNESS 85 years old female patient of Dr. Mack past medical history of hypertension hyperlipidemia coronary artery disease, chronic kidney disease unk nown stage presents with increasing confusion and hypoxia from [facility]. Apparently patient was brought to the ER at [facility] on 01/17 for worsening confusion and flulike symptoms. Patient went home as was not able to be seen for her symptoms soon enough and called her primary care physician who ordered a CAT scan of the head. CAT scan of the head was negative and patient was brought back to the ER on 01/18 and was treated for COVID pneumonia. Patient was discharged to [facility] [place] and was brought back to the ER 24- hour later for worsening shortness of breath.on evaluation in the ER patient is short of breath requiring 6 L of oxygen unable to answer any questions very drowsy on evaluation. She opens her eyes to question only to go back to sleep in a short while. Patient withdraws to pain but does not follow commands. No family member is present at bedside. Son was called multiple times but was unable to be reached. History is obtained through patient's and documentation by the ER. She has never been admitted in this hospital. Evaluation Suggests Hemoglobin Is 15.5 Platelet 185 INR 1 D-Dimer 2.1 Sodium 140 Potassium 4.9 Chloride 111 Bicarb 20 1B UN 53 Creatinine 2.2 Calcium Is 10.7 Magnesium 2.6 Lactic Acid 1.6 Alkaline Phosphatase 87, LDH 1076 CRP 20.8 Output (3.1. Pro- Calcitonin Is Pending. ProBNP Is Pending. Chest X-Ray suggested cardiomegaly and chronic parenchymal changes with right greater than left multifocal opacities metoprolol and suggestive of COVID-[address] head ordered to rule out acute stroke. Patient's home medication reconciled will hold torsemide, spironolactone. Nephrology course consult for possible end-stage renal disease. Unclear if patient is on him and on dialysis. Ultrasound of the renal obtained. neurology in consult for acute encephalopathy likely secondary to Covid. Patient does have underlying dementia?. We'll start patient on dexamethasone 6 mg IV every 12 hours. Start her on vitamin C, vitamin D and zinc. Pulmonary consulted for Covid pneumonia. 01/24 spoke to patient's son who did state that patient has underlying history of concussion and forgetfulness but no formal diagnosis of dementia has ever been made. She was speaking clearly and had no confusion 8 days ago. Patient had normal recovery of mental status after being discharged from the other hospital and transferred to [facility]. Son does suggest that patient has history of stent placement 3-4 years ago for coronary artery disease. She does follow nephrology as outpatient and has significant end-stage chronic kidney disease with plan to initiate hemodialysis if no improvement noted. On evaluation patient's mental status today patient's more responsive. She was refusing to eat. Swallow evaluation at bedside was not past. Patient continued to be on normal saline 75 mL per hour on evaluation patient's blood work sodium is 141 bicarb 18 creatinine 2.1 MCH slightly improved to 845 CRP is 18.9. Pro-calcitonin came at 0.6, TSH normal urinary analysis negative for any infection. Blood cultures negative continue remdesivir per pulmonary recommendations continue Decadron and elliquis . Hold Levemir 01/25: Patient has been seen by neurology with recommendations for ammonia level, TSH and vitamin B12 and folate. Patient continues to have significant confusion and MRI of the brain ordered. Patient is also been seen by pulmonary medicine with recommendations for continuing IV Decadron, patient was started on Remdesivir day #3/5. Patient is also followed by nephrology with plan to continue IV hydration and hold diuretics. Chest x-ray from yesterday revealed cardiomegaly and chronic parenchymal changes with right greater than left multifocal and confluent opacities mid to lower lung suggesting Covid 19 infection redemonstrated. No significant change. Renal ultrasound revealed bilateral renal atrophy. No obstructive calculus in the upper pole left kidney. No evidence of renal mass. No hydronephrosis. No bladder mass. CBC is unremarkable except for lymphocytes of 0.4. D-dimer 5.11. CO2 15, BUN 66 and creatinine 1.93. Blood sugars are running between 177 and 227. LDH 980. C- reactive protein 8.2. IV fluids are currently lactated Ringer's at 75 mL per hour,. 01/26: Patient continues to be unresponsive. No improvement of her mental status. Patient is currently a full code. [place] son Doug was contacted and was in agreement to change patient to a no CODE STATUS. Family is planning to do a virtual visit with her today. Also discussed PEG tube placement which they would like to pursue. Consult placed with general surgery. IV hydralazine as needed for blood pressure control. MRI of the brain revealed no acute findings of infarct. Moderate diffuse cerebral atrophy greatest over bilateral frontal lobes mild to moderate chronic small vessel ischemic change. KUB shows nonspecific findings. Patient had a small smear of bowel movement this morning only. Repeat blood work reveals WBC 9.4, hemoglobin 15.5, platelet count 223. D-dimer 5.51. Blood sugars running in the 300s area and Levemir 10 units at bedtime added as well as NovoLog 5 units every 6 hours. NovoLog scales been changed every 6 hours. Remdesivir day #01/11. 01/27: Patient's family came in yesterday to see her. She was made no code y day but they would like to pursue PEG tube. Patient was seen by Dr. Gordon and he wanted to evaluate for NG tube placement however patient is biting during oral care so she most likely would not be able be able to tolerate up NG tube. Discussed case with Dr. Mcamhan on an EEG ordered. We will plan to start patient on heparin drip for A. fib she has been off eliquis and PEG tube will most lik iqra be placed tomorrow. Patient continues to be unresponsive and dexamethasone will be discontinued and nursing to avoid morphine to see if these changes will improve her mental status. Repeat chest x-ray correlate for pneumonia, edema. Patient has been afebrile, heart rate 73, blood pressure 130/73, pulse ox 94% on 3 L nasal cannula. Sodium 150, potassium 4.7, chloride 116, CO2 30, BUN 64 and creatinine 1.42. Blood sugar 304. Blood sugars have been running between 220 and 309. Patient was started on Levemir 10 units at bedtime last evening and will be increased to 15 units as patient is continued on dextrose 5% at 75 mL per hour. Scheduled NovoLog every 6 hours will be increased to 6 units and continue NovoLog scale. Patient is on REM to severe day #02/10. 01/28 patient examined bedside. Is opening eyes and is able to follow simple commands legs show her thumb or wiggle her toes. Hold PEG tube placement today. Have bedside swallow evaluation with plan to put Dobbhoff tube for nutrition for a few days before going forward with PEG tube. Let us assessment suggest temp of 97.8 pulse 69 respiratory rate 20 blood pressure 168/79. At suggest a leukocytosis of 11.9 hemoglobin 15.2, sodium 150, BUN 15 creatinine 1.6 glucose 288. D5W been continued at 75 mL per hour. Nutrition consult placed for enteral tube feeding. Lantus increased to 20 units at a chills. Continue Nov oLog 6 units daily every 6 hours as patient is not having anything to eat. Continue to monitor mental status. 01/29 patient examined bedside. Very delayed response to the speech but patient seems to understand and respond. She does states"I'm okay"and lessens carefully to the conversation. Patient did have a speech evaluation yesterday and had a poor response to a half to a teaspoon of water trying. Patient was found coughing on an attempt to feed. Dobbhoff tube was placed which patient is tolerating well. Vitals signs of June pulse 69 respiratory rate 18 blood pressure 171/84 oxygen saturation 96% on 3 L of oxygen. Labs suggest a BUN of 49 and creatinine 1.25 which is improved compared to previous labs. Glucose still high at 260. A1c came is 9.5. Lantus increased to 25 units daily at bedtime. Amlodipine increased to 10 g by mouth daily. We will switch Eliquis and stop heparin Hold off patient's IV fluids. PTOT consulted with possible plan to discharge to subacute rehab once stabilized. Reassessment of nutrition status on Monday to evaluate for need for PEG tube 01/30: Patient examined at the bedside. She has delayed response to speech she is able to nod her head and answer questions appropriately. Patient is able to follow commands. She was evaluated by speech 2 days ago. And had a poor response to have a teaspoon of water. Patient currently has NG tube in place and receiving eternal feedings. Patient was reassessed for her nutrition status on Monday for possible PEG tube placement. 01/31: She was examined at bedside. She does have delayed response in speech. Able to nod head and answer some questions appropriately. Patient is able to follow some commands. She continues to have noted episodes of confusion. Patient was reevaluated by speech for consideration of a PEG tube. At this time NG tube is in place and receiving eternal feedings. 02/01: Patient still feeding via NG tube at this point. Patient be going for PEG tube respond to management overall still not good. Patient is still mildly hypoxic on O2 between 3-5 L. Still the plan to send patient to [facility] as soon as PEG tube is done and her oxygen level is decent on less than 5 L of O2. 02/02: Patient is scheduled for PEG tube placement today. Patient's O2 saturation 97% on 2 L via nasal cannula, vital signs are stable. Patient was n oted to have urinary retention, Gan catheter placed last night with over 1000 ml's of urine. Urine is dark and cloudy, will send for UA and culture and obtain an ultrasound to rule out obstructive uropathy. Kidney function did trend up a little, Cr 1.6, BUN 55 02/03: Dr. Gordon attempted PEG tube placement yesterday but pulse ox dropped down to the 60s and due to need for intubation, procedure was stopped. Multiple attempts have been made to contact patient's son, Doug. Patient is receiving tube feedings through NG tube. Gan catheter has good urine output. Chest x-ray from yesterday revealed scattered infiltrates. Repeat blood work reveals WBC 9.3, hemoglobin 11.8, platelet count 140. Sodium 142, potassium 5.2, chloride 111, CO2 25, BUN 42, creatinine 1.3. Blood sugars running between 130 and 227. We will continue to attempt to reach family regarding plan. 02/04: Dr. Abad spoke with the patient's sons yesterday and they were going to have a conversation and determine whether the make patient comfort care only. Patient's mental status is slightly worse from yesterday. She has been afebrile, heart rate 81, blood pressure 146/70, pulse ox 98% on 3 L nasal cannula. Blood sugars are running between 140 and 155. Urine culture is showing gram-negative bacilli. Patient has Gan catheter in place. Patient is on tube feedings through NG tube. REVIEW OF SYSTEMS Unable to obtain due to mental status. PHYSICAL EXAMINATION Gen: This is an 85-year-old female. Patient is resting in bed. No respiratory distress is noted. HEENT: Head is atraumatic, normocephalic. Pupils equal, round. Sclerae is anicteric. NECK: Supple. No JVD. No lymphadenopathy. No thyromegaly. LUNGS: Decreased breath sounds bilaterally. No wheezes or rhonchi. No intercostal retractions. HEART: Regular rate and rhythm. No murmur. ABDOMEN: Soft. Bowel sounds are present. No masses. No tenderness. EXTREMITIES: No pedal edema. No calf tenderness. NEUROLOGICAL: Patient is oriented 1, confused, able to nod head to answer questions. Generalized weakness. ASSESSMENT AND PLAN #1 acute infectious metabolic encephalopathy likely secondary to Covid with underlying short term memory loss from previous concussion. Unknown if patient has underlying dementia. #2 acute hypoxic respiratory failure secondary to Covid pneumonia. Continue Pro Air as needed for shortness of breath. Pulmonary consult appreciated. Mucinex as needed. Sputum culture. Discontinue dexamethasone. Continue Vitamin C, vitamin D and zinc. Inflammation markers are elevated. Completed Remdesivir. Continue oxygen therapy #3 acute kidney injury over chronic kidney disease stage 5 follows nephrology as outpatient at [facility] Patient has no prior baseline creatinine. Nephrology consult appreciated. Continue IV fluids of saline at 75 mL per hour. Hold torsemide hold Aldactone. #4 coronary artery disease status post stents 34 years ago Continue atorva statin, isosorbide dinitrate continue Coreg 25 mg twice a day #5 hypothyroidism continue levothyroxine 50 g daily TSH normal #6 type 2 diabetes uncontrolled with hyperglycemia secondary to steroids. Levemir 25 units at bedtime, NovoLog 6 units every 6 hours. Continue with insulin sliding scale #7 hyperlipidemia continue atorvastatin 40 mg by mouth daily #8 hypertension. continue amlodipine 10 mg by mouth daily. Hydralazine 10 mg IV push every 6 hours as needed for systolic blood pressure greater than 160. #9. Generalized gout allopurinol 100 mg by mouth daily #10 atrial fibrillation Eliquis 2. 5 mg twice a day continue Coreg 25 twice a day. #11 CODE STATUS NO code per her son. #12 severe protein calorie malnutrition secondary to patient's inability to eat and no oral intake secondary to infectious encephalopathy from Covid 19. Consult with general surgery for PEG tube insertion. Unable to be inserted 13. hypernatremia sodium bicarb stopped. D5W at 75 mL per hour. CBC and CMP need to be monitored carefully 14. DVT prophylaxis. eliquis 15. GI prophylaxis Protonix 16. Urinary retention. Gan catheter inserted, will obtain UA with culture. DISCHARGE PLAN Return to [facility]. Impression and plan of care have been directed as dictated by the signing physician. Lesly Núñez nurse practitioner acting as scribe for signing physician. Objective - Vital Signs Vital signs: Vital Signs Temp 98.0 F 02/04/21 10:00 Pulse 71 02/04/21 10:00 Resp 22 02/04/21 10:00 BP 146/78 02/04/21 10:00 Pulse Ox 98 02/04/21 10:00 Intake & Output 02/03/21 02/04/21 02/04/21 18:59 06:59 18:59 Output Total 150 Balance -150 Weight 93.2 kg Output: Urine 150 Other: Voiding Method Indwelling Catheter Indwelling Catheter Indwelling Catheter # Voids 1 - Labs CBC & Chem 7: 02/03/21 05:54 02/03/21 05:54 Labs: Abnormal Lab Results - Last 24 Hours (Table) 02/03/21 02/03/21 02/03/21 Range/Units 05:54 11:27 16:41 RBC 3.94 L (4.10-5.20) X 10*6/uL Hgb 11.8 L (12.0-15.0) g/dL MCV 98.5 H (80.0-97.0) fL MCHC 30.4 L (32.0-37.0) g/dL RDW 14.8 H (11.5-14.5) % MPV 13.4 H (9.5-12.2) fL POC Glucose (mg/dL) 115 H 155 H (75-99) mg/dL 02/03/21 02/04/21 Range/Units 22:29 06:12 RBC (4.10-5.20) X 10*6/uL Hgb (12.0-15.0) g/dL MCV (80.0-97.0) fL MCHC (32.0-37.0) g/dL RDW (11.5-14.5) % MPV (9.5-12.2) fL POC Glucose (mg/dL) 149 H 195 H (75-99) mg/dL Microbiology - Last 24 Hours (Table) 02/02/21 15:11 Urine Culture - Preliminary Urine,Clean Catch Gram Neg Bacilli
[2021-02-04 15:22] VITALS: BMI 32.1
[2021-02-04 17:38] LABS: Glucose,Whole Blood 122 mg/dL (75-99)
[2021-02-04] MEDS: INSULIN DETEMIR (LEVEMIR) 100 UNIT/ML SYR SQ SCH (22:02)
[2021-02-04] MEDS: ATORVASTATIN 40 MG TAB PO SCH (22:03)
[2021-02-05 00:35] LABS: Glucose,Whole Blood 190 mg/dL (75-99)
[2021-02-05] MEDS: INSULIN ASPART (NovoLOG) 100 UNIT/ML VIAL SQ SCH ×6 (00:39→11:50)
[2021-02-05 06:39] LABS: Glucose,Whole Blood 99 mg/dL (75-99)
[2021-02-05] MEDS: LEVOTHYROXINE 50 MCG TAB PO SCH ×2 (07:08→07:14)
[2021-02-05] MEDS: NYSTATIN 100,000 UNIT/ML SUSP 500,000 UNIT/5 ML CUP PO SCH ×4 (10:06→21:51)
[2021-02-05] MEDS: PANTOPRAZOLE 40 MG TABLET PO SCH (10:11)
[2021-02-05] MEDS: carvediloL 12.5 MG TAB PO SCH ×2 (10:11→17:58)
[2021-02-05] MEDS: APIXABAN 2.5 MG TABLET PO SCH ×2 (10:11→21:51)
[2021-02-05] MEDS: amLODIPine 10 MG TAB PO SCH (10:12)
[2021-02-05] MEDS: guaiFENesin 600 MG TABLET.ER PO SCH ×2 (10:15→21:51)
[2021-02-05] MEDS: ISOSORBIDE DINITRATE 10 MG TAB PO SCH (10:17)
--- NOTE | 2021-02-05 10:51 | P.DS ---
Providers Date of admission: 01/23/21 13:31 Expected date of discharge: 02/05/21 Attending physician: Isabel Pratt MD Consults: 01/23/21 13:32 Consult Physician Routine Consulting Provider: Bandar Costello Consult Reason/Comments: covid pna Do you want consulting provider notified?: Yes 01/23/21 16:03 Consult Physician Routine Consulting Provider: Rafiq Rushing Consult Reason/Comments: encephalopathy Do you want consulting provider notified?: Yes 01/23/21 16:15 Consult Physician Routine Consulting Provider: Rohit John Consult Reason/Comments: DANIEL on CKD Do you want consulting provider notified?: Yes 01/26/21 11:36 Consult Physician Routine Consulting Provider: Mike Gordon Consult Reason/Comments: Peg insertion Do you want consulting provider notified?: Yes Primary care physician: Vee Mack [facility] Course: HISTORY OF PRESENT ILLNESS 85 years old female patient of Dr. Mack past medical history of hypertension hyperlipidemia coronary artery disease, chronic kidney disease unknown stage presents with increasing confusion and hypoxia from [facility]. Apparently patient was brought to the ER at [facility] on 01/17 for worsening confusion and flulike symptoms. Patient went home as was not able to be seen for her symptoms soon enough and called her primary care physician who ordered a CAT scan of the head. CAT scan of the head was negative and patient was brought back to the ER on 01/18 and was treated for COVID pneumonia. Patient was discharged to [facility] and was brought back to the ER 24- hour later for worsening shortness of breath.on evaluation in the ER patient is short of breath requiring 6 L of oxygen unable to answer any questions very drowsy on evaluation. She opens her eyes to question only to go back to sleep in a short while. Patient withdraws to pain but does not follow commands. No family member is present at bedside. Son was called multiple times but was unable to be reached. History is obtained through patient's and documentation by the ER. She has never been admitted in this hospital. Evaluation Suggests Hemoglobin Is 15.5 Platelet 185 INR 1 D-Dimer 2.1 Sodium 140 Potassium 4.9 Chloride 111 Bicarb 20 1B UN 53 Creatinine 2.2 Calcium Is 10.7 Magnesium 2.6 Lactic Acid 1.6 Alkaline Phosphatase 87, LDH 1076 CRP 20.8 Output (3.1. Pro-Chai citonin Is Pending. ProBNP Is Pending. Chest X-Ray suggested cardiomegaly and chronic parenchymal changes with right greater than left multifocal opacities metoprolol and suggestive of COVID-[address] head ordered to rule out acute stroke. Patient's home medication reconciled will hold torsemide, spironolactone. Nephrology course consult for possible end-stage renal disease. Unclear if patient is on him and on dialysis. Ultrasound of the renal obtained. neurology in consult for acute encephalopathy likely secondary to Covid. Patient does have underlying dementia?. We'll start patient on dexamethasone 6 mg IV every 12 hours. Start her on vitamin C, vitamin D and zinc. Pulmonary consulted for Covid pneumonia. 01/24 spoke to patient's son who did state that patient has underlying history of concussion and forgetfulness but no formal diagnosis of dementia has ever been made. She was speaking clearly and had no confusion 8 days ago. Patient had normal recovery of mental status after being discharged from the other hospital and transferred to [facility]. Son does suggest that patient has history of stent placement 3-4 years ago for coronary artery disease. She does follow nephrology as outpatient and has significant end-stage chronic kidney disease with plan to initiate hemodialysis if no improvement noted. On evaluation patient's mental status today patient's more responsive. She was refusing to eat. Swallow evaluation at bedside was not past. Patient continued to be on normal saline 75 mL per hour on evaluation patient's blood work sodium is 141 bicarb 18 creatinine 2.1 MCH slightly improved to 845 CRP is 18.9. Pro-calcitonin came at 0.6, TSH normal urinary analysis negative for any infection. Blood cultures negative continue remdesivir per pulmonary recommendations continue Decadron and elliquis . Hold Levemir 01/25: Patient has been seen by neurology with recommendations for ammonia level, TSH and vitamin B12 and folate. Patient continues to have significant confusion and MRI of the brain ordered. Patient is also been seen by pulmonary medicine with recommendations for continuing IV Decadron, patient was started on Remdesivir day #3/5. Patient is also followed by nephrology with plan to continue IV hydration and hold diuretics. Chest x-ray from yesterday revealed cardiomegaly and chronic parenchymal changes with right greater than left multifocal and confluent opacities mid to lower lung suggesting Covid 19 infection redemonstrated. No significant change. Renal ultrasound revealed bilateral renal atrophy. No obstructive calculus in the upper pole left kidney. No evidence of renal mass. No hydronephrosis. No bladder mass. CBC is unremarkable except for lymphocytes of 0.4. D-dimer 5.11. CO2 15, BUN 66 and creatinine 1.93. Blood sugars are running between 177 and 227. LDH 980. C- reactive protein 8.2. IV fluids are currently lactated Ringer's at 75 mL per ho ur,. 01/26: Patient continues to be unresponsive. No improvement of her mental status. Patient is currently a full code. Ethiopian son Doug was contacted and was in agreement to change patient to a no CODE STATUS. Family is planning to do a virtual visit with her today. Also discussed PEG tube placement which they would like to pursue. Consult placed with general surgery. IV hydralazine as needed for blood pressure control. MRI of the brain revealed no acute findings of infarct. Moderate diffuse cerebral atrophy greatest over bilateral frontal lobes mild to moderate chronic small vessel ischemic change. KUB shows nonspecific findings. Patient had a small smear of bowel movement this morning only. Repeat blood work reveals WBC 9.4, hemoglobin 15.5, platelet count 223. D-dimer 5.51. Blood sugars running in the 300s area and Levemir 10 units at bedtime added as well as NovoLog 5 units every 6 hours. NovoLog scales been changed every 6 hours. Remdesivir day #4/5. 01/27: Patient's family came in yesterday to see her. She was made no code yesterday but they would like to pursue PEG tube. Patient was seen by Dr. Gordon and he wanted to evaluate for NG tube placement however patient is biting during oral care so she most likely would not be able be able to tolerate up NG tube. Discussed case with Dr. Mcmahan on an EEG ordered. We will plan to start patient on heparin drip for A. fib she has been off eliquis and PEG tube will most likely be placed tomorrow. Patient continues to be unresponsive and dexamethasone will be discontinued and nursing to avoid morphine to see if these changes will improve her mental status. Repeat chest x-ray correlate for pneumonia, edema. Patient has been afebrile, heart rate 73, blood pressure 130/73, pulse ox 94% on 3 L nasal cannula. Sodium 150, potassium 4.7, chloride 116, CO2 30, BUN 64 and creatinine 1.42. Blood sugar 304. Blood sugars have been running between 220 and 309. Patient was started on Levemir 10 units at bedtime last evening and will be increased to 15 units as patient is continued on dextrose 5% at 75 mL per hour. Scheduled NovoLog every 6 hours will be increased to 6 units and continue NovoLog scale. Patient is on REM to severe day #5/5. 01/28 patient examined bedside. Is opening eyes and is able to follow simple commands legs show her thumb or wiggle her toes. Hold PEG tube placement today. Have bedside swallow evaluation with plan to put Dobbhoff tube for nutrition for a few days before going forward with PEG tube. Let us assessment suggest temp of 97.8 pulse 69 respiratory rate 20 blood pressure 168/79. At suggest a leukocytosis of 11.9 hemoglobin 15.2, sodium 150, BUN 15 creatinine 1.6 glucose 288. D5W been continued at 75 mL per hour. Nutrition consult placed for entera l tube feeding. Lantus increased to 20 units at a chills. Continue NovoLog 6 units daily every 6 hours as patient is not having anything to eat. Continue to monitor mental status. 01/29 patient examined bedside. Very delayed response to the speech but patient seems to understand and respond. She does states"I'm okay"and lessens carefully to the conversation. Patient did have a speech evaluation yesterday and had a poor response to a half to a teaspoon of water trying. Patient was found coughing on an attempt to feed. Dobbhoff tube was placed which patient is tolerating well. Vitals signs of June pulse 69 respiratory rate 18 blood pressure 171/84 oxygen saturation 96% on 3 L of oxygen. Labs suggest a BUN of 49 and creatinine 1.25 which is improved compared to previous labs. Glucose still high at 260. A1c came is 9.5. Lantus increased to 25 units daily at bedtime. Amlodipine increased to 10 g by mouth daily. We will switch Eliquis and stop heparin Hold off patient's IV fluids. PTOT consulted with possible plan to discharge to subacute rehab once stabilized. Reassessment of nutrition status on Monday to evaluate for need for PEG tube 01/30: Patient examined at the bedside. She has delayed response to speech she is able to nod her head and answer questions appropriately. Patient is able to follow commands. She was evaluated by speech 2 days ago. And had a poor response to have a teaspoon of water. Patient currently has NG tube in place and receiving eternal feedings. Patient was reassessed for her nutrition status on Monday for possible PEG tube placement. 01/31: She was examined at bedside. She does have delayed response in speech. Able to nod head and answer some questions appropriately. Patient is able to follow some commands. She continues to have noted episodes of confusion. Patient was reevaluated by speech for consideration of a PEG tube. At this time NG tube is in place and receiving eternal feedings. 02/01: Patient still feeding via NG tube at this point. Patient be going for PEG tube respond to management overall still not good. Patient is still mildly hypoxic on O2 between 3-5 L. Still the plan to send patient to [facility] as soon as PEG tube is done and her oxygen level is decent on less than 5 L of O2. 02/02: Patient is scheduled for PEG tube placement today. Patient's O2 saturat ion 97% on 2 L via nasal cannula, vital signs are stable. Patient was noted to have urinary retention, Gan catheter placed last night with over 1000 ml's of urine. Urine is dark and cloudy, will send for UA and culture and obtain an ultrasound to rule out obstructive uropathy. Kidney function did trend up a little, Cr 1.6, BUN 55 02/03: Dr. Gordon attempted PEG tube placement yesterday but pulse ox dropped down to the 60s and due to need for intubation, procedure was stopped. Multiple attempts have been made to contact patient's son, Doug. Patient is receiving tube feedings through NG tube. Gan catheter has good urine output. Chest x-ray from yesterday revealed scattered infiltrates. Repeat blood work reveals WBC 9.3, hemoglobin 11.8, platelet count 140. Sodium 142, potassium 5.2, chloride 111, CO2 25, BUN 42, creatinine 1.3. Blood sugars running between 130 and 227. We will continue to attempt to reach family regarding plan. 02/04: Dr. Suárez spoke with the patient's sons yesterday and they were going to have a conversation and determine whether the make patient comfort care only. Patient's mental status is slightly worse from yesterday. She has been afebrile, heart rate 81, blood pressure 146/70, pulse ox 98% on 3 L nasal cannula. Blood sugars are running between 140 and 155. Urine culture is showing gram-negative bacilli. Patient has Gan catheter in place. Patient is on tube feedings through NG tube. 02/05: Family have decided on comfort care. Dobbhoff to be discontinued prior to discharge. All insulins will be discontinued as this morning patient is 55. She will not be receiving any tube feedings. Patient is refusing to take her oral medications. Patient will be discharged to [facility] under comfort care. ASSESSMENT AND PLAN #1 acute infectious metabolic encephalopathy likely secondary to Covid with underlying short term memory loss from previous concussion. #2 acute hypoxic respiratory failure secondary to Covid pneumonia. #3 acute kidney injury over chronic kidney disease stage 5 #4 coronary artery disease status post stents 34 years ago #5 hypothyroidism #6 type 2 diabetes uncontrolled with hyperglycemia secondary to steroids #7 hyperlipidemia #8 hypertension. 9. Generalized gout 10. Paroxysmal atrial fibrillation 11. Severe protein calorie malnutrition secondary to patient's inability to eat and no oral intake secondary to infectious encephalopathy from Covid 19. 12. Hypernatremia 13. Urinary retention. DISCHARGE PLAN Return to [facility]. Impression and plan of care have been directed as dictated by the signing physician. Lesly Núñez nurse practitioner acting as scribe for signing physician. Patient Condition at Discharge: Stable Plan - Discharge Summary Discharge Rx Participant: No New Discharge Prescriptions: Continue Levothyroxine Sodium [Synthroid] 50 mcg PO DAILY@0600 Carvedilol [Coreg] 25 mg PO BID@0900,1700 Apixaban [Eliquis] 2.5 mg PO BID@0900,1700 Isosorbide Dinitrate 30 mg PO DAILY amLODIPine [Norvasc] 5 mg PO DAILY Discontinued Insulin Lispro [humaLOG Kwikpen] 14 unit SQ AC-BID@1200,1700 Insulin Lispro [humaLOG Kwikpen] 12 unit SQ AC-BRKFST@0800 Torsemide [Demadex] 40 mg PO SUMOWEFR@0900 Mirtazapine [Remeron] 15 mg PO HS Ipratropium Ruby [Atrovent Hfa] 2 puff INHALATION RT-Q6H PRN PRN Reason: Cough/Shortness of Breath Torsemide [Demadex] 60 mg PO TUTHSA@0900 Spironolactone [Aldactone] 25 mg PO DAILY Atorvastatin [Lipitor] 40 mg PO HS Aspirin EC [Ecotrin Low Dose] 81 mg PO DAILY Allopurinol [Zyloprim] 100 mg PO DAILY Insulin Detemir [Levemir Flextouch] 40 units SQ HS Discharge Medication List Apixaban [Eliquis] 2.5 mg PO BID@0900,1700 01/23/21 [History] Carvedilol [Coreg] 25 mg PO BID@0900,1700 01/23/21 [History] Isosorbide Dinitrate 30 mg PO DAILY 01/23/21 [History] Levothyroxine Sodium [Synthroid] 50 mcg PO DAILY@0600 01/23/21 [History] amLODIPine [Norvasc] 5 mg PO DAILY 01/23/21 [History] Follow up Appointment(s)/Referral(s): [facility] [place], [NON-STAFF] - As Needed Vee Mack MD [Primary Care Provider] - 1 Week (at [facility]) Patient Instructions/Handouts: Coronavirus Disease 2019 (COVID-19) Discharge Disposition: TRANSFER TO SNF/ECF
[2021-02-05 11:34] LABS: Glucose,Whole Blood 67 mg/dL (75-99)
[2021-02-05] MEDS ORDERED: DEXTROSE 50% SYRINGE 50 ML IVP STA (11:51)
[2021-02-05 11:52] LABS: Glucose,Whole Blood 55 mg/dL (75-99)
[2021-02-05 12:03] LABS: Glucose,Whole Blood 159 mg/dL (75-99)
--- NOTE | 2021-02-05 13:43 | P.PN ---
Subjective Patient is seen in follow-up for acute kidney injury. Unknown baseline renal function. Renal function improving - creatinine 1.3 as of January 26. Receiving tube feeding. She will be going hospice. Vital signs are stable. General: The patient appeared well nourished and normally developed. HEENT: NG tube noted. LUNGS: Breath sounds decreased. HEART: Rate and Rhythm are regular. ABDOMEN: Soft, no distention. EXTREMITITES: No edema. Objective - Vital Signs Vital signs: Vital Signs Temp 98.0 F 02/05/21 10:00 Pulse 72 02/05/21 10:00 Resp 18 02/05/21 10:00 BP 144/70 02/05/21 10:00 Pulse Ox 92 L 02/05/21 10:00 Intake & Output 02/04/21 02/05/21 02/05/21 18:59 06:59 18:59 Output Total 750 Balance -750 Weight 93.2 kg 93 kg 93 kg Output: Urine 750 Other: Voiding Method Indwelling Catheter Indwelling Catheter Indwelling Catheter # Voids 1 - Labs CBC & Chem 7: 02/03/21 05:54 02/03/21 05:54 Labs: Abnormal Lab Results - Last 24 Hours (Table) 02/04/21 02/05/21 02/05/21 Range/Units 17:36 00:28 11:29 POC Glucose (mg/dL) 122 H 190 H 67 L (75-99) mg/dL 02/05/21 02/05/21 Range/Units 11:45 12:01 POC Glucose (mg/dL) 55 L 159 H (75-99) mg/dL Microbiology - Last 24 Hours (Table) 02/02/21 15:11 Urine Culture - Final Urine,Clean Catch Enterobacter aerogenes Escherichia coli Assessment and Plan Plan: Assessment: 1. Acute kidney injury secondary to ATN secondary to COVID-19 infection. Renal function improved. Creatinine 1.3 as of February 03. Unknown baseline renal function. 2. Hypernatremia from lack of oral water intake, status post D5W. Improved. 3. Diabetes mellitus. 4. Benign hypertension. Stable. 5. Metabolic acidosis secondary to acute kidney injury. Resolved. 6. Urinary retention. Has a Gan catheter. Plan: Receiving tube feeding. She will be going hospice today.
[2021-02-05 14:01] LABS: African American GFR (CKD) 59.5 (60.0-200.0); Anion Gap 4.2 mmol/L (4.00-12.00); Calcium 9.4 mg/dL (8.7-10.3); Carbon Dioxide 24.8 mmol/L (21.6-31.8); Magnesium 1.9 mg/dL (1.5-2.4); Non-African American GFR(CKD) 51.3 (60.0-200.0); Potassium 5.1 mmol/L (3.5-5.5)
[2021-02-05 17:25] LABS: Glucose,Whole Blood 65 mg/dL (75-99)
[2021-02-05 18:01] LABS: Glucose,Whole Blood 66 mg/dL (75-99)
[2021-02-05 18:01] LABS: Glucose,Whole Blood 83 mg/dL (75-99)
[2021-02-06] MEDS: LEVOTHYROXINE 50 MCG TAB PO SCH ×3 (06:25→19:19)
[2021-02-06] MEDS: PANTOPRAZOLE 40 MG TABLET PO SCH (10:38)
[2021-02-06] MEDS: APIXABAN 2.5 MG TABLET PO SCH ×2 (10:39→19:19)
[2021-02-06] MEDS: amLODIPine 10 MG TAB PO SCH (10:39)
[2021-02-06] MEDS: NYSTATIN 100,000 UNIT/ML SUSP 500,000 UNIT/5 ML CUP PO SCH ×4 (10:39→19:19)
[2021-02-06] MEDS: carvediloL 12.5 MG TAB PO SCH ×2 (10:39→17:44)
[2021-02-06] MEDS: guaiFENesin 600 MG TABLET.ER PO SCH ×2 (10:39→19:19)
[2021-02-06] MEDS: ISOSORBIDE DINITRATE 10 MG TAB PO SCH (10:39)
[2021-02-06 11:00] LABS: Glucose,Whole Blood 119 mg/dL (75-99)
--- NOTE | 2021-02-06 12:17 | P.PN ---
Subjective Progress Note Date: 02/06/21 HISTORY OF PRESENT ILLNESS 85 years old female patient of Dr. Mack past medical history of hypertension hyperlipidemia coronary artery disease, chronic kidney disease unk nown stage presents with increasing confusion and hypoxia from [facility] [place]. Apparently patient was brought to the ER at [facility] on 01/17 for worsening confusion and flulike symptoms. Patient went home as was not able to be seen for her symptoms soon enough and called her primary care physician who ordered a CAT scan of the head. CAT scan of the head was negative and patient was brought back to the ER on 01/18 and was treated for COVID pneumonia. Patient was discharged to [facility] [place] and was brought back to the ER 24- hour later for worsening shortness of breath.on evaluation in the ER patient is short of breath requiring 6 L of oxygen unable to answer any questions very drowsy on evaluation. She opens her eyes to question only to go back to sleep in a short while. Patient withdraws to pain but does not follow commands. No family member is present at bedside. Son was called multiple times but was unable to be reached. History is obtained through patient's and documentation by the ER. She has never been admitted in this hospital. Evaluation Suggests Hemoglobin Is 15.5 Platelet 185 INR 1 D-Dimer 2.1 Sodium 140 Potassium 4.9 Chloride 111 Bicarb 20 1B UN 53 Creatinine 2.2 Calcium Is 10.7 Magnesium 2.6 Lactic Acid 1.6 Alkaline Phosphatase 87, LDH 1076 CRP 20.8 Output (3.1. Pro- Calcitonin Is Pending. ProBNP Is Pending. Chest X-Ray suggested cardiomegaly and chronic parenchymal changes with right greater than left multifocal opacities metoprolol and suggestive of COVID-[address] head ordered to rule out acute stroke. Patient's home medication reconciled will hold torsemide, spironolactone. Nephrology course consult for possible end-stage renal disease. Unclear if patient is on him and on dialysis. Ultrasound of the renal obtained. neurology in consult for acute encephalopathy likely secondary to Covid. Patient does have underlying dementia?. We'll start patient on dexamethasone 6 mg IV every 12 hours. Start her on vitamin C, vitamin D and zinc. Pulmonary consulted for Covid pneumonia. 01/24 spoke to patient's son who did state that patient has underlying history of concussion and forgetfulness but no formal diagnosis of dementia has ever been made. She was speaking clearly and had no confusion 8 days ago. Patient had normal recovery of mental status after being discharged from the other hospital and transferred to [facility]. Son does suggest that patient has history of stent placement 3-4 years ago for coronary artery disease. She does follow nephrology as outpatient and has significant end-stage chronic kidney disease with plan to initiate hemodialysis if no improvement noted. On evaluation patient's mental status today patient's more responsive. She was refusing to eat. Swallow evaluation at bedside was not past. Patient continued to be on normal saline 75 mL per hour on evaluation patient's blood work sodium is 141 bicarb 18 creatinine 2.1 MCH slightly improved to 845 CRP is 18.9. Pro-calcitonin came at 0.6, TSH normal urinary analysis negative for any infection. Blood cultures negative continue remdesivir per pulmonary recommendations continue Decadron and elliquis . Hold Levemir 01/25: Patient has been seen by neurology with recommendations for ammonia level, TSH and vitamin B12 and folate. Patient continues to have significant confusion and MRI of the brain ordered. Patient is also been seen by pulmonary medicine with recommendations for continuing IV Decadron, patient was started on Remdesivir day #3/5. Patient is also followed by nephrology with plan to continue IV hydration and hold diuretics. Chest x-ray from yesterday revealed cardiomegaly and chronic parenchymal changes with right greater than left multifocal and confluent opacities mid to lower lung suggesting Covid 19 infection redemonstrated. No significant change. Renal ultrasound revealed bilateral renal atrophy. No obstructive calculus in the upper pole left kidney. No evidence of renal mass. No hydronephrosis. No bladder mass. CBC is unremarkable except for lymphocytes of 0.4. D-dimer 5.11. CO2 15, BUN 66 and creatinine 1.93. Blood sugars are running between 177 and 227. LDH 980. C- reactive protein 8.2. IV fluids are currently lactated Ringer's at 75 mL per hour,. 01/26: Patient continues to be unresponsive. No improvement of her mental status. Patient is currently a full code. Israeli son Doug was contacted and was in agreement to change patient to a no CODE STATUS. Family is planning to do a virtual visit with her today. Also discussed PEG tube placement which they would like to pursue. Consult placed with general surgery. IV hydralazine as needed for blood pressure control. MRI of the brain revealed no acute findings of infarct. Moderate diffuse cerebral atrophy greatest over bilateral frontal lobes mild to moderate chronic small vessel ischemic change. KUB shows nonspecific findings. Patient had a small smear of bowel movement this morning only. Repeat blood work reveals WBC 9.4, hemoglobin 15.5, platelet count 223. D-dimer 5.51. Blood sugars running in the 300s area and Levemir 10 units at bedtime added as well as NovoLog 5 units every 6 hours. NovoLog scales been changed every 6 hours. Remdesivir day #01/11. 01/27: Patient's family came in yesterday to see her. She was made no code y day but they would like to pursue PEG tube. Patient was seen by Dr. Gordon and he wanted to evaluate for NG tube placement however patient is biting during oral care so she most likely would not be able be able to tolerate up NG tube. Discussed case with Dr. Mcmahan on an EEG ordered. We will plan to start patient on heparin drip for A. fib she has been off eliquis and PEG tube will most lik iqra be placed tomorrow. Patient continues to be unresponsive and dexamethasone will be discontinued and nursing to avoid morphine to see if these changes will improve her mental status. Repeat chest x-ray correlate for pneumonia, edema. Patient has been afebrile, heart rate 73, blood pressure 130/73, pulse ox 94% on 3 L nasal cannula. Sodium 150, potassium 4.7, chloride 116, CO2 30, BUN 64 and creatinine 1.42. Blood sugar 304. Blood sugars have been running between 220 and 309. Patient was started on Levemir 10 units at bedtime last evening and will be increased to 15 units as patient is continued on dextrose 5% at 75 mL per hour. Scheduled NovoLog every 6 hours will be increased to 6 units and continue NovoLog scale. Patient is on REM to severe day #02/10. 01/28 patient examined bedside. Is opening eyes and is able to follow simple commands legs show her thumb or wiggle her toes. Hold PEG tube placement today. Have bedside swallow evaluation with plan to put Dobbhoff tube for nutrition for a few days before going forward with PEG tube. Let us assessment suggest temp of 97.8 pulse 69 respiratory rate 20 blood pressure 168/79. At suggest a leukocytosis of 11.9 hemoglobin 15.2, sodium 150, BUN 15 creatinine 1.6 glucose 288. D5W been continued at 75 mL per hour. Nutrition consult placed for enteral tube feeding. Lantus increased to 20 units at a chills. Continue Nov oLog 6 units daily every 6 hours as patient is not having anything to eat. Continue to monitor mental status. 01/29 patient examined bedside. Very delayed response to the speech but patient seems to understand and respond. She does states"I'm okay"and lessens carefully to the conversation. Patient did have a speech evaluation yesterday and had a poor response to a half to a teaspoon of water trying. Patient was found coughing on an attempt to feed. Dobbhoff tube was placed which patient is tolerating well. Vitals signs of June pulse 69 respiratory rate 18 blood pressure 171/84 oxygen saturation 96% on 3 L of oxygen. Labs suggest a BUN of 49 and creatinine 1.25 which is improved compared to previous labs. Glucose still high at 260. A1c came is 9.5. Lantus increased to 25 units daily at bedtime. Amlodipine increased to 10 g by mouth daily. We will switch Eliquis and stop heparin Hold off patient's IV fluids. PTOT consulted with possible plan to discharge to subacute rehab once stabilized. Reassessment of nutrition status on Monday to evaluate for need for PEG tube 01/30: Patient examined at the bedside. She has delayed response to speech she is able to nod her head and answer questions appropriately. Patient is able to follow commands. She was evaluated by speech 2 days ago. And had a poor response to have a teaspoon of water. Patient currently has NG tube in place and receiving eternal feedings. Patient was reassessed for her nutrition status on Monday for possible PEG tube placement. 01/31: She was examined at bedside. She does have delayed response in speech. Able to nod head and answer some questions appropriately. Patient is able to follow some commands. She continues to have noted episodes of confusion. Patient was reevaluated by speech for consideration of a PEG tube. At this time NG tube is in place and receiving eternal feedings. 02/01: Patient still feeding via NG tube at this point. Patient be going for PEG tube respond to management overall still not good. Patient is still mildly hypoxic on O2 between 3-5 L. Still the plan to send patient to [facility] as soon as PEG tube is done and her oxygen level is decent on less than 5 L of O2. 02/02: Patient is scheduled for PEG tube placement today. Patient's O2 saturation 97% on 2 L via nasal cannula, vital signs are stable. Patient was n oted to have urinary retention, Gan catheter placed last night with over 1000 ml's of urine. Urine is dark and cloudy, will send for UA and culture and obtain an ultrasound to rule out obstructive uropathy. Kidney function did trend up a little, Cr 1.6, BUN 55 02/03: Dr. Gordon attempted PEG tube placement yesterday but pulse ox dropped down to the 60s and due to need for intubation, procedure was stopped. Multiple attempts have been made to contact patient's son, Doug. Patient is receiving tube feedings through NG tube. Gan catheter has good urine output. Chest x-ray from yesterday revealed scattered infiltrates. Repeat blood work reveals WBC 9.3, hemoglobin 11.8, platelet count 140. Sodium 142, potassium 5.2, chloride 111, CO2 25, BUN 42, creatinine 1.3. Blood sugars running between 130 and 227. We will continue to attempt to reach family regarding plan. 02/04: Dr. Abad spoke with the patient's sons yesterday and they were going to have a conversation and determine whether the make patient comfort care only. Patient's mental status is slightly worse from yesterday. She has been afebrile, heart rate 81, blood pressure 146/70, pulse ox 98% on 3 L nasal cannula. Blood sugars are running between 140 and 155. Urine culture is showing gram-negative bacilli. Patient has Gan catheter in place. Patient is on tube feedings through NG tube. 02/05: Family have decided on comfort care. Dobbhoff to be discontinued prior to discharge. All insulins will be discontinued as this morning patient is 55. She will not be receiving any tube feedings. Patient is refusing to take her oral medications. Patient will be discharged to [facility] under comfort care. 02/06: Awaiting comfort care or hospice consult. Patient not receiving any tube feedings at this time. She is refusing her oral medications. Patient has no IV access. The plan is for patient to be [facility]. REVIEW OF SYSTEMS Unable to obtain due to mental status. PHYSICAL EXAMINATION Gen: This is an 85-year-old female. Patient is resting in bed. No respiratory distress is noted. HEENT: Head is atraumatic, normocephalic. Pupils equal, round. Sclerae is anicteric. NECK: Supple. No JVD. No lymphadenopathy. No thyromegaly. LUNGS: Decreased breath sounds bilaterally. No wheezes or rhonchi. No intercostal retractions. HEART: Regular rate and rhythm. No murmur. ABDOMEN: Soft. Bowel sounds are present. No masses. No tenderness. EXTREMITIES: No pedal edema. No calf tenderness. NEUROLOGICAL: Patient is oriented 1, confused, able to nod head to answer questions. Generalized weakness. ASSESSMENT AND PLAN #1 acute infectious metabolic encephalopathy likely secondary to Covid with underlying short term memory loss from previous concussion. Unknown if patient has underlying dementia. #2 acute hypoxic respiratory failure secondary to Covid pneumonia. Continue Pro Air as needed for shortness of breath. Pulmonary consult appreciated. Mucinex as needed. Sputum culture. Discontinue dexamethasone. Continue Vitamin C, vitamin D and zinc. Inflammation markers are elevated. Completed Remdesivir. Continue oxygen therapy #3 acute kidney injury over chronic kidney disease stage 5 follows nephrology as outpatient at [facility] Patient has no prior baseline creatinine. Nephrology consult appreciated. Continue IV fluids of saline at 75 mL per hour. Hold torsemide hold Aldactone. #4 coronary artery disease status post stents 34 years ago Continue atorvastatin, isosorbide dinitrate continue Coreg 25 mg twice a day #5 hypothyroidism continue levothyroxine 50 g daily TSH normal #6 type 2 diabetes uncontrolled with hyperglycemia secondary to steroids. Levemir 25 units at bedtime, NovoLog 6 units every 6 hours. Continue with insulin sliding scale #7 hyperlipidemia continue atorvastatin 40 mg by mouth daily #8 hypertension. continue amlodipine 10 mg by mouth daily. Hydralazine 10 mg IV push every 6 hours as needed for systolic blood pressure greater than 160. #9. Generalized gout allopurinol 100 mg by mouth daily #10 atrial fibrillation Eliquis 2. 5 mg twice a day continue Coreg 25 twice a day. #11 CODE STATUS NO code per her son. #12 severe protein calorie malnutrition secondary to patient's inability to eat and no oral intake secondary to infectious encephalopathy from Covid 19. Consult with general surgery for PEG tube insertion. Unable to be inserted 13. hypernatremia sodium bicarb stopped. D5W at 75 mL per hour. CBC and CMP need to be monitored carefully 14. DVT prophylaxis. eliquis 15. GI prophylaxis Protonix 16. Urinary retention. Gan catheter inserted, will obtain UA with culture. DISCHARGE PLAN [facility]. Consult hospice Impression and plan of care have been directed as dictated by the signing physician. Pauline Valdez nurse practitioner acting as scribe for signing physician. Objective - Vital Signs Vital signs: Vital Signs Temp 98.9 F 02/06/21 09:58 Pulse 70 02/06/21 09:58 Resp 18 02/06/21 09:58 BP 141/67 02/06/21 09:58 Pulse Ox 90 L 02/06/21 09:58 Intake & Output 02/05/21 02/06/21 02/06/21 18:59 06:59 18:59 Output Total 900 Balance -900 Weight 93 kg 92.5 kg Output: Urine 900 Other: Voiding Method Indwelling Catheter Indwelling Catheter - Labs CBC & Chem 7: 02/03/21 05:54 02/05/21 07:03 Labs: Abnormal Lab Results - Last 24 Hours (Table) 02/05/21 02/05/21 02/05/21 Range/Units 07:03 17:20 17:44 BUN 33.0 H (9.0-27.0) mg/dL Est GFR (CKD-EPI)AfAm 59.5 L (60.0-200.0) Est GFR (CKD-EPI)NonAf 51.3 L (60.0-200.0) BUN/Creatinine Ratio 33.00 H (12.00-20.00) Ratio Glucose 112 H (70-110) mg/dL POC Glucose (mg/dL) 65 L 66 L (75-99) mg/dL 02/06/21 Range/Units 10:59 BUN (9.0-27.0) mg/dL Est GFR (CKD-EPI)AfAm (60.0-200.0) Est GFR (CKD-EPI)NonAf (60.0-200.0) BUN/Creatinine Ratio (12.00-20.00) Ratio Glucose (70-110) mg/dL POC Glucose (mg/dL) 119 H (75-99) mg/dL
[2021-02-06 17:06] LABS: Glucose,Whole Blood 111 mg/dL (75-99)
[2021-02-06 20:51] LABS: Glucose,Whole Blood 103 mg/dL (75-99)
[2021-02-07 07:16] LABS: Glucose,Whole Blood 152 mg/dL (75-99)
[2021-02-07] MEDS: NYSTATIN 100,000 UNIT/ML SUSP 500,000 UNIT/5 ML CUP PO SCH ×4 (08:04→19:39)
[2021-02-07] MEDS: APIXABAN 2.5 MG TABLET PO SCH ×2 (08:05→19:46)
[2021-02-07] MEDS: amLODIPine 10 MG TAB PO SCH (08:05)
[2021-02-07] MEDS: ISOSORBIDE DINITRATE 10 MG TAB PO SCH (08:05)
[2021-02-07] MEDS: carvediloL 12.5 MG TAB PO SCH ×2 (08:05→16:51)
[2021-02-07] MEDS: guaiFENesin 600 MG TABLET.ER PO SCH ×2 (08:05→19:46)
[2021-02-07] MEDS: PANTOPRAZOLE 40 MG TABLET PO SCH (08:05)
--- NOTE | 2021-02-07 10:39 | P.PN ---
Subjective Progress Note Date: 02/07/21 HISTORY OF PRESENT ILLNESS 85 years old female patient of Dr. Mack past medical history of hypertension hyperlipidemia coronary artery disease, chronic kidney disease unk nown stage presents with increasing confusion and hypoxia from [facility] the [place] Apparently patient was brought to the ER at [facility] on 01/17 for worsening confusion and flulike symptoms. Patient went home as was not able to be seen for her symptoms soon enough and called her primary care physician who ordered a CAT scan of the head. CAT scan of the head was negative and patient was brought back to the ER on 01/18 and was treated for COVID pneumonia. Patient was discharged to [facility] the [place] and was brought back to the ER 24- hour later for worsening shortness of breath.on evaluation in the ER patient is short of breath requiring 6 L of oxygen unable to answer any questions very drowsy on evaluation. She opens her eyes to question only to go back to sleep in a short while. Patient withdraws to pain but does not follow commands. No family member is present at bedside. Son was called multiple times but was unable to be reached. History is obtained through patient's and documentation by the ER. She has never been admitted in this hospital. Evaluation Suggests Hemoglobin Is 15.5 Platelet 185 INR 1 D-Dimer 2.1 Sodium 140 Potassium 4.9 Chloride 111 Bicarb 20 1B UN 53 Creatinine 2.2 Calcium Is 10.7 Magnesium 2.6 Lactic Acid 1.6 Alkaline Phosphatase 87, LDH 1076 CRP 20.8 Output (3.1. Pro- Calcitonin Is Pending. ProBNP Is Pending. Chest X-Ray suggested cardiomegaly and chronic parenchymal changes with right greater than left multifocal opacities metoprolol and suggestive of COVID-[address] head ordered to rule out acute stroke. Patient's home medication reconciled will hold torsemide, spironolactone. Nephrology course consult for possible end-stage renal disease. Unclear if patient is on him and on dialysis. Ultrasound of the renal obtained. neurology in consult for acute encephalopathy likely secondary to Covid. Patient does have underlying dementia?. We'll start patient on dexamethasone 6 mg IV every 12 hours. Start her on vitamin C, vitamin D and zinc. Pulmonary consulted for Covid pneumonia. 01/24 spoke to patient's son who did state that patient has underlying history of concussion and forgetfulness but no formal diagnosis of dementia has ever been made. She was speaking clearly and had no confusion 8 days ago. Patient had normal recovery of mental status after being discharged from the other hospital and transferred to [facility]. Son does suggest that patient has history of stent placement 3-4 years ago for coronary artery disease. She does follow nephrology as outpatient and has significant end-stage chronic kidney disease with plan to initiate hemodialysis if no improvement noted. On evaluation patient's mental status today patient's more responsive. She was refusing to eat. Swallow evaluation at bedside was not past. Patient continued to be on normal saline 75 mL per hour on evaluation patient's blood work sodium is 141 bicarb 18 creatinine 2.1 MCH slightly improved to 845 CRP is 18.9. Pro-calcitonin came at 0.6, TSH normal urinary analysis negative for any infection. Blood cultures negative continue remdesivir per pulmonary recommendations continue Decadron and elliquis . Hold Levemir 01/25: Patient has been seen by neurology with recommendations for ammonia level, TSH and vitamin B12 and folate. Patient continues to have significant confusion and MRI of the brain ordered. Patient is also been seen by pulmonary medicine with recommendations for continuing IV Decadron, patient was started on Remdesivir day #3/5. Patient is also followed by nephrology with plan to continue IV hydration and hold diuretics. Chest x-ray from yesterday revealed cardiomegaly and chronic parenchymal changes with right greater than left multifocal and confluent opacities mid to lower lung suggesting Covid 19 infection redemonstrated. No significant change. Renal ultrasound revealed bilateral renal atrophy. No obstructive calculus in the upper pole left kidney. No evidence of renal mass. No hydronephrosis. No bladder mass. CBC is unremarkable except for lymphocytes of 0.4. D-dimer 5.11. CO2 15, BUN 66 and creatinine 1.93. Blood sugars are running between 177 and 227. LDH 980. C- reactive protein 8.2. IV fluids are currently lactated Ringer's at 75 mL per hour,. 01/26: Patient continues to be unresponsive. No improvement of her mental status. Patient is currently a full code. [place] son Doug was contacted and was in agreement to change patient to a no CODE STATUS. Family is planning to do a virtual visit with her today. Also discussed PEG tube placement which they would like to pursue. Consult placed with general surgery. IV hydralazine as needed for blood pressure control. MRI of the brain revealed no acute findings of infarct. Moderate diffuse cerebral atrophy greatest over bilateral frontal lobes mild to moderate chronic small vessel ischemic change. KUB shows nonspecific findings. Patient had a small smear of bowel movement this morning only. Repeat blood work reveals WBC 9.4, hemoglobin 15.5, platelet count 223. D-dimer 5.51. Blood sugars running in the 300s area and Levemir 10 units at bedtime added as well as NovoLog 5 units every 6 hours. NovoLog scales been changed every 6 hours. Remdesivir day #01/11. 01/27: Patient's family came in yesterday to see her. She was made no code y day but they would like to pursue PEG tube. Patient was seen by Dr. Gordon and he wanted to evaluate for NG tube placement however patient is biting during oral care so she most likely would not be able be able to tolerate up NG tube. Discussed case with Dr. Mcmahan on an EEG ordered. We will plan to start patient on heparin drip for A. fib she has been off eliquis and PEG tube will most lik iqra be placed tomorrow. Patient continues to be unresponsive and dexamethasone will be discontinued and nursing to avoid morphine to see if these changes will improve her mental status. Repeat chest x-ray correlate for pneumonia, edema. Patient has been afebrile, heart rate 73, blood pressure 130/73, pulse ox 94% on 3 L nasal cannula. Sodium 150, potassium 4.7, chloride 116, CO2 30, BUN 64 and creatinine 1.42. Blood sugar 304. Blood sugars have been running between 220 and 309. Patient was started on Levemir 10 units at bedtime last evening and will be increased to 15 units as patient is continued on dextrose 5% at 75 mL per hour. Scheduled NovoLog every 6 hours will be increased to 6 units and continue NovoLog scale. Patient is on REM to severe day #02/10. 01/28 patient examined bedside. Is opening eyes and is able to follow simple commands legs show her thumb or wiggle her toes. Hold PEG tube placement today. Have bedside swallow evaluation with plan to put Dobbhoff tube for nutrition for a few days before going forward with PEG tube. Let us assessment suggest temp of 97.8 pulse 69 respiratory rate 20 blood pressure 168/79. At suggest a leukocytosis of 11.9 hemoglobin 15.2, sodium 150, BUN 15 creatinine 1.6 glucose 288. D5W been continued at 75 mL per hour. Nutrition consult placed for enteral tube feeding. Lantus increased to 20 units at a chills. Continue Nov oLog 6 units daily every 6 hours as patient is not having anything to eat. Continue to monitor mental status. 01/29 patient examined bedside. Very delayed response to the speech but patient seems to understand and respond. She does states"I'm okay"and lessens carefully to the conversation. Patient did have a speech evaluation yesterday and had a poor response to a half to a teaspoon of water trying. Patient was found coughing on an attempt to feed. Dobbhoff tube was placed which patient is tolerating well. Vitals signs of June pulse 69 respiratory rate 18 blood pressure 171/84 oxygen saturation 96% on 3 L of oxygen. Labs suggest a BUN of 49 and creatinine 1.25 which is improved compared to previous labs. Glucose still high at 260. A1c came is 9.5. Lantus increased to 25 units daily at bedtime. Amlodipine increased to 10 g by mouth daily. We will switch Eliquis and stop heparin Hold off patient's IV fluids. PTOT consulted with possible plan to discharge to subacute rehab once stabilized. Reassessment of nutrition status on Monday to evaluate for need for PEG tube 01/30: Patient examined at the bedside. She has delayed response to speech she is able to nod her head and answer questions appropriately. Patient is able to follow commands. She was evaluated by speech 2 days ago. And had a poor response to have a teaspoon of water. Patient currently has NG tube in place and receiving eternal feedings. Patient was reassessed for her nutrition status on Monday for possible PEG tube placement. 01/31: She was examined at bedside. She does have delayed response in speech. Able to nod head and answer some questions appropriately. Patient is able to follow some commands. She continues to have noted episodes of confusion. Patient was reevaluated by speech for consideration of a PEG tube. At this time NG tube is in place and receiving eternal feedings. 02/01: Patient still feeding via NG tube at this point. Patient be going for PEG tube respond to management overall still not good. Patient is still mildly hypoxic on O2 between 3-5 L. Still the plan to send patient to [facility] as soon as PEG tube is done and her oxygen level is decent on less than 5 L of O2. 02/02: Patient is scheduled for PEG tube placement today. Patient's O2 saturation 97% on 2 L via nasal cannula, vital signs are stable. Patient was n oted to have urinary retention, Gan catheter placed last night with over 1000 ml's of urine. Urine is dark and cloudy, will send for UA and culture and obtain an ultrasound to rule out obstructive uropathy. Kidney function did trend up a little, Cr 1.6, BUN 55 02/03: Dr. Gordon attempted PEG tube placement yesterday but pulse ox dropped down to the 60s and due to need for intubation, procedure was stopped. Multiple attempts have been made to contact patient's son, Doug. Patient is receiving tube feedings through NG tube. Gan catheter has good urine output. Chest x-ray from yesterday revealed scattered infiltrates. Repeat blood work reveals WBC 9.3, hemoglobin 11.8, platelet count 140. Sodium 142, potassium 5.2, chloride 111, CO2 25, BUN 42, creatinine 1.3. Blood sugars running between 130 and 227. We will continue to attempt to reach family regarding plan. 02/04: Dr. Abad spoke with the patient's sons yesterday and they were going to have a conversation and determine whether the make patient comfort care only. Patient's mental status is slightly worse from yesterday. She has been afebrile, heart rate 81, blood pressure 146/70, pulse ox 98% on 3 L nasal cannula. Blood sugars are running between 140 and 155. Urine culture is showing gram-negative bacilli. Patient has Gan catheter in place. Patient is on tube feedings through NG tube. 02/05: Family have decided on comfort care. Dobbhoff to be discontinued prior to discharge. All insulins will be discontinued as this morning patient is 55. She will not be receiving any tube feedings. Patient is refusing to take her oral medications. Patient will be discharged to [facility] under comfort care. 02/06: Awaiting comfort care or hospice consult. Patient not receiving any tube feedings at this time. She is refusing her oral medications. Patient has no IV access. The plan is for patient to be discharged to [facility]. 02/07: Covid test returned as positive. Patient no longer has IV access. She is tolerating meals without difficulty. We will continue oral feedings. We will repeat covert test on Monday to assist with patient to be discharged to [facility]. Patient is more awake today able to answer some questions appropriately. Only is alert to self. Patient remains afebrile, heart rate 69, respirations 20 and nonlabored, blood pressure 113/65 pulse ox 94% on room air. REVIEW OF SYSTEMS Unable to obtain due to mental status. PHYSICAL EXAMINATION Gen: This is an 85-year-old female. Patient is resting in bed. No respiratory distress is noted. HEENT: Head is atraumatic, normocephalic. Pupils equal, round. Sclerae is anicteric. NECK: Supple. No JVD. No lymphadenopathy. No thyromegaly. LUNGS: Decreased breath sounds bilaterally. No wheezes or rhonchi. No intercostal retractions. HEART: Regular rate and rhythm. No murmur. ABDOMEN: Soft. Bowel sounds are present. No masses. No tenderness. EXTREMITIES: No pedal edema. No calf tenderness. NEUROLOGICAL: Patient is oriented 1, confused, able to nod head to answer questions. Generalized weakness. ASSESSMENT AND PLAN 1 acute infectious metabolic encephalopathy likely secondary to Covid with underlying short term memory loss from previous concussion. Unknown if patient has underlying dementia. Covid test returned as positive. We'll repeat test on Monday. In hopes that patient will be able to transfer to hospice. 2 acute hypoxic respiratory failure secondary to Covid pneumonia. Continue Pro Air as needed for shortness of breath. Pulmonary consult appreciated. Mucinex as needed. Sputum culture. Discontinue dexamethasone. Continue Vitamin C, vitamin D and zinc. Inflammation markers are elevated. Completed Remdesivir. Continue oxygen therapy 3 acute kidney injury over chronic kidney disease stage 5 follows nephrology as outpatient at [facility] Patient has no prior baseline creatinine. Nephrology consult appreciated. Continue IV fluids of saline at 75 mL per hour. Hold torsemide hold Aldactone. 4 coronary artery disease status post stents 34 years ago Continue atorvastatin, isosorbide dinitrate continue Coreg 25 mg twice a day 5 hypothyroidism continue levothyroxine 50 g daily TSH normal 6 type 2 diabetes uncontrolled with hyperglycemia secondary to steroids. Levemir 25 units at bedtime, NovoLog 6 units every 6 hours. Continue with insulin sliding scale 7 hyperlipidemia continue atorvastatin 40 mg by mouth daily 8 hypertension. continue amlodipine 10 mg by mouth daily. Hydralazine 10 mg IV push every 6 hours as needed for systolic blood pressure greater than 160. 9. Generalized gout allopurinol 100 mg by mouth daily 10 atrial fibrillation Eliquis 2. 5 mg twice a day continue Coreg 25 twice a day. 11 CODE STATUS NO code per her son. 12 severe protein calorie malnutrition secondary to patient's inability to eat and no oral intake secondary to infectious encephalopathy from Covid 19. Consult with general surgery for PEG tube insertion. Unable to be inserted 13. hypernatremia sodium bicarb stopped. D5W at 75 mL per hour. CBC and CMP need to be monitored carefully 14. DVT prophylaxis. eliquis 15. GI prophylaxis Protonix 16. Urinary retention. Gan catheter inserted, will obtain UA with culture. DISCHARGE PLAN [facility]. Consult hospice Impression and plan of care have been directed as dictated by the signing physician. Pauline Valdez nurse practitioner acting as scribe for signing physician. Objective - Vital Signs Vital signs: Vital Signs Temp 97.7 F 02/07/21 10:00 Pulse 69 02/07/21 10:00 Resp 20 02/07/21 10:00 BP 113/65 02/07/21 10:00 Pulse Ox 94 L 02/07/21 10:00 Intake & Output 02/06/21 02/07/21 02/07/21 18:59 06:59 18:59 Output Total 600 500 Balance -600 -500 Output: Urine 600 500 Other: Voiding Method Indwelling Catheter Indwelling Catheter # Bowel Movements 2 - Labs CBC & Chem 7: 02/03/21 05:54 02/05/21 07:03 Labs: Abnormal Lab Results - Last 24 Hours (Table) 02/06/21 02/06/21 02/06/21 Range/Units 10:59 13:25 16:53 POC Glucose (mg/dL) 119 H 111 H (75-99) mg/dL Coronavirus (PCR) Detected A (Not Detectd) 02/06/21 02/07/21 Range/Units 20:50 07:13 POC Glucose (mg/dL) 103 H 152 H (75-99) mg/dL Coronavirus (PCR) (Not Detectd)
[2021-02-07 11:20] LABS: Glucose,Whole Blood 217 mg/dL (75-99)
[2021-02-07 16:46] LABS: Glucose,Whole Blood 210 mg/dL (75-99)
[2021-02-08] MEDS: LEVOTHYROXINE 50 MCG TAB PO SCH (04:37)
[2021-02-08 07:17] LABS: Glucose,Whole Blood 176 mg/dL (75-99)
[2021-02-08] MEDS: NYSTATIN 100,000 UNIT/ML SUSP 500,000 UNIT/5 ML CUP PO SCH ×2 (08:54→13:37)
[2021-02-08] MEDS: carvediloL 12.5 MG TAB PO SCH (08:54)
[2021-02-08] MEDS: PANTOPRAZOLE 40 MG TABLET PO SCH (08:54)
[2021-02-08] MEDS: ISOSORBIDE DINITRATE 10 MG TAB PO SCH (08:54)
[2021-02-08] MEDS: amLODIPine 10 MG TAB PO SCH (08:54)
[2021-02-08] MEDS: APIXABAN 2.5 MG TABLET PO SCH (08:54)
[2021-02-08] MEDS: guaiFENesin 600 MG TABLET.ER PO SCH (08:54)
[2021-02-08 09:39] VITALS: TEMP 98
[2021-02-08 11:59] LABS: Glucose,Whole Blood 162 mg/dL (75-99)
--- NOTE | 2021-02-08 12:05 | P.PN ---
Subjective Progress Note Date: 02/08/21 HISTORY OF PRESENT ILLNESS 85 years old female patient of Dr. Mack past medical history of hypertension hyperlipidemia coronary artery disease, chronic kidney disease unk nown stage presents with increasing confusion and hypoxia from [facility] [place] the [place]. Apparently patient was brought to the ER at [facility] on 01/17 for worsening confusion and flulike symptoms. Patient went home as was not able to be seen for her symptoms soon enough and called her primary care physician who ordered a CAT scan of the head. CAT scan of the head was negative and patient was brought back to the ER on 01/18 and was treated for COVID pneumonia. Patient was discharged to [facility] [place] and was brought back to the ER 24- hour later for worsening shortness of breath.on evaluation in the ER patient is short of breath requiring 6 L of oxygen unable to answer any questions very drowsy on evaluation. She opens her eyes to question only to go back to sleep in a short while. Patient withdraws to pain but does not follow commands. No family member is present at bedside. Son was called multiple times but was unable to be reached. History is obtained through patient's and documentation by the ER. She has never been admitted in this hospital. Evaluation Suggests Hemoglobin Is 15.5 Platelet 185 INR 1 D-Dimer 2.1 Sodium 140 Potassium 4.9 Chloride 111 Bicarb 20 1B UN 53 Creatinine 2.2 Calcium Is 10.7 Magnesium 2.6 Lactic Acid 1.6 Alkaline Phosphatase 87, LDH 1076 CRP 20.8 Output (3.1. Pro- Calcitonin Is Pending. ProBNP Is Pending. Chest X-Ray suggested cardiomegaly and chronic parenchymal changes with right greater than left multifocal opacities metoprolol and suggestive of COVID-[address] head ordered to rule out acute stroke. Patient's home medication reconciled will hold torsemide, spironolactone. Nephrology course consult for possible end-stage renal disease. Unclear if patient is on him and on dialysis. Ultrasound of the renal obtained. neurology in consult for acute encephalopathy likely secondary to Covid. Patient does have underlying dementia?. We'll start patient on dexamethasone 6 mg IV every 12 hours. Start her on vitamin C, vitamin D and zinc. Pulmonary consulted for Covid pneumonia. 01/24 spoke to patient's son who did state that patient has underlying history of concussion and forgetfulness but no formal diagnosis of dementia has ever been made. She was speaking clearly and had no confusion 8 days ago. Patient had normal recovery of mental status after being discharged from the other hospital and transferred to [facility]. Son does suggest that patient has history of stent placement 3-4 years ago for coronary artery disease. She does follow nephrology as outpatient and has significant end-stage chronic kidney disease with plan to initiate hemodialysis if no improvement noted. On evaluation patient's mental status today patient's more responsive. She was refusing to eat. Swallow evaluation at bedside was not past. Patient continued to be on normal saline 75 mL per hour on evaluation patient's blood work sodium is 141 bicarb 18 creatinine 2.1 MCH slightly improved to 845 CRP is 18.9. Pro-calcitonin came at 0.6, TSH normal urinary analysis negative for any infection. Blood cultures negative continue remdesivir per pulmonary recommendations continue Decadron and elliquis . Hold Levemir 01/25: Patient has been seen by neurology with recommendations for ammonia level, TSH and vitamin B12 and folate. Patient continues to have significant confusion and MRI of the brain ordered. Patient is also been seen by pulmonary medicine with recommendations for continuing IV Decadron, patient was started on Remdesivir day #3/5. Patient is also followed by nephrology with plan to continue IV hydration and hold diuretics. Chest x-ray from yesterday revealed cardiomegaly and chronic parenchymal changes with right greater than left multifocal and confluent opacities mid to lower lung suggesting Covid 19 infection redemonstrated. No significant change. Renal ultrasound revealed bilateral renal atrophy. No obstructive calculus in the upper pole left kidney. No evidence of renal mass. No hydronephrosis. No bladder mass. CBC is unremarkable except for lymphocytes of 0.4. D-dimer 5.11. CO2 15, BUN 66 and creatinine 1.93. Blood sugars are running between 177 and 227. LDH 980. C- reactive protein 8.2. IV fluids are currently lactated Ringer's at 75 mL per hour,. 01/26: Patient continues to be unresponsive. No improvement of her mental status. Patient is currently a full code. [place] son Doug was contacted and was in agreement to change patient to a no CODE STATUS. Family is planning to do a virtual visit with her today. Also discussed PEG tube placement which they would like to pursue. Consult placed with general surgery. IV hydralazine as needed for blood pressure control. MRI of the brain revealed no acute findings of infarct. Moderate diffuse cerebral atrophy greatest over bilateral frontal lobes mild to moderate chronic small vessel ischemic change. KUB shows nonspecific findings. Patient had a small smear of bowel movement this morning only. Repeat blood work reveals WBC 9.4, hemoglobin 15.5, platelet count 223. D-dimer 5.51. Blood sugars running in the 300s area and Levemir 10 units at bedtime added as well as NovoLog 5 units every 6 hours. NovoLog scales been changed every 6 hours. Remdesivir day #01/11. 01/27: Patient's family came in yesterday to see her. She was made no code y day but they would like to pursue PEG tube. Patient was seen by Dr. Gordon and he wanted to evaluate for NG tube placement however patient is biting during oral care so she most likely would not be able be able to tolerate up NG tube. Discussed case with Dr. Mcmahan on an EEG ordered. We will plan to start patient on heparin drip for A. fib she has been off eliquis and PEG tube will most lik iqra be placed tomorrow. Patient continues to be unresponsive and dexamethasone will be discontinued and nursing to avoid morphine to see if these changes will improve her mental status. Repeat chest x-ray correlate for pneumonia, edema. Patient has been afebrile, heart rate 73, blood pressure 130/73, pulse ox 94% on 3 L nasal cannula. Sodium 150, potassium 4.7, chloride 116, CO2 30, BUN 64 and creatinine 1.42. Blood sugar 304. Blood sugars have been running between 220 and 309. Patient was started on Levemir 10 units at bedtime last evening and will be increased to 15 units as patient is continued on dextrose 5% at 75 mL per hour. Scheduled NovoLog every 6 hours will be increased to 6 units and continue NovoLog scale. Patient is on REM to severe day #02/10. 01/28 patient examined bedside. Is opening eyes and is able to follow simple commands legs show her thumb or wiggle her toes. Hold PEG tube placement today. Have bedside swallow evaluation with plan to put Dobbhoff tube for nutrition for a few days before going forward with PEG tube. Let us assessment suggest temp of 97.8 pulse 69 respiratory rate 20 blood pressure 168/79. At suggest a leukocytosis of 11.9 hemoglobin 15.2, sodium 150, BUN 15 creatinine 1.6 glucose 288. D5W been continued at 75 mL per hour. Nutrition consult placed for enteral tube feeding. Lantus increased to 20 units at a chills. Continue Nov oLog 6 units daily every 6 hours as patient is not having anything to eat. Continue to monitor mental status. 01/29 patient examined bedside. Very delayed response to the speech but patient seems to understand and respond. She does states"I'm okay"and lessens carefully to the conversation. Patient did have a speech evaluation yesterday and had a poor response to a half to a teaspoon of water trying. Patient was found coughing on an attempt to feed. Dobbhoff tube was placed which patient is tolerating well. Vitals signs of June pulse 69 respiratory rate 18 blood pressure 171/84 oxygen saturation 96% on 3 L of oxygen. Labs suggest a BUN of 49 and creatinine 1.25 which is improved compared to previous labs. Glucose still high at 260. A1c came is 9.5. Lantus increased to 25 units daily at bedtime. Amlodipine increased to 10 g by mouth daily. We will switch Eliquis and stop heparin Hold off patient's IV fluids. PTOT consulted with possible plan to discharge to subacute rehab once stabilized. Reassessment of nutrition status on Monday to evaluate for need for PEG tube 01/30: Patient examined at the bedside. She has delayed response to speech she is able to nod her head and answer questions appropriately. Patient is able to follow commands. She was evaluated by speech 2 days ago. And had a poor response to have a teaspoon of water. Patient currently has NG tube in place and receiving eternal feedings. Patient was reassessed for her nutrition status on Monday for possible PEG tube placement. 01/31: She was examined at bedside. She does have delayed response in speech. Able to nod head and answer some questions appropriately. Patient is able to follow some commands. She continues to have noted episodes of confusion. Patient was reevaluated by speech for consideration of a PEG tube. At this time NG tube is in place and receiving eternal feedings. 02/01: Patient still feeding via NG tube at this point. Patient be going for PEG tube respond to management overall still not good. Patient is still mildly hypoxic on O2 between 3-5 L. Still the plan to send patient to [facility] as soon as PEG tube is done and her oxygen level is decent on less than 5 L of O2. 02/02: Patient is scheduled for PEG tube placement today. Patient's O2 saturation 97% on 2 L via nasal cannula, vital signs are stable. Patient was n oted to have urinary retention, Gan catheter placed last night with over 1000 ml's of urine. Urine is dark and cloudy, will send for UA and culture and obtain an ultrasound to rule out obstructive uropathy. Kidney function did trend up a little, Cr 1.6, BUN 55 02/03: Dr. Gordon attempted PEG tube placement yesterday but pulse ox dropped down to the 60s and due to need for intubation, procedure was stopped. Multiple attempts have been made to contact patient's son, Doug. Patient is receiving tube feedings through NG tube. Gan catheter has good urine output. Chest x-ray from yesterday revealed scattered infiltrates. Repeat blood work reveals WBC 9.3, hemoglobin 11.8, platelet count 140. Sodium 142, potassium 5.2, chloride 111, CO2 25, BUN 42, creatinine 1.3. Blood sugars running between 130 and 227. We will continue to attempt to reach family regarding plan. 02/04: Dr. Suráez spoke with the patient's sons yesterday and they were going to have a conversation and determine whether the make patient comfort care only. Patient's mental status is slightly worse from yesterday. She has been afebrile, heart rate 81, blood pressure 146/70, pulse ox 98% on 3 L nasal cannula. Blood sugars are running between 140 and 155. Urine culture is showing gram-negative bacilli. Patient has Gan catheter in place. Patient is on tube feedings through NG tube. 02/05: Family have decided on comfort care. Dobbhoff to be discontinued prior to discharge. All insulins will be discontinued as this morning patient is 55. She will not be receiving any tube feedings. Patient is refusing to take her oral medications. Patient will be discharged to [facility] under comfort care. 02/06: Awaiting comfort care or hospice consult. Patient not receiving any tube feedings at this time. She is refusing her oral medications. Patient has no IV access. The plan is for patient to be discharged to [facility]. 02/07: Covid test returned as positive. Patient no longer has IV access. She is tolerating meals without difficulty. We will continue oral feedings. We will repeat covert test on Monday to assist with patient to be discharged to [facility]. Patient is more awake today able to answer some questions appropriately. Only is alert to self. Patient remains afebrile, heart rate 69, respirations 20 and nonlabored, blood pressure 113/65 pulse ox 94% on room air. 02/08: Patient is slightly more awake and alert today but she has refused to take any of her medications and is refusing to eat.patient has been afebrile, heart rate 71, blood pressure 157/73, pulse ox 93% on room air. Blood sugars are running between 176 and 217. Repeat coronavirus is positive. manager of medical and social media marketing analyst following for discharge planning. [facility] home is requiring a negative Covid test. REVIEW OF SYSTEMS Unable to obtain due to mental status. PHYSICAL EXAMINATION Gen: This is an 85-year-old female. Patient is resting in bed. No re spiratory distress is noted. HEENT: Head is atraumatic, normocephalic. Pupils equal, round. Sclerae is anicteric. NECK: Supple. No JVD. No lymphadenopathy. No thyromegaly. LUNGS: Decreased breath sounds bilaterally. No wheezes or rhonchi. No intercostal retractions. HEART: Regular rate and rhythm. No murmur. ABDOMEN: Soft. Bowel sounds are present. No masses. No tenderness. EXTREMITIES: No pedal edema. No calf tenderness. NEUROLOGICAL: Patient is oriented 1, confused, able to nod head to answer questions. Generalized weakness. ASSESSMENT AND PLAN 1. Acute infectious metabolic encephalopathy likely secondary to Covid and Sepsis (POA) with underlying short term memory loss from previous concussion. Unknown if patient has underlying dementia. 2. Acute hypoxic respiratory failure secondary to Covid pneumonia. Completed Remdesivir. Continue oxygen therapy. Patient is refusing oral medications. 3. Acute kidney injury over chronic kidney disease stage 5 follows nephrology as outpatient at Dr. Daniel Brewer. 4. Sepsis secondary to Covid 19. 5. Hypothyroidism. Continue levothyroxine 50 g daily. TSH normal 6. Diabetes mellitus type 2 uncontrolled with hyperglycemia secondary to steroids. Discontinue insulin due to comfort care. 7. Hyperlipidemia. 8. Hypertension. continue amlodipine 10 mg by mouth daily. Hydralazine 10 mg IV push every 6 hours as needed for systolic blood pressure greater than 160. 9. Generalized gout. 10. Paroxysmal atrial fibrillation Eliquis 2. 5 mg twice a day continue Coreg 25 twice a day. 11. Severe protein calorie malnutrition secondary to patient's inability to eat and no oral intake secondary to infectious encephalopathy from Covid 19. 12. Hypernatremia. 13. Urinary retention. Gan catheter inserted 14. Coronary artery disease status post stents 34 years ago. Continue iso sorbide dinitrate, Coreg 25 mg twice a day 15. DVT prophylaxis. eliquis 16. GI prophylaxis Protonix DISCHARGE PLAN TBD. Impression and plan of care have been directed as dictated by the signing physician. Lesly Núñez nurse practitioner acting as scribe for signing physician. Objective - Vital Signs Vital signs: Vital Signs Temp 98.1 F 02/08/21 05:51 Pulse 67 02/08/21 05:51 Resp 18 02/08/21 05:51 BP 149/56 02/08/21 05:51 Pulse Ox 93 L 02/08/21 05:51 Intake & Output 02/07/21 02/08/21 02/08/21 18:59 06:59 18:59 Output Total 700 300 Balance -700 -300 Output: Urine 700 300 Other: Voiding Method Indwelling Catheter Indwelling Catheter - Labs CBC & Chem 7: 02/03/21 05:54 02/05/21 07:03 Labs: Abnormal Lab Results - Last 24 Hours (Table) 02/07/21 02/07/21 02/08/21 Range/Units 11:18 16:44 07:12 POC Glucose (mg/dL) 217 H 210 H 176 H (75-99) mg/dL
--- NOTE | 2021-02-08 13:06 | P.DS ---
Providers Date of admission: 01/23/21 13:31 Expected date of discharge: 02/08/21 Attending physician: Isabel Pratt MD Consults: 01/23/21 13:32 Consult Physician Routine Consulting Provider: aBndar Costello Consult Reason/Comments: covid pna Do you want consulting provider notified?: Yes 01/23/21 16:03 Consult Physician Routine Consulting Provider: Rafiq Rushing Consult Reason/Comments: encephalopathy Do you want consulting provider notified?: Yes 01/23/21 16:15 Consult Physician Routine Consulting Provider: Rohit John Consult Reason/Comments: DANIEL on CKD Do you want consulting provider notified?: Yes 01/26/21 11:36 Consult Physician Routine Consulting Provider: Mike Gordon Consult Reason/Comments: Peg insertion Do you want consulting provider notified?: Yes Primary care physician: Vee Mack [facility] Course: HISTORY OF PRESENT ILLNESS 85 years old female patient of Dr. Mack past medical history of hypertension hyperlipidemia coronary artery disease, chronic kidney disease unknown stage presents with increasing confusion and hypoxia from [facility]. Apparently patient was brought to the ER at [facility] on 01/17 for worsening confusion and flulike symptoms. Patient went home as was not able to be seen for her symptoms soon enough and called her primary care physician who ordered a CAT scan of the head. CAT scan of the head was negative and patient was brought back to the ER on 01/18 and was treated for COVID pneumonia. Patient was discharged to [facility] and was brought back to the ER 24- hour later for worsening shortness of breath.on evaluation in the ER patient is short of breath requiring 6 L of oxygen unable to answer any questions very drowsy on evaluation. She opens her eyes to question only to go back to sleep in a short while. Patient withdraws to pain but does not follow commands. No family member is present at bedside. Son was called multiple times but was unable to be reached. History is obtained through patient's and documentation by the ER. She has never been admitted in this hospital. Evaluation Suggests Hemoglobin Is 15.5 Platelet 185 INR 1 D-Dimer 2.1 Sodium 140 Potassium 4.9 Chloride 111 Bicarb 20 1B UN 53 Creatinine 2.2 Calcium Is 10.7 Magnesium 2.6 Lactic Acid 1.6 Alkaline Phosphatase 87, LDH 1076 CRP 20.8 Output (3.1. Pro-Chai citonin Is Pending. ProBNP Is Pending. Chest X-Ray suggested cardiomegaly and chronic parenchymal changes with right greater than left multifocal opacities metoprolol and suggestive of COVID-[address] head ordered to rule out acute stroke. Patient's home medication reconciled will hold torsemide, spironolactone. Nephrology course consult for possible end-stage renal disease. Unclear if patient is on him and on dialysis. Ultrasound of the renal obtained. neurology in consult for acute encephalopathy likely secondary to Covid. Patient does have underlying dementia?. We'll start patient on dexamethasone 6 mg IV every 12 hours. Start her on vitamin C, vitamin D and zinc. Pulmonary consulted for Covid pneumonia. 01/24 spoke to patient's son who did state that patient has underlying history of concussion and forgetfulness but no formal diagnosis of dementia has ever been made. She was speaking clearly and had no confusion 8 days ago. Patient had normal recovery of mental status after being discharged from the other hospital and transferred to [facility]. Son does suggest that patient has history of stent placement 3-4 years ago for coronary artery disease. She does follow nephrology as outpatient and has significant end-stage chronic kidney disease with plan to initiate hemodialysis if no improvement noted. On evaluation patient's mental status today patient's more responsive. She was refusing to eat. Swallow evaluation at bedside was not past. Patient continued to be on normal saline 75 mL per hour on evaluation patient's blood work sodium is 141 bicarb 18 creatinine 2.1 MCH slightly improved to 845 CRP is 18.9. Pro-calcitonin came at 0.6, TSH normal urinary analysis negative for any infection. Blood cultures negative continue remdesivir per pulmonary recommendations continue Decadron and elliquis . Hold Levemir 01/25: Patient has been seen by neurology with recommendations for ammonia level, TSH and vitamin B12 and folate. Patient continues to have significant confusion and MRI of the brain ordered. Patient is also been seen by pulmonary medicine with recommendations for continuing IV Decadron, patient was started on Remdesivir day #3/5. Patient is also followed by nephrology with plan to continue IV hydration and hold diuretics. Chest x-ray from yesterday revealed cardiomegaly and chronic parenchymal changes with right greater than left multifocal and confluent opacities mid to lower lung suggesting Covid 19 infection redemonstrated. No significant change. Renal ultrasound revealed bilateral renal atrophy. No obstructive calculus in the upper pole left kidney. No evidence of renal mass. No hydronephrosis. No bladder mass. CBC is unremarkable except for lymphocytes of 0.4. D-dimer 5.11. CO2 15, BUN 66 and creatinine 1.93. Blood sugars are running between 177 and 227. LDH 980. C- reactive protein 8.2. IV fluids are currently lactated Ringer's at 75 mL per ho ur,. 01/26: Patient continues to be unresponsive. No improvement of her mental status. Patient is currently a full code. [place] son Doug was contacted and was in agreement to change patient to a no CODE STATUS. Family is planning to do a virtual visit with her today. Also discussed PEG tube placement which they would like to pursue. Consult placed with general surgery. IV hydralazine as needed for blood pressure control. MRI of the brain revealed no acute findings of infarct. Moderate diffuse cerebral atrophy greatest over bilateral frontal lobes mild to moderate chronic small vessel ischemic change. KUB shows nonspecific findings. Patient had a small smear of bowel movement this morning only. Repeat blood work reveals WBC 9.4, hemoglobin 15.5, platelet count 223. D-dimer 5.51. Blood sugars running in the 300s area and Levemir 10 units at bedtime added as well as NovoLog 5 units every 6 hours. NovoLog scales been changed every 6 hours. Remdesivir day #4/5. 01/27: Patient's family came in yesterday to see her. She was made no code yesterday but they would like to pursue PEG tube. Patient was seen by Dr. Gordon and he wanted to evaluate for NG tube placement however patient is biting during oral care so she most likely would not be able be able to tolerate up NG tube. Discussed case with Dr. Mcmahan on an EEG ordered. We will plan to start patient on heparin drip for A. fib she has been off eliquis and PEG tube will most likely be placed tomorrow. Patient continues to be unresponsive and dexamethasone will be discontinued and nursing to avoid morphine to see if these changes will improve her mental status. Repeat chest x-ray correlate for pneumonia, edema. Patient has been afebrile, heart rate 73, blood pressure 130/73, pulse ox 94% on 3 L nasal cannula. Sodium 150, potassium 4.7, chloride 116, CO2 30, BUN 64 and creatinine 1.42. Blood sugar 304. Blood sugars have been running between 220 and 309. Patient was started on Levemir 10 units at bedtime last evening and will be increased to 15 units as patient is continued on dextrose 5% at 75 mL per hour. Scheduled NovoLog every 6 hours will be increased to 6 units and continue NovoLog scale. Patient is on REM to severe day #5/5. 01/28 patient examined bedside. Is opening eyes and is able to follow simple commands legs show her thumb or wiggle her toes. Hold PEG tube placement today. Have bedside swallow evaluation with plan to put Dobbhoff tube for nutrition for a few days before going forward with PEG tube. Let us assessment suggest temp of 97.8 pulse 69 respiratory rate 20 blood pressure 168/79. At suggest a leukocytosis of 11.9 hemoglobin 15.2, sodium 150, BUN 15 creatinine 1.6 glucose 288. D5W been continued at 75 mL per hour. Nutrition consult placed for entera l tube feeding. Lantus increased to 20 units at a chills. Continue NovoLog 6 units daily every 6 hours as patient is not having anything to eat. Continue to monitor mental status. 01/29 patient examined bedside. Very delayed response to the speech but patient seems to understand and respond. She does states"I'm okay"and lessens carefully to the conversation. Patient did have a speech evaluation yesterday and had a poor response to a half to a teaspoon of water trying. Patient was found coughing on an attempt to feed. Dobbhoff tube was placed which patient is tolerating well. Vitals signs of June pulse 69 respiratory rate 18 blood pressure 171/84 oxygen saturation 96% on 3 L of oxygen. Labs suggest a BUN of 49 and creatinine 1.25 which is improved compared to previous labs. Glucose still high at 260. A1c came is 9.5. Lantus increased to 25 units daily at bedtime. Amlodipine increased to 10 g by mouth daily. We will switch Eliquis and stop heparin Hold off patient's IV fluids. PTOT consulted with possible plan to discharge to subacute rehab once stabilized. Reassessment of nutrition status on Monday to evaluate for need for PEG tube 01/30: Patient examined at the bedside. She has delayed response to speech she is able to nod her head and answer questions appropriately. Patient is able to follow commands. She was evaluated by speech 2 days ago. And had a poor response to have a teaspoon of water. Patient currently has NG tube in place and receiving eternal feedings. Patient was reassessed for her nutrition status on Monday for possible PEG tube placement. 01/31: She was examined at bedside. She does have delayed response in speech. Able to nod head and answer some questions appropriately. Patient is able to follow some commands. She continues to have noted episodes of confusion. Patient was reevaluated by speech for consideration of a PEG tube. At this time NG tube is in place and receiving eternal feedings. 02/01: Patient still feeding via NG tube at this point. Patient be going for PEG tube respond to management overall still not good. Patient is still mildly hypoxic on O2 between 3-5 L. Still the plan to send patient to [facility] as soon as PEG tube is done and her oxygen level is decent on less than 5 L of O2. 02/02: Patient is scheduled for PEG tube placement today. Patient's O2 saturat ion 97% on 2 L via nasal cannula, vital signs are stable. Patient was noted to have urinary retention, Gan catheter placed last night with over 1000 ml's of urine. Urine is dark and cloudy, will send for UA and culture and obtain an ultrasound to rule out obstructive uropathy. Kidney function did trend up a little, Cr 1.6, BUN 55 02/03: Dr. Gordon attempted PEG tube placement yesterday but pulse ox dropped down to the 60s and due to need for intubation, procedure was stopped. Multiple attempts have been made to contact patient's son, Doug. Patient is receiving tube feedings through NG tube. Gan catheter has good urine output. Chest x-ray from yesterday revealed scattered infiltrates. Repeat blood work reveals WBC 9.3, hemoglobin 11.8, platelet count 140. Sodium 142, potassium 5.2, chloride 111, CO2 25, BUN 42, creatinine 1.3. Blood sugars running between 130 and 227. We will continue to attempt to reach family regarding plan. 02/04: Dr. Suárez spoke with the patient's sons yesterday and they were going to have a conversation and determine whether the make patient comfort care only. Patient's mental status is slightly worse from yesterday. She has been afebrile, heart rate 81, blood pressure 146/70, pulse ox 98% on 3 L nasal cannula. Blood sugars are running between 140 and 155. Urine culture is showing gram-negative bacilli. Patient has Gan catheter in place. Patient is on tube feedings through NG tube. 02/05: Family have decided on comfort care. Dobbhoff to be discontinued prior to discharge. All insulins will be discontinued as this morning patient is 55. She will not be receiving any tube feedings. Patient is refusing to take her oral medications. Patient will be discharged to [facility] under comfort care. 02/06: Awaiting comfort care or hospice consult. Patient not receiving any tube feedings at this time. She is refusing her oral medications. Patient has no IV access. The plan is for patient to be discharged to [facility]. 02/07: Covid test returned as positive. Patient no longer has IV access. She is tolerating meals without difficulty. We will continue oral feedings. We will repeat covert test on Monday to assist with patient to be discharged to [facility]. Patient is more awake today able to answer some questions appropriately. Only is alert to self. Patient remains afebrile, heart rate 69, respirations 20 and nonlabored, blood pressure 113/65 pulse ox 94% on room air. 02/08: Patient is slightly more awake and alert today but she has refused to take any of her medications and is refusing to eat.patient has been afebrile, heart rate 71, blood pressure 157/73, pulse ox 93% on room air. Blood sugars are running between 176 and 217. Repeat coronavirus is positive. manager transfusion and social worker health services following for discharge planning. Patient will be discharged to [facility] home today in stable condition. ASSESSMENT AND PLAN 1. Acute infectious metabolic encephalopathy likely secondary to Covid and Sepsis (POA) with underlying short term memory loss from previous concussion. Unknown if patient has underlying dementia. 2. Acute hypoxic respiratory failure secondary to Covid pneumonia. 3. Acute kidney injury over chronic kidney disease stage 5. 4. Sepsis secondary to Covid 19. 5. Hypothyroidism. 6. Diabetes mellitus type 2 uncontrolled with hyperglycemia secondary to steroids. 7. Hyperlipidemia. 8. Hypertension. 9. Generalized gout. 10. Paroxysmal atrial fibrillation. 11. Severe protein calorie malnutrition secondary to patient's inability to eat and no oral intake secondary to infectious encephalopathy from Covid 19. 12. Hypernatremia. 13. Urinary retention. 14. Coronary artery disease status post stents 34 years ago. DISCHARGE PLAN [facility]. Impression and plan of care have been directed as dictated by the signing physician. Lesly Núñez nurse practitioner acting as scribe for signing physician. Patient Condition at Discharge: Stable Plan - Discharge Summary Discharge Rx Participant: No New Discharge Prescriptions: Continue Levothyroxine Sodium [Synthroid] 50 mcg PO DAILY@0600 Carvedilol [Coreg] 25 mg PO BID@0900,1700 Apixaban [Eliquis] 2.5 mg PO BID@0900,1700 Isosorbide Dinitrate 30 mg PO DAILY amLODIPine [Norvasc] 5 mg PO DAILY Discontinued Insulin Lispro [humaLOG Kwikpen] 14 unit SQ AC-BID@1200,1700 Insulin Lispro [humaLOG Kwikpen] 12 unit SQ AC-BRKFST@0800 Torsemide [Demadex] 40 mg PO SUMOWEFR@0900 Mirtazapine [Remeron] 15 mg PO HS Ipratropium Eldred [Atrovent Hfa] 2 puff INHALATION RT-Q6H PRN PRN Reason: Cough/Shortness of Breath Torsemide [Demadex] 60 mg PO TUTHSA@0900 Spironolactone [Aldactone] 25 mg PO DAILY Atorvastatin [Lipitor] 40 mg PO HS Aspirin EC [Ecotrin Low Dose] 81 mg PO DAILY Allopurinol [Zyloprim] 100 mg PO DAILY Insulin Detemir [Levemir Flextouch] 40 units SQ HS Discharge Medication List Apixaban [Eliquis] 2.5 mg PO BID@0900,1700 01/23/21 [History] Carvedilol [Coreg] 25 mg PO BID@0900,1700 01/23/21 [History] Isosorbide Dinitrate 30 mg PO DAILY 01/23/21 [History] Levothyroxine Sodium [Synthroid] 50 mcg PO DAILY@0600 01/23/21 [History] amLODIPine [Norvasc] 5 mg PO DAILY 01/23/21 [History] Follow up Appointment(s)/Referral(s): Vee Mack MD [Primary Care Provider] - 1 Week (at [facility]) [facility] [NON-STAFF] - As Needed Patient Instructions/Handouts: Coronavirus Disease 2019 (COVID-19) Discharge Disposition: DISCH TO HOSPICE MED FACILTY
[2021-02-08 14:21] VITALS: BP 175/71; PULSE 68; RESP 20
== END 2021-02-08 15:11 | disposition hospice, inpatient (51) | DRG 871 ==
LOC: EC 11:18 → 1SOBS 13:31 → 4SSUR 01-24 23:22
PROVIDERS: ADMIT Internal Medicine; ATTEND Internal Medicine
PROC: XW033E5 Introduction of Remdesivir Anti-infective into Peripheral Vein, Percutaneous Approach, New Technology Group 5 (ICD-10-PCS; principal; 2021-01-23)
PROC: 3E0333Z Introduction of Anti-inflammatory into Peripheral Vein, Percutaneous Approach (ICD-10-PCS; 2021-01-23)
PROC: 3E0G76Z Introduction of Nutritional Substance into Upper GI, Via Natural or Artificial Opening (ICD-10-PCS; 2021-02-02)
PROC: 0DH63UZ Insertion of Feeding Device into Stomach, Percutaneous Approach (ICD-10-PCS; 2021-02-02)
DX: A41.89 Other specified sepsis (principal); U07.1 COVID-19; J12.82 Pneumonia due to coronavirus disease 2019; N18.6 End stage renal disease; G92 Toxic encephalopathy; J96.01 Acute respiratory failure with hypoxia; N17.0 Acute kidney failure with tubular necrosis; E43 Unspecified severe protein-calorie malnutrition; I48.20 Chronic atrial fibrillation, unspecified; E87.2 Acidosis; E87.0 Hyperosmolality and hypernatremia; I13.11 Hypertensive heart and chronic kidney disease without heart failure, with stage 5 chronic kidney disease, or end stage renal disease; Z51.5 Encounter for palliative care; E11.22 Type 2 diabetes mellitus with diabetic chronic kidney disease; F03.90 Unspecified dementia, unspecified severity, without behavioral disturbance, psychotic disturbance, mood disturbance, and anxiety; Z79.4 Long term (current) use of insulin; E11.65 Type 2 diabetes mellitus with hyperglycemia; Z66 Do not resuscitate; D72.810 Lymphocytopenia; Z79.01 Long term (current) use of anticoagulants; E78.5 Hyperlipidemia, unspecified; I25.10 Atherosclerotic heart disease of native coronary artery without angina pectoris; E03.9 Hypothyroidism, unspecified; I12.9 Hypertensive chronic kidney disease with stage 1 through stage 4 chronic kidney disease, or unspecified chronic kidney disease; Z87.820 Personal history of traumatic brain injury; M10.9 Gout, unspecified; Z95.5 Presence of coronary angioplasty implant and graft; Z79.899 Other long term (current) drug therapy; R53.81 Other malaise; Z79.82 Long term (current) use of aspirin; Z79.890 Hormone replacement therapy; J32.0 Chronic maxillary sinusitis; T38.0X5A Adverse effect of glucocorticoids and synthetic analogues, initial encounter; E86.0 Dehydration; R33.9 Retention of urine, unspecified; R31.9 Hematuria, unspecified; I48.0 Paroxysmal atrial fibrillation; Z68.31 Body mass index [BMI] 31.0-31.9, adult; Z88.2 Allergy status to sulfonamides
CPT/HCPCS: 36415; 43246; 70450; 70551; 71045; 74018; 76770; 80048; 80053; 81001; 82140; 82607; 82728; 82746; 83036; 83605; 83615; 83735; 83880; 84145; 84443; 85025; 85027; 85379; 85610; 85730; 86140; 87040; 87077; 87086; 87186; 87635; 93005; 93970; 94760; 95816; 99285